=== PATIENT | male | born 1975 | race Caucasian/White ===

== ENCOUNTER 2021-06-09 13:37 | Inpatient (IN) | payer OTHER, SELFPAY ==
[2021-06-09] MEDS ORDERED: Ringers Lactate 1,000 ML IV ONE (14:28)
--- NOTE | 2021-06-09 14:50 | RAD REPORT ---
EXAM DESCRIPTION: CT - Head Brain Wo Cont - 06/09/2021 2:26 pm CLINICAL HISTORY: Mental status change, unknown cause COMPARISON: No comparisons TECHNIQUE: All CT scans are performed using dose optimization technique as appropriate and may inclu de automated exposure control or mA/KV adjustment according to patient size. FINDINGS: No intracranial hemorrhage, hydrocephalus or extra-axial fluid collection.No areas of brai n edema or evidence of midline shift. The paranasal sinuses and mastoids are clear. The calvarium is intact. IMPRESSION: No acute intracranial abnormality.
--- NOTE | 2021-06-09 14:52 | RAD REPORT ---
EXAM DESCRIPTION: RAD - Chest Single View - 06/09/2021 2:42 pm CLINICAL HISTORY: ams COMPARISON: No comparisons FINDINGS: Lines: None. Lungs: Mild opacities medially within the right lung base. Pleural: No significant pleural effusions or pneumothorax. Cardiac: The heart size is within normal limits. Bones: No acute fractures. Other: IMPRESSION: Mild opacities medially within the right lung base may represent atelectasis or pneumoni tis.
[2021-06-09 15:38] LABS: Protime INR 1.73
[2021-06-09] MEDS ORDERED: LORazepam 2 MG/ML VIAL ONE ×3 (15:43→20:06)
[2021-06-09 15:46] LABS: Absolute Lymphocytes (CBC) 1.7 K/uL (0.7-4.9); Hematocrit 36.7 % (39.6-49.0); Lymphocytes % 10.1 % (15.3-44.8); MPV 10.3 fL (7.6-11.3); RBC Red Blood Cell Count 3.75 M/uL (4.33-5.43)
[2021-06-09 16:11] LABS: Albumin 1.7 g/dL (3.4-5.0); Bilirubin Direct 7.9 mg/dL (0-0.2); Protein, Total 7.3 g/dL (6.4-8.2); Troponin High Sensitivity 6.5 pg/mL (<58.9)
[2021-06-09 16:22] LABS: Bilirubin Total 10.3 mg/dL (0.2-1.0); Magnesium 1.2 mg/dL (1.8-2.4); Potassium 2.7 mmol/L (3.5-5.1)
[2021-06-09 16:28] LABS: SARS-COV-2 RT PCR NEGATIVE (NEGATIVE)
[2021-06-09] MEDS ORDERED: KCL 20 MEQ/100 mL IVPB 100 ML IV ONE (17:52)
[2021-06-09] MEDS ORDERED: LACTULOSE 20 GM/30 ML UCUP ONE (17:52)
--- NOTE | 2021-06-09 17:55 | RAD REPORT ---
EXAM DESCRIPTION: CTAbdomen Pelvis W Contrast - 06/09/2021 5:39 pm CLINICAL HISTORY: Nausea/vomiting COMPARISON: No comparisons TECHNIQUE: CT of the abdomen and pelvis was performed. All CT scans are performed using dose optimization technique as appropriate and may include automated exposure control or mA/KV adjustment according to patient size. FINDINGS: Lower chest: Scattered coronary artery calcifications. Thickened distal esophagus. Liver: Hepatomegaly with significant steatosis. Perihepatic fluid. Biliary: No biliary ductal dilatation. Distended gallbladder. Stomach: Question gastric wall thickening versus underdistention. Duodenum: No significant focal abnormality. Pancreas: Poorly evaluated pancreas due to motion. There are some cystic lesions at the pancreatic ne ck and head have not well characterized. There are also some calcifications near the pancreatic head. The largest measures 2.1 cm. Spleen: No significant abnormality. Adrenal: No suspicious lesions. Kidney/ureter: No hydronephrosis. No renal calculi. Retroperitoneum: No retroperitoneal adenopathy. Vascular: No aneurysm. Bowel: Diffuse colonic wall thickening.. No bowel obstruction. No appendicitis . Peritoneum: Small volume of ascites. Bladder: Grossly unremarkable. Reproductive: No adnexal masses. Bones: No acute fracture. Other: n/a IMPRESSION: Hepatomegaly with marked hepatic steatosis. Correlate for steatohepatitis. Diffuse colonic wall thickening is nonspecific and may be related to hepatic decompensation versus a nonspecific colitis. The pancreas is not well assessed. There are 2 cystic lesions, the largest measuring 2.1 cm. Suggest nonemergent pancreatic protocol CT or MRI when the patient's condition permits.
[2021-06-09 18:27] LABS: Blood Morphology Comment NOT SEEN (NOT SEEN); Platelet Estimate ADEQ; Toxic Granulation 3+; White Blood Cell Scan OK (OK)
--- NOTE | 2021-06-09 18:31 | ER ---
Nurse's Notes [facility] Name: Tony Bush Age: 45 yrs Sex: Male : 1975 Arrival Date: 06/09/2021 Time: 13:40 Bed 28 Private MD: Diagnosis: Unspecified cirrhosis of liver;Altered mental status, unspecified;Pneumonia;Hypokalemia;Hypocalcemia;Hepatic Encephalopathy Presentation: 06/09 13:46 Chief complaint: EMS states: SAID HE'S MORE CONFUSED. Coronavirus screen: At this bp time, the client does not indicate any symptoms associated with coronavirus-19. Ebola Screen: No symptoms or risks identified at this time. Initial Sepsis Screen: Does the patient meet any 2 criteria? Altered Mental Status. No. Patient's initial sepsis screen is negative. Does the patient have a suspected source of infection? No. Patient's initial sepsis screen is negative. Risk Assessment: Do you want to hurt yourself or someone else? Patient reports no desire to harm self or others. Onset of symptoms is unknown. Care prior to arrival: IV initiated. 20 GA, in the left antecubital area, Glucose check: 175. 13:46 Method Of Arrival: EMS: [facility] bp 13:46 Acuity: MAYTE 3 bp Triage Assessment: 13:48 General: Appears in no apparent distress. unkempt, Behavior is cooperative, CONFUSED. bp Pain: Denies pain. EENT: Sclera/Cornea JAUNDICED. Neuro: Level of Consciousness is awake, obeys commands, confused, Oriented to person. Cardiovascular: No deficits noted. Respiratory: No deficits noted. GI: No signs and/or symptoms were reported involving the gastrointestinal system. : No signs and/or symptoms were reported regarding the genitourinary system. Derm: Skin is jaundiced. Musculoskeletal: No deficits noted. Historical: - Allergies: 13:48 No Known Allergies; bp - Home Meds: 13:48 Unable to obtain [Active]; bp - PMHx: 13:48 Cirrhosis of liver; Diabetes mellitus; bp - Immunization history:: Adult Immunizations unknown. - Social history:: Smoking status: unknown. Screenin:50 Abuse screen: Denies threats or abuse. Denies injuries from another. Nutritional bp screening: No deficits noted. Tuberculosis screening: No symptoms or risk factors identified. Fall Risk None identified. Assessment: 13:50 General: SEE TRIAGE NOTE. bp 15:30 Reassessment: PT AGITATED, ATTEMPTING TO EXIT BED. PT AOx0, EXHIBITING NO SAFETY bp AWARENESS, REQUIRING PHYSICAL REDIRECTION TO REMAIN IN BED. 16:30 Reassessment: No changes from previously documented assessment. bp 18:00 Reassessment: COMBATIVE WITH CT STAFF. PROVIDER INFORMED. ke1 18:50 Reassessment: U/S AT B/S. ke1 Vital Signs: 13:46 BP 137 / 82; Pulse 82; Resp 16; Temp 98; Pulse Ox 96% ; bp 13:51 BP 101 / 79; Pulse 77; Resp 16; Pulse Ox 95% ; bp 15:33 BP 108 / 73; Pulse 75; Resp 16; Pulse Ox 95% ; bp 16:37 BP 108 / 72; Pulse 80; Resp 16; Pulse Ox 95% ; bp 18:30 BP 90 / 66; Pulse 68; Resp 16; Pulse Ox 97% ; ke1 06/13 03:39 BP 138 / 82; Pulse 49; Resp 13; Pulse Ox 98% on R/A; wm 06:36 BP 134 / 90; Pulse 49; Resp 9; Pulse Ox 100% on R/A; wm ED Course: 06/09 13:40 Patient arrived in ED. em1 13:40 Mickey Rivas PA is PHCP. jmm 13:40 Catracho Chapman MD is Attending Physician. jmm 13:41 Corbin Duran, MARYA is Primary Nurse. bp 13:47 Triage completed. bp 13:50 Arm band placed on. bp 13:50 Patient has correct armband on for positive identification. Bed in low position. Call bp light in reach. Side rails up X2. Adult w/ patient. 13:50 Maintain EMS IV. Dressing intact. Good blood return noted. Site clean \T\ dry. Gauge \T\ bp site: 20 G LEFT AC. 14:28 CT Head Brain wo Cont In Process Unspecified. EDMS 14:44 XRAY Chest (1 view) In Process Unspecified. EDMS 15:18 Inserted saline lock: 22 gauge in right hand, using aseptic technique. Blood collected. mb7 17:41 CT Abd/Pelvis - IV Contrast Only In Process Unspecified. EDMS 18:29 Saleem Ho MD is Hospitalizing Provider. jmm 19:21 Abdomen Limited US In Process Unspecified. EDMS 06/11 13:04 No provider procedures requiring assistance completed. jg9 13:05 Patient admitted, IV remains in place. jg9 18:01 Primary Nurse role handed off by Corbin Duran, MARYA 06/12 07:10 Madeline De La Paz, MARYA is Primary Nurse. [facility] 06/13 16:44 Accessed peripheral vein via ultrasound, utilizing dynamic ultrasound technique using jd3 18G Sureflo IV catheter ,sterile technique, per hospital protocol. Clean \T\ dry. Dressing intact. Good blood return. Flushes easily. Right AC. Administered Medications: 06/09 14:15 Drug: Lactated Ringers Solution 1000 ml Route: IV; Rate: 1000 bolus; Site: left bp antecubital; 15:45 Drug: Ativan (LORazepam) 1 mg Route: IVP; Site: left antecubital; bp 16:37 Follow up: Response: Anxiety decreased bp 18:30 Drug: Potassium Chloride 20 mEq Route: IV; Rate: calculated rate; Site: left hand; bp 18:30 Drug: Lactulose 30 grams Volume: 45 ml; Route: PO; bp 18:30 Drug: Ativan (LORazepam) 1 mg Route: IVP; Site: left antecubital; bp 19:55 Drug: Rocephin (cefTRIAXone) 1 grams Route: IV; Rate: calculated rate; Site: left ke1 antecubital; 21:15 Follow up: IV Status: Completed infusion ke1 21:15 Follow up: Response: No adverse reaction ke1 19:55 CANCELLED (Inappropriate at this time): AZITHromycin 500 mg PO once ke1 20:09 Drug: Ativan (LORazepam) 0.5 mg Route: IVP; Site: left antecubital; ke1 20:09 Drug: AZITHromycin 500 mg Route: IVPB; Infused Over: 1 hrs; Site: left antecubital; ke1 21:15 Follow up: Response: No adverse reaction; IV Status: Completed infusion ke1 21:28 Drug: Magnesium Sulfate 2 grams Route: IVPB; Infused Over: 2 hrs; Site: left ke1 antecubital; Outcome: 18:31 Decision to Hospitalize by Provider. [facility] 06/11 13:04 Condition: stable jg9 13:05 Admitted to ER Hold. Please see [facility] for further documentation. j9 06/13 19:57 Patient left the ED. fu Signatures: Dispatcher [employer] EDMS Alba Topete Joel, PA PA jmm Martinez, Eric em1 Davies, Jonathon, RN RN jd3 Chance Willson, RN RN fu Corbin Duran RN Madeline Jordan, RN RN [facility] Isha Verdin [place] [id number] Lucretia Henao RN RN jg9 Diandra Burleson RN RN ke1
--- NOTE | 2021-06-09 18:32 | EDPHYS ---
Physician Documentation [facility] Name: Tony Bush Age: 45 yrs Sex: Male : 1975 Arrival Date: 06/09/2021 Time: 13:40 Bed 28 Private MD: ED Physician Catracho Chapman HPI: 06/09 13:49 This 45 yrs old Male presents to ER via EMS with complaints of Altered Mental Status. jmm 13:49 The patient presents with confusion, decreased mental status, disorientation, to place, jmm to time. Onset: The symptoms/episode began/occurred gradually, 2 day(s) ago. Possible causes: low blood sugar, the patient uses insulin. Associated signs and symptoms: Pertinent positives: confusion, Pertinent negatives: abdominal pain, chest pain. This is a 45 year old male with a history of liver cirrhosis that presents to the ED with ams according to the . States the patient has had slurred speech and decreased responsiveness. States the patient had a similar episode when he was in DKA. . Historical: - Allergies: 13:48 No Known Allergies; bp - Home Meds: 13:48 Unable to obtain [Active]; bp - PMHx: 13:48 Cirrhosis of liver; Diabetes mellitus; bp - Immunization history:: Adult Immunizations unknown. - Social history:: Smoking status: unknown. ROS: 13:49 Constitutional: Negative for fever, chills, and weight loss, Cardiovascular: Negative jmm for chest pain, palpitations, and edema, Respiratory: Negative for shortness of breath, cough, wheezing, and pleuritic chest pain, Abdomen/GI: Negative for abdominal pain, nausea, vomiting, diarrhea, and constipation. 13:49 Neuro: Positive for altered mental status. 13:49 All other systems are negative. Exam: 13:49 Head/Face: atraumatic. Eyes: EOMI, no conjunctival erythema appreciated ENT: Moist jmm Mucus Membranes Neck: Trachea midline, Supple Chest/axilla: Normal chest wall appearance and motion. Cardiovascular: Regular rate and rhythm. No edema appreciated Respiratory: Normal respirations, no respiratory distress appreciated Abdomen/GI: Non distended, soft Back: Normal ROM Skin: General appearance color normal 13:49 Constitutional: The patient appears alert, awake. 13:49 Musculoskeletal/extremity: ROM: intact in all extremities. 13:49 Skin: Appearance: Color: normal in color. 13:49 Neuro: Motor: is normal. Vital Signs: 13:46 BP 137 / 82; Pulse 82; Resp 16; Temp 98; Pulse Ox 96% ; bp 13:51 BP 101 / 79; Pulse 77; Resp 16; Pulse Ox 95% ; bp 15:33 BP 108 / 73; Pulse 75; Resp 16; Pulse Ox 95% ; bp 16:37 BP 108 / 72; Pulse 80; Resp 16; Pulse Ox 95% ; bp 18:30 BP 90 / 66; Pulse 68; Resp 16; Pulse Ox 97% ; ke1 06/13 03:39 BP 138 / 82; Pulse 49; Resp 13; Pulse Ox 98% on R/A; wm 06:36 BP 134 / 90; Pulse 49; Resp 9; Pulse Ox 100% on R/A; wm MDM: 06/09 13:49 Patient medically screened. [facility] 16:37 Data reviewed: vital signs, nurses notes. Counseling: I had a detailed discussion with [facility] the patient and/or guardian regarding: the historical points, exam findings, and any diagnostic results supporting the discharge/admit diagnosis, lab results, the need for further work-up and treatment in the hospital. 18:28 ED course: I discussed the patient with Dr. Mcintosh and Camilo Akbar. Recommended [facility] consultation with Dr. Rothman. I discussed the patient with Dr. Rothman whom will consult on patient admission. Camilo advised to admit to Dr. Oneill's service. . 06/09 13:51 Order name: Basic Metabolic Panel; Complete Time: 16:30 [facility] 06/09 13:51 Order name: CBC with Diff; Complete Time: 18:31 [facility] 06/09 13:51 Order name: LFT's; Complete Time: 16:30 [facility] 06/09 13:51 Order name: Magnesium; Complete Time: 16:30 [facility] 06/09 13:51 Order name: PT-INR; Complete Time: 15:45 [facility] 06/09 13:51 Order name: Troponin HS; Complete Time: 16:30 [facility] 06/09 13:51 Order name: AMMONIA; Complete Time: 16:13 [facility] 06/09 13:51 Order name: Procalcitonin; Complete Time: 16:30 [facility] 06/09 13:51 Order name: Lactate; Complete Time: 16:14 [facility] 06/09 13:51 Order name: Blood Culture Adult (2) [facility] 06/09 13:56 Order name: COVID-19/FLU A+B (Document "Date of Onset" if Symptomatic); Complete Time: [facility] 16:30 06/09 15:15 Order name: Urine Drug Screen [facility] 06/09 18:15 Order name: Lipase; Complete Time: 18:39 [facility] 06/09 18:25 Order name: ETOH Level; Complete Time: 20:08 la1 06/09 18:28 Order name: CBC Smear Scan; Complete Time: 18:31 EDMS 06/10 04:28 Order name: CBC with Automated Diff; Complete Time: 12:29 EDMS 06/10 04:49 Order name: Comprehensive Metabolic Panel; Complete Time: 12:29 EDMS 06/10 04:49 Order name: Phosphorus; Complete Time: 12:29 EDMS 06/10 04:49 Order name: Lipid Profile; Complete Time: 12:29 EDMS 06/10 04:49 Order name: T4 Free; Complete Time: 12:29 EDMS 06/10 04:49 Order name: Magnesium; Complete Time: 12:29 EDMS 06/10 04:49 Order name: Lipase; Complete Time: 12:29 EDMS 06/10 04:49 Order name: Thyroid Stimulating Hormone; Complete Time: 12:29 EDMS 06/10 04:55 Order name: Manual Differential; Complete Time: 12:29 EDMS 06/10 09:40 Order name: Glucose, Ancillary Testing; Complete Time: 12:29 EDMS 06/10 14:39 Order name: Glucose, Ancillary Testing; Complete Time: 14:54 EDMS 06/10 14:43 Order name: Gram Stain--Aerobic Bottle EDMS 06/10 14:43 Order name: Gram Stain--Anaerobic Bottle EDMS 06/10 14:46 Order name: Gram Stain--Aerobic Bottle EDMS 06/10 14:46 Order name: Gram Stain--Anaerobic Bottle EDMS 06/10 17:14 Order name: Protime (+INR); Complete Time: 17:22 EDMS 06/10 21:22 Order name: Glucose, Ancillary Testing EDMS 06/11 04:22 Order name: CBC with Automated Diff EDMS 06/11 04:38 Order name: Comprehensive Metabolic Panel EDMS 06/11 04:38 Order name: Phosphorus EDMS 06/11 04:38 Order name: Magnesium EDMS 06/11 04:38 Order name: Lipase EDMS 06/11 05:15 Order name: Manual Differential EDMS 06/11 09:08 Order name: Glucose, Ancillary Testing EDMS 06/11 10:19 Order name: Protime (+INR) EDMS 06/11 13:12 Order name: Glucose, Ancillary Testing EDMS 06/11 17:10 Order name: Glucose, Ancillary Testing EDMS 06/12 00:20 Order name: Glucose, Ancillary Testing EDMS 06/12 04:43 Order name: Urine Dipstick-Ancillary EDMS 06/12 05:08 Order name: Urinalysis EDMS 06/12 05:18 Order name: Urine Microscopic Only EDMS 06/12 05:26 Order name: CBC with Automated Diff EDMS 06/12 06:01 Order name: Ammonia EDMS 06/12 06:09 Order name: Comprehensive Metabolic Panel EDMS 06/12 06:09 Order name: Phosphorus EDMS 06/12 06:09 Order name: NT PRO-BNP EDMS 06/12 06:09 Order name: Magnesium EDMS 06/12 06:09 Order name: Lipase EDMS 06/12 06:57 Order name: Procalcitonin EDMS 06/12 08:30 Order name: Glucose, Ancillary Testing EDMS 06/12 10:06 Order name: Protime (+INR) EDMS 06/12 12:13 Order name: Glucose, Ancillary Testing EDMS 06/12 20:43 Order name: Glucose, Ancillary Testing EDMS 06/12 20:48 Order name: Glucose, Ancillary Testing EDMS 06/13 05:55 Order name: CBC with Automated Diff EDMS 06/13 08:14 Order name: Glucose, Ancillary Testing EDMS 06/13 08:16 Order name: Basic Metabolic Panel EDMS 06/09 13:51 Order name: XRAY Chest (1 view); Complete Time: 14:53 jmm 06/09 13:51 Order name: EKG; Complete Time: 13:52 jmm 06/09 13:51 Order name: Cardiac monitoring; Complete Time: 13:52 jmm 06/09 13:51 Order name: IV Saline Lock; Complete Time: 14:09 jmm 06/09 13:51 Order name: O2 Per Protocol; Complete Time: 13:52 jmm 06/09 13:51 Order name: O2 Sat Monitoring; Complete Time: 13:52 [facility] 06/09 13:54 Order name: CT Head Brain wo Cont; Complete Time: 14:53 [facility] 06/09 16:46 Order name: CT Abd/Pelvis - IV Contrast Only; Complete Time: 18:02 [facility] 06/09 18:57 Order name: Abdomen Limited US; Complete Time: 19:36 la1 06/13 08:16 Order name: Liver (Hepatic) Function EDKY 06/13 08:16 Order name: Magnesium EDKY 06/13 11:01 Order name: Potassium EDMS 06/13 11:35 Order name: Glucose, Ancillary Testing EDMS 06/13 18:03 Order name: Glucose, Ancillary Testing EDMS 06/13 19:27 Order name: Hepatitis Panel,Acute EDMS Administered Medications: 14:15 Drug: Lactated Ringers Solution 1000 ml Route: IV; Rate: 1000 bolus; Site: left bp antecubital; 15:45 Drug: Ativan (LORazepam) 1 mg Route: IVP; Site: left antecubital; bp 16:37 Follow up: Response: Anxiety decreased bp 18:30 Drug: Potassium Chloride 20 mEq Route: IV; Rate: calculated rate; Site: left hand; bp 18:30 Drug: Lactulose 30 grams Volume: 45 ml; Route: PO; bp 18:30 Drug: Ativan (LORazepam) 1 mg Route: IVP; Site: left antecubital; bp 19:55 Drug: Rocephin (cefTRIAXone) 1 grams Route: IV; Rate: calculated rate; Site: left ke1 antecubital; 21:15 Follow up: IV Status: Completed infusion ke1 21:15 Follow up: Response: No adverse reaction ke1 19:55 CANCELLED (Inappropriate at this time): AZITHromycin 500 mg PO once ke1 20:09 Drug: Ativan (LORazepam) 0.5 mg Route: IVP; Site: left antecubital; ke1 20:09 Drug: AZITHromycin 500 mg Route: IVPB; Infused Over: 1 hrs; Site: left antecubital; ke1 21:15 Follow up: Response: No adverse reaction; IV Status: Completed infusion ke1 21:28 Drug: Magnesium Sulfate 2 grams Route: IVPB; Infused Over: 2 hrs; Site: left ke1 antecubital; Disposition Summary: 06/09/21 18:31 Hospitalization Ordered Hospitalization Status: Inpatient Admission jmm Provider: Saleem Ho Condition: Stable jmm Problem: new jmm Symptoms: are unchanged jmm Bed/Room Type: Standard jmm Location: Telemetry/MedSurg (Inpatient)(06/13/21 18:07) dw Room Assignment: 213(06/13/21 18:07) dw Diagnosis - Unspecified cirrhosis of liver jmm - Altered mental status, unspecified jmm - Pneumonia jmm - Hypokalemia jmm - Hypocalcemia jmm - Hepatic Encephalopathy jmm Forms: - Medication Reconciliation Form jmm - SBAR form jmm Addendum: 06/15/2021 07:51 Co-signature as Attending Physician, Catracho Chapman MD I agree with the assessment and c [facility] plan of care. Signatures: Dispatcher [employer] EDMS Alba Topete Diana, RN Catracho Allen MD MD cha Mickail, Joel, JOYCE PA jmm Camilo Akbar, CUSTOMER TRAINER-C CUSTOMER TRAINER-Cla1 Zulay Lambert, RN RN cg Adrien Cabrera, RN RN ja1 Corbin Duran, RN RN Diandra Starkey, RN RN ke1 Corrections: (The following items were deleted from the chart) 06/09 17:27 16:46 Abdomen Limited+US.RAD.BRZ ordered. EDKY EDMS 18:51 18:31 Telemetry/MedSurg (Inpatient) jmm la1 18:51 18:31 jmm la1 19:55 18:24 AZITHromycin 500 mg PO once ordered. jmm ke1 20:12 18:51 Intensive Care Unit la1 cg 20:12 18:51 la1 cg 06/11 12:27 06/09 20:12 [facility] ER HOLD cg bd 06/11 12:27 06/09 20:12 ERHOLD- cg bd 06/11 13:40 12:27 Intensive Care Unit bd ja1 13:40 12:27 8- bd ja1 06/13 18:07 06/11 13:40 [facility] ER HOLD ja1 dw 06/13 18:07 06/11 13:40 ERHOLD- ja1 dw
--- NOTE | 2021-06-09 19:33 | RAD REPORT ---
EXAM DESCRIPTION: US - Abdomen Exam Limited - 06/09/2021 7:20 pm CLINICAL HISTORY: Elev. T/Dbilil, distended gallbladder COMPARISON: Chest Pa And Lat (2 Views) dated 09/27/2016; Chest Pa And Lat (2 Views) dated 08/18/2016; C HEST PA AND LAT 2 VIEW dated 10/24/2010; CHEST PA AND LAT 2 VIEW dated 01/14/2008bdomen Pelvis W Co ntrast dated 06/09/2021 FINDINGS: Distended gallbladder with sludge. Gallbladder wall measures 2 millimeters. Mild perichole cystic fluid. The common bile duct was not visualized. Hepatic steatosis. IMPRESSION: Distended gallbladder but no evidence of cholelithiasis or wall thickening. Mild pericho lecystic fluid probably related to presence of ascites and underlying liver disease. Cholecystitis co nsidered unlikely. If there is persistent clinical concern, a HIDA scan could confirm cystic duct pat ency.
[2021-06-09] MEDS ORDERED: NA CHLORIDE 0.9% 50 ML ONE (19:46)
[2021-06-09] MEDS ORDERED: CEFTRIAXONE 1000 MG/VIAL ONE (19:46)
[2021-06-09] MEDS ORDERED: AZITHROMYCIN 500 MG INJ IVPB ONE (20:01)
[2021-06-09] MEDS ORDERED: NA CHLORIDE 0.9% 250 ML ONE (20:01)
--- NOTE | 2021-06-09 20:25 | P.HP ---
Certification for Inpatient Patient admitted to: Inpatient With expected LOS: >2 Midnights Patient will require the following post-hospital care: None Practitioner: I am a practitioner with admitting privileges, knowledge of patient current condition, hospital course, and medical plan of care. Services: Services provided to patient in accordance with Admission requirements found in Title 42 Section 412.3 of the Code of Federal Regulations <Camilo Akbar - Last Filed: 06/09/21 20:16> Patient History Date of Service: 06/09/21 Reason for admission: Acute hepatic failure History of Present Illness: 45-year-old male was brought into the emergency department for altered mental status, his fiance is present at bedside who reports that he has a history of diabetes mellitusinsulin-dependent, chronic pancreatitis as well as questionable liver disease related to chronic alcohol abuse. She reports that he drinks approximately 1 handle of vodka every other day and his last drink was 2 days ago. He has had decreased mentation over the course of the last 24 to 48 hours. He was evaluated in the ER found to be have acute hepatic failure, multiple electrolyte abnormalities, hyperammonemia, leukocytosis. He had CT abdomen pelvis performed which demonstrated hepatomegaly with marked hepatic steatosis correlate for steatohepatitis, diffuse colonic wall thickening, 2 cystic lesions the largest measuring 2.1 cm on the pancreas, abdominal ultrasound demonstrated distended gallbladder but no evidence of cholelithiasis or wall thickening mild pericholecystic fluid probably related the presence of ascites and underlying liver disease, cholecystitis unlikely. Head CT without contrast negative for acute findings chest x-ray demonstrated mild opacities medially within the lung base may represent atelectasis or pneumonitis. Patient was given IV antibiotics, lactulose in the ER emergency department provider discussed case with GI on-call who will consult, will need to admit to the ICU given mental status, risk for severe alcohol withdrawal at this time. - Past Medical/Surgical History -: Diabetes mellitus type 2insulin-dependent -: Alcoholic cirrhosis of liver -: Chronic pancreatitis Past Surgical History: Unable to obtain Psychosocial/ Personal History: Patient lives at home with his fiance - Family History Father History Unknown: Yes - Social History Smoking Status: Current every day smoker Smoking therapy provided: No (Patient altered) Alcohol use: Yes CD- Drugs: No Caffeine use: Yes Place of Residence: Home <Camilo Akbar - Last Filed: 06/09/21 20:16> Date of Service: 06/10/21 <Saleem Ho - Last Filed: 06/10/21 08:33> Review of Systems is unable to be obtained (Altered) <Camilo Akbar - Last Filed: 06/09/21 20:16> Physical Examination - Physical Exam General: Confused, Other (Lethargic) HEENT: Atraumatic, Scleral icterus Neck: Supple Respiratory: Diminished Cardiovascular: No edema, Normal S1 S2 Capillary refill: <2 Seconds Gastrointestinal: Normal bowel sounds, No tenderness Musculoskeletal: No contractures, No erythema, No tenderness Integumentary: No significant lesion, No tenderness/swelling, No erythema Neurological: Other (Very drowsy, confused. Moving all extremities alert to verbal stimulus.) - Studies Laboratory Data (last 24 hrs) 06/09/21 15:00: Lipase 121 06/09/21 15:00: PT 19.2 H, INR 1.73 06/09/21 15:00: WBC 16.8 H, Hgb 12.2 L, Hct 36.7 L, Plt Count 204 06/09/21 15:00: Sodium 134 L, Potassium 2.7 L*, BUN 17, Creatinine 1.25, Glucose 131 H, Magnesium 1.2 L*, Total Bilirubin 10.3 H*, AST 202 H, ALT 37, Alkaline Phosphatase 376 H <Camilo Akbar - Last Filed: 06/09/21 20:16> - Studies Laboratory Data (last 24 hrs) 06/09/21 15:00: Lipase 121 06/09/21 15:00: PT 19.2 H, INR 1.73 06/09/21 15:00: WBC 16.8 H, Hgb 12.2 L, Hct 36.7 L, Plt Count 204 06/09/21 15:00: Sodium 134 L, Potassium 2.7 L*, BUN 17, Creatinine 1.25, Glucose 131 H, Magnesium 1.2 L*, Total Bilirubin 10.3 H*, AST 202 H, ALT 37, Alkaline Phosphatase 376 H <Saleem Ho - Last Filed: 06/10/21 08:33> Assessment and Plan - Plan Assessment: Hepatic encephalopathy secondary to acute hepatic failure/alcoholic cirrhosis of the liver with hyperammonemia Diabetes mellitus type 2insulin-dependent Chronic pancreatitis with incidental CT finding cystic masses on pancreas largest 2.1 cm Suspected right lower lobe pneumonia Hypokalemia, hypomagnesemia, hypocalcemia Plan: Hepatic encephalopathy secondary to acute hepatic failure/alcoholic cirrhosis of the liver with hyperammonemia: Continue with scheduled lactulose, GI has been consulted. Destini reports the patient drinks approximately 1 handle of vodka every other day last drink was reportedly on . We will need to monitor closely for alcohol withdrawals, destini reports that patient has had significant alcohol withdrawals in the past. ED provider discussed case with GI who will see patient in the hospital. CT/ultrasound do not note any significant CBD dilatation, no signs of acute cholecystitis noted. Diabetes mellitus reportedly onus type 2insulin-dependent: Every 6 hours Accu- Chek, mild sliding scale insulin. A1c in the morning. Chronic pancreatitis with incidental CT finding cystic masses on pancreas largest 2.1 cm: Incidental finding on CT, unable to discuss with patient at this time as he is altered we will need to notify patient when he is more arousable. Suspected right lower lobe pneumonia: Continue broad-spectrum antibiotics Rocephin/Zithromax, incentive spirometry. Hypokalemia, hypomagnesemia, hypocalcemia: Protocols in place, corrected calcium 7.9. DVT PPX: Lovenox Code status: Full Discharge Plan: Home Plan to discharge in: Greater than 2 days - Advance Directives Does patient have a Living Will: No Does patient have a Durable POA for Healthcare: No - Code Status/Comfort Care Code Status Assessed: Yes (Full code) Critical Care: No Time Spent Managing Pts Care (In Minutes): 55 <Camilo Akbar - Last Filed: 06/09/21 20:16>
[2021-06-09] MEDS ORDERED: Magnesium Sulfate 2gm IVPB 2 G/50 ML BAG IV ONE (21:21)
[2021-06-10] MEDS: D5 0.45 NS 1,000 ML IV SCH ×3 (01:25→21:25)
[2021-06-10] MEDS: LACTULOSE 20 GM/30 ML UCUP PO SCH ×5 (01:25→21:00)
[2021-06-10] MEDS: LORazepam 2 MG/ML VIAL IV PRN ×7 (01:33→21:00)
[2021-06-10] MEDS ORDERED: LORazepam 2 MG/ML VIAL ONE ×6 (01:34→20:53)
[2021-06-10] MEDS ORDERED: D5 0.45 NS 1,000 ML IV ONE ×3 (02:49→22:17)
[2021-06-10] MEDS ORDERED: LACTULOSE 20 GM/30 ML UCUP ONE ×6 (03:13→20:30)
[2021-06-10 04:27] LABS: Hematocrit 35.5 % (39.6-49.0); RBC Red Blood Cell Count 3.64 M/uL (4.33-5.43)
[2021-06-10 04:42] LABS: Albumin 1.6 g/dL (3.4-5.0); Magnesium 1.8 mg/dL (1.8-2.4); Protein, Total 6.8 g/dL (6.4-8.2); Thyroid Stimulating Hormone 2.64 uIU/mL (0.360-3.740)
[2021-06-10 04:48] LABS: Bilirubin Total 9.5 mg/dL (0.2-1.0); Phosphorus 0.8 mg/dL (2.5-4.9); Potassium 2.8 mmol/L (3.5-5.1)
[2021-06-10 04:55] LABS: Blood Morphology Comment NOTED (NOT SEEN); Platelet Estimate ADEQ; Target Cells 2+
--- NOTE | 2021-06-10 07:54 | P.PN ---
Subjective Date of Service: 06/10/21 Chief Complaint: Acute hepatic failure Subjective: Worsening (has agitation.) Physical Examination - Physical Exam General: Delirious HEENT: Atraumatic, Normocephalic Neck: Supple Respiratory: Normal air movement Gastrointestinal: Soft and benign Neurological: Other (agitated.) - Studies Laboratory Data (last 24 hrs) 06/09/21 15:00: Lipase 121 06/09/21 15:00: PT 19.2 H, INR 1.73 06/09/21 15:00: WBC 16.8 H, Hgb 12.2 L, Hct 36.7 L, Plt Count 204 06/09/21 15:00: Sodium 134 L, Potassium 2.7 L*, BUN 17, Creatinine 1.25, Glucose 131 H, Magnesium 1.2 L*, Total Bilirubin 10.3 H*, AST 202 H, ALT 37, Alkaline Phosphatase 376 H Assessment And Plan - Plan Hepatic encephalopathy secondary to acute hepatic failure/alcoholic cirrhosis of the liver with hyperammonemia: Has significant elevation of liver enzymes. there is concerns for alcoholic hepatitis. we have started solumedrol 40mg PO daily. we will continue lactulose for hepatic encephalopathy management. Gi following. Diabetes mellitus reportedly onus type 2insulin-dependent: Every 6 hours Accu-Chek, mild sliding scale insulin. A1c in the morning. Chronic pancreatitis with incidental CT finding cystic masses on pancreas largest 2.1 cm: Incidental finding on CT. GI following. Suspected right lower lobe pneumonia: Continue broad-spectrum antibiotics Rocephin/Zithromax, incentive spirometry. Hypokalemia, we will replete and follow on daily labs. hypomagnesemia: We will replete and follow. hypocalcemia: we will replete and follow on daily labs. Hypophosphatemia: Low phosphorus at 0.8 noted on labs today. we will replete and follow on daily labs. Alcohol withdrawal: we will start scheduled librium doses. alcohol withdrawal protocol started. DVT PPX: Lovenox Code status: Full
[2021-06-10] MEDS ORDERED: chlordiazePOXIDE HCl 25 MG CAP ONE ×3 (08:45→20:30)
[2021-06-10] MEDS ORDERED: METHYLPREDNISOLONE 40 MG INJ ONE (08:46)
[2021-06-10] MEDS: METHYLPREDNISOLONE 40 MG INJ IV SCH (09:00)
[2021-06-10] MEDS ORDERED: POTASSIUM PHOS 44 MEQ in NA CHLORIDE 0.9% 500 ML IV ONE (09:00)
[2021-06-10] MEDS: chlordiazePOXIDE HCl 25 MG CAP PO SCH ×3 (09:00→21:00)
[2021-06-10] MEDS ORDERED: ENOXAPARIN 40 MG/0.4 ML SQ SCH (09:00)
[2021-06-10] MEDS: INSULIN -REGULAR HUMAN 50 UNIT/0.5 ML ML SQ SCH ×4 (09:28→21:00)
[2021-06-10] MEDS: Rifaximin 550 MG Tab PO SCH ×2 (15:00→21:00)
[2021-06-10 17:13] LABS: Protime INR 1.91
[2021-06-10] MEDS ORDERED: INSULIN -REGULAR HUMAN 50 UNIT/0.5 ML ML ONE (21:45)
[2021-06-10] MEDS ORDERED: KETOROLAC 30 MG/ML INJ ONE (21:52)
[2021-06-11] MEDS ORDERED: LORazepam 2 MG/ML VIAL ONE ×3 (01:07→14:46)
[2021-06-11] MEDS: LORazepam 2 MG/ML VIAL IV PRN ×3 (01:07→17:00)
[2021-06-11] MEDS ORDERED: LORazepam 2 MG/ML VIAL IV ONE (01:54)
[2021-06-11] MEDS: chlordiazePOXIDE HCl 25 MG CAP PO SCH ×3 (03:00→17:00)
[2021-06-11] MEDS ORDERED: chlordiazePOXIDE HCl 25 MG CAP ONE ×3 (03:59→17:08)
[2021-06-11 04:03] LABS: Absolute Lymphocytes (CBC) 3.5 K/uL (0.7-4.9); Lymphocytes % 15.4 % (15.3-44.8); MPV 9.6 fL (7.6-11.3); RBC Red Blood Cell Count 3.43 M/uL (4.33-5.43)
[2021-06-11 04:35] LABS: ALT/SGPT 37 U/L (12-78); AST/SGOT 186 U/L (15-37); Albumin 1.5 g/dL (3.4-5.0); Alkaline Phosphatase 317 U/L (45-117); BUN Blood Urea Nitrogen 6 mg/dL (7-18); Bicarbonate 27 mmol/L (21-32); Glomerular Filtration Rate > 90 mL/min (=/>90); Glucose Level 137 mg/dL (74-106); Lipase 42 U/L (73-393); Magnesium 1.8 mg/dL (1.8-2.4); Protein, Total 6.5 g/dL (6.4-8.2); Sodium Level 142 mmol/L (136-145)
[2021-06-11 04:37] LABS: Bilirubin Total 8.1 mg/dL (0.2-1.0); Phosphorus 0.7 mg/dL (2.5-4.9); Potassium 2.7 mmol/L (3.5-5.1)
[2021-06-11 05:15] LABS: Blood Morphology Comment NOTED (NOT SEEN); Platelet Estimate ADEQ; Target Cells 3+
[2021-06-11] MEDS: D5 0.45 NS 1,000 ML IV SCH ×2 (07:25→17:25)
[2021-06-11] MEDS: INSULIN -REGULAR HUMAN 50 UNIT/0.5 ML ML SQ SCH ×4 (07:30→22:45)
--- NOTE | 2021-06-11 07:49 | CON ---
Date of Consultation: 06/10/2021 Reason For Consultation: Acute alcoholic hepatitis with jaundice and confusion, altered mental status. History Of Present Illness: The patient is a 45-year-old white male with history of end-stage liver disease, cirrhosis, alcohol abuse, diabetes, hypertension, anxiety disorder, depression, prior pancreatitis, and DKA. The patient presented to hospital with acute altered mental status, found to have an AST and ALT of 202/37 and a total bilirubin of 10.3, PT of 19.2 with INR of 1.73, and alkaline phosphatase 376. [facility] Disc[facility] Function was calculated to be 42.5, well above the 32 threshold. The patient's afiae is at bedside, saying that he drinks anywhere from 4 to 6 beers a day. She stated that she quit alcohol a long ago due to her health problems and thinks he can do the same. The patient also smokes about a half a pack of cigarettes a day. Father . Past Medical History: Significant for diabetes, hypertension, alcohol abuse, cirrhosis of the liver, generalized anxiety disorder, depression, pancreatitis and diabetic ketoacidosis, DKA and then the patient's afiae says he had comas with diabetic coma as well. Medications: As per list. Now, the patient . Physical Examination: Vital Signs: The patient is afebrile. Vital signs are stable in the emergency room. General: He is almost confused male, not able to communicate, also obtunded, but is safely moving around the bed, reactive to physical stimuli, not much to verbal stimuli. He cannot answer questions appropriately currently. HEENT: Normocephalic, atraumatic. He has icteric conjunctiva and sclera. Oropharynx, he is not cooperative to open. Neck: Supple. No masses. Respirations: Have good air movement. Cardiac: Regular rate and rhythm. Gastrointestinal: Positive bowel sounds. Soft, nontender, nondistended. No hepatosplenomegaly. so much. Some possible hepatomegaly with ascites. No dullness in the flanks noted. No peritoneal signs. No Rodney signs. Extremities: No clubbing, cyanosis, or edema. 2+ pulses. Neuro: Alert and oriented x0. Cannot really communicate. Some obtunded, moves around in bed, although responsive to questioning. Laboratory Data: The patient has a white count of 19.5, up from 16.8 yesterday; hemoglobin of 11.9, down from 12.2 yesterday; hematocrit 35.5; MCV of 98; platelet count of 209; polys yesterday of 81%; lymphocytes 10%; monocytes 7%; eosinophils 1%. PT of 19.2, INR of 1.73. Sodium 138, potassium 2.8, chloride 100, bicarb 23, BUN 12, creatinine of 0.95, glucose 168, calcium 6.1, phosphorus of 0.8, magnesium 1.8, total bilirubin 9.5 down from 10.3 yesterday. AST of 193, ALT of 34, alkaline phosphatase 150, down from 176 yesterday. Ammonia of 91, total protein 6.8, albumin is 1.6, globulin 5.2, triglycerides of 326. Cholesterol 188, LDL of 114, HDL of 9, lipase of 59, . Procalcitonin elevated at 0.61. TSH 2.64, free T4 of 1.19. Serum alcohol less than 10. Although, tox screen is pending. Serologies; COVID-19 test negative, influenza A and B negative. Hepatitis A, B, and C serologies pending. CT abdomen and pelvis revealed hepatomegaly with marked hepatic steatosis, otherwise negative. No ascites. Pancreas was not well seen. There are 2 cystic lesions with largest 2.1 cm. MRI followup suggested. Impression: 1. Acute alcoholic hepatitis with Maddrey Discriminant Function of 42.5, well above the 32 threshold with an AST of 202, ALT of 37, total bilirubin 10.3, PT of 19.2, INR of 1.73, and alkaline phosphatase 376 on admission. IV steroids have been started. 2. Hepatic encephalopathy, ammonia 91. He is in grade 3 not totally obtunded but with movement. He is responsive to physical stimuli now: he can hear but does not answer verbal questions appropriately. 3. Cirrhosis secondary to alcohol. 4. Hepatomegaly with abnormal CT of the abdomen and pelvis. 5. Pancreatic cysts x2, largest 2.1 cm. 6. History of diabetes, hypertension, alcohol cirrhosis of liver, generalized anxiety disorder, depression, pancreatitis, DKA and diabetic coma. Recommendations: 1. Continue IV Solu-Medrol 40 mg IV daily. Continue lactulose and Xifaxan. 2. Add 1 mg p.o. daily and folate 100 mg p.o. daily. 3. DT precautions. 4. Benzodiazepine such as Librium p.r.n. 5. such as Ativan p.r.n. 6. Alcoholics anonymous or drug rehab on discharge. 7. Check hepatitis panel which has been . 8. Check MRCP in the morning with CA-19-9 as well. MARY/CHRIS Voice ID: [id number] Report ID: [id number] SALINA
[2021-06-11] MEDS: Rifaximin 550 MG Tab PO SCH ×2 (09:00→21:00)
[2021-06-11] MEDS: METHYLPREDNISOLONE 40 MG INJ IV SCH (09:00)
[2021-06-11] MEDS: LACTULOSE 20 GM/30 ML UCUP PO SCH ×3 (09:00→21:00)
[2021-06-11] MEDS ORDERED: METHYLPREDNISOLONE 40 MG INJ ONE (09:12)
[2021-06-11] MEDS ORDERED: ENOXAPARIN 40 MG/0.4 ML SQ ONE (09:12)
[2021-06-11] MEDS ORDERED: ALBUMIN HUMAN 25% 200 ML IV ONE (09:56)
--- NOTE | 2021-06-11 09:58 | P.PN ---
Date of Service: 06/11/21 Subjective Subjective: Patient remains confused. Continue with lactulose and ammonia. We will decrease Librium dosing. Physical Examination - Physical Exam General: Confused HEENT: Within normal limits; sclera icterus/jaundice Respiratory: Clear bilaterally Cardiovascular: Regular rate and rhythm with no murmurs Gastrointestinal: Soft and benign Neurological: WNL Assessment And Plan - Plan Hepatic encephalopathy secondary to acute hepatic failure/alcoholic cirrhosis of the liver with hyperammonemia: Diabetes mellitus reportedly onus type 2insulin-dependent: Chronic pancreatitis with incidental CT finding cystic masses on pancreas large st 2.1 cm: Suspected right lower lobe pneumonia: Hypokalemia, Hypomagnesemia: Hypocalcemia: Hypophosphatemia: Alcohol withdrawal: -Continue lactulose and rifaximin mean -Tapering dose of Librium -Strict blood sugar control -Continue with IV Solu-Medrol -Continue broad-spectrum antibiotics Rocephin/Zithromax
[2021-06-11 10:18] LABS: Protime INR 1.79
[2021-06-11] MEDS ORDERED: LACTULOSE 20 GM/30 ML UCUP ONE ×3 (10:20→22:49)
[2021-06-11] MEDS ORDERED: POTASSIUM PHOS 45 MM in NA CHLORIDE 0.9% 500 ML IV ONE (10:30)
[2021-06-11] MEDS ORDERED: CALCIUM GLUC 10% INJ 9.3 MEQ in NA CHLORIDE 0.9% 100 ML IV ONE (11:00)
[2021-06-11] MEDS ORDERED: D5 0.45 NS 1,000 ML IV ONE (11:03)
[2021-06-11] MEDS: NICOTINE 21 MG/PAT TD SCH (17:51)
[2021-06-11] MEDS ORDERED: INSULIN -REGULAR HUMAN 50 UNIT/0.5 ML ML ONE (22:47)
[2021-06-11] MEDS: HYDROCODONE/APAP 7.5/325 MG TAB PO PRN (22:50)
[2021-06-11] MEDS ORDERED: HYDROCODONE/APAP 7.5/325 MG TAB ONE (22:52)
[2021-06-12] MEDS: chlordiazePOXIDE HCl 25 MG CAP PO SCH ×2 (01:00→09:00)
[2021-06-12] MEDS: D5 0.45 NS 1,000 ML IV SCH ×2 (03:25→13:25)
[2021-06-12 04:29] VITALS: BMI 24.4
[2021-06-12 04:42] LABS: Urine Blood Negative (Negative); Urine Glucose Trace (Negative); Urine Protein Trace (Negative); Urine Specific Gravity 1.025 (1.005-1.030)
[2021-06-12 04:53] LABS: Urine Appearance CLOUDY (Clear); Urine Blood NEGATIVE (Negative); Urine Color ORANGE (Yellow); Urine Glucose 2+ (Negative); Urine Protein NEGATIVE (Negative)
[2021-06-12 05:07] LABS: Urine Bilirubin 3+ (Negative); Urine Microscopic Reflex ORDER UMIC
[2021-06-12 05:12] LABS: Barbiturates NEGATIVE (NEGATIVE); Benzodiazepines POSITIVE (NEGATIVE); Cocaine NEGATIVE (NEGATIVE); METHAMPHETAM NEGATIVE (NEGATIVE); Methadone NEGATIVE (NEGATIVE); Opiates NEGATIVE (NEGATIVE); Phencyclidine NEGATIVE (NEGATIVE); THC Cannibis NEGATIVE (NEGATIVE)
[2021-06-12 05:17] LABS: Urine Bacteria 20-50 /HPF (NONE SEEN); Urine RBC <5 /HPF (NONE SEEN)
[2021-06-12 05:21] LABS: Absolute Lymphocytes (CBC) 2.5 K/uL (0.7-4.9); Hematocrit 33.4 % (39.6-49.0); Lymphocytes % 10.4 % (15.3-44.8); MPV 9.5 fL (7.6-11.3); RBC Red Blood Cell Count 3.45 M/uL (4.33-5.43)
[2021-06-12 06:07] LABS: ALT/SGPT 44 U/L (12-78); Albumin 2.2 g/dL (3.4-5.0); Alkaline Phosphatase 293 U/L (45-117); BUN Blood Urea Nitrogen 3 mg/dL (7-18); Bicarbonate 28 mmol/L (21-32); Glomerular Filtration Rate > 90 mL/min (=/>90); Glucose Level 163 mg/dL (74-106); Lipase 116 U/L (73-393); NT PRO-BNP 2203 pg/mL (<125); Protein, Total 6.9 g/dL (6.4-8.2); Sodium Level 140 mmol/L (136-145)
[2021-06-12 06:08] LABS: AST/SGOT 196 U/L (15-37); Bilirubin Total 8.6 mg/dL (0.2-1.0); Magnesium 1.7 mg/dL (1.8-2.4); Potassium 2.5 mmol/L (3.5-5.1)
[2021-06-12] MEDS: INSULIN -REGULAR HUMAN 50 UNIT/0.5 ML ML SQ SCH ×4 (07:30→21:00)
[2021-06-12] MEDS: LACTULOSE 20 GM/30 ML UCUP PO SCH ×3 (09:00→21:00)
[2021-06-12] MEDS: METHYLPREDNISOLONE 40 MG INJ IV SCH ×2 (09:00→17:00)
[2021-06-12] MEDS: NICOTINE 21 MG/PAT TD SCH (09:00)
[2021-06-12] MEDS: Rifaximin 550 MG Tab PO SCH ×2 (09:00→21:00)
[2021-06-12] MEDS ORDERED: MAGNESIUM SULFATE 1 gm IVPB 1 GM/100 ML BAG IV ONE ×2 (09:17→09:46)
[2021-06-12] MEDS ORDERED: POTASS/SODIUM PHOSPHATE 1 PKT POWD.PACK PO ONE (09:20)
[2021-06-12] MEDS ORDERED: LACTULOSE 20 GM/30 ML UCUP ONE ×3 (09:40→21:07)
[2021-06-12] MEDS ORDERED: POTASS/SODIUM PHOSPHATE 1 PKT POWD.PACK ONE (09:43)
[2021-06-12] MEDS ORDERED: METHYLPREDNISOLONE 40 MG INJ ONE ×2 (09:44→14:21)
[2021-06-12] MEDS ORDERED: NICOTINE 21 MG/PAT TD ONE (09:44)
[2021-06-12] MEDS ORDERED: chlordiazePOXIDE HCl 25 MG CAP ONE (09:44)
[2021-06-12] MEDS ORDERED: KCL 20 MEQ/100 mL IVPB 100 ML IV ONE (09:45)
[2021-06-12] MEDS ORDERED: CEFTRIAXONE 2000 MG/VIAL ONE (09:45)
[2021-06-12] MEDS ORDERED: NA CHLORIDE 0.9% 250 ML ONE (09:45)
[2021-06-12] MEDS ORDERED: D5 0.45 NS 1,000 ML IV ONE (09:46)
[2021-06-12] MEDS ORDERED: chlordiazePOXIDE HCl 5 MG CAP PO PRN (09:51)
[2021-06-12] MEDS: CEFTRIAXONE 2,000 MG in NA CHLORIDE 0.9% 100 ML IV SCH (10:00)
[2021-06-12] MEDS: KCL 20 MEQ/100 mL IVPB 20 MEQ/100 ML BAG IV SCH ×7 (10:00→22:00)
[2021-06-12] MEDS ORDERED: CEFTRIAXONE 2,000 MG in NA CHLORIDE 0.9% 100 ML IV SCH (10:00)
[2021-06-12 10:04] LABS: Protime INR 1.94
--- NOTE | 2021-06-12 10:20 | P.PN ---
Date of Service: 06/12/21 Subjective Subjective: Patient still very lethargic. Replacing electrolytes. We will decrease Librium dosage Physical Examination - Physical Exam General: Confused HEENT: Within normal limits; sclera icterus/jaundice Respiratory: Clear bilaterally Cardiovascular: Regular rate and rhythm with no murmurs Gastrointestinal: Soft and benign Neurological: WNL Assessment And Plan - Plan Hepatic encephalopathy secondary to acute hepatic failure/alcoholic cirrhosis of the liver with hyperammonemia: Diabetes mellitus reportedly onus type 2insulin-dependent: Chronic pancreatitis with incidental CT finding cystic masses on pancreas largest 2.1 cm: Suspected right lower lobe pneumonia: Hypokalemia, Hypomagnesemia: Hypocalcemia: Hypophosphatemia: Alcohol withdrawal: -Continue lactulose and rifaximin mean -Tapering dose of Librium -Strict blood sugar control -Continue with IV Solu-Medrol -Continue broad-spectrum antibiotics Rocephin/Zithromax
[2021-06-12] MEDS: POTASSIUM PHOS 45 MM in NA CHLORIDE 0.9% 500 ML IV ONE ×2 (10:21→11:00)
[2021-06-12] MEDS ORDERED: HYDROCODONE/APAP 7.5/325 MG TAB ONE ×2 (10:22→15:18)
[2021-06-12] MEDS ORDERED: LORazepam 2 MG/ML VIAL ONE ×3 (10:22→17:28)
[2021-06-12] MEDS ORDERED: SPIRONOLACTONE 25 MG TABLET PO ONE (10:22)
[2021-06-12] MEDS: LORazepam 2 MG/ML VIAL IV PRN ×3 (10:27→17:40)
[2021-06-12] MEDS: HYDROCODONE/APAP 7.5/325 MG TAB PO PRN ×2 (10:28→17:44)
[2021-06-12] MEDS ORDERED: chlordiazePOXIDE HCl 5 MG CAP PO ONE ×2 (12:24→21:08)
[2021-06-12] MEDS ORDERED: INSULIN -REGULAR HUMAN 50 UNIT/0.5 ML ML ONE ×3 (12:25→21:05)
[2021-06-12] MEDS: chlordiazePOXIDE HCl 5 MG CAP PO SCH ×2 (14:00→21:00)
[2021-06-12] MEDS ORDERED: SPIRONOLACTONE 25 MG TABLET ONE ×2 (14:22→21:09)
--- NOTE | 2021-06-12 18:21 | P.PN ---
Subjective Date of Service: 06/12/21 Chief Complaint: Acute hepatic failure, alcohol hepatitis, Maddrey Discrim Fn 42.5 Subjective: Improving (Total bilirubin down. AMS improving slowly. INR still elevated. Sitting on bedside toilet.) Review of Systems General: Weakness, Malaise Neurological: Weakness, Incoordination, Change in Speech, Confusion Physical Examination - Vital Signs Temperature: 99.0 F Blood Pressure: 132/89 Pulse: 53 Respirations: 16 Pulse Ox (%): 100 - Physical Exam General: Alert, Disheveled, Confused, Delirious HEENT: Atraumatic, Normocephalic, PERRLA Neck: Supple Respiratory: Normal air movement Cardiovascular: Normal pulses, Regular rate/rhythm - Studies Microbiology Data (last 24 hrs): 06/09/21 15:15 Blood - Blood Blood Culture Gram Stain - Final Assessment And Plan - Current Problems (Diagnosis) (1) Acute hepatic failure Current Visit: Yes Status: Acute (2) Alcoholic hepatitis Current Visit: Yes Status: Acute (3) Hepatic encephalopathy Current Visit: Yes Status: Acute (4) Jaundice Current Visit: Yes Status: Acute (5) Coagulopathy Current Visit: Yes Status: Acute (6) Abnormal CT of the abdomen Current Visit: Yes Status: Acute (7) Ascites Current Visit: Yes Status: Acute - Plan REC: 1) continue IV Solumedrol 2) start IV Mucomyst therapy with loading dose and 17 following doses 3) monitor labs 4) 2 IVs 5) DT precautions 6) Thiamine, Folate 7) BDZ prn 8) AA or drug rehab on discharge
[2021-06-12] MEDS ORDERED: ACETYLCYSTEINE IV SCH ×2 (19:00)
[2021-06-12] MEDS ORDERED: D5 NS IV SCH (19:00)
[2021-06-12] MEDS ORDERED: D5W IV SCH (19:00)
[2021-06-12] MEDS: SPIRONOLACTONE 25 MG TABLET PO SCH (21:00)
[2021-06-12] MEDS ORDERED: KETOROLAC 30 MG/ML INJ IV ONE (21:27)
[2021-06-12] MEDS ORDERED: ONDANSETRON 4 MG/2 ML VIAL ONE (22:39)
[2021-06-12] MEDS ORDERED: KETOROLAC 30 MG/ML INJ ONE (22:39)
[2021-06-12] MEDS: ONDANSETRON 4 MG/2 ML VIAL IV PRN (23:04)
[2021-06-13] MEDS ORDERED: METHYLPREDNISOLONE 40 MG INJ ONE ×3 (00:43→17:51)
[2021-06-13] MEDS: METHYLPREDNISOLONE 40 MG INJ IV SCH ×3 (00:52→17:00)
[2021-06-13] MEDS: D5 0.45 NS 1,000 ML IV SCH ×3 (00:59→20:26)
[2021-06-13] MEDS ORDERED: D5 0.45 NS 0 ML IV ONE (01:02)
[2021-06-13] MEDS: KCL 20 MEQ/100 mL IVPB 20 MEQ/100 ML BAG IV SCH ×6 (02:00→10:00)
[2021-06-13 05:53] LABS: Absolute Lymphocytes (CBC) 1.6 K/uL (0.7-4.9); Hematocrit 36.1 % (39.6-49.0); Lymphocytes % 8.5 % (15.3-44.8); MPV 10.1 fL (7.6-11.3); RBC Red Blood Cell Count 3.74 M/uL (4.33-5.43)
[2021-06-13 08:09] LABS: ALT/SGPT 54 U/L (12-78); AST/SGOT 191 U/L (15-37); Albumin 1.8 g/dL (3.4-5.0); Alkaline Phosphatase 257 U/L (45-117); BUN Blood Urea Nitrogen < 3 mg/dL (7-18); Bicarbonate 29 mmol/L (21-32); Bilirubin Direct 5.9 mg/dL (0-0.2); Glomerular Filtration Rate > 90 mL/min (=/>90); Glucose Level 259 mg/dL (74-106); Protein, Total 6.4 g/dL (6.4-8.2); Sodium Level 140 mmol/L (136-145)
[2021-06-13 08:15] LABS: Magnesium 1.4 mg/dL (1.8-2.4)
[2021-06-13 08:16] LABS: Bilirubin Total 7.6 mg/dL (0.2-1.0); Potassium 2.6 mmol/L (3.5-5.1)
[2021-06-13] MEDS: Rifaximin 550 MG Tab PO SCH ×2 (09:00→20:48)
[2021-06-13] MEDS: CEFTRIAXONE 2,000 MG in NA CHLORIDE 0.9% 100 ML IV SCH ×2 (09:00→17:00)
[2021-06-13] MEDS ORDERED: MAGNESIUM 50% 3 GM in NA CHLORIDE 0.9% 100 ML IV ONE (10:00)
[2021-06-13] MEDS ORDERED: CALCIUM GLUCONATE 1 GM IVPB 2 GM/100 ML BAG IV ONE (10:00)
[2021-06-13] MEDS ORDERED: CALCIUM GLUC 10% INJ 9.3 MEQ in NA CHLORIDE 0.9% 100 ML IV ONE (10:00)
[2021-06-13] MEDS ORDERED: chlordiazePOXIDE HCl 5 MG CAP PO ONE ×2 (10:08→15:46)
[2021-06-13] MEDS ORDERED: NICOTINE 21 MG/PAT TD ONE (10:08)
[2021-06-13] MEDS ORDERED: INSULIN -REGULAR HUMAN 50 UNIT/0.5 ML ML ONE ×3 (10:08→18:05)
[2021-06-13] MEDS ORDERED: CALCIUM GLUCONATE 1 GM IVPB 1 GM/50 ML BAG IV ONE ×2 (10:13→11:59)
[2021-06-13] MEDS: NICOTINE 21 MG/PAT TD SCH (10:14)
[2021-06-13] MEDS: LACTULOSE 20 GM/30 ML UCUP PO SCH ×3 (10:14→20:46)
[2021-06-13] MEDS ORDERED: SPIRONOLACTONE 25 MG TABLET ONE (10:14)
[2021-06-13] MEDS: SPIRONOLACTONE 25 MG TABLET PO SCH ×2 (10:15→20:46)
[2021-06-13] MEDS ORDERED: LACTULOSE 20 GM/30 ML UCUP ONE ×2 (10:15→15:46)
[2021-06-13] MEDS: chlordiazePOXIDE HCl 5 MG CAP PO SCH ×3 (10:15→20:46)
[2021-06-13] MEDS: INSULIN -REGULAR HUMAN 50 UNIT/0.5 ML ML SQ SCH ×4 (10:15→20:54)
[2021-06-13] MEDS ORDERED: D5 0.45 NS 1,000 ML IV ONE (10:15)
[2021-06-13] MEDS ORDERED: POTASSIUM PHOS 45 MM in NA CHLORIDE 0.9% 500 ML IV ONE (12:00)
[2021-06-13] MEDS ORDERED: CEFTRIAXONE 2,000 MG in NA CHLORIDE 0.9% 100 ML IV SCH (16:00)
[2021-06-13] MEDS ORDERED: ACETYLCYSTEINE IV SCH ×3 (19:00)
[2021-06-13] MEDS ORDERED: D5W IV SCH ×3 (19:00)
[2021-06-13] MEDS: LORazepam 2 MG/ML VIAL IV PRN ×2 (19:20→22:56)
[2021-06-13] MEDS ORDERED: LORazepam 2 MG/ML VIAL ONE (19:21)
[2021-06-13 19:26] LABS: HBsAG Nonreactive (Nonreactive)
[2021-06-13] MEDS: ACETYLCYST 6,000 MG/30 ML VIAL PO SCH (20:45)
[2021-06-14] MEDS: ACETYLCYST 6,000 MG/30 ML VIAL PO SCH ×7 (00:41→22:45)
[2021-06-14] MEDS: METHYLPREDNISOLONE 40 MG INJ IV SCH ×3 (01:10→18:13)
[2021-06-14] MEDS: D5 0.45 NS 1,000 ML IV SCH ×2 (05:26→15:25)
[2021-06-14 06:51] LABS: ALT/SGPT 62 U/L (12-78); AST/SGOT 218 U/L (15-37); Albumin 1.9 g/dL (3.4-5.0); Alkaline Phosphatase 278 U/L (45-117); Bicarbonate 28 mmol/L (21-32); Bilirubin Total 8.5 mg/dL (0.2-1.0); Glomerular Filtration Rate > 90 mL/min (=/>90); Glucose Level 238 mg/dL (74-106); Phosphorus 1.9 mg/dL (2.5-4.9); Protein, Total 6.8 g/dL (6.4-8.2); Sodium Level 139 mmol/L (136-145)
[2021-06-14 06:55] LABS: BUN Blood Urea Nitrogen < 3 mg/dL (7-18)
[2021-06-14 06:58] LABS: Potassium 2.9 mmol/L (3.5-5.1)
[2021-06-14] MEDS ORDERED: MAGNESIUM SULFATE 1 gm IVPB 1 GM/100 ML BAG IV ONE (08:00)
[2021-06-14] MEDS ORDERED: CEFTRIAXONE 2000 MG/VIAL ONE (08:26)
[2021-06-14] MEDS: Rifaximin 550 MG Tab PO SCH ×2 (09:00→20:58)
[2021-06-14] MEDS: LACTULOSE 20 GM/30 ML UCUP PO SCH ×3 (09:00→20:57)
[2021-06-14] MEDS: CEFTRIAXONE 2,000 MG in NA CHLORIDE 0.9% 100 ML IV SCH (09:08)
[2021-06-14] MEDS: ONDANSETRON 4 MG/2 ML VIAL IV PRN ×2 (09:09→18:14)
[2021-06-14] MEDS: SPIRONOLACTONE 25 MG TABLET PO SCH ×2 (09:09→20:56)
[2021-06-14] MEDS: chlordiazePOXIDE HCl 5 MG CAP PO SCH ×3 (09:09→20:56)
[2021-06-14] MEDS: KCL 20 MEQ/100 mL IVPB 20 MEQ/100 ML BAG IV SCH ×3 (09:10→13:00)
[2021-06-14] MEDS: INSULIN -REGULAR HUMAN 50 UNIT/0.5 ML ML SQ SCH ×4 (09:11→21:03)
[2021-06-14] MEDS: NICOTINE 21 MG/PAT TD SCH (09:12)
[2021-06-14] MEDS: POTASS/SODIUM PHOSPHATE 1 PKT POWD.PACK PO SCH ×3 (09:12→11:00)
[2021-06-14] MEDS ORDERED: KCL 20 MEQ/100 mL IVPB 20 MEQ/100 ML BAG IV ONE (16:30)
[2021-06-14] MEDS: LORazepam 2 MG/ML VIAL IV PRN ×2 (18:14→22:45)
[2021-06-14] MEDS ORDERED: ZOLPIDEM TARTRATE 10 MG TABLET PO SCH (22:16)
[2021-06-14] MEDS ORDERED: ACETYLCYST 6,000 MG/30 ML VIAL ONE (22:28)
[2021-06-14] MEDS ORDERED: HYDROCODONE/APAP 7.5/325 MG TAB PO PRN (22:39)
[2021-06-14] MEDS ORDERED: ALPRAZOLAM 1 MG TABLET PO SCH (23:00)
[2021-06-14] MEDS ORDERED: HYDROCODONE/APAP 7.5/325 MG TAB PO SCH (23:00)
[2021-06-14] MEDS ORDERED: HYDROCODONE/APAP 7.5/325 MG TAB PO ONE (23:00)
[2021-06-15] MEDS: D5 0.45 NS 1,000 ML IV SCH (00:34)
[2021-06-15] MEDS: METHYLPREDNISOLONE 40 MG INJ IV SCH ×2 (00:35→09:05)
[2021-06-15] MEDS: ACETYLCYST 6,000 MG/30 ML VIAL PO SCH ×3 (03:57→11:00)
[2021-06-15] MEDS: LORazepam 2 MG/ML VIAL IV PRN ×2 (04:32→09:05)
[2021-06-15 05:53] LABS: Absolute Lymphocytes (CBC) 2.1 K/uL (0.7-4.9); Lymphocytes % 11.2 % (15.3-44.8); MPV 10.5 fL (7.6-11.3); RBC Red Blood Cell Count 3.09 M/uL (4.33-5.43)
[2021-06-15 06:21] LABS: ALT/SGPT 54 U/L (12-78); AST/SGOT 156 U/L (15-37); Albumin 1.6 g/dL (3.4-5.0); Alkaline Phosphatase 218 U/L (45-117); BUN Blood Urea Nitrogen 5 mg/dL (7-18); Bicarbonate 28 mmol/L (21-32); Glomerular Filtration Rate > 90 mL/min (=/>90); Glucose Level 290 mg/dL (74-106); Magnesium 1.8 mg/dL (1.8-2.4); Protein, Total 5.7 g/dL (6.4-8.2); Sodium Level 139 mmol/L (136-145)
[2021-06-15 06:23] LABS: Bilirubin Total 7.7 mg/dL (0.2-1.0)
[2021-06-15] MEDS ORDERED: PANTOPRAZOLE 40MG TABLET PO SCH (06:30)
[2021-06-15] MEDS ORDERED: MAGNESIUM SULFATE 1 gm IVPB 1 GM/100 ML BAG IV ONE (07:00)
--- NOTE | 2021-06-15 08:24 | P.PN ---
Date of Service: 06/13/21 Subjective Subjective: Much more awake and alert. Clinical symptoms are improved. Awaiting for MRCP. Possible discharge at home. Physical Examination - Physical Exam General: Confused HEENT: Within normal limits; sclera icterus/jaundice Respiratory: Clear bilaterally Cardiovascular: Regular rate and rhythm with no murmurs Gastrointestinal: Soft and benign Neurological: WNL Assessment And Plan - Plan Hepatic encephalopathy secondary to acute hepatic failure/alcoholic cirrhosis of the liver with hyperammonemia: Diabetes mellitus reportedly onus type 2insulin-dependent: Chronic pancreatitis with incidental CT finding cystic masses on pancreas largest 2.1 cm: Suspected right lower lobe pneumonia: Hypokalemia, Hypomagnesemia: Hypocalcemia: Hypophosphatemia: Alcohol withdrawal: -Continue lactulose and rifaximin mean -Tapering dose of Librium -Strict blood sugar control -Change to oral steroids -MRCP -Continue broad-spectrum antibiotics Rocephin/Zithromax
--- NOTE | 2021-06-15 08:26 | P.PN ---
Date of Service: 06/14/21 Subjective Subjective: Patient to get MRCP today. Labs are improved. Bilirubin decreasing. Possible discharge home per patient's request Physical Examination - Physical Exam General: Confused HEENT: Within normal limits; sclera icterus/jaundice Respiratory: Clear bilaterally Cardiovascular: Regular rate and rhythm with no murmurs Gastrointestinal: Soft and benign Neurological: WNL Assessment And Plan - Plan Hepatic encephalopathy secondary to acute hepatic failure/alcoholic cirrhosis of the liver with hyperammonemia: Diabetes mellitus reportedly onus type 2insulin-dependent: Chronic pancreatitis with incidental CT finding cystic masses on pancreas largest 2.1 cm: Suspected right lower lobe pneumonia: Hypokalemia, Hypomagnesemia: Hypocalcemia: Hypophosphatemia: Alcohol withdrawal: -Continue lactulose and rifaximin mean -Tapering dose of Librium -Strict blood sugar control -Change to oral steroids -MRCP pending -Continue with antibiotic therapy -Correct electrolytes
--- NOTE | 2021-06-15 08:30 | RAD REPORT ---
EXAM DESCRIPTION: MRI - Cholangiogram - 06/15/2021 7:53 am CLINICAL HISTORY: Choledocholithiasis, elevated liver function studies COMPARISON: Limited abdomen ultrasound 06/09/2021, CT abdomen 06/09/2021 TECHNIQUE: Axial and coronal heavily T2 weighted sequences were obtained. Coronal T2 HASTE fat satur ation static and coronal multiplane reconstruction imaging generated and reviewed. Horizontal and maria de jesus tical axis rotational views obtained using maximum intensity projection (MIP) protocol. FINDINGS: Hepatomegaly or possibly a normal variant William's lobe is evident. Fatty infiltration of the liver parenchyma seen with no focal liver lesion. No splenomegaly or focal splenic process. A sma ll amount of ascites is present. Well filled but nondilated gallbladder is seen. No gallstones are identifiable on this examination. N o evidence for pancreatic duct dilatation. No intrahepatic or extrahepatic biliary tree dilatation identifiable. No stricture, mass or duct ston e identifiable. IMPRESSION: No biliary tree abnormality identifiable. Well filled gallbladder shows no identifiable gallstones.
[2021-06-15] MEDS ORDERED: NA CHLORIDE 0.9% 100 ML ONE (08:39)
--- NOTE | 2021-06-15 08:42 | P.PN ---
Date of Service: 06/15/21 Subjective Subjective: Patient mentation improving. Clinical symptoms continue to get better. Physical Examination - Physical Exam General: Confused HEENT: Within normal limits; sclera icterus/jaundice Respiratory: Clear bilaterally Cardiovascular: Regular rate and rhythm with no murmurs Gastrointestinal: Soft and benign Neurological: WNL Assessment And Plan - Plan Hepatic encephalopathy secondary to acute hepatic failure/alcoholic cirrhosis of the liver with hyperammonemia: Diabetes mellitus reportedly onus type 2insulin-dependent: Chronic pancreatitis with incidental CT finding cystic masses on pancreas largest 2.1 cm: Suspected right lower lobe pneumonia: Hypokalemia, Hypomagnesemia: Hypocalcemia: Hypophosphatemia: Alcohol withdrawal: -Continue lactulose and rifaximin mean -Tapering dose of Librium -Strict blood sugar control -Change to oral steroids -MRCP pending -Continue with antibiotic therapy -Correct electrolytes
[2021-06-15] MEDS ORDERED: CEFTRIAXONE 2000 MG/VIAL ONE (08:53)
[2021-06-15] MEDS: chlordiazePOXIDE HCl 5 MG CAP PO SCH ×2 (09:00→09:04)
[2021-06-15] MEDS: Magnesium Sulfate 2gm IVPB 2 G/50 ML BAG IV ONE ×2 (09:00→10:59)
[2021-06-15] MEDS ORDERED: POTASSIUM PHOS 30 MM in NA CHLORIDE 0.9% 500 ML IV ONE (09:00)
[2021-06-15] MEDS: CEFTRIAXONE 2,000 MG in NA CHLORIDE 0.9% 100 ML IV SCH (09:00)
[2021-06-15] MEDS ORDERED: KCL 20 MEQ/100 mL IVPB 20 MEQ/100 ML BAG IV SCH (09:00)
[2021-06-15] MEDS: LACTULOSE 20 GM/30 ML UCUP PO SCH (09:00)
[2021-06-15] MEDS: ALBUMIN HUMAN 25% 100 ML IV ONE ×2 (09:00→11:00)
[2021-06-15] MEDS: INSULIN -REGULAR HUMAN 50 UNIT/0.5 ML ML SQ SCH ×2 (09:00→12:30)
[2021-06-15] MEDS: SPIRONOLACTONE 25 MG TABLET PO SCH (09:01)
[2021-06-15] MEDS: Rifaximin 550 MG Tab PO SCH (09:05)
[2021-06-15] MEDS: POTASS/SODIUM PHOSPHATE 1 PKT POWD.PACK PO SCH ×3 (09:07→11:00)
[2021-06-15] MEDS: NICOTINE 21 MG/PAT TD SCH (09:07)
[2021-06-15 09:26] LABS: Blood Morphology Comment NOT SEEN (NOT SEEN); Platelet Estimate ADEQ
[2021-06-15 13:10] VITALS: O2SAT 97
[2021-06-15 13:12] VITALS: BP 123/64; TEMP 98
[2021-06-15] MEDS ORDERED: ZOLPIDEM TARTRATE 10 MG TABLET PO SCH (21:00)
--- NOTE | 2021-06-15 22:52 | P.DS ---
Discharge Date: 06/15/21 Disposition: ROUTINE DISCHARGE Discharge Condition: GOOD Reason for Admission: Acute hepatic failure, alcohol hepatitis, Nesha Dooley Fn 42.5 Consultations: GI Brief History of Present Illness: 45-year-old male was brought into the emergency department for altered mental status, his fiance is present at bedside who reports that he has a history of diabetes mellitusinsulin-dependent, chronic pancreatitis as well as questionable liver disease related to chronic alcohol abuse. She reports that he drinks approximately 1 handle of vodka every other day and his last drink was 2 days ago. He has had decreased mentation over the course of the last 24 to 48 hours. He was evaluated in the ER found to be have acute hepatic failure, multiple electrolyte abnormalities, hyperammonemia, leukocytosis. He had CT abdomen pelvis performed which demonstrated hepatomegaly with marked hepatic steatosis correlate for steatohepatitis, diffuse colonic wall thickening, 2 cystic lesions the largest measuring 2.1 cm on the pancreas, abdominal ultrasound demonstrated distended gallbladder but no evidence of cholelithiasis or wall thickening mild pericholecystic fluid probably related the presence of ascites and underlying liver disease, cholecystitis unlikely. Head CT without contrast negative for acute findings chest x-ray demonstrated mild opacities medially within the lung base may represent atelectasis or pneumonitis. Patient was given IV antibiotics, lactulose in the ER emergency department provider discussed case with GI on-call who will consult, will need to admit to the ICU given mental status, risk for severe alcohol withdrawal at this time. Hospital Course: Patient had alcoholic liver cirrhosis. Patient's liver enzymes were elevated. Patient's bilirubin was elevated. Patient had positive blood cultures but was on antibiotics. Patient was going to be further worked up. I spoke to patient and . They understand that if fever returns he needs to report back to the emergency room. There is concern for sepsis and vegetation on the valve which was explained on phone call. Patient will go home and return if necessary. Patient is clinically doing well and patient is stable for discharge. Vital Signs/Physical Exam: Temp Pulse Resp BP Pulse Ox 98.0 F 89 18 123/64 97 06/15/21 12:00 06/15/21 12:00 06/15/21 12:00 06/15/21 12:00 06/15/21 12:00 General: Alert, In no apparent distress, Oriented x3 Laboratory Data at Discharge: WBC 18.5 K/uL (4.3-10.9) H 06/15/21 05:29 Hgb 10.4 g/dL (13.6-17.9) L 06/15/21 05:29 Hct 30.0 % (39.6-49.0) L D 06/15/21 05:29 Plt Count 202 K/uL (152-406) 06/15/21 05:29 PT 22.6 SECONDS (9.2-12.8) H 06/12/21 09:21 INR 1.94 06/12/21 09:21 Sodium 139 mmol/L (136-145) 06/15/21 05:29 Potassium 3.0 mmol/L (3.5-5.1) L 06/15/21 05:29 BUN 5 mg/dL (7-18) L 06/15/21 05:29 Creatinine 0.57 mg/dL (0.55-1.3) 06/15/21 05:29 Glucose 290 mg/dL (74-106) H 06/15/21 05:29 Phosphorus Cancelled 06/15/21 Unknown Magnesium 1.8 mg/dL (1.8-2.4) 06/15/21 05:29 Total Bilirubin 7.7 mg/dL (0.2-1.0) H* 06/15/21 05:29 AST 156 U/L (15-37) H 06/15/21 05:29 ALT 54 U/L (12-78) 06/15/21 05:29 Alkaline Phosphatase 218 U/L (45-117) H 06/15/21 05:29 Triglycerides 326 mg/dL (<150) H 06/10/21 03:29 Cholesterol 188 mg/dL (<200) 06/10/21 03:29 HDL Cholesterol 9 mg/dL (40-60) L 06/10/21 03:29 Cholesterol/HDL Ratio 20.89 06/10/21 03:29 Lipase 116 U/L (73-393) 06/12/21 05:06 Home Medications: Alprazolam [Xanax] 1 mg PO PRN 06/14/21 Hydrocodone Bit/Acetaminophen [Busy 7.5-325 Tablet] 1 tab PO PRN 06/14/21 Insulin -Regular Human [Novolin -R*] 3 units SQ BID 06/14/21 Insulin NPH Human [Novolin N (Humulin N)*] 10 units SQ BID 06/14/21 Pantoprazole Sodium [Protonix] 40 mg PO DAILY 06/14/21 Zolpidem Tartrate [Ambien] 10 mg PO BEDTIME 06/14/21 Furosemide [Lasix] 20 mg PO BIDL #60 tab 06/15/21 Lactulose 30 ml PO BID #2000 ml 06/15/21 Rifaximin [Xifaxan] 550 mg PO BID #60 tablet 06/15/21 Spironolactone [Aldactone] 25 mg PO BID #60 tablet 06/15/21 chlordiazePOXIDE HCl [Chlordiazepoxide HCl] 10 mg PO TID #40 capsule 06/15/21 levoFLOXacin [Levaquin] 750 mg PO DAILY #14 tab 06/15/21 predniSONE [Deltasone] 20 mg PO BID #20 tab 06/15/21 New Medications: Spironolactone [Aldactone] 25 mg PO BID #60 tablet chlordiazePOXIDE HCl [Chlordiazepoxide HCl] 10 mg PO TID #40 capsule Lactulose 30 ml PO BID #2000 ml Furosemide [Lasix] 20 mg PO BIDL #60 tab levoFLOXacin [Levaquin] 750 mg PO DAILY #14 tab predniSONE [Deltasone] 20 mg PO BID #20 tab Rifaximin [Xifaxan] 550 mg PO BID #60 tablet Physician Discharge Instructions: -DC IV and DC home -Follow-up with PCP in 1 to 2 weeks -Follow-up with Hepatology in 1 to 2 weeks -Please call Dr. Escobar at [phone] if any questions regarding hospital stay -Please call nursing station at [phone] if any nursing or medication questions -Return to the emergency room if symptoms worsen Diet: AHA Activity: Fall precautions Followup: NONE,NONE [Primary Care Provider] - Time spent managing pt's care (in minutes): 35
== END 2021-06-15 13:00 | disposition home or self-care (01) | DRG 871 ==
LOC: ER 13:37 → ERHOLD 21:27 → 3RD-ICU 06-11 13:11 → ERHOLD 06-11 13:40 → 2ND 06-13 19:30
PROVIDERS: ADMIT Internal Medicine Nephrology; ATTEND Internal Medicine Nephrology
DX: A41.01 Sepsis due to Methicillin susceptible Staphylococcus aureus (principal); J18.9 Pneumonia, unspecified organism; F10.139 Alcohol abuse with withdrawal, unspecified; K86.1 Other chronic pancreatitis; K86.2 Cyst of pancreas; Z16.11 Resistance to penicillins; E11.9 Type 2 diabetes mellitus without complications; E87.6 Hypokalemia; E83.42 Hypomagnesemia; E83.51 Hypocalcemia; E83.39 Other disorders of phosphorus metabolism; K70.40 Alcoholic hepatic failure without coma; K76.0 Fatty (change of) liver, not elsewhere classified; B95.8 Unspecified staphylococcus as the cause of diseases classified elsewhere; K70.31 Alcoholic cirrhosis of liver with ascites; K70.11 Alcoholic hepatitis with ascites; F17.210 Nicotine dependence, cigarettes, uncomplicated; Z20.822 Contact with and (suspected) exposure to COVID-19
CPT/HCPCS: 0240U; 36415; 70450; 71045; 74177; 74181; 76705; 80048; 80053; 80061; 80074; 80076; 80307; 80320; 81003; 81015; 82140; 82947; 83605; 83690; 83735; 83880; 84100; 84132; 84145; 84439; 84443; 84484; 85025; 85610; 86301; 87040; 87077; 87086; 87088; 87186; 87205; 99285; J0132; J0456; J0610; J0696; J1650; J1815; J2405; J2920; J3475; J3480; J7040; J7050; J7060; J7120; J7799; P9047; Q9967

== ENCOUNTER 2021-07-10 20:31 | Inpatient (IN) | payer OTHER ==
--- OUTSIDE RECORDS SUMMARY | 2021-07-10 20:38 | XMS REPORT | Continuity of Care Document ---
:1975 Author Organization [facility] t Address [facility] [place] [address] Care Team Providers Name Role Phone PCP, DOES NOT HAVE A Primary Care Physician Unavailable Doctor Unassigned, Name Attending Clinician Unavailable Carleen MALHOTRA, M Attending Clinician Unavailable David MALHOTRA, E Attending Clinician Pcp, Does Not Have A Attending Clinician Justo MALHOTRA, L Attending Clinician Unavailable Kelsey Quintana Attending Clinician Duane SKELTON Attending Clinician Ralph Tran MD Attending Clinician Rosita Williamson MD Attending Clinician Rosita WILLIAMSON Attending Clinician Unavailable Duane SKELTON Admitting Clinician DUANE Admitting Clinician Unavailable Payers Payer Name Policy Type Policy Number Effective Date Expiration Date S ource Problems Condition Condition Condition Status Onset Resolution Last Treating Co mments Source Name Details Category Date Date Treatment Clinician Date DKA DKA Disease Active Univers (diabetic (diabetic 4-06 ity of keto[place] es[place] 00 Medical Branch E44.0 E44.0 Disease Active Univers Moderate Moderate 4-06 ity of protein protein 00:00: [place] calorie calorie 00 Medical malnutriti malnutriti Br anch on on Pancreatit Pancreatit Disease Active U nivers is is 5-22 ity of 00:00: [place] 00 Medical Branch Laceration Laceration Disease Active 2014-02 U nivers of elbow of elbow 0-08 ity of with with 00:00: [place] complicati complicati 00 Me dical on, right, on, right, Br anch initial initial encounter encounter Laceration Laceration Disease Active 2014-02 U nivers of elbow of elbow 0-08 ity of with with 00:00: [place] complicati complicati 00 Me dical on, right, on, right, Br anch initial initial encounter encounter Allergies, Adverse Reactions, Alerts Allergy Allergy Status Severity Reaction(s) Onset Inactive Treating Comm ents Source Name Type Date Date Clinician NO KNOWN Drug Active Univers ALLERGIE Class ity of [facility] Social History Social Habit Start Date Stop Date Quantity Comments Source Alcohol intake 2019-05-31 2019-05-31 Current drinker Unive rsity of 00:00:00 00:00:00 of alcohol [facility] (finding) [place] Tobacco use and 2019-05-31 2019-05-31 Former user Universi ty of exposure 00:00:00 00:00:00 [facility] Sex [birth year] At [birth year] Universit y of 00:00:00 00:00:00 [facility] Smoking Status Start Date Stop Date Source Current every day smoker 2019-05-31 00:00:00 Uni versity of [facility] Medications Ordered Filled Start Stop Current Ordering Indication Dosage Frequency Signature Comments Components Source Medication Medication Date Date Medication? Clinician (SIG) Name Name foLIC acid Yes [id number] 1mg Take 1 Univers 1 mg tablet 4-12 tablet by ity of 00:00: mouth [place] 00 daily. Medical Branch thiamine Yes [id number] 100mg Take 1 U nivers 100 mg 4-12 tablet by ity of tablet 00:00: mouth [place] 00 daily. Medical Branch foLIC acid Yes [id number] 1mg Take 1 Univers 1 mg tablet 4-12 tablet by ity of 00:00: mouth [place] 00 daily. Medical Branch thiamine 0 Yes [id number] 100mg Take 1 U nivers 100 mg 4-12 tablet by ity of tablet 00:00: mouth [place] 00 daily. Medical Branch foLIC acid Yes [id number] 1mg Take 1 Univers 1 mg tablet 4-12 tablet by ity of 00:00: mouth [place] 00 daily. Medical Branch thiamine Yes [id number] 100mg Take 1 U nivers 100 mg 4-12 tablet by ity of tablet 00:00: mouth [place] 00 daily. Medical Branch foLIC acid 2020-0 Yes [id number] 1mg Take 1 Univers 1 mg tablet 4-12 tablet by ity of 00:00: mouth [place] 00 daily. Medical Branch thiamine 2020-0 Yes [id number] 100mg Take 1 U nivers 100 mg 4-12 tablet by ity of tablet 00:00: mouth [place] 00 daily. Medical Branch foLIC acid 2020-0 Yes [id number] 1mg Take 1 Univers 1 mg tablet 4-12 tablet by ity of 00:00: mouth [place] 00 daily. Medical Branch foLIC acid 2020-0 Yes [id number] 1mg Take 1 Univers 1 mg tablet 4-12 tablet by ity of 00:00: mouth [place] 00 daily. Medical Branch thiamine 2020-0 Yes [id number] 100mg Take 1 U nivers 100 mg 4-12 tablet by ity of tablet 00:00: mouth [place] 00 daily. Medical Branch thiamine 2020-0 Yes [id number] 100mg Take 1 U nivers 100 mg 4-12 tablet by ity of tablet 00:00: mouth [place] 00 daily. [facility] Branch foLIC acid 2020-0 Yes [id number] 1mg Take 1 Univers 1 mg tablet 4-12 tablet by ity of 00:00: mouth [place] 00 daily. Medical Branch thiamine 2020-0 Yes [id number] 100mg Take 1 U nivers 100 mg 4-12 tablet by ity of tablet 00:00: mouth [place] 00 daily. [facility] Branch foLIC acid 2020-0 Yes [id number] 1mg Take 1 Univers 1 mg tablet 4-12 tablet by ity of 00:00: mouth [place] 00 daily. [facility] Branch thiamine 2020-0 Yes [id number] 100mg Take 1 U nivers 100 mg 4-12 tablet by ity of tablet 00:00: mouth [place] 00 daily. [facility] Branch foLIC acid 2020-0 Yes [id number] 1mg Take 1 Univers 1 mg tablet 4-12 tablet by ity of 00:00: mouth [place] 00 daily. [facility] Branch thiamine 2020-0 Yes [id number] 100mg Take 1 U nivers 100 mg 4-12 tablet by ity of tablet 00:00: mouth [place] 00 daily. [facility] foLIC acid 2020-0 2020- No [id number] 1mg Take 1 Univers 1 mg tablet 4-12 04-11 tablet by it y of 00:00: 00:00 mouth [place] 00 :00 daily. Medical Branch thiamine 2020-0 2020- No [id number] 100mg Take 1 Univers 100 mg 06-05 tablet by ity of tablet 00:00: 00:00 mouth [place] 00 :00 daily. Medical Branch foLIC acid 2019-0 2020- No [id number] 1mg Take 1 Univers 1 mg tablet 06-05 tablet by it y of 00:00: 00:00 mouth [place] 00 :00 daily. Medical Branch thiamine 2020-0 2020- No [id number] 100mg Take 1 Univers 100 mg 06-05 tablet by ity of tablet 00:00: 00:00 mouth [place] 00 :00 daily. Medical Branch foLIC acid 2019-0 2020- No [id number] 1mg Take 1 Univers 1 mg tablet 06-05 tablet by it y of 00:00: 00:00 mouth [place] 00 :00 daily. Medical Branch thiamine 2019-0 2020- No [id number] 100mg Take 1 Univers 100 mg 06-05 tablet by ity of tablet 00:00: 00:00 mouth [place] 00 :00 daily. Medical Branch insulin NPH 2019- Yes 10U 10 Units, U nivers (HUMULIN N) 06-04 Subcutaneo it y of injection 22:00: [place], QPM, [place] 10 Units 00 First dose Medic al on Sat Branch 06/05/19 at 1700, Until Discontinu ed, Routine ranitidine 2019-0 2020- No 150mg Take 150 U nivers (ZANTAC) 06-04 mg by ity of 150 mg 17:25: 00:00 mouth 2 [place] capsule 21 :00 (two) Medical times [place] daily. KCL 2019-0 2020- No 20meq 20 mEq, Univers (KLOR-CON 06-04 Oral, ity of M20) tablet 15:09: 16:14 ONCE, 1 [place] 20 mEq 00 :00 dose, [facility] Medical 06/05/19 at Branch 1015, Routine proMETHazin 2019-0 Yes 12.5mg 12.5 mg, Univers e 06-04 IV ity of (PHENERGAN) 15:03: Piggy[place], [place] 12.5 mg in 37 Q4HPRN, Medica l NaCl 0.9% Starting Branch (NS) 50 mL Sat IV 06/05/19 at piggyback 1003, Until Discontinu ed, Routine, Nausea and Vomiting (N/V) insulin NPH 2020-0 Yes 12U 12 Units, U nivers (HUMULIN N) 06-04 Subcutaneo it y of injection 14:00: [place], QAM, [place] 12 Units 00 First dose Medic al on Sat Branch 06/05/19 at 0900, Until Discontinu ed, Routine KCL 2020-0 2020- No 40meq 40 mEq, Univers (KLOR-CON 06-04 Oral, ity of M20) tablet 12:00: 14:13 ONCE, 1 [place] 40 mEq 00 :00 dose, Sat Medical 06/05/19 at Branch 0700, Routine KCL 2020-0 2020- No 40meq 40 mEq, IV Unive rs (POTASSIUM 06-04 Piggyback, it y of CHLORIDE) 12:00: 14:14 ONCE, 1 [place] 40 mEq in 00 :00 dose, Sat Medic al NaCl 0.9% 06/05/19 at [facility] (NS) 0700, 250 piggyback mL HYDROcodone 2020-0 Yes [id number] 1{tbl} Take 1 Univers -acetaminop 4-11 tablet by ity of hen (NORCO) 00:00: mouth [place] 10-325 mg 00 every 6 Medical tablet (six) Branch hours as needed for Pain (scale 7-10). blood sugar 2020-0 Yes [id number] Use as Univers diagnostic 4-11 directed ity o f strip 00:00: [place] Medical Branch insulin 2020-0 Yes [id number] 5U inject 5 U nivers regular 4-11 Units ity of human 100 00:00: under [place] unit/mL 00 skin 2 Medical injection (two) Branch times daily before breakfast and dinner. HYDROcodone 2020-0 Yes [id number] 1{tbl} Take 1 Univers -acetaminop 4-11 tablet by ity of hen (NORCO) 00:00: mouth [place] 10-325 mg 00 every 6 Medical tablet (six) Branch hours as needed for Pain (scale 7-10). blood sugar 2020-0 Yes [id number] Use as Univers diagnostic 4-11 directed ity o f strip 00:00: [place] Medical Branch insulin 2020-0 Yes [id number] 5U inject 5 U nivers regular 4-11 Units ity of human 100 00:00: [place] unit/mL 00 skin 2 Medical injection (two) Branch times daily before breakfast and dinner. insulin 2020-0 Yes [id number] If blood U nivers regular 4-11 sugar ity of human 100 00:00: 160-200 [place] unit/mL 00 give 1 Medical injection unit, if Branch 201-240 give 2 units, if 241-280 give 3 units, if 281-300 give 4 units, if BG > 300 give 5 units & recheck in 6 hrs & cover again w/ sliding scale lancets 33 2019-0 Yes [id number] Use as Univers gauge Misc 4-11 directed ity o f 00:00: [place] Medical Branch pantoprazol 2019-0 Yes [id number] TAKE ONE Univers e 40 mg EC 4-11 TABLET BY ity of tablet 00:00: MOUTH [place] 00 DAILY 30 Medical TO 60 Branch MINUTES BEFORE EATING insulin 2019-0 Yes [id number] If blood U nivers regular 4-11 sugar ity of human 100 00:00: 160-200 [place] unit/mL 00 give 1 Medical injection unit, if Branch 201-240 give 2 units, if 241-280 give 3 units, if 281-300 give 4 units, if BG > 300 give 5 units & recheck in 6 hrs & cover again w/ sliding scale nicotine 21 2020-0 Yes [id number] 1{patch Apply 1 Univers mg/24 hr 4-11 } Patch to ity of patch 00:00: area(s) [place] 00 every 24 Medical (twenty-fo Branch ur) hours. insulin NPH 2019-0 Yes [id number] Inject 12 Univers 100 unit/mL 4-11 units ity of injection 00:00: under [place] 00 skin every Medical morning Branch before breakfast and 10 units every night before dinner HYDROcodone 2020-0 Yes [id number] 1{tbl} Take 1 Univers -acetaminop 4-11 tablet by ity of hen (NORCO) 00:00: mouth [place] 10-325 mg 00 every 6 Medical tablet (six) Branch hours as needed for Pain (scale 7-10). blood sugar 2020-0 Yes [id number] Use as Univers diagnostic 4-11 directed ity o f strip 00:00: [place] 00 Medical Branch lancets 33 2020-0 Yes [id number] Use as Univers gauge Misc 4-11 directed ity o f 00:00: Medical Branch insulin 2020-0 Yes [id number] 5U inject 5 U nivers regular 4-11 Units ity of human 100 00:00: under [place] unit/mL 00 skin 2 Medical injection (two) Branch times daily before breakfast and dinner. insulin 2020-0 Yes [id number] If blood U nivers regular 4-11 sugar ity of human 100 00:00: 160-200 [place] unit/mL 00 give 1 Medical injection unit, if Branch 201-240 give 2 units, if 241-280 give 3 units, if 281-300 give 4 units, if BG > 300 give 5 units & recheck in 6 hrs & cover again w/ sliding scale lancets 33 2019-0 Yes [id number] Use as Univers gauge Misc 4-11 directed ity o f 00:00: Medical Branch pantoprazol 2020-0 Yes [id number] TAKE ONE Univers e 40 mg EC 4-11 TABLET BY ity of tablet 00:00: MOUTH [place] 00 DAILY 30 Medical TO 60 Branch MINUTES BEFORE EATING nicotine 21 2020-0 Yes [id number] 1{patch Apply 1 Univers mg/24 hr 4-11 } Patch to ity of patch 00:00: area(s) [place] 00 every 24 Medical (twenty-fo Branch ur) hours. insulin NPH 2020-0 Yes [id number] Inject 12 Univers 100 unit/mL 4-11 units ity of injection 00:00: under [place] 00 skin every Medical morning Branch before breakfast and 10 units every night before dinner HYDROcodone 2020-0 Yes [id number] 1{tbl} Take 1 Univers -acetaminop 4-11 tablet by ity of hen (NORCO) 00:00: mouth [place] 10-325 mg 00 every 6 Medical tablet (six) Branch hours as needed for Pain (scale 7-10). blood sugar 2020-0 Yes [id number] Use as Univers diagnostic 4-11 directed ity o f strip 00:00: [place] Medical Branch insulin 2020-0 Yes [id number] 5U inject 5 U nivers regular 4-11 Units ity of human 100 00:00: under the [place] unit/mL 00 skin 2 Medical injection (two) Branch times daily before breakfast and dinner. insulin 2020-0 Yes [id number] If blood U nivers regular 4-11 sugar ity of human 100 00:00: 160-200 [place] unit/mL 00 give 1 Medical injection unit, if Branch 201-240 give 2 units, if 241-280 give 3 units, if 281-300 give 4 units, if BG > 300 give 5 units & recheck in 6 hrs & cover again w/ sliding scale lancets 33 2020-0 Yes [id number] Use as Univers gauge Misc 4-11 directed ity o f 00:00: [place] 00 Medical Branch pantoprazol 2020-0 Yes [id number] TAKE ONE Univers e 40 mg EC 4-11 TABLET BY ity of tablet 00:00: MOUTH [place] 00 DAILY 30 Medical TO 60 Branch MINUTES BEFORE EATING nicotine 21 2020-0 Yes [id number] 1{patch Apply 1 Univers mg/24 hr 4-11 } Patch to ity of patch 00:00: area(s) [place] 00 every 24 Medical (twenty-fo Branch ur) hours. insulin NPH 2019-0 Yes [id number] Inject 12 Univers 100 unit/mL 4-11 units ity of injection 00:00: [place] 00 skin every Medical morning Branch before breakfast and 10 units every night before dinner HYDROcodone 2020-0 Yes [id number] 1{tbl} Take 1 Univers -acetaminop 4-11 tablet by ity of hen (NORCO) 00:00: mouth [place] 10-325 mg 00 every 6 Medical tablet (six) Branch hours as needed for Pain (scale 7-10). blood sugar 2020-0 Yes [id number] Use as Univers diagnostic 4-11 directed ity o f strip 00:00: [place] Medical Branch pantoprazol 2020-0 Yes [id number] TAKE ONE Univers e 40 mg EC 4-11 TABLET BY ity of tablet 00:00: MOUTH [place] 00 DAILY 30 Medical TO 60 Branch MINUTES BEFORE EATING insulin 2020-0 Yes [id number] 5U inject 5 U nivers regular 4-11 Units ity of human 100 00:00: under the [place] unit/mL 00 skin 2 Medical injection (two) Branch times daily before breakfast and dinner. insulin 2020-0 Yes [id number] If blood U nivers regular 4-11 sugar ity of human 100 00:00: 160-200 [place] unit/mL 00 give 1 Medical injection unit, if Branch 201-240 give 2 units, if 241-280 give 3 units, if 281-300 give 4 units, if BG > 300 give 5 units & recheck in 6 hrs & cover again w/ sliding scale lancets 33 2019-0 Yes [id number] Use as Univers gauge Misc 4-11 directed ity o f 00:00: [place] Medical Branch pantoprazol 2020-0 Yes [id number] TAKE ONE Univers e 40 mg EC 4-11 TABLET BY ity of tablet 00:00: MOUTH [place] 00 DAILY 30 Medical TO 60 Branch MINUTES BEFORE EATING nicotine 21 2020-0 Yes [id number] 1{patch Apply 1 Univers mg/24 hr 4-11 } Patch to ity of patch 00:00: area(s) [place] 00 every 24 Medical (twenty-fo Branch ur) hours. insulin NPH 2019-0 Yes [id number] Inject 12 Univers 100 unit/mL 4-11 units ity of injection 00:00: [place] 00 skin every Medical morning Branch before breakfast and 10 units every night before dinner HYDROcodone 2019-0 Yes [id number] 1{tbl} Take 1 Univers -acetaminop 4-11 tablet by ity of hen (NORCO) 00:00: mouth [place] 10-325 mg 00 every 6 Medical tablet (six) Branch hours as needed for Pain (scale 7-10). blood sugar 2019-0 Yes [id number] Use as Univers diagnostic 4-11 directed ity o f strip 00:00: [place] Medical Branch insulin 2020-0 Yes [id number] 5U inject 5 U nivers regular 4-11 Units ity of human 100 00:00: under the [place] unit/mL 00 skin 2 Medical injection (two) Branch times daily before breakfast and dinner. insulin 2020-0 Yes [id number] If blood U nivers regular 4-11 sugar ity of human 100 00:00: 160-200 [place] unit/mL 00 give 1 Medical injection unit, if Branch 201-240 give 2 units, if 241-280 give 3 units, if 281-300 give 4 units, if BG > 300 give 5 units & recheck in 6 hrs & cover again w/ sliding scale lancets 33 2019-0 Yes [id number] Use as Univers gauge Misc 4-11 directed ity o f 00:00: [place] Medical Branch pantoprazol 2020-0 Yes [id number] TAKE ONE Univers e 40 mg EC 4-11 TABLET BY ity of tablet 00:00: MOUTH [place] 00 DAILY 30 Medical TO 60 Branch MINUTES BEFORE EATING nicotine 21 2020-0 Yes [id number] 1{patch Apply 1 Univers mg/24 hr 4-11 } Patch to ity of patch 00:00: area(s) [place] 00 every 24 Medical (twenty-fo Branch ur) hours. nicotine 21 2020-0 Yes [id number] 1{patch Apply 1 Univers mg/24 hr 4-11 } Patch to ity of patch 00:00: area(s) [place] 00 every 24 Medical (twenty-fo Branch ur) hours. insulin NPH 2020-0 Yes [id number] Inject 12 Univers 100 unit/mL 4-11 units ity of injection 00:00: under [place] 00 skin every Medical morning Branch before breakfast and 10 units every night before dinner HYDROcodone 2020-0 Yes [id number] 1{tbl} Take 1 Univers -acetaminop 4-11 tablet by ity of hen (NORCO) 00:00: mouth [place] 10-325 mg 00 every 6 Medical tablet (six) Branch hours as needed for Pain (scale 7-10). blood sugar 2020-0 Yes [id number] Use as Univers diagnostic 4-11 directed ity o f strip 00:00: [place] Medical Branch insulin 2020-0 Yes [id number] 5U inject 5 U nivers regular 4-11 Units ity of human 100 00:00: under the [place] unit/mL 00 skin 2 Medical injection (two) Branch times daily before breakfast and dinner. insulin 2020-0 Yes [id number] If blood U nivers regular 4-11 sugar ity of human 100 00:00: 160-200 [place] unit/mL 00 give 1 Medical injection unit, if Branch 201-240 give 2 units, if 241-280 give 3 units, if 281-300 give 4 units, if BG > 300 give 5 units & recheck in 6 hrs & cover again w/ sliding scale lancets 33 2020-0 Yes [id number] Use as Univers gauge Misc 4-11 directed ity o f 00:00: [place] 00 Medical Branch pantoprazol 2020-0 Yes [id number] TAKE ONE Univers e 40 mg EC 4-11 TABLET BY ity of tablet 00:00: MOUTH [place] 00 DAILY 30 Medical TO 60 Branch MINUTES BEFORE EATING nicotine 21 2019-0 Yes [id number] 1{patch Apply 1 Univers mg/24 hr 4-11 } Patch to ity of patch 00:00: area(s) [place] 00 every 24 Medical (twenty-fo Branch ur) hours. insulin NPH 2019-0 Yes [id number] Inject 12 Univers 100 unit/mL 4-11 units ity of injection 00:00: under [place] 00 skin every Medical morning Branch before breakfast and 10 units every night before dinner insulin NPH 2019-0 Yes [id number] Inject 12 [facility] 100 unit/mL 4-11 units ity of injection 00:00: [place] 00 skin every Medical morning Branch before breakfast and 10 units every night before dinner HYDROcodone 2019-0 Yes [id number] 1{tbl} Take 1 Univers -acetaminop 4-11 tablet by ity of hen (NORCO) 00:00: mouth [place] 10-325 mg 00 every 6 Medical tablet (six) Branch hours as needed for Pain (scale 7-10). blood sugar 2019-0 Yes [id number] Use as Univers diagnostic 4-11 directed ity o f strip 00:00: [place] Medical Branch insulin 2020-0 Yes [id number] 5U inject 5 U nivers regular 4-11 Units ity of human 100 00:00: under the [place] unit/mL 00 skin 2 Medical injection (two) Branch times daily before breakfast and dinner. insulin 2020-0 Yes [id number] If blood U nivers regular 4-11 sugar ity of human 100 00:00: 160-200 [place] unit/mL 00 give 1 Medical injection unit, if Branch 201-240 give 2 units, if 241-280 give 3 units, if 281-300 give 4 units, if BG > 300 give 5 units & recheck in 6 hrs & cover again w/ sliding scale lancets 33 2020-0 Yes [id number] Use as Univers gauge Misc 4-11 directed ity o f 00:00: [place] Medical Branch pantoprazol 2019-0 Yes [id number] TAKE ONE Univers e 40 mg EC 4-11 TABLET BY ity of tablet 00:00: MOUTH [place] 00 DAILY 30 Medical TO 60 Branch MINUTES BEFORE EATING nicotine 21 2019-0 Yes [id number] 1{patch Apply 1 Univers mg/24 hr 4-11 } Patch to ity of patch 00:00: area(s) [place] 00 every 24 Medical (twenty-fo Branch ur) hours. insulin NPH 2020-0 Yes [id number] Inject 12 [facility] 100 unit/mL 4-11 units ity of injection 00:00: under the [place] 00 skin every Medical morning Branch before breakfast and 10 units every night before dinner HYDROcodone 2020-0 Yes [id number] 1{tbl} Take 1 Univers -acetaminop 4-11 tablet by ity of hen (NORCO) 00:00: mouth [place] 10-325 mg 00 every 6 Medical tablet (six) Branch hours as needed for Pain (scale 7-10). blood sugar 2020-0 Yes [id number] Use as Univers diagnostic 4-11 directed ity o f strip 00:00: [place] Medical Branch insulin 2020-0 Yes [id number] 5U inject 5 U nivers regular 4-11 Units ity of human 100 00:00: under the [place] unit/mL 00 skin 2 Medical injection (two) Branch times daily before breakfast and dinner. insulin 2020-0 Yes [id number] If blood U nivers regular 4-11 sugar ity of human 100 00:00: 160-200 [place] unit/mL 00 give 1 Medical injection unit, if Branch 201-240 give 2 units, if 241-280 give 3 units, if 281-300 give 4 units, if BG > 300 give 5 units & recheck in 6 hrs & cover again w/ sliding scale lancets 33 2020-0 Yes [id number] Use as Univers gauge Misc 4-11 directed ity o f 00:00: [place] Medical Branch pantoprazol 2020-0 Yes [id number] TAKE ONE Univers e 40 mg EC 4-11 TABLET BY ity of tablet 00:00: MOUTH [place] 00 DAILY 30 Medical TO 60 Branch MINUTES BEFORE EATING nicotine 21 2020-0 Yes [id number] 1{patch Apply 1 [facility] mg/24 hr 4-11 } Patch to ity of patch [facility]: [facility] [place] every 24 Medical (twenty-fo Branch ur) hours. insulin NPH 2020-0 Yes [id number] Inject 12 [facility] 100 unit/mL 4-11 units ity of injection 00:00: [place] the [place] 00 skin every Medical morning Branch before breakfast and 10 units every night before dinner HYDROcodone 2019-0 2020- No [id number] 1{tbl} Take 1 Univers -acetaminop 06-04 tablet by it y of hen 10-325 00:00: 00:00 mouth [place] mg tablet 00 :00 every 6 Medical (six) Branch hours as needed for Pain (scale 7-10). blood sugar 2019- No [id number] Use as Univers diagnostic 06-04 directed ity of strip 00:00: 00:00 [place] 00 :00 Medical Branch HYDROcodone 2019- No [id number] 1{tbl} Take 1 Univers -acetaminop 06-04 tablet by it y of hen 10-325 00:00: 00:00 mouth [place] mg tablet 00 :00 every 6 Medical (six) Branch hours as needed for Pain (scale 7-10). pantoprazol 2019- No [id number] TAKE ONE Univers e 40 mg EC 06-04 TABLET BY ity of tablet 00:00: 00:00 MOUTH [place] 00 :00 DAILY 30 Medical TO 60 Branch MINUTES BEFORE EATING insulin 2019- No [id number] BG 160 to Univers regular 06-04 200, give ity of human 00:00: 00:00 1 unit. BG [place] injection 00 :00 201 to Medical 240, give Branch 2 units. BG 241 to 280, give 3 units. BG 281 to 300, give 4 units. BG > 300, give 5 units and recheck in 6 hours and cover again with sliding scale. insulin NPH 2019- No [id number] 10U inject 10 [facility] 100 unit/mL 06-04 Units ity of injection 00:00: 00:00 under the [place] 00 :00 skin every Medical evening. Branch insulin NPH 2019- No [id number] 12U inject 12 [facility] 100 unit/mL 06-04 Units ity of injection 00:00: 00:00 under the [place] 00 :00 skin every Medical morning. Branch insulin 2019- No [id number] 5U inject 5 Univers regular 06-04 Units ity of human 100 00:00: 00:00 under the [place] unit/mL 00 :00 skin 2 Medical injection (two) Branch times daily before breakfast and dinner. nicotine 21 2019- No [id number] 1{patch Apply 1 Univers mg/24 hr 06-04 } Patch to ity of patch 00:00: 00:00 area(s) [place] 00 :00 every 24 Medical (twenty-fo Branch ur) hours. insulin 2019- 2020- No [id number] BG 160 to Univers regular 06-04- 200, give ity of human 00:00: 00:00 1 unit. BG [place] injection 00 :00 201 to Medical 240, give Branch 2 units. BG 241 to 280, give 3 units. BG 281 to 300, give 4 units. BG > 300, give 5 units and recheck in 6 hours and cover again with sliding scale. insulin 2019- 2020- No [id number] 5U inject 5 Univers regular 06-04-11 Units ity of human 100 00:00: 00:00 under the [place] unit/mL 00 :00 skin 2 Medical injection (two) Branch times daily before breakfast and dinner. blood sugar 2019-2019- No [id number] Use as Univers diagnostic 06-04 directed ity of strip 00:00: 00:00 [place] 00 :00 Medical Branch insulin NPH 2019-2019- No [id number] 10U inject 10 Univers 100 unit/mL 06-04-11 Units ity of injection 00:00: 00:00 under the [place] 00 :00 skin every Medical evening. Branch insulin NPH 2019-2019- No [id number] 12U inject 12 [facility] 100 unit/mL 06-04-11 Units ity of injection 00:00: 00:00 under the [place] 00 :00 skin every Medical morning. Branch HYDROcodone 2019-2019- No [id number] 1{tbl} Take 1 Univers -acetaminop 4- 04-11 tablet by it y of hen 10-325 00:00: 00:00 mouth [place] mg tablet 00 :00 every 6 Medical (six) Branch hours as needed for Pain (scale 7-10). HYDROcodone 2019-2019- No [id number] 1{tbl} Take 1 Univers -acetaminop 4-11 04-11 tablet by it y of hen (NORCO) 00:00: 00:00 mouth [place] 10-325 mg 00 :00 every 6 Medical tablet (six) Branch hours as needed for Pain (scale 7-10). lancets 28 2019- No [id number] Use as Univers gauge Misc 06-04 directed ity of 00:00: 00:00 [place] 00 :00 Medical Branch lancets 33 2020- No [id number] Use as Univers gauge Misc 06-04 directed ity of 00:00: 00:00 [place] 00 :00 Medical Branch insulin NPH 2019- 2020- No [id number] 10U inject 10 Univers 100 unit/mL 06-04-11 Units ity of injection 00:00: 00:00 under the [place] 00 :00 skin every Medical evening. Branch insulin NPH 2020- No [id number] 12U inject 12 Univers 100 unit/mL 06-04-11 Units ity of injection 00:00: 00:00 under the [place] 00 :00 skin every Medical morning. Branch insulin Yes 5U 5 Units, Univer s aspart 4-10 Subcutaneo ity of RAPID 22:00: us, TID Jony (NOVOLOG) 00 MEALS, Medical injection 5 First dose Br anch Units on Fri06/04/19 at 1700, Until Discontinu ed, Routine insulin NPH 2020- No 12U 12 Units, Univers (HUMULIN N) 06-0311 Subcutaneo i ty of injection 22:00: 05:37 us, QPM, [place] 12 Units 00 :51 First dose Medic al on Fri [place] 06/04/19 at 1700, Until Discontinu ed, Routine oxazepam Yes 15mg 15 mg, Univers (SERAX) 4-10 Oral, ity of capsule 15 21:30: Q8HPRN, [place] mg 00 Starting Medical [facility] 06/04/19 at 1630, Until Discontinu ed, Routine, Anxiety, Only while awake for DBP equal to or greater than 100, HR equal to or greater than 100. HYDROcodone 2019- Yes 1{tbl} 1 tablet, Univers -acetaminop 4-10 Oral, ity of hen (NORCO) 15:15: Q6HPRN, [place] 10-325 mg 00 Starting Medica l tablet 1 Fri [place] tablet 06/04/19 at 1015, Until Discontinu ed, Routine, Pain (scale 7-10) insulin NPH 2020- No 16U 16 Units, Univers (HUMULIN N) 06-03 Subcutaneo i ty of injection 14:00: 19:22 us, QAM, [place] 16 Units 00 :35 First dose Medic al on Fri Branch 06/04/19 at 0900, Until Discontinu ed, Routine NaCl 0.9% 2019-0 2020- No IV Univers (NS) IV 06-02 Infusion, ity of infusion 23:45: 15:58 at 150 [place] 00 :35 mL/hr, Medical CONTINUOUS Branch , Starting Fri06/03/19 at 1845, Until Fri06/04/19 at 1058, Routine insulin NPH 2019-0 2020- No 12U 12 Units, Univers (HUMULIN N) 06-02 Subcutaneo i ty of injection 22:00: 12:19 us, QPM, [place] 12 Units 00 :18 First dose Medic al on [place] Branch 06/03/19 at 1700, Until Discontinu ed, Routine NaCl 0.9% 2019- No 500mL at 999 Univ ers (NS) bolus 06-02 mL/hr, 500 it y of infusion 16:42: 16:43 mL, IV [place] 500 mL 00 :00 Piggyback, Medical ONCE, 1 Branch dose, [facility] 06/03/19 at 1145, Routine ketorolac 2019- No 15mg 15 mg, Unive rs (TORADOL) 06-02 Slow IV ity of injection 15:30: 14:46 Push, ONCE [place] 15 mg 00 :00 NOW, 1 Medical dose, [facility] Branch 06/03/19 at 1030, Routine
membership administrator approving Restricted medication : MORRIS WILLIAMSON thiamine 2020-0 Yes 100mg 100 mg, Unive rs (VITAMIN 06-02 Oral, ity of B1) tablet 14:00: DAILY, [place] 100 mg 00 First dose Medical on [facility] Branch 06/03/19 at 0900, Until Discontinu ed, Routine foLIC acid 2019-0 Yes 1mg 1 mg, Univer s (FOLATE) 06-02 Oral, ity of tablet 1 mg 14:00: DAILY, [place] 00 First dose Medical on [facility] Branch 06/03/19 at 0900, Until Discontinu ed, Routine HYDROcodone 2020-0 2020- No 1{tbl} 1 tablet, Univers -acetaminop 06-02 Oral, ity of hen (NORCO) 14:00: 15:00 [id number], [place] 10-325 mg 00 :38 Starting Medica l tablet 1 Fri06/03/19 Branc h tablet at 0900, Until Fri06/04/19 at 1000, Routine, Pain (scale 7-10) insulin NPH 2019- No 14U 14 Units, Univers (HUMULIN N) 06-02 Subcutaneo i ty of injection 14:00: 12:19 us, QAM, [place] 14 Units 00 :18 First dose Medic al on [facility] 06/03/19 at 0900, Until Discontinu ed, Routine lidocaine 2019- No 1{patch 1 Patch, Univers (LIDODERM) 06-02 } Topical, ity of 5 % (700 12:59: 01:22 Administer [place] mg/patch) 00 :00 over 12 Medical patch 1 Hours, [place] Patch ONCE, 1 dose, [facility] 06/03/19 at 0800, Routine insulin 2019- No .25U/kg 6 Units Uni vers aspart 06-02 /d (rounded ity of RAPID 12:30: 19:22 from [place] (NOVOLOG) 00 :35 6.3333 Medical injection 6 Units = Branc h Units 0.25 Units/kg/d ay ?76 kg), Subcutaneo us, TIDAC, First dose on [facility] 06/03/19 at 0730, Until Discontinu ed, Routine KCL 2019- No 40meq 40 mEq, Univers (KLOR-CON 06-02 Oral, ity of M20) tablet 11:30: 11:10 ONCE, 1 [place] 40 mEq 00 :00 dose, [place] [facility] 06/03/19 at [place] 0630, Routine magnesium 2019- No 4g 4 g, IV Univ ers sulfate in 06-02 Piggyback, it y of water 4 11:30: 11:10 ONCE, 1 [place] gram/50 mL 00 :00 dose, [place] Medi susu (8 %) IV 06/03/19 at [place] Piggyback 4 0630, g Routine NaCl 0.9% 2019- No 500mL at [address] [place] [address] ers (NS) bolus 06-02 mL/hr, 500 it y of infusion 11:30: 10:37 mL, IV [place] 500 mL 00 :00 Piggyback, Medical ONCE, 1 Branch dose, Fri06/03/19 at 0630, STAT Sliding 2019-0 Yes Subcutaneo [facility] ers Scale 4-09 us, Q4H, ity of Insulin - 05:00: First dose [place] Aspart 00 on Fri Medical (NOVOLOG) + 06/03/19 at [facility] Fsbg 0000, Testing Until Discontinu ed, Routine KCL 2019- No 40meq 40 mEq, Univers (KLOR-CON 06-02 Oral, ity of M20) tablet 04:15: 03:31 ONCE, 1 [place] 40 mEq 00 :00 dose, Fri Medical 06/02/19 at [place] 2315, Routine HYDROcodone 2019- No 1{tbl} 1 tablet, Univers -acetaminop 06-02 Oral, ity of hen (NORCO) 02:51: 12:47 [id number], [place] 10-325 mg 47 :27 Starting Medica l tablet 1 Fri06/02/19 Bran h tablet at 2151, Until Fri06/03/19 at 0747, Routine, Pain (scale 7-10) oxazepam 2019- No 15mg 15 mg, Univer s (SERAX) 06-02 Oral, ity of capsule 15 02:43: 21:27 Q4HPRN, [place] mg 05 :39 Starting Medical Fri06/02/19 [place] at 2143, Until Fri06/04/19 at 1627, Routine, Anxiety, Only while awake for DBP equal to or greater than 100, HR equal to or greater than 100. Sliding 2019- 2020- No Subcutaneo Uni vers Scale 06-02- us, Q4H, ity of Insulin - 02:00: 02:45 First dose [place] Aspart 00 :00 on Fri Medical (NOVOLOG) + 06/02/19 at [facility] Fsbg 2100, Testing Until Discontinu ed, Routine Sliding 2020- No Subcutaneo Uni vers Scale 406-02 us, AC+HS, ity of Insulin - 18:00: 01:48 First dose [place] Aspart 00 :21 on Fri Medical (NOVOLOG) + 06/02/19 at [facility] Fsbg 1300, Testing Until Discontinu ed, Routine HYDROcodone 2019- No 1{tbl} 1 tablet, Univers -acetaminop 06-01 Oral, ity of hen (NORCO 15:15: 02:44 Q6HPRN, [place] 5) 5-325 mg 00 :59 Starting Medi susu tablet 1 Fri06/02/19 Branc h tablet at 1015, Until Fri06/02/19 at 2144, Routine, Pain (scale 4-6) Sliding 2019- No Subcutaneo Uni vers Scale 06-01 , Q4H, ity of Insulin - 13:00: 17:57 First dose [place] Aspart 00 :45 on Fri Medical (NOVOLOG) + 06/02/19 at [facility] Fsbg 0800, Testing Until Discontinu ed, Routine lactated 2019- No 1000mL at 100 Univ ers ringers IV 06-01 mL/hr, ity of infusion 11:15: 17:20 1,000 mL, [place] 1,000 mL 00 :36 IV Medical Infusion, [place] CONTINUOUS , Starting Fri06/02/19 at 0615, Until Fri06/02/19 at 1220, Routine KCL 2019- No 80meq 80 mEq, Univers (KLOR-CON 06-01 Oral, ONCE ity of M20) tablet 10:00: 09:16 NOW, 1 [place] 80 mEq 00 :00 dose, [facility] Medical 06/02/19 at [place] 0500, ANA potassium 2019- No 44meq 44 mEq, IV Univers phosphate 06-01 Piggyback, ity of 44 mEq in 08:32: 10:51 ONCE, 1 [place] NaCl 0.9% 00 :00 dose, [facility] Medic al (NS) 250 mL 06/02/19 at [facility] piggyback 0345, 250 mL potassium, 2019- 2020- No 1{packe 1 Packet, Univers sodium 06-01-10 t} Oral, Q6H ity of phosphates 08:30: 21:29 ABX, First [place] (PHOS-NAK) 00 :02 dose on Medica l [phone] [facility] 06/02/19 Br anch mg packet 1 at 0345, Packet Until Discontinu ed, Routine KCL 2020-0 2020- No 40meq 40 mEq, Univers (KLOR-CON 06-01 Oral, ONCE ity of M20) tablet 05:45: 04:46 NOW, 1 [place] 40 mEq 00 :00 dose, [facility] 06/02/19 at Branch 0045, ANA KCL 2020-0 2020- No 40meq 40 mEq, IV Unive rs (POTASSIUM 06-01 Piggyback, it y of CHLORIDE) 04:17: 08:33 Q4H ABX, 2 [place] 40 mEq in 00 :11 doses, Medical NaCl 0.9% First dose Bran ch (NS) on Fri piggyback 06/01/19 at 2330, Last dose on Fri06/02/19 at 0330, 250 mL KCL 20 2020-0 2020- No 40meq 40 mEq, Univer s mEq/15 mL 06-01 Oral, ity of solution 40 00:38: 01:31 ONCE, 1 [place] mEq 00 :00 dose, [facility] 06/01/19 at Branch 1945, Routine KCL 20 2020-0 2020- No 40meq 40 mEq, Univer s mEq/15 mL 05-31 Oral, ity of solution 40 20:30: 21:06 ONCE, 1 [place] mEq 00 :00 dose, [facility] 06/01/19 at Branch 1530, Routine D10W 10 % 2020-0 2020- No at 100 Unive rs IV infusion 05-31-08 mL/hr, IV it y of 20:00: 17:20 Infusion, [place] 00 :36 CONTINUOUS Medical , Starting Branch [facility] 06/01/19 at 1500, Until Fri06/02/19 at 1220, Routine KCL 20 2020-0 2020- No 40meq 40 mEq, Univer s mEq/15 mL 05-31 Oral, ity of solution 40 19:19: 21:05 ONCE, 1 [place] mEq 00 :00 dose, [facility] 06/01/19 at Branch 1430, Routine KCL 2020-0 2020- No 40meq 40 mEq, IV Unive rs (POTASSIUM - 04-07 Piggyback, it y of CHLORIDE) 18:45: 17:50 ONCE, 1 [place] 40 mEq in 00 :00 dose, Tue Medic al NaCl 0.9% 06/01/19 at [facility] h (NS) 1345, 250 piggyback mL potassium, 2020-0 2020- No 1{packe 1 Packet, Univers sodium - 04-07 t} Oral, Q6H ity of phosphates 08:30: 19:20 ABX, First [place] (PHOS-NAK) 00 :06 dose on Medica l [phone] [facility] 06/01/19 Br anch mg packet 1 at 0330, Packet Until Discontinu ed, Routine potassium 2020-0 2020- No 44meq 44 mEq, IV Univers phosphate - 04-07 Piggyback, ity of 44 mEq in 07:22: 09:44 ONCE, 1 [place] NaCl 0.9% 00 :00 dose, [facility] Medic al (NS) 250 mL 06/01/19 at [facility] piggyback 0230, 250 mL ramelteon 2020-0 Yes 8mg 8 mg, Univers (ROZEREM) 4-07 Oral, QHS, ity of tablet 8 mg 03:45: First dose [place] 00 on [facility] 05/31/19 at Branch 2245, Until Discontinu ed, Routine nicotine 2020-0 Yes 1{patch 1 Patch, [place] (NICODERM) 4-07 } Topical, ity o f 21 mg/24 hr 03:45: Administer [place] patch 1 00 over 24 Medical Patch Hours, [place] Q24H, First dose on Fri05/31/19 at 2245, Until Discontinu ed, Routine D10W 10 % 2020-0 2020- No at 25 Univer s IV infusion 05-31 04-07 mL/hr, IV it y of 03:00: 19:55 Infusion, [place] 00 :37 CONTINUOUS Medical , Starting Branch [facility] 05/31/19 at 2200, Until Fri06/01/19 at 1455, Routine KCL 2020-0 2020- No 40meq 40 mEq, IV Unive rs (POTASSIUM 4- 04-07 Piggyback, it y of CHLORIDE) 03:00: 08:29 Q4H ABX, 2 [place] 40 mEq in 00 :59 doses, Medical NaCl 0.9% First dose Bran ch (NS) on Fri piggyback 05/31/19 at 2215, Last dose on Fri06/01/19 at 0215, 250 mL oxazepam 2019- No 15mg 15 mg, Univer s (SERAX) 05-31 04-09 Oral, ity of capsule 15 02:39: 02:45 Q4HPRN, [place] mg 08 :00 Starting Medical [facility] 05/31/19 Branch at 2139, Until Fri06/02/19 at 2145, Routine, Only while awake for DBP equal to or greater than 100, HR equal to or greater than 100. D10W 10 % 2020- No at 100 [facility] rs IV infusion 05-30- mL/hr, IV it y of 23:30: 01:31 Infusion, [place] 00 :47 CONTINUOUS Medical , Starting Branch Fri05/31/19 at 1830, Until Fri05/31/19 at 203, Routine NaCl 0.9% 2019- No 15mL/kg at 1,020 Univers (NS) bolus 05-30-06 /h mL/hr, 15 ity of infusion 22:30: 23:01 mL/kg/hr [place] 00 :00 ?68 kg [facility] (1,020 Branch mL/hr), IV Infusion, ONCE, 1 dose, [facility] 05/31/19 at 1730, STAT insulin 2020- No .1U/kg/ 0.1 [facility] s regular 05-30-09 h Units/kg/h ity o f human 22:24: 02:44 r ?68 kg [place] (HUMULIN R) 40 :59 (6.8 Medical 100 Units mL/hr), IV Bran ch in NaCl Infusion, 0.9% (NS) TITRATE, 100 mL Starting infusion Fri05/31/19 at 1724, Until Fri06/02/19 at 2144 thiamine 2019- 2020- No 100mg IV Univers (VITAMIN 05-30- Piggyback, ity of B1) 100 mg 19:15: 02:51 DAILY, [place] in NaCl 00 :26 First dose Medica l 0.9% (NS) on Fri Branch piggyback 05/31/19 at 1415, Until Discontinu ed, 50 mL foLIC acid 2019- No 1mg IV Univer s (FOLATE) 1 05-30 Piggyback, it y of mg in NaCl 19:15: 02:51 DAILY, [place] 0.9% (NS) 00 :26 First dose Medi susu piggyback on Mon Branch 05/31/19 at 1415, Until Discontinu ed, 50 mL pantoprazol Yes 40mg 40 mg, Univ ers e 05-30 Oral, ity of (PROTONIX) 14:00: DAILY, [place] EC tablet 00 First dose Medi susu 40 mg on Fri Branch 05/31/19 at 0900, Until Discontinu ed, Routine meropenem 2019- No 500mg 500 mg, IV Univers (MERREM) 05-30 Piggyback, ity of 500 mg in 13:15: 14:04 Administer [place] NaCl 0.9% 00 :41 over 60 Medical (NS) 100 mL Minutes, Bran ch MINI-BAG Q6H ABX, First dose on Fri05/31/19 at 0815, Until Discontinu ed, ANA
Re stricted use approved by: [facility] 8TH FLOOR
R umesh for Anti-Infec tive: Empiric Therapy for Suspected Infection< br>Empiric Therapy Site: Respirator y
Durat ion of therapy: 7 days vancomycin 2019- No 15mg/kg 1,000 mg Univers 1 g in NS 05-30 (rounded ity o f 200 mL RTU 13:15: 00:12 from 997.5 [place] IV 00 :28 mg = 15 Medical Piggyback mg/kg Branch 1,000 mg ?66.5 kg), IV Piggyback, Q12H ABX, First dose on Fri05/31/19 at 0815, Until Discontinu ed
Reas on for Anti-Infec tive: Empiric Therapy for Suspected Infection< br>Empiric Therapy Site: Respirator y
Durat ion of therapy: 7 days heparin Yes 5000U 5,000 Univers (porcine) 05-30 Units, ity of injection 13:00: Subcutaneo [place] 5,000 Units 00 us, Q12H, Med ical First dose Branch on Fri05/31/19 at 0800, Until Discontinu ed, Routine dexMEDEtomi 2019-2019- No .2ug/kg 0.2-1.5 Univers dine 400 05-30 04-08 /h mcg/kg/hr ity o f mcg in 0.9 11:17: 14:03 ?66.5 kg [place] % NaCl 100 19 :26 (3.325-24. Med ical mL 9375 Branch (PRECEDEX) mL/hr, RTU IV rounded to infusion 3.33-24.94 mL/hr), IV Infusion, TITRATE, Sedation-R ASS score (0 to -1), Starting Fri05/31/19 at 0617
In itiate infusion at 0.2 mcg/kg/hr and titrate by 0.1 mcg/kg/hr every 30 minutes to goal sedation score. Maximum dose = 1.5 mcg/kg/hr. If goal not maintained at maximum allowed dose, contact prescriber .
KCL 2019- No 40meq 40 mEq, IV Unive rs (POTASSIUM 05-30 Piggyback, it y of CHLORIDE) 11:05: 13:58 ONCE, 1 [place] 40 mEq in 00 :00 dose, Mon Medic al NaCl 0.9% 05/31/19 at Branc h (NS) 250 mL 0615, 250 piggyback mL LORazepam 2019- No 2mg 2 mg, Slow U nivers (ATIVAN) 05-30-06 IV Push, ity of injection 2 10:18: 13:40 ONCE, 1 [place] mg 00 :00 dose, Mon Medical 05/31/19 at Branch 0530, Routine haloperidol 2019- No 2mg 2 mg, Slow Univers lactate 05-30-06 IV Push, ity of (HALDOL) 10:01: 10:00 ONCE NOW, [place] injection 2 00 :00 1 dose, Medic al mg [facility] 05/31/19 Branch at 0515, Routine lactated 2019-0 2020- No 1000mL at 250 Univ ers ringers IV 05-30-08 mL/hr, ity of infusion 09:15: 11:11 1,000 mL, [place] 1,000 mL 00 :36 IV Medical Infusion, Branch CONTINUOUS , Starting Fri05/31/19 at 0415, Until Fri06/02/19 at 0611, Routine LORazepam 2019- No 1mg 1 mg, Slow U nivers (ATIVAN) 05-30 IV Push, ity of injection 1 08:41: 08:40 Q2HPRN , [place] mg 49 :49 Starting Medical 05/31/19 Branch at 0341, Until Fri06/02/19 at 0340, Routine, Anxiety HYDROcodone 2020- No 1{tbl} 1 tablet, Univers -acetaminop 05-30 Oral, ity of hen (NORCO 08:40: 14:36 Q6HPRN, [place] 5) 5-325 mg 39 :43 Starting Medi susu tablet 1 Fri05/31/19 Branc h tablet at 0340, Until Fri06/02/19 at 0936, Routine, Pain (scale 4-6), Pain (scale 7-10) dextrose 2019-0 Yes 250mL 250 mL, IV [place] 10% (D10W) 05-30 Infusion, ity of bolus 07:45: PRN - SEE [place] infusion 27 INSTRUCTIO Medic al 250 mL NS, BS<70, Branch Starting Fri05/31/19 at 0245
De xtrose 10% 250 mL bag contains:& nbsp;10 gm = 100 mL 20 gm = 200 mL 25 gm = 250 mL (whole bag) The maximum rate at which dextrose can be infused without producing glycosuria is 0.5 g/kg/hour. &nbs p;BUD: If wrapper is open bag is good for 30 days at room temperatur e. <b r> glucagon Yes 1mg 1 mg, Univers (GLUCAGEN 05-30 Intramuscu ity of DIAGNOSTIC 07:45: lar, PRN, [place] KIT) 23 Starting Medical injection 1 Fri05/31/19 Br anch mg at 0245, Until Discontinu ed, ANA, Blood Glucose < or = 70 mg/dL and patient is unable to swallow or has mental changes. ketamine 2019- No 100mg 100 mg, Univ ers (KETALAR) 05-30 Slow IV ity of injection 06:15: 05:30 Push, [place] 100 mg 00 :00 ONCE, 1 Medical dose, Mon Branch 05/31/19 at 0115, Routine iohexol 2019- No 120mL 120 mL, Unive rs (OMNIPAQUE 05-30 Intravenou it y of 350 05:45: 05:28 s, ONCE, 1 [place] BULK-100 00 :00 dose, Mon Medica l mL) 05/31/19 at Branch injection 0045, 120 mL Routine ondansetron 2019- No 4mg 4 mg, Slow Univers (ZOFRAN 05-30 IV Push, ity of (PF)) 04:45: 03:47 ONCE, 1 [place] injection 4 00 :00 dose, Sun Med ical mg 05/30/19 at Branch 2345, ANA NaCl 0.9% 2019- No 30mL/kg at 999 [place] (NS) bolus 4 04-06 mL/hr, ity of infusion 04:30: 04:58 2,040 mL [place] 2,040 mL 00 :00 (30 mL/kg Medica l ?68 kg), Branch IV Infusion, ONCE, 1 dose, 05/30/19 at 2330, STAT NaCl 0.9% 2019- No 1000mL at 250 Uni vers (NS) IV 05-30 04-06 mL/hr, ity of infusion 04:15: 08:01 1,000 mL, [place] 1,000 mL 00 :05 IV Medical Infusion, Branch CONTINUOUS , Starting 05/30/19 at 2315, Until 05/31/19 at 0301, ANA ibuprofen Yes 600mg Take 1 Unive rs (MOTRIN) 5-24 tablet by ity of 600 mg 00:00: mouth [place] tablet 00 every 6 Medical (six) Branch hours as needed for Pain (scale 4-6) or Pain unrelieved by Tylenol. docusate Yes 100mg Take 1 Univer s (COLACE) 5-24 capsule by ity o f 100 mg 00:00: mouth [place] capsule 00 daily. Medical Branch acetaminoph Yes 650mg Take 2 Uni vers en 5-24 tablets by ity of (TYLENOL) 00:00: mouth [place] 325 mg 00 every 6 Medical tablet (six) Branch hours as needed for Pain (scale 4-6) (not to be taken with or alternatin g with [place]). ibuprofen 0 Yes 600mg Take 1 Unive rs (MOTRIN) 5-24 tablet by ity of 600 mg 00:00: mouth [place] tablet 00 every 6 Medical (six) Branch hours as needed for Pain (scale 4-6) or Pain unrelieved by Tylenol. docusate Yes 100mg Take 1 Univer s (COLACE) 5-24 capsule by ity o f 100 mg 00:00: mouth [place] capsule 00 daily. Medical Branch acetaminoph Yes 650mg Take 2 Uni vers en 5-24 tablets by ity of (TYLENOL) 00:00: mouth [place] 325 mg 00 every 6 Medical tablet (six) Branch hours as needed for Pain (scale 4-6) (not to be taken with or alternatin g with [place]). ibuprofen Yes 600mg Take 1 Unive rs (MOTRIN) 5-24 tablet by ity of 600 mg 00:00: mouth [place] tablet 00 every 6 Medical (six) Branch hours as needed for Pain (scale 4-6) or Pain unrelieved by Tylenol. docusate Yes 100mg Take 1 Univer s (COLACE) 5-24 capsule by ity o f 100 mg 00:00: mouth [place] capsule 00 daily. Medical Branch acetaminoph Yes 650mg Take 2 Uni vers en 5-24 tablets by ity of (TYLENOL) 00:00: mouth [place] 325 mg 00 every 6 Medical tablet (six) Branch hours as needed for Pain (scale 4-6) (not to be taken with or alternatin g with [place]). ibuprofen 0 Yes 600mg Take 1 Unive rs (MOTRIN) 5-24 tablet by ity of 600 mg 00:00: mouth [place] tablet 00 every 6 Medical (six) Branch hours as needed for Pain (scale 4-6) or Pain unrelieved by Tylenol. docusate 0 Yes 100mg Take 1 Univer s (COLACE) 5-24 capsule by ity o f 100 mg 00:00: mouth [place] capsule 00 daily. Medical Branch acetaminoph Yes 650mg Take 2 Uni vers en 5-24 tablets by ity of (TYLENOL) 00:00: mouth [place] 325 mg 00 every 6 Medical tablet (six) Branch hours as needed for Pain (scale 4-6) (not to be taken with or alternatin g with [place]). ibuprofen 0 Yes 600mg Take 1 Unive rs (MOTRIN) 5-24 tablet by ity of 600 mg 00:00: mouth [place] tablet 00 every 6 Medical (six) Branch hours as needed for Pain (scale 4-6) or Pain unrelieved by Tylenol. docusate Yes 100mg Take 1 Univer s (COLACE) 5-24 capsule by ity o f 100 mg 00:00: mouth [place] capsule 00 daily. Medical Branch acetaminoph Yes 650mg Take 2 Uni vers en 5-24 tablets by ity of (TYLENOL) 00:00: mouth [place] 325 mg 00 every 6 Medical tablet (six) Branch hours as needed for Pain (scale 4-6) (not to be taken with or alternatin g with [place]). ibuprofen Yes 600mg Take 1 Unive rs (MOTRIN) 5-24 tablet by ity of 600 mg 00:00: mouth [place] tablet 00 every 6 Medical (six) Branch hours as needed for Pain (scale 4-6) or Pain unrelieved by Tylenol. docusate Yes 100mg Take 1 Univer s (COLACE) 5-24 capsule by ity o f 100 mg 00:00: mouth [place] capsule 00 daily. Medical Branch acetaminoph Yes 650mg Take 2 Uni vers en 5-24 tablets by ity of (TYLENOL) 00:00: mouth [place] 325 mg 00 every 6 Medical tablet (six) Branch hours as needed for Pain (scale 4-6) (not to be taken with or alternatin g with [place]). ibuprofen 0 Yes 600mg Take 1 Unive rs (MOTRIN) 5-24 tablet by ity of 600 mg 00:00: mouth [place] tablet 00 every 6 Medical (six) Branch hours as needed for Pain (scale 4-6) or Pain unrelieved by Tylenol. docusate 0 Yes 100mg Take 1 Univer s (COLACE) 5-24 capsule by ity o f 100 mg 00:00: mouth [place] capsule 00 daily. Medical Branch acetaminoph Yes 650mg Take 2 Uni vers en 5-24 tablets by ity of (TYLENOL) 00:00: mouth [place] 325 mg 00 every 6 Medical tablet (six) Branch hours as needed for Pain (scale 4-6) (not to be taken with or alternatin g with [place]). ibuprofen Yes 600mg Take 1 Unive rs (MOTRIN) 5-24 tablet by ity of 600 mg 00:00: mouth [place] tablet 00 every 6 Medical (six) Branch hours as needed for Pain (scale 4-6) or Pain unrelieved by Tylenol. docusate Yes 100mg Take 1 Univer s (COLACE) 5-24 capsule by ity o f 100 mg 00:00: mouth [place] capsule 00 daily. Medical Branch acetaminoph Yes 650mg Take 2 Uni vers en 5-24 tablets by ity of (TYLENOL) 00:00: mouth [place] 325 mg 00 every 6 Medical tablet (six) Branch hours as needed for Pain (scale 4-6) (not to be taken with or alternatin g with [place]). ibuprofen Yes 600mg Take 1 Unive rs (MOTRIN) 5-24 tablet by ity of 600 mg 00:00: mouth [place] tablet 00 every 6 Medical (six) Branch hours as needed for Pain (scale 4-6) or Pain unrelieved by Tylenol. docusate Yes 100mg Take 1 Univer s (COLACE) 5-24 capsule by ity o f 100 mg 00:00: mouth [place] capsule 00 daily. Medical Branch acetaminoph Yes 650mg Take 2 Uni vers en 5-24 tablets by ity of (TYLENOL) 00:00: mouth [place] 325 mg 00 every 6 Medical tablet (six) Branch hours as needed for Pain (scale 4-6) (not to be taken with or alternatin g with [place]). HYDROcodone 2019- No 1{tbl} Take 1 U nivers -acetaminop 5-24 04-11 tablet by it y of hen (NORCO) 00:00: 00:00 mouth [place] 10-325 mg 00 :00 every 6 Medical tablet (six) Branch hours as needed for Pain (scale 7-10) or Pain unrelieved by non-narcot ic analgesics . pantoprazol 2019- No TAKE ONE U nivers e 2-15 04-11 TABLET BY ity of (PROTONIX) 00:00: 00:00 MOUTH [place] 40 mg EC 00 :00 DAILY 30 Medical tablet TO 60 Branch MINUTES BEFORE EATING acetaminoph 2014-02 2020- No 1{tbl} Take 1-2 Univers en-codeine 0-20 06-04 Tabs by ity o f (TYLENOL 00:00: 00:00 mouth [place] #3) 300-30 00 :00 every 4 Medica l mg tablet (four) Branch hours as needed for Pain (scale 4-6). Vital Signs Vital Name Observation Time Observation Value Comments Source Systolic blood 2019-06-05 16:17:00 100 mm[Hg] [facility] Diastolic blood 2019-06-05 16:17:00 62 mm[Hg] [facility] rate 2019-06-05 16:17:00 91 /min [facility] Body temperature 2019-06-05 16:17:00 36.56 Jamila [facility] Respiratory rate 2019-06-05 16:17:00 18 /min [facility] Oxygen saturation in 2019-06-05 16:17:00 99 /min [facility] Arterial blood by [place] [facility] Pulse oximetry Branch Body weight 2019-06-02 13:00:00 76 kg [facility] BMI 2019-06-02 13:00:00 22.72 kg/m2 [facility] Body height 2019-05-31 07:37:00 182.9 cm [facility] Procedures Procedure Date / Time Performing Clinician Source Performed REFERRAL- 2020-05-17 05:01:00 Doctor Unassigned, No [facility] REQUEST/RESPONSE Name [facility] AUTHORIZATION FOR RELEASE 2019-07-03 05:01:00 Doctor Unassigned, No [facility] Name [facility] POCT GLUCOSE (AUTOMATED) 2019-06-05 23:25:00 Morris Williamson [facility] POCT GLUCOSE (AUTOMATED) 2019-06-05 19:27:00 Morris Williamson [facility] POCT GLUCOSE (AUTOMATED) 2019-06-05 16:28:00 Morris Williamson [facility] POCT GLUCOSE (AUTOMATED) 2019-06-05 13:40:00 Morris Williamson [facility] PHOSPHORUS 2019-06-05 08:47:00 Sary Puckett [facility] MAGNESIUM 2019-06-05 08:47:00 Celio [facility] BASIC METABOLIC PANEL 2019-06-05 08:47:00 Sunni Pickens [facility] (NA, K, CL, CO2, GLUCOSE, Giovanna Medica [facility] BUN, CREATININE, CA) CBC WITH DIFFERENTIAL 2019-06-05 08:47:00 Dante Maharaj [facility] POCT GLUCOSE (AUTOMATED) 2019-06-05 08:27:00 Morris Williamson [facility] POCT GLUCOSE (AUTOMATED) 2019-06-05 04:40:00 Morris Williamson [facility] POCT GLUCOSE (AUTOMATED) 2019-06-05 00:15:00 Morris Williamson [facility] POCT GLUCOSE (AUTOMATED) 2019-06-04 22:24:00 Morris Williamson [facility] POCT GLUCOSE (AUTOMATED) 2019-06-04 21:07:00 Morris Williamson [facility] POCT GLUCOSE (AUTOMATED) 2019-06-04 19:27:00 Morris Williamson [facility] POCT GLUCOSE (AUTOMATED) 2019-06-04 19:11:00 Morris Williamson [facility] POCT GLUCOSE (AUTOMATED) 2019-06-04 17:28:00 Morris Williamson [facility] POCT GLUCOSE (AUTOMATED) 2019-06-04 12:47:00 Morris Williamson [facility] PHOSPHORUS 2019-06-04 09:39:00 Celio Sunni [facility] MAGNESIUM 2019-06-04 09:39:00 [facility] BASIC METABOLIC PANEL 2019-06-04 09:39:00 Sunni Pickens [facility] (NA, K, CL, CO2, GLUCOSE, Gi[facility] BUN, CREATININE, CA) CBC WITH DIFFERENTIAL 2019-06-04 09:39:00 Dnate Maharaj [facility] POCT GLUCOSE (AUTOMATED) 2019-06-04 09:08:00 Morris Williamson [facility] POCT GLUCOSE (AUTOMATED) 2019-06-04 04:52:00 Morris Williamson [facility] POCT GLUCOSE (AUTOMATED) 2019-06-04 01:32:00 Morris Williamson [facility] POCT GLUCOSE (AUTOMATED) 2019-06-03 23:06:00 Morris Williamson [facility] POCT GLUCOSE (AUTOMATED) 2019-06-03 17:39:00 Morris Williamson [facility] POCT GLUCOSE (AUTOMATED) 2019-06-03 13:07:00 Morris Williamson [facility] PHOSPHORUS 2019-06-03 08:55:00 [facility] MAGNESIUM 2019-06-03 08:55:00 [facility] BASIC METABOLIC PANEL 2019-06-03 08:55:00 Sunni Pickens [facility] (NA, K, CL, CO2, GLUCOSE, [facility] BUN, CREATININE, CA) POCT GLUCOSE (AUTOMATED) 2019-06-03 08:55:00 Morris Williamson [facility] POCT GLUCOSE (AUTOMATED) 2019-06-03 04:53:00 Morris Williamson [facility] BASIC METABOLIC PANEL 2019-06-03 02:15:00 [facility] (NA, K, CL, CO2, GLUCOSE, Medica l Branch BUN, CREATININE, CA) POCT GLUCOSE (AUTOMATED) 2019-06-03 02:04:00 Morris Williamson [facility] BASIC METABOLIC PANEL 2019-06-02 23:42:00 Linnette [facility] (NA, K, CL, CO2, GLUCOSE, Medica l Branch BUN, CREATININE, CA) POCT GLUCOSE (AUTOMATED) 2019-06-02 21:20:00 Nilton Romero [facility] BASIC METABOLIC PANEL 2019-06-02 19:51:00 [facility] (NA, K, CL, CO2, GLUCOSE, Medica l Branch BUN, CREATININE, CA) POCT GLUCOSE (AUTOMATED) 2019-06-02 16:44:00 Nilton Romero [facility] BASIC METABOLIC PANEL 2019-06-02 15:48:00 [facility] (NA, K, CL, CO2, GLUCOSE, Medica l Branch BUN, CREATININE, CA) POCT GLUCOSE (AUTOMATED) 2019-06-02 15:43:00 Nilton Romero [facility] POCT GLUCOSE (AUTOMATED) 2019-06-02 14:42:00 Nilton Romero [facility] POCT GLUCOSE (AUTOMATED) 2019-06-02 13:25:00 Nilton Romero [facility] POCT GLUCOSE (AUTOMATED) 2019-06-02 12:38:00 Nilton Romero [facility] BASIC METABOLIC PANEL 2019-06-02 11:44:00 [facility] (NA, K, CL, CO2, GLUCOSE, Medica l Branch BUN, CREATININE, CA) CBC WITH DIFFERENTIAL 2019-06-02 11:43:00 EscLuis Miguel fajardo Uni vers[facility] POCT GLUCOSE (AUTOMATED) 2019-06-02 11:33:00 Nilton Romero [facility] POCT GLUCOSE (AUTOMATED) 2019-06-02 10:47:00 Nilton Romero [facility] POCT GLUCOSE (AUTOMATED) 2019-06-02 09:36:00 Nilton Romero [facility] POCT GLUCOSE (AUTOMATED) 2019-06-02 08:50:00 Nilton Romero [facility] BASIC METABOLIC PANEL 2019-06-02 07:54:00 EscLuis Miguel fajardo Uni [facility] (NA, K, CL, CO2, GLUCOSE, Javi Medica l Branch BUN, CREATININE, CA) POCT GLUCOSE (AUTOMATED) 2019-06-02 07:37:00 [facility] (AUTOMATED) 2019-06-02 06:37:00 Nilton Romero versity [facility] POCT GLUCOSE (AUTOMATED) 2019-06-02 05:30:00 [facility] LACTIC ACID WHOLE BLOOD 2019-06-02 04:56:00 Kobi Anglin [facility] POCT GLUCOSE (AUTOMATED) 2019-06-02 04:35:00 Nilton Romero [facility] POCT GLUCOSE (AUTOMATED) 2019-06-02 03:40:00 [facility] PHOSPHORUS 2019-06-02 03:39:00 Garfield [facility] MAGNESIUM 2019-06-02 03:39:00 Garfield [facility] BASIC METABOLIC PANEL 2019-06-02 03:39:00 EscLuis Miguel fajardo Uni versity [facility] (NA, K, CL, CO2, GLUCOSE, Javi [facility] BUN, CREATININE, CA) POCT GLUCOSE (AUTOMATED) 2019-06-02 02:37:00 [facility] POCT GLUCOSE (AUTOMATED) 2019-06-02 01:40:00 Nilton Romero [facility] POCT GLUCOSE (AUTOMATED) 2019-06-02 00:28:00 [facility] PO[facility]UCOSE (AUTOMATED) 2019-06-01 23:13:00 Nilton Romero [facility] BASIC METABOLIC PANEL 2019-06-01 23:10:00 EsclovonLuis Miguel [facility] versity [facility] (NA, K, CL, CO2, GLUCOSE, Javi [facility] BUN, CREATININE, CA) POCT GLUCOSE (AUTOMATED) 2019-06-01 22:28:00 Nilton Romero versity [facility] POCT GLUCOSE (AUTOMATED) 2019-06-01 21:35:00 Nilton Romero Uni versity [facility] POCT GLUCOSE (AUTOMATED) 2019-06-01 20:54:00 Nilton Romero versity [facility] POCT GLUCOSE (AUTOMATED) 2019-06-01 19:34:00 Nilton Romero [facility] BASIC METABOLIC PANEL 2019-06-01 18:39:00 Fabian Mcmillan [facility] versity [facility] (NA, K, CL, CO2, GLUCOSE, Medica l Branch BUN, CREATININE, CA) POCT GLUCOSE (AUTOMATED) 2019-06-01 18:33:00 Nilton Romero [facility] POCT GLUCOSE (AUTOMATED) 2019-06-01 17:31:00 Nilton Romero [facility] BASIC METABOLIC PANEL 2019-06-01 16:43:00 Luis Miguel Mary [facility] (NA, K, CL, CO2, GLUCOSE, Javi [facility] BUN, CREATININE, CA) POCT GLUCOSE (AUTOMATED) 2019-06-01 16:31:00 Nilton Romero Uni versity [facility] POCT GLUCOSE (AUTOMATED) 2019-06-01 15:49:00 Nilton Romero Uni versity [facility] BASIC METABOLIC PANEL 2019-06-01 14:50:00 Luis Miguel Mary [facility] (NA, K, CL, CO2, GLUCOSE, Javi [facility] BUN, CREATININE, CA) POCT GLUCOSE (AUTOMATED) 2019-06-01 14:50:00 Nilton Romero [facility] POCT GLUCOSE (AUTOMATED) 2019-06-01 13:30:00 Nilton Romero Uni versity [facility] CREATINE KINASE 2019-06-01 12:45:00 Luis Miguel [facility] BASIC METABOLIC PANEL 2019-06-01 12:45:00 Shari Grey iversity [facility] (NA, K, CL, CO2, GLUCOSE, Medica l Branch BUN, CREATININE, CA) POCT GLUCOSE (AUTOMATED) 2019-06-01 12:44:00 Nilton Romero [facility] POCT GLUCOSE (AUTOMATED) 2019-06-01 11:37:00 Nilton Romero [facility] POCT GLUCOSE (AUTOMATED) 2019-06-01 10:37:00 [facility] BASIC METABOLIC PANEL 2019-06-01 10:35:00 Shari Grey [facility] [place] (NA, K, CL, CO2, GLUCOSE, Medica l Branch BUN, CREATININE, CA) POCT GLUCOSE (AUTOMATED) 2019-06-01 09:36:00 Nilton Romero Uni [facility] POCT GLUCOSE (AUTOMATED) 2019-06-01 08:36:00 [facility] BASIC METABOLIC PANEL 2019-06-01 07:41:00 Shari Grey [facility] [place] (NA, K, CL, CO2, GLUCOSE, Medica l Branch BUN, CREATININE, CA) POCT GLUCOSE (AUTOMATED) 2019-06-01 07:40:00 Nilton Romero [facility] POCT GLUCOSE (AUTOMATED) 2019-06-01 06:33:00 Nilton Romero Uni [facility] PHOSPHORUS 2019-06-01 05:41:00 Kathya Merrill [facility] BASIC METABOLIC PANEL 2019-06-01 05:41:00 Shari Greyl [facility] [place] (NA, K, CL, CO2, GLUCOSE, Medica l Branch BUN, CREATININE, CA) POCT GLUCOSE (AUTOMATED) 2019-06-01 05:34:00 Nilton Romero [facility] POCT GLUCOSE (AUTOMATED) 2019-06-01 04:36:00 Nilton Romero [facility] BASIC METABOLIC PANEL 2019-06-01 03:44:00 Shari Grey [facility] [place] (NA, K, CL, CO2, GLUCOSE, Medica l Branch BUN, CREATININE, CA) POCT GLUCOSE (AUTOMATED) 2019-06-01 03:41:00 [facility] PO[facility]UCOSE (AUTOMATED) 2019-06-01 03:40:00 [facility] PO[facility]UCOSE (AUTOMATED) 2019-06-01 02:33:00 [facility] MAGNESIUM 2019-06-01 01:46:00 Kathya Merrill [facility] BASIC METABOLIC PANEL 2019-06-01 01:46:00 Shari Grey [facility] [place] (NA, K, CL, CO2, GLUCOSE, Medica l Branch BUN, CREATININE, CA) POCT GLUCOSE (AUTOMATED) 2019-06-01 01:37:00 [facility] PO[facility]UCOSE (AUTOMATED) 2019-06-01 00:34:00 [facility]ilton [facility] BASIC METABOLIC PANEL 2019-05-31 23:34:00 Shari Grey [facility] [place] (NA, K, CL, CO2, GLUCOSE, Medica l Branch BUN, CREATININE, CA) POCT GLUCOSE (AUTOMATED) 2019-05-31 23:13:00 Nilton Romero [facility] POCT GLUCOSE (AUTOMATED) 2019-05-31 21:04:00 Nilton Romero Uni [facility] POCT GLUCOSE (AUTOMATED) 2019-05-31 20:56:00 Nilton Romero Uni [facility] BASIC METABOLIC PANEL 2019-05-31 20:54:00 Shari Grey [facility] [place] (NA, K, CL, CO2, GLUCOSE, Medica l Branch BUN, CREATININE, CA) POCT GLUCOSE (AUTOMATED) 2019-05-31 20:16:00 Nilton Romero Uni [facility] PNEUMOCOCCAL ANTIGEN 2019-05-31 19:25:00 Fabian Castro [facility] LEGIONELLA URINARY 2019-05-31 19:24:00 Fabian Castro [facility] ANTIGEN [facility] URINE CULTURE 2019-05-31 19:24:00 [facility]OL[facility] 2019-05-31 19:12:00 Shari Grey [facility] [place] (NA, K, CL, CO2, GLUCOSE, Medica l Branch BUN, CREATININE, CA) POCT GLUCOSE (AUTOMATED) 2019-05-31 19:11:00 Nilton Romero [facility] POCT GLUCOSE (AUTOMATED) 2019-05-31 18:02:00 Nilton Romero [facility] POCT GLUCOSE (AUTOMATED) 2019-05-31 16:55:00 Nilton Romero [facility] FERRITIN SERUM 2019-05-31 16:46:00 Fabian Castro [facility] VITAMIN B12, LEVEL 2019-05-31 16:46:00 [facility] FOL[facility] 2019-05-31 16:46:00 Shaikh [facility] BASIC METABOLIC PANEL 2019-05-31 16:46:00 [facility] ([facility], K, CL, CO2, GLUCOSE, Medica l Branch BUN, CREATININE, CA) LIPID PANEL ([id number])(TOTAL 2019-05-31 16:46:00 Shari Grey [facility] CHOLESTEROL, [facility] TRIGLYCERIDES, HDL) POCT GLUCOSE (AUTOMATED) 2019-05-31 14:58:00 Nilton Romero [facility] POCT GLUCOSE (AUTOMATED) 2019-05-31 14:02:00 Nilton Romero [facility] BASIC METABOLIC PANEL 2019-05-31 13:59:00 Shari Grey [facility] (NA, K, CL, CO2, GLUCOSE, Medica l Branch BUN, CREATININE, CA) GALV/CLC ONLY - URINE 2019-05-31 13:59:00 [facility] DRUG (IMMUNOASSAY) - Medical [facility] COMPREHENSIVE DRUG SCREEN LACTIC ACID WHOLE BLOOD 2019-05-31 13:59:00 Shari Grey [facility] URINE DRUG (LCMSMS) - 2019-05-31 13:59:00 [facility] BARBITURATES PANEL Medical Bran h EKG-12 LEAD 2019-05-31 13:20:07 Nilton Romero [facility] POCT GLUCOSE (AUTOMATED) 2019-05-31 12:53:00 Nilton Romero [facility] XR CHEST 1 VW 2019-05-31 12:34:00 Fabian Castro [facility] POCT GLUCOSE (AUTOMATED) 2019-05-31 12:13:00 Nilton Romero [facility] BASIC METABOLIC PANEL 2019-05-31 11:33:00 Shari Grey [facility] [place] (NA, K, CL, CO2, GLUCOSE, Medica l Branch BUN, CREATININE, CA) ETHANOL 2019-05-31 11:33:[address] [facility] PROT[facility]BIN [facility] / INR 2019-05-31 11:33:00 [facility] VENOUS COOX 2019-05-31 10:42:00 Shari Grey [facility] LACTIC ACID WHOLE BLOOD 2019-05-31 10:42:00 Shari Grey [facility] POCT GLUCOSE (AUTOMATED) 2019-05-31 10:41:00 Nilton Romero [facility] POCT GLUCOSE (AUTOMATED) 2019-05-31 10:09:00 Nilton Romero [facility] ISLET CELL AB, IGG 2019-05-31 09:53:00 Shari Grey [facility] BLOOD CULTURE SCREEN 2019-05-31 09:53:00 Fabian Castro [facility] LACTATE DEHYDROGENASE 2019-05-31 09:53:00 Fab[facility] C-REACTIVE PROTEIN 2019-05-31 09:53:00 [facility] BASIC METABOLIC PANEL 2019-05-31 09:53:00 Shari Grey [facility] [place] (NA, K, CL, CO2, GLUCOSE, Medica l Branch BUN, CREATININE, CA) PROTHROMBIN TIME / INR 2019-05-31 09:53:00 Terri Knapp [facility] D-DIMER 2019-05-31 09:53:00 Fabian Castro [facility] GLUTAMIC ACID 2019-05-31 09:53:00 Shari Grey [facility] DECARBOXYLASE AB [facility] PROCALCITONIN 2019-05-31 09:53:00 Fabian Castro [facility] BLOOD CULTURE SCREEN 2019-05-31 09:52:00 Fabian Castro [facility] MRSA / MSSA SCREEN BY 2019-05-31 09:52:00 Shari Grey [facility] PCR, [facility] GALV ONLY - INFLUENZA A B 2019-05-31 08:55:00 Rene Castro [facility] RSV [facility] CORONAVIRUS COVID-19 2019-05-31 08:55:00 Shari Grey [facility] TESTING [facility] POCT GLUCOSE (AUTOMATED) 2019-05-31 08:31:00 Nilton Romero [facility] POCT GLUCOSE (AUTOMATED) 2019-05-31 07:37:00 Nilton Romero [facility] POCT GLUCOSE (AUTOMATED) 2019-05-31 05:37:00 David Roberson [facility] CT ABDOMEN PELVIS W 2019-05-31 05:35:36 David Roberson [facility] CONTRAST [facility] HB CREATININE BLOOD 2019-05-31 05:03:00 David Roberson [facility] PHOSPHORUS 2019-05-31 04:10:00 David Roberson [facility] GLYCOSYLATED HEMOGLOBIN 2019-05-31 04:10:00 David Roberson [facility] (A1C) [facility] OSMOLALITY SERUM 2019-05-31 04:06:00 David Roberson [facility] BETA HYDROXY-BUTYRATE 2019-05-31 04:06:00 David Roberson [facility] 2019-05-31 03:55:00 David Roberson [facility] ABG+NA+K+GLU+CA2+ 2019-05-31 03:39:00 David Roberson [facility] EKG-12 LEAD 2019-05-31 03:31:32 [facility] POCT GLUCOSE(AGE >30DAYS) 2019-05-31 03:29:00 [facility] CREATINE KINASE 2019-05-31 03:28:00 Fabian Castro [facility] LIPASE 2019-05-31 03:28:00 David Roberson [facility] MAGNESIUM 2019-05-31 03:28:00 David Roberson [facility] TROPONIN I 2019-05-31 03:28:00 Que [facility] THYROID STIMULATING 2019-05-31 03:28:00 Que [facility] HORMONE [facility] COMP. METABOLIC PANEL 2019-05-31 03:28:00 David Roberson [facility] ([id number]) [facility] CBC WITH DIFFERENTIAL 2019-05-31 03:28:00 David Roberson [facility] EKG-12 LEAD 2019-05-31 03:26:59 David Roberson [facility] POCT GLUCOSE (AUTOMATED) 2019-05-31 03:23:00 [facility] 2019-05-30 05:01:00 Doctor Unassigned, No [facility] DOCUM[facility] Name [facility] EMERGENCY SERVICES 2019-05-30 05:01:00 Doctor Unassigned, No Uni [facility] AGREEMENTS AND Name [facility] AUTHORIZATIONS Encounters Start End Encounter Admission Attending Care Care Encounter Source Date/Time Date/Time Type Type Clinicians Facility Department ID 2020-05-17 2020-05-17 Orders Doctor BERG [id number] Univers 00:00:00 00:00:00 Only Unassigned, CHERELLE [id number] [place] [facility] 4.2.7.2.686 [place] [phone] [place] [address] Branch 2019-07-03 2019-07-03 Orders Doctor OTIS [id number] Univers 00:00:00 00:00:00 Only Unassigned, CHERELLE [id number] [place] [facility] 4.2.7.2.686 [place] as [id number] [facility] [address] 2019-06-17 2019-06-17 Nurse OTIS Durant [id number] Univers 00:00:00 00:00:00 Triage Judy JAMESY [id number] ity of HOSPITAL 4.2.7.2.686 [place] [id number] [facility] [address] 2019-06-17 2019-06-17 Patient Sandy Hernandez [id number] Univers 00:00:00 00:00:00 Outreach E Cortes [id number] i ty [place] [id number] [facility] [address] 2019-06-14 2019-06-14 Patient Sandy Hernandez [id number] Univers 00:00:00 00:00:00 Outreach E [place] [id number] i [id number] [address] 2019-06-11 2019-06-11 Patient Sandy Hernandez [id number] Univers 00:00:00 00:00:00 Outreach E [place] [id number] i ty [place] [id number] [address] 2019-06-06 2019-06-06 OTIS Bernal [id number] Univers 00:00:00 00:00:00 Triage Patient CHERELLE [id number] it y of [place] Not HOSP[place] [id number] [address] 2019-06-06 2019-06-06 Transition Michelle Kemp [id number] Univers 00:00:00 00:00:00 of Care Yessy L Cortes [id number] i ty of [place] 4.2.7.2.686 Prashant haque [id number] [address] 2019-05-30 2019-06-05 Hospital David Roberson [id number] Univers 22:21:20 20:05:00 Encounter Nilton Romero [id number] ity [facility] 4.2.7.2. 686 Morris Terry [phone] [address] 2019-05-30 2019-06-05 Inpatient X CLAY [facility] [id number] Univers 22:21:20 20:05:00 MORRIS ity [facility] Results Test Description Test Time Test Comments Results Result Comments Source POCT GLUCOSE (AUTOMATED) 2019-06-05 23:26:00 Test Item Value Reference Range Interpretation Comme nts POCT GLU (test code = 3858391111) 250 mg/dL 70-110 H Lab Interpretation (test code = 96619-2) Abnormal [facility] GLUCOSE (AUTOMATED)2019-06-05 19:48:00 Test Item Value Reference Range Interpretation Comments POCT GLU (test code = 5024882830) 104 mg/dL 70-110 Lab Interpretation (test code = Normal 75425-2) [facility] GLUCOSE (AUTOMATED)2019-06-05 16:44:00 Test Item Value Reference Range Interpretation Comments POCT GLU (test code = 1386911328) 195 mg/dL 70-110 H Lab Interpretation (test code = Abnormal 10680-2) [facility] [id number] 14:01:00 Test Item Value Reference Range Interpretation Comments Blood Culture-Aerobic No organisms No growth Previo us (test code = 78117-9) isolated prelim inary verified result was Culture In Progress on 05/31/2019 at 120 1 CDTPrevious preliminary verified result was No growth a t 24 hours on 06/01/2019 at 090 1 CDTPrevious preliminary verified result was No growth a t 48 hours on 06/02/2019 at 090 1 CDTPrevious preliminary verified result was No growth a t 72 hours on 06/03/2019 at 090 1 CDT Blood No organisms No growth Previous Culture-Anaerobic isolated preliminar y (test code = 31052-4) verifi ed result was Culture In Progress on 05/31/2019 at 120 1 CDTPrevious preliminary verified result was No growth a t 24 hours on 06/01/2019 at 090 1 CDTPrevious preliminary verified result was No growth a t 48 hours on 06/02/2019 at 090 1 CDTPrevious preliminary verified result was No growth a t 72 hours on 06/03/2019 at 090 1 CDT Lab Interpretation Normal (test code = 22229-7) [facility] [id number] 14:01:00 Test Item Value Reference Range Interpretation Comments Blood Culture-Aerobic No organisms No growth Previo us (test code = 43704-7) isolated prelim inary verified result was Culture In Progress on 05/31/2019 at 120 1 CDTPrevious preliminary verified result was No growth a t 24 hours on 06/01/2019 at 090 1 CDTPrevious preliminary verified result was No growth a t 48 hours on 06/02/2019 at 090 1 CDTPrevious preliminary verified result was No growth a t 72 hours on 06/03/2019 at 090 1 CDT Blood No organisms No growth Previous Culture-Anaerobic isolated preliminar y (test code = 78865-3) verifi ed result was Culture In Progress on 05/31/2019 at 120 1 CDTPrevious preliminary verified result was No growth a t 24 hours on 06/01/2019 at 090 1 CDTPrevious preliminary verified result was No growth a t 48 hours on 06/02/2019 at 090 1 CDTPrevious preliminary verified result was No growth a t 72 hours on 06/03/2019 at 090 1 CDT Lab Interpretation Normal (test code = 07812-3) [facility]2019-06-05 13:41:00 Test Item Value Reference Range Interpretation Comments POCT GLU (test code = 2076851744) 280 mg/dL 70-110 H Lab Interpretation (test code = Abnormal 19051-2) [facility]2020-04-11 10:23:00 Test Item Value Reference Range Interpretation Comments MAGNESIUM (test code = 4586826346) 1.6 mg/dL 1.7-2.4 L Lab Interpretation (test code = Abnormal 70858-4) [facility] METABOLIC PANEL (NA, K, CL, CO2, GLUCOSE, BUN, CREATININE, CA)2019-06-05 10:23:00 Test Item Value Reference Range Interpretation Comments NA (test code = 135 mmol/L 135-145 0629075336) K (test code = 3.2 mmol/L 3.5-5 L 6494721350) CL (test code = 99 mmol/L 98-108 2002234208) CO2 TOTAL (test code = 27 mmol/L 23-31 5606290266) AGAP (test code = 2-16 4954329544) BUN (test code = 4 mg/dL 7-23 L 1619158545) GLUCOSE (test code = 211 mg/dL 70-110 H 7308660672) CREATININE (test code = 0.54 mg/dL 0.6-1.25 L 2892991683) CALCIUM (test code = 8.8 mg/dL 8.6-10.6 6500560539) eGFR Calculation mL/min/1.73m2 (Non-) (test code = 5404781802) eGFR Calculation mL/min/1.73m2 () (test code = 3392363315) RUSTY (test code = RUSTY) Association of Glomerular Filtration Rate (GFR) and Staging of Kidney Disease* + --+ --+ ------+| GFR (mL/min/1.73 m2) ?| With Kidney Damage ?| ?Without Kidney Damage+ --------+ --------+ +| ?>90 ?| ?Stage one ?| ? Normal ?+ ---+ ---+ -------+| ?60-89 ?| ?Stage two ?| ? Decreased GFR ? + --+ --+ ------+| ?30-59 ?| ?Stage three ?| ? Stage three ? + --+ --+ ------+| ?15-29 ?| ?Stage four ? | ? Stage four ?+ ---+ ---+ -------+| ?<15 (or dialysis) ? ?| ?Stage five ? | ? Stage five ?+ ---+ ---+ -------+ *Each stage assumes the associated GFR level has been in effect for at least three months. ?Stages 1 to 5, with or without kidney disease, indicate chronic kidney disease. Notes: Determination of stages one and two (with eGFR >59mL/min/1.73 m2) requires estimation of kidney damage for at least three months as defined by structural or functional abnormalities of the kidney, manifested by either:Pathological abnormalities or Markers of kidney damage (including abnormalities in the composition of the blood or urine or abnormalities in imaging tests). Lab Interpretation Abnormal (test code = 10179-6) [facility] Test Item Value Reference Range Interpretation Comments PHOSPHORUS (test code = 9462460097) 4.8 mg/dL 2.5-5 Lab Interpretation (test code = Normal 07854-3) [facility] [id number] 09:40:00 Test Item Value Reference Range Interpretation Comments WBC (test code = See_Comment [Automated 5990-2) message] The sy stem which generated this result transmitted reference range : 4.20 - 10.70 10*3/?L. The reference range was not used to interpret this result as normal/abnormal . RBC (test code = See_Comment L [Automated 859-8) message] The sy stem which generated this result transmitted reference range : 4.26 - 5.52 10*6/?L. The reference range was not used to interpret this result as normal/abnormal . HGB (test code = 9.9 g/dL 12.2-16.4 L 718-7) HCT (test code = 29.4 % 38.4-49.3 L 4544-3) MCV (test code = 90.5 fL 81.7-95.6 787-2) MCH (test code = 30.5 pg 26.1-32.7 785-6) MCHC (test code = 33.7 g/dL 31.2-35 786-4) RDW-SD (test code = 40.3 fL 38.5-51.6 69477-9) RDW-CV (test code = 12.2 % 12.1-15.4 788-0) PLT (test code = See_Comment [Automated 777-3) message] The sy stem which generated this result transmitted reference range : 150 - 328 10*3/ ?L. The reference r everardo was not used to interpret this result as normal/abnormal . MPV (test code = 10.9 fL 9.8-13 48159-9) NRBC/100 WBC (test See_Comment [Automat ed code = 0883410228) message] The system which generated this result transmitted reference range : 0.0 - 10.0 /100 WBCs. The refer ence range was not u sed to interpret th is result as normal/abnormal . NRBC x10^3 (test code <0.01 See_Comment [Auto mated = 6863461022) message] The s ystem which generated this result transmitted reference range : 10*3/?L. The reference range was not used to interpret this result as normal/abnormal . GRAN MAT (NEUT) % 55.4 % (test code = 770-8) IMM GRAN % (test code 0.90 % = 1814899328) LYMPH % (test code = 25.0 % 736-9) MONO % (test code = 14.7 % 5905-5) EOS % (test code = 3.4 % 713-8) BASO % (test code = 0.6 % 706-2) GRAN MAT x10^3(ANC) 2.98 10*3/uL 1.99-6.95 (test code = 2756750029) IMM GRAN x10^3 (test 0.05 10*3/uL 0-0.06 code = 1986122974) LYMPH x10^3 (test code 1.34 10*3/uL 1.09-3.23 = 731-0) MONO x10^3 (test code 0.79 10*3/uL 0.36-1.02 = 742-7) EOS x10^3 (test code = 0.18 10*3/uL 0.06-0.53 711-2) BASO x10^3 (test code 0.03 10*3/uL 0.01-0.09 = 704-7) Lab Interpretation Abnormal (test code = 62409-3) [facility] GLUCOSE (AUTOMATED)2019-06-05 08:28:00 Test Item Value Reference Range Interpretation Comments POCT GLU (test code = 1540749042) 207 mg/dL 70-110 H Lab Interpretation (test code = Abnormal 66527-4) [facility] GLUCOSE (AUTOMATED)2019-06-05 05:04:00 Test Item Value Reference Range Interpretation Comments POCT GLU (test code = 5606023939) 70 mg/dL 70-110 Lab Interpretation (test code = Normal 42648-6) [facility] GLUCOSE (AUTOMATED)2019-06-05 00:16:00 Test Item Value Reference Range Interpretation Comments POCT GLU (test code = 2043375758) 144 mg/dL 70-110 H Lab Interpretation (test code = Abnormal 27776-6) [facility] GLUCOSE (AUTOMATED)2019-06-04 22:25:00 Test Item Value Reference Range Interpretation Comments POCT GLU (test code = 7884663964) 281 mg/dL 70-110 H Lab Interpretation (test code = Abnormal 18505-4) [facility] GLUCOSE (AUTOMATED)2019-06-04 21:08:00 Test Item Value Reference Range Interpretation Comments POCT GLU (test code = 5336689978) 215 mg/dL 70-110 H Lab Interpretation (test code = Abnormal 38304-2) [facility] GLUCOSE (AUTOMATED)2019-06-04 19:29:00 Test Item Value Reference Range Interpretation Comments POCT GLU (test code = 0943903544) 89 mg/dL 70-110 Lab Interpretation (test code = Normal 66955-0) [facility] GLUCOSE (AUTOMATED)2019-06-04 19:12:00 Test Item Value Reference Range Interpretation Comments POCT GLU (test code = 1770381336) 64 mg/dL 70-110 L Lab Interpretation (test code = Abnormal 08028-5) [facility] GLUCOSE (AUTOMATED)2019-06-04 17:38:00 Test Item Value Reference Range Interpretation Comments POCT GLU (test code = 6781595850) 113 mg/dL 70-110 H Lab Interpretation (test code = Abnormal 58631-2) [facility] GLUCOSE (AUTOMATED)2019-06-04 12:48:00 Test Item Value Reference Range Interpretation Comments POCT GLU (test code = 4453675108) 228 mg/dL 70-110 H Lab Interpretation (test code = Abnormal 49264-7) [facility] 10:22:00 Test Item Value Reference Range Interpretation Comments MAGNESIUM (test code = 0109997720) 2.0 mg/dL 1.7-2.4 Lab Interpretation (test code = Normal 01746-8) [facility] (NA, K, CL, CO2, GLUCOSE, BUN, CREATININE, CA)2019-06-04 10:22:00 Test Item Value Reference Range Interpretation Comments NA (test code = 135 mmol/L 135-145 9870867025) K (test code = 3.5 mmol/L 3.5-5 1083756354) CL (test code = 104 mmol/L 98-108 7633187750) CO2 TOTAL (test code = 26 mmol/L 23-31 0672185944) AGAP (test code = 2-16 9587500329) BUN (test code = 9 mg/dL 7-23 4054134823) GLUCOSE (test code = 134 mg/dL 70-110 H 1584363563) CREATININE (test code = 0.47 mg/dL 0.6-1.25 L 2689753036) CALCIUM (test code = 8.4 mg/dL 8.6-10.6 L 7306495439) eGFR Calculation mL/min/1.73m2 (Non-) (test code = 9552342256) eGFR Calculation mL/min/1.73m2 () (test code = 0302884081) RUSTY (test code = RUSTY) Association of Glomerular Filtration Rate (GFR) and Staging of Kidney Disease* + --+ --+ ------+| GFR (mL/min/1.73 m2) ?| With Kidney Damage ?| ?Without Kidney Damage+ --------+ --------+ +| ?>90 ?| ?Stage one ?| ? Normal ?+ ---+ ---+ -------+| ?60-89 ?| ?Stage two ?| ? Decreased GFR ? + --+ --+ ------+| ?30-59 ?| ?Stage three ?| ? Stage three ? + --+ --+ ------+| ?15-29 ?| ?Stage four ? | ? Stage four ?+ ---+ ---+ -------+| ?<15 (or dialysis) ? ?| ?Stage five ? | ? Stage five ?+ ---+ ---+ -------+ *Each stage assumes the associated GFR level has been in effect for at least three months. ?Stages 1 to 5, with or without kidney disease, indicate chronic kidney disease. Notes: Determination of stages one and two (with eGFR >59mL/min/1.73 m2) requires estimation of kidney damage for at least three months as defined by structural or functional abnormalities of the kidney, manifested by either:Pathological abnormalities or Markers of kidney damage (including abnormalities in the composition of the blood or urine or abnormalities in imaging tests). Lab Interpretation Abnormal (test code = 39348-2) [facility] 10:22:00 Test Item Value Reference Range Interpretation Comments PHOSPHORUS (test code = 5286605476) 4.2 mg/dL 2.5-5 Lab Interpretation (test code = Normal 43066-8) [facility] [id number] 09:58:00 Test Item Value Reference Range Interpretation Comments WBC (test code = See_Comment [Automated 6690-2) message] The sy stem which generated this result transmitted reference range : 4.20 - 10.70 10*3/?L. The reference range was not used to interpret this result as normal/abnormal . RBC (test code = See_Comment L [Automated 789-8) message] The sy stem which generated this result transmitted reference range : 4.26 - 5.52 10*6/?L. The reference range was not used to interpret this result as normal/abnormal . HGB (test code = 9.4 g/dL 12.2-16.4 L 718-7) HCT (test code = 27.2 % 38.4-49.3 L 4544-3) MCV (test code = 88.0 fL 81.7-95.6 787-2) MCH (test code = 30.4 pg 26.1-32.7 785-6) MCHC (test code = 34.6 g/dL 31.2-35 786-4) RDW-SD (test code = 39.7 fL 38.5-51.6 58251-2) RDW-CV (test code = 12.4 % 12.1-15.4 788-0) PLT (test code = See_Comment [Automated 777-3) message] The sy stem which generated this result transmitted reference range : 150 - 328 10*3/ ?L. The reference r everardo was not used to interpret this result as normal/abnormal . MPV (test code = 10.8 fL 9.8-13 76324-4) NRBC/100 WBC (test See_Comment [Automat ed code = 3585570891) message] The system which generated this result transmitted reference range : 0.0 - 10.0 /100 WBCs. The refer ence range was not u sed to interpret th is result as normal/abnormal . NRBC x10^3 (test code <0.01 See_Comment [Auto mated = 1681417607) message] The s ystem which generated this result transmitted reference range : 10*3/?L. The reference range was not used to interpret this result as normal/abnormal . GRAN MAT (NEUT) % 61.8 % (test code = 770-8) IMM GRAN % (test code 0.80 % = 5872420549) LYMPH % (test code = 24.3 % 736-9) MONO % (test code = 8.7 % 5905-5) EOS % (test code = 4.1 % 713-8) BASO % (test code = 0.3 % 706-2) GRAN MAT x10^3(ANC) 3.92 10*3/uL 1.99-6.95 (test code = 0699697702) IMM GRAN x10^3 (test 0.05 10*3/uL 0-0.06 code = 3114471951) LYMPH x10^3 (test code 1.54 10*3/uL 1.09-3.23 = 731-0) MONO x10^3 (test code 0.55 10*3/uL 0.36-1.02 = 742-7) EOS x10^3 (test code = 0.26 10*3/uL 0.06-0.53 711-2) BASO x10^3 (test code <0.03 0.01-0.09 = 704-7) Lab Interpretation Abnormal (test code = 98152-5) [facility] GLUCOSE (AUTOMATED)2019-06-04 09:09:00 Test Item Value Reference Range Interpretation Comments POCT GLU (test code = 1617701501) 154 mg/dL 70-110 H Lab Interpretation (test code = Abnormal 03384-2) [facility] GLUCOSE (AUTOMATED)2019-06-04 05:00:00 Test Item Value Reference Range Interpretation Comments POCT GLU (test code = 9248003643) 240 mg/dL 70-110 H Lab Interpretation (test code = Abnormal 17410-5) [facility] GLUCOSE (AUTOMATED)2019-06-04 01:35:00 Test Item Value Reference Range Interpretation Comments POCT GLU (test code = 9654263485) 240 mg/dL 70-110 H Lab Interpretation (test code = Abnormal 23115-5) [facility] GLUCOSE (AUTOMATED)2019-06-03 23:08:00 Test Item Value Reference Range Interpretation Comments POCT GLU (test code = 8014971076) 134 mg/dL 70-110 H Lab Interpretation (test code = Abnormal 08105-3) [facility] BARBITURATES PANEL 2019-06-03 17:54:00 Test Item Value Reference Range Interpretation Comments Butalbital-Interpr Negative Negative etation (test code = 5254423499) SECOBARB-INTERPRET Negative Negative ATION (test code = 4177814098) PHENOBARB-INTERPRE Negative Negative TATION (test code = 6530254918) CREAT U (test code 14.1 mg/dL = 3552237865) RUSTY (test code = Test developed and RUSTY) characteristics determined by [facility]. [facility] GLUCOSE (AUTOMATED)2019-06-03 17:50:00 Test Item Value Reference Range Interpretation Comments POCT GLU (test code = 1293238851) 125 mg/dL 70-110 H Lab Interpretation (test code = Abnormal 59229-9) [facility] GLUCOSE (AUTOMATED)2019-06-03 13:10:00 Test Item Value Reference Range Interpretation Comments POCT GLU (test code = 8267858112) 234 mg/dL 70-110 H Lab Interpretation (test code = Abnormal 59018-1) [facility] 09:30:00 Test Item Value Reference Range Interpretation Comments MAGNESIUM (test code = 6129125091) 1.3 mg/dL 1.7-2.4 L Lab Interpretation (test code = Abnormal 01290-3) [facility] (NA, K, CL, CO2, GLUCOSE, BUN, CREATININE, CA)2019-06-03 09:30:00 Test Item Value Reference Range Interpretation Comments NA (test code = 134 mmol/L 135-145 L 5220296439) K (test code = 3.6 mmol/L 3.5-5 Slight 9373643061) hemolysis CL (test code = 105 mmol/L 98-108 7845720840) CO2 TOTAL (test code 25 mmol/L 23-31 = 2997772100) AGAP (test code = 2-16 9957639106) BUN (test code = 11 mg/dL 7-23 Slight 8246665170) hemolysis GLUCOSE (test code = 243 mg/dL 70-110 H 3884641716) CREATININE (test code 0.46 mg/dL 0.6-1.25 L = 7825890913) CALCIUM (test code = 8.1 mg/dL 8.6-10.6 L 3406242151) eGFR Calculation mL/min/1.73m2 (Non-) (test code = 6839729888) eGFR Calculation mL/min/1.73m2 () (test code = 6220160665) RUSTY (test code = RUSTY) Association of Glomerular Filtration Rate (GFR) and Staging of Kidney Disease* + -----+ --------+ +| GFR (mL/min/1.73 m2) ?| With Kidney Damage ?| ?Without Kidney Damage+ +------- +---- --+| ?>90 ?| ?Stage one ?| ? Normal ?+ ------+ ---------+--------- +| ?60-89 ?| ?Stage two ?| ? Decreased GFR ? + -----+ --------+ +| ?30-59 ?| ?Stage three ?| ? Stage three ? + -----+ --------+ +| ?15-29 ?| ?Stage four ? | ? Stage four ?+ ------+ ---------+--------- +| ?<15 (or dialysis) ? ?| ?Stage five ? | ? Stage five ?+ ------+ ---------+--------- + *Each stage assumes the associated GFR level has been in effect for at least three months. ?Stages 1 to 5, with or without kidney disease, indicate chronic kidney disease. Notes: Determination of stages one and two (with eGFR >59mL/min/1.73 m2) requires estimation of kidney damage for at least three months as defined by structural or functional abnormalities of the kidney, manifested by either:Pathological abnormalities or Markers of kidney damage (including abnormalities in the composition of the blood or urine or abnormalities in imaging tests). Lab Interpretation Abnormal (test code = 06512-0) [facility] 09:30:00 Test Item Value Reference Range Interpretation Comments PHOSPHORUS (test code = 9566083640) 3.2 mg/dL 2.5-5 Lab Interpretation (test code = Normal 72385-4) [facility] GLUCOSE (AUTOMATED)2019-06-03 08:56:00 Test Item Value Reference Range Interpretation Comments POCT GLU (test code = 0540568904) 253 mg/dL 70-110 H Lab Interpretation (test code = Abnormal 47982-0) [facility] GLUCOSE (AUTOMATED)2019-06-03 04:54:00 Test Item Value Reference Range Interpretation Comments POCT GLU (test code = 7749673471) 235 mg/dL 70-110 H Lab Interpretation (test code = Abnormal 43057-3) [facility] (NA, K, CL, CO2, GLUCOSE, BUN, CREATININE, CA)2019-06-03 02:35:00 Test Item Value Reference Range Interpretation Comments NA (test code = 133 mmol/L 135-145 L 8326514485) K (test code = 3.6 mmol/L 3.5-5 6392574030) CL (test code = 103 mmol/L 98-108 4100102025) CO2 TOTAL (test code = 24 mmol/L 23-31 7391664962) AGAP (test code = 2-16 9280113981) BUN (test code = 10 mg/dL 7-23 9367933183) GLUCOSE (test code = 283 mg/dL 70-110 H 6975883642) CREATININE (test code = 0.48 mg/dL 0.6-1.25 L 4931920726) CALCIUM (test code = 8.6 mg/dL 8.6-10.6 6926347453) eGFR Calculation mL/min/1.73m2 (Non-) (test code = 8935849360) eGFR Calculation mL/min/1.73m2 () (test code = 0729494329) RUSTY (test code = RUSTY) Association of Glomerular Filtration Rate (GFR) and Staging of Kidney Disease* + --+ --+ ------+| GFR (mL/min/1.73 m2) ?| With Kidney Damage ?| ?Without Kidney Damage+ --------+ --------+ +| ?>90 ?| ?Stage one ?| ? Normal ?+ ---+ ---+ -------+| ?60-89 ?| ?Stage two ?| ? Decreased GFR ? + --+ --+ ------+| ?30-59 ?| ?Stage three ?| ? Stage three ? + --+ --+ ------+| ?15-29 ?| ?Stage four ? | ? Stage four ?+ ---+ ---+ -------+| ?<15 (or dialysis) ? ?| ?Stage five ? | ? Stage five ?+ ---+ ---+ -------+ *Each stage assumes the associated GFR level has been in effect for at least three months. ?Stages 1 to 5, with or without kidney disease, indicate chronic kidney disease. Notes: Determination of stages one and two (with eGFR >59mL/min/1.73 m2) requires estimation of kidney damage for at least three months as defined by structural or functional abnormalities of the kidney, manifested by either:Pathological abnormalities or Markers of kidney damage (including abnormalities in the composition of the blood or urine or abnormalities in imaging tests). Lab Interpretation Abnormal (test code = 44547-9) [facility] 02:06:00 Test Item Value Reference Range Interpretation Comments POCT GLU (test code = 4988188365) 274 mg/dL 70-110 H Lab Interpretation (test code = Abnormal 16913-2) [facility]LL AB, [id number] 01:14:00 Test Item Value Reference Range Interpretation Comments ANTI-ISLET (test <1:4 See_Comment INTERPRETIV E INFORMATION: code = 92113-7) Islet Cell A b, IgG Islet cell antibodies (ICA s) are associated with type 1 diabetes (TID), an autoimmune endocrine disor gracia. ICAs may be present year s before the onset of clinic al symptoms. To calculate Ju venile Diabetes Founda tion (JDF) units: multiply the titer x 5 (1:8 ?8 x 5 = 4 0 JDF Units). Test developed and characteristics determined by [facility]. See Compliance Stat ement A: [employer] erformed by [employer] sal[employer],[address] [facility] [place] [address] iyz .[employer], Jorge Luis Guerrero MD, Lab. Director [Autom ated message] The system [employer] generated this result tra nsmitted reference range : <1:4. The reference range was not used to interpret th is result as normal/abnormal . [facility] METABOLIC PANEL (NA, K, CL, CO2, GLUCOSE, BUN, CREATININE, CA)2019-06-03 00:03:00 Test Item Value Reference Range Interpretation Comments NA (test code = 133 mmol/L 135-145 L 2240323581) K (test code = 3.8 mmol/L 3.5-5 9186769711) CL (test code = 104 mmol/L 98-108 4114794117) CO2 TOTAL (test code = 21 mmol/L 23-31 L 3675171411) AGAP (test code = 2-16 6285753535) BUN (test code = 10 mg/dL 7-23 9839378298) GLUCOSE (test code = 295 mg/dL 70-110 H 3951933312) CREATININE (test code = 0.44 mg/dL 0.6-1.25 L 1478337759) CALCIUM (test code = 8.6 mg/dL 8.6-10.6 5466499527) eGFR Calculation mL/min/1.73m2 (Non-) (test code = 4668074957) eGFR Calculation mL/min/1.73m2 () (test code = 3587421499) RUSTY (test code = RUSTY) Association of Glomerular Filtration Rate (GFR) and Staging of Kidney Disease* + --+ --+ ------+| GFR (mL/min/1.73 m2) ?| With Kidney Damage ?| ?Without Kidney Damage+ --------+ --------+ +| ?>90 ?| ?Stage one ?| ? Normal ?+ ---+ ---+ -------+| ?60-89 ?| ?Stage two ?| ? Decreased GFR ? + --+ --+ ------+| ?30-59 ?| ?Stage three ?| ? Stage three ? + --+ --+ ------+| ?15-29 ?| ?Stage four ? | ? Stage four ?+ ---+ ---+ -------+| ?<15 (or dialysis) ? ?| ?Stage five ? | ? Stage five ?+ ---+ ---+ -------+ *Each stage assumes the associated GFR level has been in effect for at least three months. ?Stages 1 to 5, with or without kidney disease, indicate chronic kidney disease. Notes: Determination of stages one and two (with eGFR >59mL/min/1.73 m2) requires estimation of kidney damage for at least three months as defined by structural or functional abnormalities of the kidney, manifested by either:Pathological abnormalities or Markers of kidney damage (including abnormalities in the composition of the blood or urine or abnormalities in imaging tests). Lab Interpretation Abnormal (test code = 87737-1) [facility]2019-[facility]-02 21:26:00 Test Item Value Reference Range Interpretation Comments POCT GLU (test code = 1895907355) 266 mg/dL 70-110 H Lab Interpretation (test code = Abnormal 82533-5) [facility] (NA, K, CL, CO2, GLUCOSE, BUN, CREATININE, CA)2019-06-02 20:12:00 Test Item Value Reference Range Interpretation Comments NA (test code = 137 mmol/L 135-145 9881080407) K (test code = 3.5 mmol/L 3.5-5 4375123846) CL (test code = 105 mmol/L 98-108 5897061049) CO2 TOTAL (test code = 22 mmol/L 23-31 L 9723181774) AGAP (test code = 2-16 5696332899) BUN (test code = 10 mg/dL 7-23 5063042895) GLUCOSE (test code = 193 mg/dL 70-110 H 6408939531) CREATININE (test code = 0.43 mg/dL 0.6-1.25 L 6716795665) CALCIUM (test code = 8.6 mg/dL 8.6-10.6 2475652198) eGFR Calculation mL/min/1.73m2 (Non-) (test code = 4425277529) eGFR Calculation mL/min/1.73m2 () (test code = 5796312337) RUSTY (test code = RUSTY) Association of Glomerular Filtration Rate (GFR) and Staging of Kidney Disease* + --+ --+ ------+| GFR (mL/min/1.73 m2) ?| With Kidney Damage ?| ?Without Kidney Damage+ --------+ --------+ +| ?>90 ?| ?Stage one ?| ? Normal ?+ ---+ ---+ -------+| ?60-89 ?| ?Stage two ?| ? Decreased GFR ? + --+ --+ ------+| ?30-59 ?| ?Stage three ?| ? Stage three ? + --+ --+ ------+| ?15-29 ?| ?Stage four ? | ? Stage four ?+ ---+ ---+ -------+| ?<15 (or dialysis) ? ?| ?Stage five ? | ? Stage five ?+ ---+ ---+ -------+ *Each stage assumes the associated GFR level has been in effect for at least three months. ?Stages 1 to 5, with or without kidney disease, indicate chronic kidney disease. Notes: Determination of stages one and two (with eGFR >59mL/min/1.73 m2) requires estimation of kidney damage for at least three months as defined by structural or functional abnormalities of the kidney, manifested by either:Pathological abnormalities or Markers of kidney damage (including abnormalities in the composition of the blood or urine or abnormalities in imaging tests). Lab Interpretation Abnormal (test code = 80289-9) [facility]wood[facility]UTAMIC ACID DECARBOXYLASE [id number] 19:56:00 Test Item Value Reference Range Interpretation Comments GLAD AB (test code = <5.0 See_Comment INTERPR ETIVE INFORMATION: 40491-5) ?Glutamic Acid Decarboxylase Antibody A valu e greater than 5.0 IU/mL is considered positive for Gl utamic Acid Decarboxylase A ntibody (CRESENCIO Ab). This assay is intended for the semi-qu antitative determination o f the CRESENCIO Ab in human serum. Results should be inter preted within the context of clinical symptoms.Perfor med by [employer] [facility] [place] [address] zxr .[employer], Jorge Luis Guerrero MD, Lab. Director [Autom ated message] The system [employer] generated this result tra nsmitted reference range : 0.0 - 5.0 IU/mL. The refe rence range was not used to interpret this result as normal/abnormal . [facility] METABOLIC PANEL (NA, K, CL, CO2, GLUCOSE, BUN, CREATININE, CA)2019-06-02 17:21:00 Test Item Value Reference Range Interpretation Comments NA (test code = 137 mmol/L 135-145 1382717082) K (test code = 4.3 mmol/L 3.5-5 1426482225) CL (test code = 107 mmol/L 98-108 1827301938) CO2 TOTAL (test code = 21 mmol/L 23-31 L 6428766018) AGAP (test code = 2-16 8381064220) BUN (test code = 10 mg/dL 7-23 1457982685) GLUCOSE (test code = 172 mg/dL 70-110 H 5698742635) CREATININE (test code = 0.40 mg/dL 0.6-1.25 L 2620224098) CALCIUM (test code = 8.8 mg/dL 8.6-10.6 7864299417) eGFR Calculation mL/min/1.73m2 (Non-) (test code = 4192236901) eGFR Calculation mL/min/1.73m2 () (test code = 4858272095) RUSTY (test code = RUSTY) Association of Glomerular Filtration Rate (GFR) and Staging of Kidney Disease* + --+ --+ ------+| GFR (mL/min/1.73 m2) ?| With Kidney Damage ?| ?Without Kidney Damage+ --------+ --------+ +| ?>90 ?| ?Stage one ?| ? Normal ?+ ---+ ---+ -------+| ?60-89 ?| ?Stage two ?| ? Decreased GFR ? + --+ --+ ------+| ?30-59 ?| ?Stage three ?| ? Stage three ? + --+ --+ ------+| ?15-29 ?| ?Stage four ? | ? Stage four ?+ ---+ ---+ -------+| ?<15 (or dialysis) ? ?| ?Stage five ? | ? Stage five ?+ ---+ ---+ -------+ *Each stage assumes the associated GFR level has been in effect for at least three months. ?Stages 1 to 5, with or without kidney disease, indicate chronic kidney disease. Notes: Determination of stages one and two (with eGFR >59mL/min/1.73 m2) requires estimation of kidney damage for at least three months as defined by structural or functional abnormalities of the kidney, manifested by either:Pathological abnormalities or Markers of kidney damage (including abnormalities in the composition of the blood or urine or abnormalities in imaging tests). Lab Interpretation Abnormal (test code = 64807-8) [facility] GLUCOSE (AUTOMATED)2019-06-02 16:49:00 Test Item Value Reference Range Interpretation Comments POCT GLU (test code = 9872171382) 172 mg/dL 70-110 H Lab Interpretation (test code = Abnormal 21103-9) [facility] GLUCOSE (AUTOMATED)2019-06-02 15:46:00 Test Item Value Reference Range Interpretation Comments POCT GLU (test code = 3793741450) 186 mg/dL 70-110 H Lab Interpretation (test code = Abnormal 30373-3) [facility] GLUCOSE (AUTOMATED)2019-06-02 14:44:00 Test Item Value Reference Range Interpretation Comments POCT GLU (test code = 6265739577) 195 mg/dL 70-110 H Lab Interpretation (test code = Abnormal 25142-6) [facility] GLUCOSE (AUTOMATED)2019-06-02 13:26:00 Test Item Value Reference Range Interpretation Comments POCT GLU (test code = 0869825042) 185 mg/dL 70-110 H Lab Interpretation (test code = Abnormal 21589-0) [facility] (NA, K, CL, CO2, GLUCOSE, BUN, CREATININE, CA)2019-06-02 12:40:00 Test Item Value Reference Range Interpretation Comments NA (test code = 137 mmol/L 135-145 0987863863) K (test code = 3.9 mmol/L 3.5-5 Slight 3335991984) hemolysis CL (test code = 107 mmol/L 98-108 7174037103) CO2 TOTAL (test code 23 mmol/L 23-31 = 9985862288) AGAP (test code = 2-16 3742211800) BUN (test code = 13 mg/dL 7-23 Slight 3798670012) hemolysis GLUCOSE (test code = 136 mg/dL 70-110 H 2194671230) CREATININE (test code 0.40 mg/dL 0.6-1.25 L = 6160713361) CALCIUM (test code = 8.8 mg/dL 8.6-10.6 0130314445) eGFR Calculation mL/min/1.73m2 (Non-) (test code = 9455245133) eGFR Calculation mL/min/1.73m2 () (test code = 6118693333) RUSTY (test code = RUSTY) Association of Glomerular Filtration Rate (GFR) and Staging of Kidney Disease* + -----+ --------+ +| GFR (mL/min/1.73 m2) ?| With Kidney Damage ?| ?Without Kidney Damage+ +------- +---- --+| ?>90 ?| ?Stage one ?| ? Normal ?+ ------+ ---------+--------- +| ?60-89 ?| ?Stage two ?| ? Decreased GFR ? + -----+ --------+ +| ?30-59 ?| ?Stage three ?| ? Stage three ? + -----+ --------+ +| ?15-29 ?| ?Stage four ? | ? Stage four ?+ ------+ ---------+--------- +| ?<15 (or dialysis) ? ?| ?Stage five ? | ? Stage five ?+ ------+ ---------+--------- + *Each stage assumes the associated GFR level has been in effect for at least three months. ?Stages 1 to 5, with or without kidney disease, indicate chronic kidney disease. Notes: Determination of stages one and two (with eGFR >59mL/min/1.73 m2) requires estimation of kidney damage for at least three months as defined by structural or functional abnormalities of the kidney, manifested by either:Pathological abnormalities or Markers of kidney damage (including abnormalities in the composition of the blood or urine or abnormalities in imaging tests). Lab Interpretation Abnormal (test code = 76497-6) [facility] 12:39:00 Test Item Value Reference Range Interpretation Comments POCT GLU (test code = 1125327400) 166 mg/dL 70-110 H Lab Interpretation (test code = Abnormal 16741-1) [facility] WITH [id number] 12:05:00 Test Item Value Reference Range Interpretation Comments WBC (test code = See_Comment [Automated 6690-2) message] The sy stem which generated this result transmitted reference range : 4.20 - 10.70 10*3/?L. The reference range was not used to interpret this result as normal/abnormal . RBC (test code = See_Comment L [Automated 789-8) message] The sy stem which generated this result transmitted reference range : 4.26 - 5.52 10*6/?L. The reference range was not used to interpret this result as normal/abnormal . HGB (test code = 10.8 g/dL 12.2-16.4 L 718-7) HCT (test code = 29.6 % 38.4-49.3 L 4544-3) MCV (test code = 84.1 fL 81.7-95.6 787-2) MCH (test code = 30.7 pg 26.1-32.7 785-6) MCHC (test code = 36.5 g/dL 31.2-35 H 786-4) RDW-SD (test code = 36.5 fL 38.5-51.6 L 59619-2) RDW-CV (test code = 12.0 % 12.1-15.4 L 788-0) PLT (test code = See_Comment L [Automated 777-3) message] The sy stem which generated this result transmitted reference range : 150 - 328 10*3/ ?L. The reference r everardo was not used to interpret this result as normal/abnormal . MPV (test code = 11.7 fL 9.8-13 15079-1) NRBC/100 WBC (test See_Comment [Automat ed code = 8991262859) message] The system which generated this result transmitted reference range : 0.0 - 10.0 /100 WBCs. The refer ence range was not u sed to interpret th is result as normal/abnormal . NRBC x10^3 (test code <0.01 See_Comment [Auto mated = 0070635251) message] The s ystem which generated this result transmitted reference range : 10*3/?L. The reference range was not used to interpret this result as normal/abnormal . GRAN MAT (NEUT) % 75.0 % (test code = 770-8) IMM GRAN % (test code 0.60 % = 7027681821) LYMPH % (test code = 12.2 % 736-9) MONO % (test code = 9.5 % 5905-5) EOS % (test code = 2.5 % 713-8) BASO % (test code = 0.2 % 706-2) GRAN MAT x10^3(ANC) 6.18 10*3/uL 1.99-6.95 (test code = 2536324494) IMM GRAN x10^3 (test 0.05 10*3/uL 0-0.06 code = 5434056459) LYMPH x10^3 (test code 1.01 10*3/uL 1.09-3.23 L = 731-0) MONO x10^3 (test code 0.78 10*3/uL 0.36-1.02 = 742-7) EOS x10^3 (test code = 0.21 10*3/uL 0.06-0.53 711-2) BASO x10^3 (test code <0.03 0.01-0.09 = 704-7) Lab Interpretation Abnormal (test code = 99981-1) [facility] GLUCOSE (AUTOMATED)2019-06-02 11:43:00 Test Item Value Reference Range Interpretation Comments POCT GLU (test code = 2675649600) 153 mg/dL 70-110 H Lab Interpretation (test code = Abnormal 00233-5) [facility] GLUCOSE (AUTOMATED)2019-06-02 10:58:00 Test Item Value Reference Range Interpretation Comments POCT GLU (test code = 1335589334) 123 mg/dL 70-110 H Lab Interpretation (test code = Abnormal 28604-6) [facility] GLUCOSE (AUTOMATED)2019-06-02 09:47:00 Test Item Value Reference Range Interpretation Comments POCT GLU (test code = 8175906358) 109 mg/dL 70-110 Lab Interpretation (test code = Normal 64840-2) [facility] 08:53:00 Test Item Value Reference Range Interpretation Comments POCT GLU (test code = 2673445884) 144 mg/dL 70-110 H Lab Interpretation (test code = Abnormal 32016-4) [facility] METABOLIC PANEL (NA, K, CL, CO2, GLUCOSE, BUN, CREATININE, CA)2019-06-02 08:28:00 Test Item Value Reference Range Interpretation Comments NA (test code = 138 mmol/L 135-145 0287500487) K (test code = 3.0 mmol/L 3.5-5 L 1629848002) CL (test code = 108 mmol/L 98-108 4935889688) CO2 TOTAL (test code = 22 mmol/L 23-31 L 2222850247) AGAP (test code = 2-16 3536489567) BUN (test code = 15 mg/dL 7-23 4593548716) GLUCOSE (test code = 124 mg/dL 70-110 H 9985976809) CREATININE (test code = 0.45 mg/dL 0.6-1.25 L 0274275630) CALCIUM (test code = 8.9 mg/dL 8.6-10.6 4071666851) eGFR Calculation mL/min/1.73m2 (Non-) (test code = 6377429717) eGFR Calculation mL/min/1.73m2 () (test code = 1601077276) RUSTY (test code = RUSTY) Association of Glomerular Filtration Rate (GFR) and Staging of Kidney Disease* + --+ --+ ------+| GFR (mL/min/1.73 m2) ?| With Kidney Damage ?| ?Without Kidney Damage+ --------+ --------+ +| ?>90 ?| ?Stage one ?| ? Normal ?+ ---+ ---+ -------+| ?60-89 ?| ?Stage two ?| ? Decreased GFR ? + --+ --+ ------+| ?30-59 ?| ?Stage three ?| ? Stage three ? + --+ --+ ------+| ?15-29 ?| ?Stage four ? | ? Stage four ?+ ---+ ---+ -------+| ?<15 (or dialysis) ? ?| ?Stage five ? | ? Stage five ?+ ---+ ---+ -------+ *Each stage assumes the associated GFR level has been in effect for at least three months. ?Stages 1 to 5, with or without kidney disease, indicate chronic kidney disease. Notes: Determination of stages one and two (with eGFR >59mL/min/1.73 m2) requires estimation of kidney damage for at least three months as defined by structural or functional abnormalities of the kidney, manifested by either:Pathological abnormalities or Markers of kidney damage (including abnormalities in the composition of the blood or urine or abnormalities in imaging tests). Lab Interpretation Abnormal (test code = 35718-0) [facility] GLUCOSE (AUTOMATED)2019-06-02 07:48:00 Test Item Value Reference Range Interpretation Comments POCT GLU (test code = 0765558335) 130 mg/dL 70-110 H Lab Interpretation (test code = Abnormal 23618-7) [facility] GLUCOSE (AUTOMATED)2019-06-02 06:53:00 Test Item Value Reference Range Interpretation Comments POCT GLU (test code = 3115504976) 142 mg/dL 70-110 H Lab Interpretation (test code = Abnormal 37360-8) [facility] GLUCOSE (AUTOMATED)2019-06-02 05:49:00 Test Item Value Reference Range Interpretation Comments POCT GLU (test code = 9347641235) 134 mg/dL 70-110 H Lab Interpretation (test code = Abnormal 19601-1) [facility] 05:22:00 Test Item Value Reference Range Interpretation Comments PHOSPHORUS (test code = 6664587230) 1.6 mg/dL 2.5-5 L Lab Interpretation (test code = Abnormal 39879-4) [facility] 05:21:00 Test Item Value Reference Range Interpretation Comments MAGNESIUM (test code = 4287196561) 1.8 mg/dL 1.7-2.4 Lab Interpretation (test code = Normal 91861-4) [facility]woodLaw[facility] Acid Whole [id number] 05:01:00 Test Item Value Reference Range Interpretation Comments LACTIC ACID (test code = 1.52 mmol/L 0.5-2.2 0995755220) Lab Interpretation (test code = Normal 54072-7) [facility]2019-[facility]-02 04:37:00 Test Item Value Reference Range Interpretation Comments POCT GLU (test code = 9329194048) 135 mg/dL 70-110 H Lab Interpretation (test code = Abnormal 78890-3) [facility] METABOLIC PANEL (NA, K, CL, CO2, GLUCOSE, BUN, CREATININE, CA)2019-06-02 04:16:00 Test Item Value Reference Range Interpretation Comments NA (test code = 138 mmol/L 135-145 7313463125) K (test code = 2.9 mmol/L 3.5-5 LL 7156217335) CL (test code = 109 mmol/L 98-108 H 0766166478) CO2 TOTAL (test code = 21 mmol/L 23-31 L 4764246129) AGAP (test code = 2-16 6727265498) BUN (test code = 19 mg/dL 7-23 9450253695) GLUCOSE (test code = 127 mg/dL 70-110 H 3654094013) CREATININE (test code = 0.46 mg/dL 0.6-1.25 L 7004601151) CALCIUM (test code = 9.1 mg/dL 8.6-10.6 9641837654) eGFR Calculation mL/min/1.73m2 (Non-) (test code = 1933437893) eGFR Calculation mL/min/1.73m2 () (test code = 9324016064) RUSTY (test code = RUSTY) Association of Glomerular Filtration Rate (GFR) and Staging of Kidney Disease* + --+ --+ ------+| GFR (mL/min/1.73 m2) ?| With Kidney Damage ?| ?Without Kidney Damage+ --------+ --------+ +| ?>90 ?| ?Stage one ?| ? Normal ?+ ---+ ---+ -------+| ?60-89 ?| ?Stage two ?| ? Decreased GFR ? + --+ --+ ------+| ?30-59 ?| ?Stage three ?| ? Stage three ? + --+ --+ ------+| ?15-29 ?| ?Stage four ? | ? Stage four ?+ ---+ ---+ -------+| ?<15 (or dialysis) ? ?| ?Stage five ? | ? Stage five ?+ ---+ ---+ -------+ *Each stage assumes the associated GFR level has been in effect for at least three months. ?Stages 1 to 5, with or without kidney disease, indicate chronic kidney disease. Notes: Determination of stages one and two (with eGFR >59mL/min/1.73 m2) requires estimation of kidney damage for at least three months as defined by structural or functional abnormalities of the kidney, manifested by either:Pathological abnormalities or Markers of kidney damage (including abnormalities in the composition of the blood or urine or abnormalities in imaging tests). Lab Interpretation Abnormal (test code = 22189-4) [facility] GLUCOSE (AUTOMATED)2019-06-02 03:41:00 Test Item Value Reference Range Interpretation Comments POCT GLU (test code = 1770504223) 140 mg/dL 70-110 H Lab Interpretation (test code = Abnormal 82572-9) [facility] GLUCOSE (AUTOMATED)2019-06-02 02:47:00 Test Item Value Reference Range Interpretation Comments POCT GLU (test code = 9732668948) 132 mg/dL 70-110 H Lab Interpretation (test code = Abnormal 99514-7) [facility] GLUCOSE (AUTOMATED)2019-06-02 01:51:00 Test Item Value Reference Range Interpretation Comments POCT GLU (test code = 2364013030) 170 mg/dL 70-110 H Lab Interpretation (test code = Abnormal 43008-7) [facility] GLUCOSE (AUTOMATED)2019-06-02 00:35:00 Test Item Value Reference Range Interpretation Comments POCT GLU (test code = 0358530851) 194 mg/dL 70-110 H Lab Interpretation (test code = Abnormal 10062-0) [facility] (NA, K, CL, CO2, GLUCOSE, BUN, CREATININE, CA)2019-06-01 23:45:00 Test Item Value Reference Range Interpretation Comments NA (test code = 140 mmol/L 135-145 5875724266) K (test code = 3.4 mmol/L 3.5-5 L Slight 0621583458) hemolysis CL (test code = 111 mmol/L 98-108 H 0752867885) CO2 TOTAL (test code 17 mmol/L 23-31 L = 2669345990) AGAP (test code = 2-16 2372754062) BUN (test code = 24 mg/dL 7-23 H Slight 9656553623) hemolysis GLUCOSE (test code = 164 mg/dL 70-110 H 4901712627) CREATININE (test code 0.54 mg/dL 0.6-1.25 L = 7945645273) CALCIUM (test code = 9.0 mg/dL 8.6-10.6 2910905260) eGFR Calculation mL/min/1.73m2 (Non-) (test code = 5628942137) eGFR Calculation mL/min/1.73m2 () (test code = 4522183920) RUSTY (test code = RUSTY) Association of Glomerular Filtration Rate (GFR) and Staging of Kidney Disease* + -----+ --------+ +| GFR (mL/min/1.73 m2) ?| With Kidney Damage ?| ?Without Kidney Damage+ +------- +---- --+| ?>90 ?| ?Stage one ?| ? Normal ?+ ------+ ---------+--------- +| ?60-89 ?| ?Stage two ?| ? Decreased GFR ? + -----+ --------+ +| ?30-59 ?| ?Stage three ?| ? Stage three ? + -----+ --------+ +| ?15-29 ?| ?Stage four ? | ? Stage four ?+ ------+ ---------+--------- +| ?<15 (or dialysis) ? ?| ?Stage five ? | ? Stage five ?+ ------+ ---------+--------- + *Each stage assumes the associated GFR level has been in effect for at least three months. ?Stages 1 to 5, with or without kidney disease, indicate chronic kidney disease. Notes: Determination of stages one and two (with eGFR >59mL/min/1.73 m2) requires estimation of kidney damage for at least three months as defined by structural or functional abnormalities of the kidney, manifested by either:Pathological abnormalities or Markers of kidney damage (including abnormalities in the composition of the blood or urine or abnormalities in imaging tests). Lab Interpretation Abnormal (test code = 32825-4) [facility] GLUCOSE (AUTOMATED)2019-06-01 23:15:00 Test Item Value Reference Range Interpretation Comments POCT GLU (test code = 4818733617) 176 mg/dL 70-110 H Lab Interpretation (test code = Abnormal 53520-2) [facility] GLUCOSE (AUTOMATED)2019-06-01 22:31:00 Test Item Value Reference Range Interpretation Comments POCT GLU (test code = 4252598769) 201 mg/dL 70-110 H Lab Interpretation (test code = Abnormal 33795-8) [facility] GLUCOSE (AUTOMATED)2019-06-01 21:36:00 Test Item Value Reference Range Interpretation Comments POCT GLU (test code = 5771098979) 167 mg/dL 70-110 H Lab Interpretation (test code = Abnormal 02095-4) [facility] GLUCOSE (AUTOMATED)2019-06-01 20:55:00 Test Item Value Reference Range Interpretation Comments POCT GLU (test code = 6217210458) 139 mg/dL 70-110 H Lab Interpretation (test code = Abnormal 57372-2) [facility] GLUCOSE (AUTOMATED)2019-06-01 19:35:00 Test Item Value Reference Range Interpretation Comments POCT GLU (test code = 8347322767) 139 mg/dL 70-110 H Lab Interpretation (test code = Abnormal 85873-6) [facility] METABOLIC PANEL (NA, K, CL, CO2, GLUCOSE, BUN, CREATININE, CA)2019-06-01 19:19:00 Test Item Value Reference Range Interpretation Comments NA (test code = 139 mmol/L 135-145 4157992668) K (test code = 2.8 mmol/L 3.5-5 LL 0642349686) CL (test code = 112 mmol/L 98-108 H 6206103240) CO2 TOTAL (test code = 16 mmol/L 23-31 L 1757257997) AGAP (test code = 2-16 0137083533) BUN (test code = 31 mg/dL 7-23 H 2768070708) GLUCOSE (test code = 118 mg/dL 70-110 H 7644839408) CREATININE (test code = 0.67 mg/dL 0.6-1.25 4642838613) CALCIUM (test code = 9.2 mg/dL 8.6-10.6 7097306206) eGFR Calculation mL/min/1.73m2 (Non-) (test code = 1237184074) eGFR Calculation mL/min/1.73m2 () (test code = 5089776890) RUSTY (test code = RUSTY) Association of Glomerular Filtration Rate (GFR) and Staging of Kidney Disease* + --+ --+ ------+| GFR (mL/min/1.73 m2) ?| With Kidney Damage ?| ?Without Kidney Damage+ --------+ --------+ +| ?>90 ?| ?Stage one ?| ? Normal ?+ ---+ ---+ -------+| ?60-89 ?| ?Stage two ?| ? Decreased GFR ? + --+ --+ ------+| ?30-59 ?| ?Stage three ?| ? Stage three ? + --+ --+ ------+| ?15-29 ?| ?Stage four ? | ? Stage four ?+ ---+ ---+ -------+| ?<15 (or dialysis) ? ?| ?Stage five ? | ? Stage five ?+ ---+ ---+ -------+ *Each stage assumes the associated GFR level has been in effect for at least three months. ?Stages 1 to 5, with or without kidney disease, indicate chronic kidney disease. Notes: Determination of stages one and two (with eGFR >59mL/min/1.73 m2) requires estimation of kidney damage for at least three months as defined by structural or functional abnormalities of the kidney, manifested by either:Pathological abnormalities or Markers of kidney damage (including abnormalities in the composition of the blood or urine or abnormalities in imaging tests). Lab Interpretation Abnormal (test code = 07210-5) [facility] GLUCOSE (AUTOMATED)2019-06-01 18:38:00 Test Item Value Reference Range Interpretation Comments POCT GLU (test code = 8385913023) 123 mg/dL 70-110 H Lab Interpretation (test code = Abnormal 59796-1) [facility] GLUCOSE (AUTOMATED)2019-06-01 17:32:00 Test Item Value Reference Range Interpretation Comments POCT GLU (test code = 9182662213) 122 mg/dL 70-110 H Lab Interpretation (test code = Abnormal 00213-5) [facility] (NA, K, CL, CO2, GLUCOSE, BUN, CREATININE, CA)2019-06-01 17:13:00 Test Item Value Reference Range Interpretation Comments NA (test code = 139 mmol/L 135-145 4392151138) K (test code = 3.0 mmol/L 3.5-5 L 1622413083) CL (test code = 112 mmol/L 98-108 H 8257733256) CO2 TOTAL (test code = 16 mmol/L 23-31 L 4966066893) AGAP (test code = 2-16 6610654671) BUN (test code = 35 mg/dL 7-23 H 1885901628) GLUCOSE (test code = 152 mg/dL 70-110 H 6098539468) CREATININE (test code = 0.73 mg/dL 0.6-1.25 5924731260) CALCIUM (test code = 9.2 mg/dL 8.6-10.6 4232395237) eGFR Calculation mL/min/1.73m2 (Non-) (test code = 1905325372) eGFR Calculation mL/min/1.73m2 () (test code = 7545159883) RUSTY (test code = RUSTY) Association of Glomerular Filtration Rate (GFR) and Staging of Kidney Disease* + --+ --+ ------+| GFR (mL/min/1.73 m2) ?| With Kidney Damage ?| ?Without Kidney Damage+ --------+ --------+ +| ?>90 ?| ?Stage one ?| ? Normal ?+ ---+ ---+ -------+| ?60-89 ?| ?Stage two ?| ? Decreased GFR ? + --+ --+ ------+| ?30-59 ?| ?Stage three ?| ? Stage three ? + --+ --+ ------+| ?15-29 ?| ?Stage four ? | ? Stage four ?+ ---+ ---+ -------+| ?<15 (or dialysis) ? ?| ?Stage five ? | ? Stage five ?+ ---+ ---+ -------+ *Each stage assumes the associated GFR level has been in effect for at least three months. ?Stages 1 to 5, with or without kidney disease, indicate chronic kidney disease. Notes: Determination of stages one and two (with eGFR >59mL/min/1.73 m2) requires estimation of kidney damage for at least three months as defined by structural or functional abnormalities of the kidney, manifested by either:Pathological abnormalities or Markers of kidney damage (including abnormalities in the composition of the blood or urine or abnormalities in imaging tests). Lab Interpretation Abnormal (test code = 40325-5) [facility] GLUCOSE (AUTOMATED)2019-06-01 16:34:00 Test Item Value Reference Range Interpretation Comments POCT GLU (test code = 9583104462) 167 mg/dL 70-110 H Lab Interpretation (test code = Abnormal 30612-1) [facility] GLUCOSE (AUTOMATED)2019-06-01 15:50:00 Test Item Value Reference Range Interpretation Comments POCT GLU (test code = 2844608713) 191 mg/dL 70-110 H Lab Interpretation (test code = Abnormal 27791-6) [facility] (NA, K, CL, CO2, GLUCOSE, BUN, CREATININE, CA)2019-06-01 15:26:00 Test Item Value Reference Range Interpretation Comments NA (test code = 141 mmol/L 135-145 3893771036) K (test code = 3.4 mmol/L 3.5-5 L 6881274392) CL (test code = 112 mmol/L 98-108 H 1509334200) CO2 TOTAL (test code = 16 mmol/L 23-31 L 9748400649) AGAP (test code = 2-16 4546879041) BUN (test code = 38 mg/dL 7-23 H 6568389447) GLUCOSE (test code = 168 mg/dL 70-110 H 0343745414) CREATININE (test code = 0.80 mg/dL 0.6-1.25 8339526746) CALCIUM (test code = 9.4 mg/dL 8.6-10.6 4961478988) eGFR Calculation mL/min/1.73m2 (Non-) (test code = 6409681431) eGFR Calculation mL/min/1.73m2 () (test code = 2526093516) RUSTY (test code = RUSTY) Association of Glomerular Filtration Rate (GFR) and Staging of Kidney Disease* + --+ --+ ------+| GFR (mL/min/1.73 m2) ?| With Kidney Damage ?| ?Without Kidney Damage+ --------+ --------+ +| ?>90 ?| ?Stage one ?| ? Normal ?+ ---+ ---+ -------+| ?60-89 ?| ?Stage two ?| ? Decreased GFR ? + --+ --+ ------+| ?30-59 ?| ?Stage three ?| ? Stage three ? + --+ --+ ------+| ?15-29 ?| ?Stage four ? | ? Stage four ?+ ---+ ---+ -------+| ?<15 (or dialysis) ? ?| ?Stage five ? | ? Stage five ?+ ---+ ---+ -------+ *Each stage assumes the associated GFR level has been in effect for at least three months. ?Stages 1 to 5, with or without kidney disease, indicate chronic kidney disease. Notes: Determination of stages one and two (with eGFR >59mL/min/1.73 m2) requires estimation of kidney damage for at least three months as defined by structural or functional abnormalities of the kidney, manifested by either:Pathological abnormalities or Markers of kidney damage (including abnormalities in the composition of the blood or urine or abnormalities in imaging tests). Lab Interpretation Abnormal (test code = 80044-7) [facility] GLUCOSE (AUTOMATED)2019-06-01 14:52:00 Test Item Value Reference Range Interpretation Comments POCT GLU (test code = 6560048928) 211 mg/dL 70-110 H Lab Interpretation (test code = Abnormal 51266-0) [facility] [id number] 14:27:00 Test Item Value Reference Range Interpretation Comments Legionella Urinary Negative Negative Antigen (test code = 0770709665) RUSTY (test code = RUSTY) Negative for L. pneumophilia serogroup I antigen in urine suggesting no recent or current infection. Infection due to Legionella cannot be ruled out since other serogroups and species may cause disease. Furthermore, antigens may not be present in urine during early stage of infection, or the level of antigen present in urine may be below the detection limit of the test. Lab Interpretation (test Normal code = 76912-3) [facility] [id number] 13:44:00 Test Item Value Reference Range Interpretation Comments CK (test code = 4826052930) 2557 U/L 33-194 H Lab Interpretation (test code = Abnormal 87767-9) [facility]2019-[facility]-01 13:31:00 Test Item Value Reference Range Interpretation Comments POCT GLU (test code = 3174571437) 197 mg/dL 70-110 H Lab Interpretation (test code = Abnormal 58682-2) [facility] (NA, K, CL, CO2, GLUCOSE, BUN, CREATININE, [place])2019-06-01 13:04:00 Test Item Value Reference Range Interpretation Comments NA (test code = 139 mmol/L 135-145 7573439042) K (test code = 3.9 mmol/L 3.5-5 8022728628) CL (test code = 112 mmol/L 98-108 H 8656288620) CO2 TOTAL (test code = 12 mmol/L 23-31 L 6762775202) AGAP (test code = 2-16 6969014002) BUN (test code = 38 mg/dL 7-23 H 4001009901) GLUCOSE (test code = 185 mg/dL 70-110 H 3860612357) CREATININE (test code = 0.80 mg/dL 0.6-1.25 6194030975) CALCIUM (test code = 9.3 mg/dL 8.6-10.6 1834936342) eGFR Calculation mL/min/1.73m2 (Non-) (test code = 6278240259) eGFR Calculation mL/min/1.73m2 () (test code = 6343777969) RUSTY (test code = RUSTY) Association of Glomerular Filtration Rate (GFR) and Staging of Kidney Disease* + --+ --+ ------+| GFR (mL/min/1.73 m2) ?| With Kidney Damage ?| ?Without Kidney Damage+ --------+ --------+ +| ?>90 ?| ?Stage one ?| ? Normal ?+ ---+ ---+ -------+| ?60-89 ?| ?Stage two ?| ? Decreased GFR ? + --+ --+ ------+| ?30-59 ?| ?Stage three ?| ? Stage three ? + --+ --+ ------+| ?15-29 ?| ?Stage four ? | ? Stage four ?+ ---+ ---+ -------+| ?<15 (or dialysis) ? ?| ?Stage five ? | ? Stage five ?+ ---+ ---+ -------+ *Each stage assumes the associated GFR level has been in effect for at least three months. ?Stages 1 to 5, with or without kidney disease, indicate chronic kidney disease. Notes: Determination of stages one and two (with eGFR >59mL/min/1.73 m2) requires estimation of kidney damage for at least three months as defined by structural or functional abnormalities of the kidney, manifested by either:Pathological abnormalities or Markers of kidney damage (including abnormalities in the composition of the blood or urine or abnormalities in imaging tests). Lab Interpretation Abnormal (test code = 28543-5) [facility] GLUCOSE (AUTOMATED)2019-06-01 12:45:00 Test Item Value Reference Range Interpretation Comments POCT GLU (test code = 4779748412) 190 mg/dL 70-110 H Lab Interpretation (test code = Abnormal 67832-0) [facility] GLUCOSE (AUTOMATED)2019-06-01 11:38:00 Test Item Value Reference Range Interpretation Comments POCT GLU (test code = 8581158072) 179 mg/dL 70-110 H Lab Interpretation (test code = Abnormal 07175-6) [facility] GLUCOSE (AUTOMATED)2019-06-01 11:33:00 Test Item Value Reference Range Interpretation Comments POCT GLU (test code = 7298981011) 93 mg/dL 70-110 Lab Interpretation (test code = Normal 37671-0) [facility] GLUCOSE (AUTOMATED)2019-06-01 11:33:00 Test Item Value Reference Range Interpretation Comments POCT GLU (test code = 2633648170) 132 mg/dL 70-110 H Lab Interpretation (test code = Abnormal 44276-0) [facility] (NA, K, CL, CO2, GLUCOSE, BUN, CREATININE, [place])2019-06-01 11:29:00 Test Item Value Reference Range Interpretation Comments NA (test code = 139 mmol/L 135-145 2620700976) K (test code = 3.5 mmol/L 3.5-5 2689835516) CL (test code = 113 mmol/L 98-108 H 2623221613) CO2 TOTAL (test code = 12 mmol/L 23-31 L 0700587028) AGAP (test code = 2-16 1303219991) BUN (test code = 44 mg/dL 7-23 H 2460250792) GLUCOSE (test code = 128 mg/dL 70-110 H 9995406680) CREATININE (test code = 0.86 mg/dL 0.6-1.25 8378392662) CALCIUM (test code = 9.5 mg/dL 8.6-10.6 4203803663) eGFR Calculation mL/min/1.73m2 (Non-) (test code = 1404688707) eGFR Calculation mL/min/1.73m2 () (test code = 0849597448) RUSTY (test code = RUSTY) Association of Glomerular Filtration Rate (GFR) and Staging of Kidney Disease* + --+ --+ ------+| GFR (mL/min/1.73 m2) ?| With Kidney Damage ?| ?Without Kidney Damage+ --------+ --------+ +| ?>90 ?| ?Stage one ?| ? Normal ?+ ---+ ---+ -------+| ?60-89 ?| ?Stage two ?| ? Decreased GFR ? + --+ --+ ------+| ?30-59 ?| ?Stage three ?| ? Stage three ? + --+ --+ ------+| ?15-29 ?| ?Stage four ? | ? Stage four ?+ ---+ ---+ -------+| ?<15 (or dialysis) ? ?| ?Stage five ? | ? Stage five ?+ ---+ ---+ -------+ *Each stage assumes the associated GFR level has been in effect for at least three months. ?Stages 1 to 5, with or without kidney disease, indicate chronic kidney disease. Notes: Determination of stages one and two (with eGFR >59mL/min/1.73 m2) requires estimation of kidney damage for at least three months as defined by structural or functional abnormalities of the kidney, manifested by either:Pathological abnormalities or Markers of kidney damage (including abnormalities in the composition of the blood or urine or abnormalities in imaging tests). Lab Interpretation Abnormal (test code = 21900-9) [facility]2019-06-01 08:46:00 Test Item Value Reference Range Interpretation Comments POCT GLU (test code = 6865827499) 97 mg/dL 70-110 Lab Interpretation (test code = Normal 81582-5) [facility] (NA, K, CL, CO2, GLUCOSE, BUN, CREATININE, [place])2019-06-01 08:36:00 Test Item Value Reference Range Interpretation Comments NA (test code = 138 mmol/L 135-145 3448702726) K (test code = 3.7 mmol/L 3.5-5 Slight 8927725631) hemolysis CL (test code = 112 mmol/L 98-108 H 4037283977) CO2 TOTAL (test code 11 mmol/L 23-31 L = 3478255927) AGAP (test code = 2-16 2156285100) BUN (test code = 49 mg/dL 7-23 H Slight 5201398167) hemolysis GLUCOSE (test code = 121 mg/dL 70-110 H 4192603984) CREATININE (test code 0.98 mg/dL 0.6-1.25 = 8602335922) CALCIUM (test code = 9.8 mg/dL 8.6-10.6 6978177857) eGFR Calculation mL/min/1.73m2 (Non-) (test code = 9296663639) eGFR Calculation mL/min/1.73m2 () (test code = 1321598228) RUSTY (test code = RUSTY) Association of Glomerular Filtration Rate (GFR) and Staging of Kidney Disease* + -----+ --------+ +| GFR (mL/min/1.73 m2) ?| With Kidney Damage ?| ?Without Kidney Damage+ +------- +---- --+| ?>90 ?| ?Stage one ?| ? Normal ?+ ------+ ---------+--------- +| ?60-89 ?| ?Stage two ?| ? Decreased GFR ? + -----+ --------+ +| ?30-59 ?| ?Stage three ?| ? Stage three ? + -----+ --------+ +| ?15-29 ?| ?Stage four ? | ? Stage four ?+ ------+ ---------+--------- +| ?<15 (or dialysis) ? ?| ?Stage five ? | ? Stage five ?+ ------+ ---------+--------- + *Each stage assumes the associated GFR level has been in effect for at least three months. ?Stages 1 to 5, with or without kidney disease, indicate chronic kidney disease. Notes: Determination of stages one and two (with eGFR >59mL/min/1.73 m2) requires estimation of kidney damage for at least three months as defined by structural or functional abnormalities of the kidney, manifested by either:Pathological abnormalities or Markers of kidney damage (including abnormalities in the composition of the blood or urine or abnormalities in imaging tests). Lab Interpretation Abnormal (test code = 35850-6) [facility] GLUCOSE (AUTOMATED)2019-06-01 07:41:00 Test Item Value Reference Range Interpretation Comments POCT GLU (test code = 0811111648) 125 mg/dL 70-110 H Lab Interpretation (test code = Abnormal 95133-7) [facility] 07:11:00 Test Item Value Reference Range Interpretation Comments PHOSPHORUS (test code = 1902220972) 1.2 mg/dL 2.5-5 L Lab Interpretation (test code = Abnormal 03123-4) [facility] GLUCOSE (AUTOMATED)2019-06-01 06:44:00 Test Item Value Reference Range Interpretation Comments POCT GLU (test code = 6130732771) 187 mg/dL 70-110 H Lab Interpretation (test code = Abnormal 70719-7) [facility] (NA, K, CL, CO2, GLUCOSE, BUN, CREATININE, [place])2019-06-01 06:28:00 Test Item Value Reference Range Interpretation Comments NA (test code = 138 mmol/L 135-145 5579586336) K (test code = 3.5 mmol/L 3.5-5 3944432055) CL (test code = 112 mmol/L 98-108 H 4792122606) CO2 TOTAL (test code = 8 mmol/L 23-31 L 2195502712) AGAP (test code = 2-16 H 5126312589) BUN (test code = 50 mg/dL 7-23 H 4752770160) GLUCOSE (test code = 150 mg/dL 70-110 H 5427151192) CREATININE (test code = 1.06 mg/dL 0.6-1.25 8441075538) CALCIUM (test code = 9.4 mg/dL 8.6-10.6 2613434569) eGFR Calculation mL/min/1.73m2 (Non-) (test code = 1199331320) eGFR Calculation mL/min/1.73m2 () (test code = 8274675568) RUSTY (test code = RUSTY) Association of Glomerular Filtration Rate (GFR) and Staging of Kidney Disease* + --+ --+ ------+| GFR (mL/min/1.73 m2) ?| With Kidney Damage ?| ?Without Kidney Damage+ --------+ --------+ +| ?>90 ?| ?Stage one ?| ? Normal ?+ ---+ ---+ -------+| ?60-89 ?| ?Stage two ?| ? Decreased GFR ? + --+ --+ ------+| ?30-59 ?| ?Stage three ?| ? Stage three ? + --+ --+ ------+| ?15-29 ?| ?Stage four ? | ? Stage four ?+ ---+ ---+ -------+| ?<15 (or dialysis) ? ?| ?Stage five ? | ? Stage five ?+ ---+ ---+ -------+ *Each stage assumes the associated GFR level has been in effect for at least three months. ?Stages 1 to 5, with or without kidney disease, indicate chronic kidney disease. Notes: Determination of stages one and two (with eGFR >59mL/min/1.73 m2) requires estimation of kidney damage for at least three months as defined by structural or functional abnormalities of the kidney, manifested by either:Pathological abnormalities or Markers of kidney damage (including abnormalities in the composition of the blood or urine or abnormalities in imaging tests). Lab Interpretation Abnormal (test code = 22246-7) [facility] GLUCOSE (AUTOMATED)2019-06-01 05:36:00 Test Item Value Reference Range Interpretation Comments POCT GLU (test code = 2404183552) 163 mg/dL 70-110 H Lab Interpretation (test code = Abnormal 70840-7) [facility] GLUCOSE (AUTOMATED)2019-06-01 04:46:00 Test Item Value Reference Range Interpretation Comments POCT GLU (test code = 6182411275) 150 mg/dL 70-110 H Lab Interpretation (test code = Abnormal 88802-2) [facility] METABOLIC PANEL (NA, K, CL, CO2, GLUCOSE, BUN, CREATININE, [place])2019-06-01 04:27:00 Test Item Value Reference Range Interpretation Comments NA (test code = 139 mmol/L 135-145 5891842580) K (test code = 3.4 mmol/L 3.5-5 L Slight 6869862032) hemolysis CL (test code = 112 mmol/L 98-108 H 8768490773) CO2 TOTAL (test code 12 mmol/L 23-31 L = 5194721781) AGAP (test code = 2-16 2345004363) BUN (test code = 51 mg/dL 7-23 H Slight 3752086682) hemolysis GLUCOSE (test code = 87 mg/dL 70-110 5101076216) CREATININE (test code 0.99 mg/dL 0.6-1.25 = 3271620124) CALCIUM (test code = 9.6 mg/dL 8.6-10.6 5900173948) eGFR Calculation mL/min/1.73m2 (Non-) (test code = 6910069496) eGFR Calculation mL/min/1.73m2 () (test code = 7917975726) RUSTY (test code = RUSTY) Association of Glomerular Filtration Rate (GFR) and Staging of Kidney Disease* + -----+ --------+ +| GFR (mL/min/1.73 m2) ?| With Kidney Damage ?| ?Without Kidney Damage+ +------- +---- --+| ?>90 ?| ?Stage one ?| ? Normal ?+ ------+ ---------+--------- +| ?60-89 ?| ?Stage two ?| ? Decreased GFR ? + -----+ --------+ +| ?30-59 ?| ?Stage three ?| ? Stage three ? + -----+ --------+ +| ?15-29 ?| ?Stage four ? | ? Stage four ?+ ------+ ---------+--------- +| ?<15 (or dialysis) ? ?| ?Stage five ? | ? Stage five ?+ ------+ ---------+--------- + *Each stage assumes the associated GFR level has been in effect for at least three months. ?Stages 1 to 5, with or without kidney disease, indicate chronic kidney disease. Notes: Determination of stages one and two (with eGFR >59mL/min/1.73 m2) requires estimation of kidney damage for at least three months as defined by structural or functional abnormalities of the kidney, manifested by either:Pathological abnormalities or Markers of kidney damage (including abnormalities in the composition of the blood or urine or abnormalities in imaging tests). Lab Interpretation Abnormal (test code = 31739-6) [facility] GLUCOSE (AUTOMATED)2019-06-01 03:51:00 Test Item Value Reference Range Interpretation Comments POCT GLU (test code = 9162572340) 89 mg/dL 70-110 Lab Interpretation (test code = Normal 94825-2) [facility] GLUCOSE (AUTOMATED)2019-06-01 03:51:00 Test Item Value Reference Range Interpretation Comments POCT GLU (test code = 1614642756) 98 mg/dL 70-110 Lab Interpretation (test code = Normal 49155-5) [facility] 03:01:00 Test Item Value Reference Range Interpretation Comments MAGNESIUM (test code = 9773181773) 2.6 mg/dL 1.7-2.4 H Lab Interpretation (test code = Abnormal 62903-4) [facility] (NA, K, CL, CO2, GLUCOSE, BUN, CREATININE, [place])2019-06-01 02:45:00 Test Item Value Reference Range Interpretation Comments NA (test code = 138 mmol/L 135-145 5553567429) K (test code = 3.1 mmol/L 3.5-5 L 9503893092) CL (test code = 109 mmol/L 98-108 H 7758472252) CO2 TOTAL (test code = 10 mmol/L 23-31 L 6647581467) AGAP (test code = 2-16 H 3383683503) BUN (test code = 53 mg/dL 7-23 H 5645984312) GLUCOSE (test code = 260 mg/dL 70-110 H 6776982992) CREATININE (test code = 1.21 mg/dL 0.6-1.25 3689111701) CALCIUM (test code = 9.6 mg/dL 8.6-10.6 2514442707) eGFR Calculation mL/min/1.73m2 (Non-) (test code = 1058890580) eGFR Calculation mL/min/1.73m2 () (test code = 3889236395) RUSTY (test code = RUSTY) Association of Glomerular Filtration Rate (GFR) and Staging of Kidney Disease* + --+ --+ ------+| GFR (mL/min/1.73 m2) ?| With Kidney Damage ?| ?Without Kidney Damage+ --------+ --------+ +| ?>90 ?| ?Stage one ?| ? Normal ?+ ---+ ---+ -------+| ?60-89 ?| ?Stage two ?| ? Decreased GFR ? + --+ --+ ------+| ?30-59 ?| ?Stage three ?| ? Stage three ? + --+ --+ ------+| ?15-29 ?| ?Stage four ? | ? Stage four ?+ ---+ ---+ -------+| ?<15 (or dialysis) ? ?| ?Stage five ? | ? Stage five ?+ ---+ ---+ -------+ *Each stage assumes the associated GFR level has been in effect for at least three months. ?Stages 1 to 5, with or without kidney disease, indicate chronic kidney disease. Notes: Determination of stages one and two (with eGFR >59mL/min/1.73 m2) requires estimation of kidney damage for at least three months as defined by structural or functional abnormalities of the kidney, manifested by either:Pathological abnormalities or Markers of kidney damage (including abnormalities in the composition of the blood or urine or abnormalities in imaging tests). Lab Interpretation Abnormal (test code = 94721-7) [facility] GLUCOSE (AUTOMATED)2019-06-01 02:44:00 Test Item Value Reference Range Interpretation Comments POCT GLU (test code = 3000379484) 207 mg/dL 70-110 H Lab Interpretation (test code = Abnormal 44634-1) [facility] GLUCOSE (AUTOMATED)2019-06-01 01:45:00 Test Item Value Reference Range Interpretation Comments POCT GLU (test code = 2744992637) 304 mg/dL 70-110 H Lab Interpretation (test code = Abnormal 71190-1) [facility]2019-06-01 00:35:00 Test Item Value Reference Range Interpretation Comments POCT GLU (test code = 1996822558) 437 mg/dL 70-110 H Lab Interpretation (test code = Abnormal 08895-2) [facility] (NA, K, CL, CO2, GLUCOSE, BUN, CREATININE, [place])2019-06-01 00:04:00 Test Item Value Reference Range Interpretation Comments NA (test code = 133 mmol/L 135-145 L 0847169913) K (test code = 4.4 mmol/L 3.5-5 Slight 9606741574) hemolysis CL (test code = 106 mmol/L 98-108 0849942804) CO2 TOTAL (test code 7 mmol/L 23-31 L = 8981300234) AGAP (test code = 2-16 H 9534115114) BUN (test code = 57 mg/dL 7-23 H Slight 0505144026) hemolysis GLUCOSE (test code = 408 mg/dL 70-110 H 9836043796) CREATININE (test code 1.24 mg/dL 0.6-1.25 = 7868768560) CALCIUM (test code = 9.5 mg/dL 8.6-10.6 4234753008) eGFR Calculation mL/min/1.73m2 (Non-) (test code = 3118973599) eGFR Calculation mL/min/1.73m2 () (test code = 4161817927) RUSTY (test code = RUSTY) Association of Glomerular Filtration Rate (GFR) and Staging of Kidney Disease* + -----+ --------+ +| GFR (mL/min/1.73 m2) ?| With Kidney Damage ?| ?Without Kidney Damage+ +------- +---- --+| ?>90 ?| ?Stage one ?| ? Normal ?+ ------+ ---------+--------- +| ?60-89 ?| ?Stage two ?| ? Decreased GFR ? + -----+ --------+ +| ?30-59 ?| ?Stage three ?| ? Stage three ? + -----+ --------+ +| ?15-29 ?| ?Stage four ? | ? Stage four ?+ ------+ ---------+--------- +| ?<15 (or dialysis) ? ?| ?Stage five ? | ? Stage five ?+ ------+ ---------+--------- + *Each stage assumes the associated GFR level has been in effect for at least three months. ?Stages 1 to 5, with or without kidney disease, indicate chronic kidney disease. Notes: Determination of stages one and two (with eGFR >59mL/min/1.73 m2) requires estimation of kidney damage for at least three months as defined by structural or functional abnormalities of the kidney, manifested by either:Pathological abnormalities or Markers of kidney damage (including abnormalities in the composition of the blood or urine or abnormalities in imaging tests). Lab Interpretation Abnormal (test code = 73706-5) [facility]2019-05-31 23:52:00 Test Item Value Reference Range Interpretation Comments POCT GLU (test code = 5259260693) 408 mg/dL 70-110 H Lab Interpretation (test code = Abnormal 92996-4) [facility]OL[facility] (NA, K, CL, CO2, GLUCOSE, BUN, CREATININE, [place])2019-05-31 21:24:00 Test Item Value Reference Range Interpretation Comments NA (test code = 137 mmol/L 135-145 8290138884) K (test code = 3.7 mmol/L 3.5-5 9266868473) CL (test code = 109 mmol/L 98-108 H 2776415129) CO2 TOTAL (test code = 13 mmol/L 23-31 L 1188276964) AGAP (test code = 2-16 3094667339) BUN (test code = 57 mg/dL 7-23 H 7616797149) GLUCOSE (test code = 76 mg/dL 70-110 6609368580) CREATININE (test code = 1.23 mg/dL 0.6-1.25 5854722386) CALCIUM (test code = 10.2 mg/dL 8.6-10.6 9326330506) eGFR Calculation mL/min/1.73m2 (Non-) (test code = 5421139585) eGFR Calculation mL/min/1.73m2 () (test code = 5414115763) RUSTY (test code = RUSTY) Association of Glomerular Filtration Rate (GFR) and Staging of Kidney Disease* + --+ --+ ------+| GFR (mL/min/1.73 m2) ?| With Kidney Damage ?| ?Without Kidney Damage+ --------+ --------+ +| ?>90 ?| ?Stage one ?| ? Normal ?+ ---+ ---+ -------+| ?60-89 ?| ?Stage two ?| ? Decreased GFR ? + --+ --+ ------+| ?30-59 ?| ?Stage three ?| ? Stage three ? + --+ --+ ------+| ?15-29 ?| ?Stage four ? | ? Stage four ?+ ---+ ---+ -------+| ?<15 (or dialysis) ? ?| ?Stage five ? | ? Stage five ?+ ---+ ---+ -------+ *Each stage assumes the associated GFR level has been in effect for at least three months. ?Stages 1 to 5, with or without kidney disease, indicate chronic kidney disease. Notes: Determination of stages one and two (with eGFR >59mL/min/1.73 m2) requires estimation of kidney damage for at least three months as defined by structural or functional abnormalities of the kidney, manifested by either:Pathological abnormalities or Markers of kidney damage (including abnormalities in the composition of the blood or urine or abnormalities in imaging tests). Lab Interpretation Abnormal (test code = 18798-8) [facility] 21:21:00 Test Item Value Reference Range Interpretation Comments FOLATE SER (test code = 0297671055) 9.7 ng/mL 3-20 Lab Interpretation (test code = Normal 00970-8) [facility]wood[facility]IT[facility] B12, [id number] 21:21:00 Test Item Value Reference Range Interpretation Comments VIT B12 (test code = 903 pg/mL 240-930 3222552158) RUSTY (test code = RUSTY) Biotin has been reported to cause a positive bias, interpret results relative to patient's use of biotin. Lab Interpretation (test Normal code = 94063-8) [facility]2019-05-31 21:15:00 Test Item Value Reference Range Interpretation Comments POCT GLU (test code = 6984610390) 111 mg/dL 70-110 H Lab Interpretation (test code = Abnormal 59367-5) [facility] GLUCOSE (AUTOMATED)2019-05-31 20:56:00 Test Item Value Reference Range Interpretation Comments POCT GLU (test code = 0128756636) 75 mg/dL 70-110 Lab Interpretation (test code = Normal 64366-6) [facility]wood[facility]NEUMOCOCCAL [id number] 20:19:00 Test Item Value Reference Range Interpretation Comments S. pneumoniae antigen (test code = Negative Negative 3284904630) Lab Interpretation (test code = Normal 79295-2) [facility] GLUCOSE (AUTOMATED)2019-05-31 20:17:00 Test Item Value Reference Range Interpretation Comments POCT GLU (test code = 2926091139) 72 mg/dL 70-110 Lab Interpretation (test code = Normal 62214-7) [facility] (NA, K, CL, CO2, GLUCOSE, BUN, CREATININE, [place])2019-05-31 19:50:00 Test Item Value Reference Range Interpretation Comments NA (test code = 138 mmol/L 135-145 7109424963) K (test code = 4.2 mmol/L 3.5-5 2554615138) CL (test code = 108 mmol/L 98-108 2919809816) CO2 TOTAL (test code = 13 mmol/L 23-31 L 5020521570) AGAP (test code = 2-16 H 8129096720) BUN (test code = 56 mg/dL 7-23 H 5154803669) GLUCOSE (test code = 94 mg/dL 70-110 6677762203) CREATININE (test code = 1.34 mg/dL 0.6-1.25 H 2998354116) CALCIUM (test code = 10.1 mg/dL 8.6-10.6 8162034495) eGFR Calculation mL/min/1.73m2 (Non-) (test code = 4453882518) eGFR Calculation mL/min/1.73m2 () (test code = 6833647377) RUSTY (test code = RUSTY) Association of Glomerular Filtration Rate (GFR) and Staging of Kidney Disease* + --+ --+ ------+| GFR (mL/min/1.73 m2) ?| With Kidney Damage ?| ?Without Kidney Damage+ --------+ --------+ +| ?>90 ?| ?Stage one ?| ? Normal ?+ ---+ ---+ -------+| ?60-89 ?| ?Stage two ?| ? Decreased GFR ? + --+ --+ ------+| ?30-59 ?| ?Stage three ?| ? Stage three ? + --+ --+ ------+| ?15-29 ?| ?Stage four ? | ? Stage four ?+ ---+ ---+ -------+| ?<15 (or dialysis) ? ?| ?Stage five ? | ? Stage five ?+ ---+ ---+ -------+ *Each stage assumes the associated GFR level has been in effect for at least three months. ?Stages 1 to 5, with or without kidney disease, indicate chronic kidney disease. Notes: Determination of stages one and two (with eGFR >59mL/min/1.73 m2) requires estimation of kidney damage for at least three months as defined by structural or functional abnormalities of the kidney, manifested by either:Pathological abnormalities or Markers of kidney damage (including abnormalities in the composition of the blood or urine or abnormalities in imaging tests). Lab Interpretation Abnormal (test code = 08550-9) [facility] [id number] 19:17:00 Test Item Value Reference Range Interpretation Comments POCT Creatinine (test code = 1.3 mg/dL 0.6-1.3 2149447672) Lab Interpretation (test code = Normal 54910-5) [facility] GLUCOSE (AUTOMATED)2019-05-31 19:12:00 Test Item Value Reference Range Interpretation Comments POCT GLU (test code = 4636991668) 97 mg/dL 70-110 Lab Interpretation (test code = Normal 20199-7) [facility] GLUCOSE (AUTOMATED)2019-05-31 18:31:00 Test Item Value Reference Range Interpretation Comments POCT GLU (test code = 0006098234) >600 70-110 HH Lab Interpretation (test code = Abnormal 67187-6) [facility] GLUCOSE (AUTOMATED)2019-05-31 18:31:00 Test Item Value Reference Range Interpretation Comments POCT GLU (test code = 5135328308) >600 70-110 HH Lab Interpretation (test code = Abnormal 19397-0) [facility] GLUCOSE (AUTOMATED)2019-05-31 18:31:00 Test Item Value Reference Range Interpretation Comments POCT GLU (test code = 2196440186) >600 70-110 HH Lab Interpretation (test code = Abnormal 68526-6) [facility] GLUCOSE (AUTOMATED)2019-05-31 18:31:00 Test Item Value Reference Range Interpretation Comments POCT GLU (test code = 4931335010) >600 70-110 HH Lab Interpretation (test code = Abnormal 58970-1) [facility] GLUCOSE (AUTOMATED)2019-05-31 18:31:00 Test Item Value Reference Range Interpretation Comments POCT GLU (test code = 4517494559) >600 70-110 HH Lab Interpretation (test code = Abnormal 42717-8) [facility] GLUCOSE (AUTOMATED)2019-05-31 18:31:00 Test Item Value Reference Range Interpretation Comments POCT GLU (test code = 5964603651) >600 70-110 HH Lab Interpretation (test code = Abnormal 52255-8) [facility] GLUCOSE (AUTOMATED)2019-05-31 18:13:00 Test Item Value Reference Range Interpretation Comments POCT GLU (test code = 6097285560) 124 mg/dL 70-110 H Lab Interpretation (test code = Abnormal 33306-4) [facility]woodFERRITIN [id number] 17:59:00 Test Item Value Reference Range Interpretation Comments FERRITIN (test code = 975.0 ng/mL 18-464 H 5317516959) RUSTY (test code = RUSTY) Biotin has been reported to cause a negative bias, interpret results relative to patient's use of biotin. Lab Interpretation (test Abnormal code = 97657-8) [facility]woodLIPID PANEL (60445)(TOTAL CHOLESTEROL, TRIGLYCERIDES, HDL)2019-05-31 17:43:00 Test Item Value Reference Range Interpretation Comments CHOL (test code = 374 mg/dL 120-200 H 5497626808) HDL (test code = 35 mg/dL >40 L 3643535163) HDLC RATIO (test code = See_Comment H [Au tomated message] 5978279816) The system [employer] generated this result transmit adis reference range : <=5.0. The refe rence range was not u sed to interpret th is result as normal/abnormal . TRIG (test code = 392 mg/dL 30-170 H 8841763253) LDL CHOL (test code = 261 mg/dL See_Comment H [Auto mated message] 82487-3) The system [employer] generated this result transmit adis reference range : <=160. The refe rence range was not u sed to interpret th is result as normal/abnormal . VLDL (test code = 78 mg/dL 5-60 H 0156505514) Lab Interpretation (test Abnormal code = 11941-0) [facility] METABOLIC PANEL (NA, K, CL, CO2, GLUCOSE, BUN, CREATININE, CA)2019-05-31 17:27:00 Test Item Value Reference Range Interpretation Comments NA (test code = 139 mmol/L 135-145 1174016596) K (test code = 3.4 mmol/L 3.5-5 L 8359208362) CL (test code = 107 mmol/L 98-108 2107378442) CO2 TOTAL (test code = 15 mmol/L 23-31 L 6222426310) AGAP (test code = 2-16 H 4189284753) BUN (test code = 57 mg/dL 7-23 H 5915333943) GLUCOSE (test code = 48 mg/dL 70-110 LL 1969081150) CREATININE (test code = 1.34 mg/dL 0.6-1.25 H 7985785028) CALCIUM (test code = 10.6 mg/dL 8.6-10.6 0623992964) eGFR Calculation mL/min/1.73m2 (Non-) (test code = 4391353803) eGFR Calculation mL/min/1.73m2 () (test code = 7672562236) RUSTY (test code = RUSTY) Association of Glomerular Filtration Rate (GFR) and Staging of Kidney Disease* + --+ --+ ------+| GFR (mL/min/1.73 m2) ?| With Kidney Damage ?| ?Without Kidney Damage+ --------+ --------+ +| ?>90 ?| ?Stage one ?| ? Normal ?+ ---+ ---+ -------+| ?60-89 ?| ?Stage two ?| ? Decreased GFR ? + --+ --+ ------+| ?30-59 ?| ?Stage three ?| ? Stage three ? + --+ --+ ------+| ?15-29 ?| ?Stage four ? | ? Stage four ?+ ---+ ---+ -------+| ?<15 (or dialysis) ? ?| ?Stage five ? | ? Stage five ?+ ---+ ---+ -------+ *Each stage assumes the associated GFR level has been in effect for at least three months. ?Stages 1 to 5, with or without kidney disease, indicate chronic kidney disease. Notes: Determination of stages one and two (with eGFR >59mL/min/1.73 m2) requires estimation of kidney damage for at least three months as defined by structural or functional abnormalities of the kidney, manifested by either:Pathological abnormalities or Markers of kidney damage (including abnormalities in the composition of the blood or urine or abnormalities in imaging tests). Lab Interpretation Abnormal (test code = 20669-0) [facility]PO[facility] (AUTOMATED)2019-05-31 16:57:00 Test Item Value Reference Range Interpretation Comments POCT GLU (test code = 7743537957) 68 mg/dL 70-110 L Lab Interpretation (test code = Abnormal 87538-4) [facility] KingwoodBetahydroxy-[id number] 16:17:00 Test Item Value Reference Range Interpretation Comments BOH (test code = 7.0 mmol/L 2794460654) RUSTY (test code = Normal Ranges: ? ? RUSTY) Nonfasting ? Less than 0.1 mmol/L ? ? Overnight Fast ? ? ? Less than 0.4 mmol/L ? ? Fasting (1-2 weeks) ?6-8 mmol/L Test developed and characteristics determined by [facility]. [facility] KingwoodGALV/CLC ONLY - URINE DRUG (IMMUNOASSAY) - COMPREHENSIVE DRUG [id number] 16:15:00 Test Item Value Reference Range Interpretation Comments AMPHET (test code = Negative Negative 5832769513) EVELINA U (test code = Presumptive Positive Negative A 2963165207) BENZO U (test code = Negative Negative 7971208541) Cocaine Metabolite (test Negative Negative code = 0675236913) METHADONE (test code = Negative Negative 2638131384) OPIATES (test code = Negative Negative 3472104394) PCP (test code = Negative Negative 3128103305) THC (test code = Negative Negative 9015091546) RUSTY (test code = RUSTY) Urine Drug Cutoff Ranges Cocaine: ? 150 ng/mLBenzodiazepines: ? ? 200 ng/mLMethadone: ? 300 ng/mLAmphetamine: ? 1,000 ng/mLOpiates: ? 300 ng/mLCannabinoids: ?50 ng/mLPhencyclidine: ? ? ? 25 ng/mLBarbiturates: ?200 ng/mL The results are to be used only for medical (i.e., treatment) purposes. Unconfirmed screening results must not be used for non-medical purposes (e.g., employment testing, legal testing). Lab Interpretation (test Abnormal code = 06677-6) [facility] KingwoodOsmolality [id number] 16:14:00 Test Item Value Reference Range Interpretation Comments OSMOLALITY (test code = See_Comment HH [Au tomated message] 9163773572) The system [employer] generated this result transmitted ref erence range: 278 - 30 5 mOsm/kg. The reference range was not used to int erpret this result as normal/abnormal . Lab Interpretation (test Abnormal code = 52338-0) [facility]woodMRSA / MSSA Screen by PCR, [id number] 15:44:00 Test Item Value Reference Range Interpretation Comments MSSA Screen by PCR, Positive Negative A Nares (test code = 71422-2) MRSA/MSSA Positive? Yes No A (test code = 8277793301) RUSTY (test code = RUSTY) A positive test result does not necessarily indicate the presence of viable organism. Lab Interpretation (test Abnormal code = 40032-3) [facility] KingwoodXR CHEST 1 [id number] 15:28:13Addendum by Fabiola Bond MD on 05/31/2019 10:33 AM* * * * * * * * ADDENDUM: * * * * * * * *Findingssuspicious for infection including Covid 19 pneumonia werecommunicated to on 05/31/2019 at 10:32 AM. Preliminary Report Dictated by Resident: Fabiola Guerra MD., have reviewed this study and agree with the abovereport. Bilateral lower lung zone airspace opacities peripherally located on theleft side suspicious for infection, including COVID-19 pneumonia. Disclaimer: Generally, the findings on chest imaging in COVID-19 are notspecific, and overlap with other infections,including influenza, H1N1,SARS and MERS.According to the Centers for Disease Control (CDC) and recent statement ofthe [employer], viral testing remains the only specificmethod of diagnosis. Confirmation with the viral test is required, even ifradiologic findings are suggestive of COVID-[address] Preliminary Report Dictated by Resident: Fabiola Guerra MD., have reviewed this study and agree with the abovereport.EXAM: XR CHEST 1 VW HISTORY: SOb COMPARISON: None Technique: ?AP view radiograph of the chest FINDINGS: The lungs are underinflated with pulmonary vascular crowding. Bilaterallower lung zone airspace opacities are seen peripherally locatedon theleft side. No pleural effusion or pneumothorax is seen. The cardiac silhouette is normal in size. No acute bony abnormality. [facility], Radiant Results Inft User - 05/31/2019 10:29 AM CDTEXAM: XR CHEST 1 VWHISTORY: SOb COMPARISON: NoneTechnique: AP view radiograph of the chestFINDINGS:The lungs areunderinflated with pulmonary vascular crowding. Bilaterallower lung zone airspace opacities are seen peripherally located on theleft side. No pleural effusion or pneumothorax is seen. The cardiac silhouette is normal in size.No acute bony abnormality.IMPRESSIONBilateral lower lung zone airspace opacities peripherally located on theleft side suspicious for infection, including COVID-19 pneumonia.Disclaimer: Generally, the findings on chest imaging in COVID-19 are notspecific, and overlap with other infections, including influenza, H1N1,SARS and MERS.According to the Centers for Disease Control (CDC)and recent statement ofthe [employer], viral testing remains the only specificmeth od of diagnosis. Confirmation with the viral test is required, even ifradiologic findings are suggestive of COVID-[address]Preliminary Report Dictated by Resident: Fabiola Velazco, MD., have reviewed this study and agree with the abovereport.[facility]woodPOCT GLUCOSE (AUTOMATED)2019-05-31 14:59:00 Test Item Value Reference Range Interpretation Comments POCT GLU (test code = 5952488669) 216 mg/dL 70-110 H Lab Interpretation (test code = Abnormal 71053-4) [facility] KingwoodETHANOL2020-04-06 14:43:00 Test Item Value Reference Range Interpretation Comments ALCOHOL (test code = <10 mg/dL 3172065028) RUSTY (test code = Toxic Greater than or RUSTY) equal to 80 mg/dL. NOTE: Whole blood values are approximately 10% to 15% lower than serum and plasma. [facility] KingwoodBAPSYCHIATRIC METABOLIC PANEL (NA, K, CL, CO2, GLUCOSE, BUN, CREATININE, CA)2019-05-31 14:35:00 Test Item Value Reference Range Interpretation Comments NA (test code = 137 mmol/L 135-145 6988194071) K (test code = 3.1 mmol/L 3.5-5 L 1518273497) CL (test code = 105 mmol/L 98-108 7388485429) CO2 TOTAL (test code = 11 mmol/L 23-31 L 9600701282) AGAP (test code = 2-16 H 5347477512) BUN (test code = 51 mg/dL 7-23 H 5950751364) GLUCOSE (test code = 148 mg/dL 70-110 H 6529405490) CREATININE (test code = 1.43 mg/dL 0.6-1.25 H 1576401490) CALCIUM (test code = 10.2 mg/dL 8.6-10.6 0097483418) eGFR Calculation mL/min/1.73m2 (Non-) (test code = 2189324172) eGFR Calculation mL/min/1.73m2 () (test code = 3839754062) RUSTY (test code = RUSTY) Association of Glomerular Filtration Rate (GFR) and Staging of Kidney Disease* + --+ --+ ------+| GFR (mL/min/1.73 m2) ?| With Kidney Damage ?| ?Without Kidney Damage+ --------+ --------+ +| ?>90 ?| ?Stage one ?| ? Normal ?+ ---+ ---+ -------+| ?60-89 ?| ?Stage two ?| ? Decreased GFR ? + --+ --+ ------+| ?30-59 ?| ?Stage three ?| ? Stage three ? + --+ --+ ------+| ?15-29 ?| ?Stage four ? | ? Stage four ?+ ---+ ---+ -------+| ?<15 (or dialysis) ? ?| ?Stage five ? | ? Stage five ?+ ---+ ---+ -------+ *Each stage assumes the associated GFR level has been in effect for at least three months. ?Stages 1 to 5, with or without kidney disease, indicate chronic kidney disease. Notes: Determination of stages one and two (with eGFR >59mL/min/1.73 m2) requires estimation of kidney damage for at least three months as defined by structural or functional abnormalities of the kidney, manifested by either:Pathological abnormalities or Markers of kidney damage (including abnormalities in the composition of the blood or urine or abnormalities in imaging tests). Lab Interpretation Abnormal (test code = 36589-4) [facility]woodPOFL GLUCOSE (AUTOMATED)2019-05-31 14:12:00 Test Item Value Reference Range Interpretation Comments POCT GLU (test code = 2722867148) 184 mg/dL 70-110 H Lab Interpretation (test code = Abnormal 95092-3) [facility] KingwoodC-REACTIVE [id number] 14:10:00 Test Item Value Reference Range Interpretation Comments CRP (test code = 5441250815) 16.4 mg/dL <0.8 H Lab Interpretation (test code = Abnormal 22574-3) [facility] KingwoodLactic Acid Whole [id number] 14:09:00 Test Item Value Reference Range Interpretation Comments LACTIC ACID (test code = 4.03 mmol/L 0.5-2.2 H 4324267580) Lab Interpretation (test code = Abnormal 06576-1) [facility] ABDOMEN PELVIS W [id number] 13:54:32 1. ?Bilateral, peripheral groundglass and consolidative opacities presentat imaged portions of lungbases. Radiographic findings suspicious forinfection, including COVID-19 pneumonia. . 2. ?Alternating segments of distention/mild dilatation and nondistention ofthe pancreatic duct. Nonspecific and maybe secondary to chronicpancreatitis. 3. ?2 indeterminate hypoattenuating structures are seen in the distributionof the pancreatic (1.2 cm and 1.4 cm). Both measure greater in density thansimple fluid. Findings may be further evaluated with MRI when clinicallyappropriate. Considerations ?particularly for the more just superior, morecircumscribed lesion include cysts or collections (such as pseudocystsfromprior episode of pancreatitis or IPMN). For the less circumscribed lesion,cyst or collection is also a consideration as well as a solid lesion orarea of focal pancreatitis; necrosis is considered unlikely given relativeabsence of inflammatory findings elsewhere. 4. ?Fluid distended stomach with fluid extending into the distendedvisualized portion of the esophagus. Findings were discussed with Dr. Carbone at 1:20 AM on 05/31/2019 Preliminary Report Dictated by Resident: Anette Avelar I, Kavitha Dalal MD., have reviewed this study and agree with the abovereport.EXAM: CT ABDOMEN PELVIS W CONTRAST HISTORY: Abd pain, acute, generalized . Per chart review, patient is beingevaluated for DKA secondary to pancreatitis. COMPARISON: MRI abdomen 07/17/2015, CT abdomen and pelvis 2015. DOSE: 516 mGycm TECHNIQUE AND FINDINGS: Contiguous axial imaging from the level of the lungbases through the pubic symphysis was performed after the uncomplicatedadministration of 120 cc of intravenous Omnipaque contrast and oralOmnipaque contrast. Coronal and sagittal reconstructions were obtained. Auto mA and/oriterative reconstruction were used to reduce radiation dose. FINDINGS:STATEMENTS: Image quality degraded by streak artifacts from patient's armspositioned at sides and due to motion. LOWER THORAX: Bilateral, peripheral groundglass opacities are present, leftgreater than right there is mild septal thickening. The esophagus is dilated and patulous with ingested contents. LIVER: No focal hepatic lesions. ?Normal contour. GALLBLADDER AND BILIARY TREE: No biliary ductal dilation. ?No gallbladderwall thickening. SPLEEN: No splenomegaly. PANCREAS: Mild volume loss throughout the pancreas with more atrophicchanges at the pancreatic tail. The main pancreatic duct demonstratessegments of alternating distention and mild dilatation with segments ofnondistention/nonvisualized duct/. For example the duct measures up to 3 mmin the body of the pancreas (2:56) and is mildly dilated at the distal tailof the pancreas. 2 indeterminate hypoattenuating structures are seen at the pancreatic head.More inferiorly a less well-defined structure measures 1.2 cm (4:46) withattenuation higher than expected for simple fluid. This is in closeproximity to the expected course of the pancreatic duct. An additional 1.4cm more circumscribed, more rounded hypoattenuating structure is presentmore superiorly at the anterior marginof the head of the pancreas (4:82).It is not along the course of the main pancreatic duct. This lesion alsohas attenuation higher than expected for simple fluid. Minimal nonspecific peripancreatic fat stranding is present adjacent to thehead of the pancreas (2:52) ADRENAL GLANDS: No adrenal nodules. KIDNEYS: No hydronephrosis, stones, or masses. The ureters are unremarkable. PERITONEUM AND RETROPERITONEUM: No free air or fluid. LYMPH NODES: Prominent para-aortic lymph nodes are present. However, noneare enlarged by CT criteria. GI TRACT: The stomach is distended with ingested material which extendssuperiorly into the visualized segment of the esophagus. The small bowel islargely collapsed. There is gaseous distention of the large bowel without dilation. A moderateamount of stool is noted within the ascending colon. The appendix is normal. PELVIS/BLADDER: The urinary bladder is normally distended. The prostate is within normal limits. VESSELS: Unremarkable. BONES AND SOFT TISSUES: No suspicious lytic or sclerotic bony lesions. Small, bilateral, fat-filled inguinal hernias. [facility], Radiant Results Inft User - 05/31/2019 8:55 AM CDTEXAM: CT ABDOMEN PELVIS W CONTRAST HISTORY: Abd pain, acute, generalized . Per chart review, patient is beingevaluated for DKA secondary to pancreatitis.COMPARISON: MRI abdomen 07/17/2015, CT abdomen and pelvis 2015.DOSE: 516 mGycmTECHNIQUE AND FINDINGS: Contiguous axial imaging from the level of the lungbases through the pubic symphysis was performed after the uncomplicatedadministration of 120 cc of intravenous Omnipaque contrast and oralOmnipaque contrast. Coronal and sagittal reconstructions were obtained. Auto mA and/or iterative reconstruction were used to reduce radiation dose.FINDINGS:STATEMENTS: Image quality degraded by streak artifacts from patient's armspositioned at sides and due to motion.LOWER THORAX: Bilateral, peripheral groundglass opacities are present, leftgreater than right there is mild septal thickening.The esophagus is dilated and patulous with ingested contents.LIVER: No focal hepatic lesions. Normal contour.GALLBLADDER AND BILIARY TREE: No biliary ductal dilation. No gallbladderwall thickening.SPLEEN: No splenomegaly.PANCREAS: Mild volume loss throughout the pancreas with more atrophicchanges at the pancreatic tail. The main pancreatic duct demonstratessegments of alternating distention and mild dilatation with segments ofnondistention/nonvisualized duct/. For example the duct measures up to 3 mmin the body of the pancreas (2:56) and is mildly dilated at the distal tailof the pancreas.2 indeterminate hypoattenuating structures are seen at the pancreatic head.More inferiorly a less well-defined structure measures 1.2 cm (4:46) withattenuation higher than expected for simple fluid. This is in closeproximity to the expected course of the pancreatic duct. An additional 1.4cm more circumscribed, more rounded hypoattenuating structure is presentmore superiorly at the anterior margin of the head of the pancreas (4:82).It is not along the course of the main pancreatic duct. This lesion alsohas attenuation higher than expected for simple fluid.Minimal nonspecific peripancreatic fat stranding is present adjacent to thehead of the pancreas (2:52)ADRENAL GLANDS: No adrenal nodules.KIDNEYS: No hydronephrosis, stones, or masses.The ureters are unremarkable.PERITONEUM AND RETROPERITONEUM: No free air or fluid.LYMPH NODES: Prominent para-aortic lymph nodes are present. However, noneare enlarged by CT criteria.GI TRACT: The stomachis distended with ingested material which extendssuperiorly into the visualized segment of the esophagus. The small bowel islargely collapsed.There is gaseous distention of the large bowel without dilat ion. A moderateamount of stool is noted within the ascending colon.The appendix is normal.PELVIS/BLADDER: The urinary bladder is normally distended.The prostate is within normal limits.VESSELS: Unremarkable.BONES AND SOFT TISSUES: No suspicious lytic or sclerotic bony lesions.Small, bilateral, fat-filled inguinal hernias.IMPRESSION1. Bilateral, peripheral groundglass and consolidative opacities presentat imaged portions of lung bases. Radiographic findings suspicious forinfection, including COVID-19 pneumonia. .2. Alternating segments of distention/mild dilatation and nondistention ofthe pancreatic duct. Nonspecific and may be secondary to chronicpancreatitis.3. 2 indeterminate hypoattenuating structures are seen in the distributionof the pancreatic (1.2 cm and 1.4 cm). Both measure greater indensity thansimple fluid. Findings may be further evaluated with MRI when clinicallyappropriate. Considerations particularly for the more just superior, morecircumscribed lesion include cysts or collections (such as pseudocysts fromprior episode of pancreatitis or IPMN). For the less circumscribed lesion,cyst or collection is also a consideration as well as a solid lesion orarea of focal pancreatitis; necrosis is considered unlikely given relativeabsence of inflammatory findings elsewhere.4. Fluid distended stomach with fluid extending into the distendedvisualized portion of the esophagus. Findings were discussed with Dr. Carbone at 1:20 AM on 05/31/2019Preliminary Report Dictated by Resident: Kavitha Foley MD., have reviewed this study and agree with the abovereport.[facility]woodPOFL GLUCOSE (AUTOMATED)2019-05-31 12:55:00 Test Item Value Reference Range Interpretation Comments POCT GLU (test code = 0780932842) 425 mg/dL 70-110 H Lab Interpretation (test code = Abnormal 10981-5) [facility] KingwoodPROTHROMBIN TIME / [id number] 12:21:00 Test Item Value Reference Range Interpretation Comments PROTIME PATIENT (test See_Comment L [Auto mated message] code = 5964-2) The system [employer] generated this result transmitted ref erence range: 10.1 - 1 2.6 Seconds. The reference range was not used to int erpret this result as normal/abnormal . INR (test code = 6301-6) Nor mal INR <1.1; Warfarin Therap eutic range 2.0 to 3. 0 or 2.5 to 3.5, dep ending upon the indica tions. Lab Interpretation (test Abnormal code = 19501-8) [facility] KingwoodBAPSYCHIATRIC METABOLIC PANEL (NA, K, CL, CO2, GLUCOSE, BUN, CREATININE, CA)2019-05-31 12:17:00 Test Item Value Reference Range Interpretation Comments NA (test code = 133 mmol/L 135-145 L 8201386074) K (test code = 4.2 mmol/L 3.5-5 9712637745) CL (test code = 101 mmol/L 98-108 2680301374) CO2 TOTAL (test code = 11 mmol/L 23-31 L 8703549795) AGAP (test code = 2-16 H 5020779653) BUN (test code = 50 mg/dL 7-23 H 0853605956) GLUCOSE (test code = 506 mg/dL 70-110 HH 6489754280) CREATININE (test code = 1.27 mg/dL 0.6-1.25 H 1359083186) CALCIUM (test code = 9.9 mg/dL 8.6-10.6 9020564318) eGFR Calculation mL/min/1.73m2 (Non-) (test code = 0290353683) eGFR Calculation mL/min/1.73m2 () (test code = 2090459216) RUSTY (test code = RUSTY) Association of Glomerular Filtration Rate (GFR) and Staging of Kidney Disease* + --+ --+ ------+| GFR (mL/min/1.73 m2) ?| With Kidney Damage ?| ?Without Kidney Damage+ --------+ --------+ +| ?>90 ?| ?Stage one ?| ? Normal ?+ ---+ ---+ -------+| ?60-89 ?| ?Stage two ?| ? Decreased GFR ? + --+ --+ ------+| ?30-59 ?| ?Stage three ?| ? Stage three ? + --+ --+ ------+| ?15-29 ?| ?Stage four ? | ? Stage four ?+ ---+ ---+ -------+| ?<15 (or dialysis) ? ?| ?Stage five ? | ? Stage five ?+ ---+ ---+ -------+ *Each stage assumes the associated GFR level has been in effect for at least three months. ?Stages 1 to 5, with or without kidney disease, indicate chronic kidney disease. Notes: Determination of stages one and two (with eGFR >59mL/min/1.73 m2) requires estimation of kidney damage for at least three months as defined by structural or functional abnormalities of the kidney, manifested by either:Pathological abnormalities or Markers of kidney damage (including abnormalities in the composition of the blood or urine or abnormalities in imaging tests). Lab Interpretation Abnormal (test code = 81222-7) [facility]woodPOCT GLUCOSE (AUTOMATED)2019-05-31 12:14:00 Test Item Value Reference Range Interpretation Comments POCT GLU (test code = 1416873151) 434 mg/dL 70-110 H Lab Interpretation (test code = Abnormal 79195-1) [facility] KingwoodPROTHROMBIN TIME / [id number] 11:56:00 Test Item Value Reference Range Interpretation Comments PROTIME PATIENT (test See_Comment L [Auto mated message] code = 5964-2) The system [employer] [facility] generated this result transmitted ref erence range: 10.1 - 1 2.6 Seconds. The reference range was not used to int erpret this result as normal/abnormal . INR (test code = 6301-6) Nor mal INR <1.1; Warfarin Therap eutic range 2.0 to 3. 0 or 2.5 to 3.5, dep ending upon the indica tions. Lab Interpretation (test Abnormal code = 71699-4) [facility] KingwoodPROCALCITONIN2020-04-06 11:33:00 Test Item Value Reference Range Interpretation Comments Procalcitonin (test 23.93 ng/mL <0.07 H code = 1477537068) RUSTY (test code = RUSTY) INTERPRETATION OF PROCALCITONIN RESULTS IN ADULTS >= 18 YEARS OF AGE Initiation and discontinuation of antibiotics on patients with suspected or confirmed Lower Respiratory Tract Infection in Adults >= 18 years of age. + +-------- --------+ + -----+|Procalcitonin |Interpretation ?|Antibiotic ? ? |Considerations ? |ng/mL ? | ?|recommendation | ? + +-------- --------+ + -----+| <0.1 ? | Bacterial ? ? ?| Strongly ? ? ?| ? | ?| infection very | discouraged ? | Overruling: ? | ?| unlikely ? ? ? | ? | ? Clinically unstable ? ? ? + +-------- --------+ + ? High risk for adverse ? ? | <0.25 ?| Bacterial ? ? ?| Discouraged ? | ? outcome ? | ?| infection ? ? ?| ? | ? SEE IMPORTANT NOTE ?| ?| unlikely ? ? ? | ? | ? + +-------- --------+ + -----+| >=0.25 ? ? ? | Bacterial ? ? ?| Encouraged ? ?| ? | ?| infection ? ? ?| ? | ? | ?| likely ? | ? | Consider treatment failure ?+ +------- ---------+ -+ if levels does not decrease | >0.5 ? | Bacterial ? ? ?| Strongly ? ? ?| appropriately ? | ?| infection very | encouraged ? ?| ? | ?| likely ? | ? | ? + +-------- --------+ + -----+ Discontinuation of antibiotics in high-acuity patients with suspected or confirmed sepsis in Adults >= 18 years of age. + +-------- --------+ + -----+|Procalcitonin |Interpretation ?|Antibiotic ? ? |Considerations ? |ng/mL ? | ?|recommendation | ? + +-------- --------+ + -----+| <0.25 ?| Bacterial ? ? ?| Strongly ? ? ?| ? | ?| infection very | discouraged ? | Overruling: ? | ?| unlikely ? ? ? | ? | ? Clinically unstable ? ? ? + +-------- --------+ + ? High risk for adverse ? ? | <0.5 or drop | Bacterial ? ? ?| Discouraged ? | ? outcome ? | >80% from ? ?| infection ? ? ?| ? | ? SEE IMPORTANT NOTE ?| highest PCT ?| unlikely ? ? ? | ? | ? | level ?| ?| ? | ? + +-------- --------+ + -----+| >=0.5 ?| Bacterial ? ? ?| Encouraged ? ?| ? | ?| infection ? ? ?| ? | ? | ?| likely ? | ? | Consider treatment failure ?+ +------- ---------+ -+ if levels does not decrease | >1.0 ? | Bacterial ? ? ?| Strongly ? ? ?| appropriately ? | ?| infection very | encouraged ? ?| ? | ?| likely ? | ? | ? + +-------- --------+ + -----+ Percentage of drop of Procalcitonin calculation for Discontinuation of antibiotics in high-acuity patients with suspected or confirmed sepsis in Adults >= 18 years of age. ? Procalcitonin highest{}-Procalcitonin current{}Delta Procalcitonin = x100% ? Procalcitonin current {} IMPORTANT NOTE: Procalcitonin may be elevated without bacterial infection by physiologic stress related to trauma, nicole, chronic dialysis, metastatic cancer, surgery in the past seven days, malaria, some fungal infections, and some forms of vasculitis. The interpretation algorithm may not apply to patients with immunosuppression (equivalent of >10 mg of prednisone daily), HIV with CD4 cell count < 350 cells/mm3, active malignancy on systemic chemotherapy, solid organ transplant or hematopoietic stem cell transplantation, or hospital acquired pneumonia. Additionally, some clinical trials of procalcitonin have excluded patients with shock requiring vasopressor use, acute respiratory failure requiring mechanical ventilation, or those with known lung abscess/empyema. For further information please refer to:[email or web address] Lab Interpretation Abnormal (test code = 55489-6) [facility] [id number] 11:21:00 Test Item Value Reference Range Interpretation Comments CK (test code = 2012707195) 315 U/L 33-194 H Lab Interpretation (test code = Abnormal 17123-2) [facility] METABOLIC PANEL (NA, K, CL, CO2, GLUCOSE, BUN, CREATININE, CA)2019-05-31 10:54:00 Test Item Value Reference Range Interpretation Comments NA (test code = 131 mmol/L 135-145 L 1696047510) K (test code = 3.7 mmol/L 3.5-5 5778025661) CL (test code = 96 mmol/L 98-108 L 2385951129) CO2 TOTAL (test code = 8 mmol/L 23-31 L 3182022036) AGAP (test code = 2-16 H 6200859899) BUN (test code = 46 mg/dL 7-23 H 5549476435) GLUCOSE (test code = 625 mg/dL 70-110 HH 0129021337) CREATININE (test code = 1.34 mg/dL 0.6-1.25 H 7648702804) CALCIUM (test code = 10.2 mg/dL 8.6-10.6 4900193412) eGFR Calculation mL/min/1.73m2 (Non-) (test code = 8458605102) eGFR Calculation mL/min/1.73m2 () (test code = 7168130499) RUSTY (test code = RUSTY) Association of Glomerular Filtration Rate (GFR) and Staging of Kidney Disease* + --+ --+ ------+| GFR (mL/min/1.73 m2) ?| With Kidney Damage ?| ?Without Kidney Damage+ --------+ --------+ +| ?>90 ?| ?Stage one ?| ? Normal ?+ ---+ ---+ -------+| ?60-89 ?| ?Stage two ?| ? Decreased GFR ? + --+ --+ ------+| ?30-59 ?| ?Stage three ?| ? Stage three ? + --+ --+ ------+| ?15-29 ?| ?Stage four ? | ? Stage four ?+ ---+ ---+ -------+| ?<15 (or dialysis) ? ?| ?Stage five ? | ? Stage five ?+ ---+ ---+ -------+ *Each stage assumes the associated GFR level has been in effect for at least three months. ?Stages 1 to 5, with or without kidney disease, indicate chronic kidney disease. Notes: Determination of stages one and two (with eGFR >59mL/min/1.73 m2) requires estimation of kidney damage for at least three months as defined by structural or functional abnormalities of the kidney, manifested by either:Pathological abnormalities or Markers of kidney damage (including abnormalities in the composition of the blood or urine or abnormalities in imaging tests). Lab Interpretation Abnormal (test code = 23524-1) [facility] COOX [id number] 10:49:00 Test Item Value Reference Range Interpretation Comments THB DARCI (test code = 3004895644) 14.6 g/dL 13.5-18 %O2HB DARCI (test code = 0238684803) 26.2 % 52-63 L %COHB DARCI (test code = 2868993722) 0.3 % 0-1.5 %METHB DARCI (test code = 0760529527) 1.6 % 0.4-1.5 H VOL%O2 DARCI (test code = 3691008423) 5.4 % 6-12 L Lab Interpretation (test code = Abnormal 78206-6) [facility]woodLactic Acid Whole [id number] 10:49:00 Test Item Value Reference Range Interpretation Comments LACTIC ACID (test code = 3.34 mmol/L 0.5-2.2 H 6116006601) Lab Interpretation (test code = Abnormal 62074-0) [facility]LACT[facility] [id number] 10:44:00 Test Item Value Reference Range Interpretation Comments LDH (test code = 2596063699) 738 U/L 300-600 H Lab Interpretation (test code = Abnormal 97287-0) [facility]woodD-[id number] 10:21:00 Test Item Value Reference Interpretation Comments Range D-DIMER (test code = See_Comment H [Autom ated 9235473268) message] The system which generated this result transmitted reference range : <0.50 ?g/mL (FEU). The reference range was not used to interpret this result as normal/abnormal . RUSTY (test code = This test may be RUSTY) used in conjunction with a clinical pretest probability (PTP) assessment model to exclude venous thromboembolism (VTE) in patients suspected of deep venous thrombosis (DVT) and pulmonary embolism (PE) A D-Dimer value less than 0.50 ?g/ml (FEU) has a negative predicative value of 96 to 100% (95% CI)and 97 to 100% (95% CI) as an aid in the diagnosis of deep vein thrombosis (DVT) and pulmonary embolism when there is low or moderate pretest probability of PE or DVT. D-Dimer values are expressed in initial fibrinogen equivalent units (FEU)" The assay results should be used with other information, including the clinical context, in forming a diagnosis. Lab Interpretation Abnormal (test code = 41664-3) [facility]woodGALV ONLY - INFLUENZA A B RSV [id number] 09:56:00 Test Item Value Reference Range Interpretation Comments Influenza A virus by PCR (test code Negative Negative = 36216-4) Influenza B virus by PCR (test code Negative Negative = 15749-9) RSV by PCR (test code = 24516-7) Negative Negative Lab Interpretation (test code = Normal 39614-5) [facility]woodCORON[facility]IRUS COVID-19 [id number] 09:47:00 Test Item Value Reference Range Interpretation Comments SARS-CoV-2 (test code = Not Detected Not Detected 35072-5) RUSTY (test code = RUSTY) ID NOW COVID-19 Assay is an isothermal nucleic acid amplification test intended for the qualitative detection of nucleic acid from SARS-CoV-2 viral RNA in nasopharyngeal (BEE RAISER) specimens. It is used under Emergency Use Authorization (EUA) by FDA. The limit of detection (LOD) of the assay is 125 Genome Equivalents/mL. A positive result is indicative of the presence of SARS-CoV-2 RNA. ?Clinical correlation with patient history and other diagnostic information is necessary to determine patient infection status. A negative (Not Detected) result does not preclude SARS-CoV-2 infection and should not be used as the sole basis for patient management decisions. ? Invalid: Please collect a new specimen for repeat patient testing if clinically indicated. Lab Interpretation Normal (test code = 89289-6) [facility]woodTHYROID STIMULATING [id number] 09:07:00 Test Item Value Reference Range Interpretation Comments TSH (test code = See_Comment [Automated message] 9136340620) The system [employer] generated this result transmitted ref erence range: 0.45 - 4 .70 mIU/L. The refe rence range was not u sed to interpret this result as normal/abnor mal. Lab Interpretation (test Normal code = 92268-4) [facility]woodTROPONIN [id number] 08:48:00 Test Item Value Reference Range Interpretation Comments TROPONIN I (test 0.005 ng/mL See_Comment [Automated code = 8780641732) message] The system which generated this result transmitted reference range : <=0.034. The reference range was not used to interpret this result as normal/abnormal . RUSTY (test code = Equal or Less than RUSTY) 0.034 ng/ml---Normal ?Note: Cardiac troponin begins to rise 3-4 hours after the onset of ischemia. Repeat in 4-6 hours if the sample was drawn within 3-4 hours of the onset of the symptom and found normal. Between 0.035 and 0.120 ng/mL--- Borderline. Questionable myocardial injury or necrosis ? ?Note: Serial measurement may be necessary to confirm or exclude the diagnosis of myocardial injury or necrosis; Clinical correlation (symptoms, EKGs, imaging studies, and others) required; Repeat in 4-6 hours if clinically indicated. ? Equal or Higher than 0.121 ng/mL---Abnormal. Myocardial Injury or Necrosis Likely ? Biotin has been reported to cause a negative bias, interpret results relative to patient's use of biotin. ? Lab Interpretation Normal (test code = 35667-5) [facility]woodGlycosylated Hemoglobin (A1C)2019-05-31 04:30:00 Test Item Value Reference Interpretation Comments Range HGB A1C (test code = >14.0 See_Comment H [Autom ated 4548-4) message] The system which generated this result transmitted reference range : 4.0 - 6.0 % NGSP. The reference range was not used to interpret this result as normal/abnormal . RUSTY (test code = %A1C (NGSP) RUSTY) Interpretation (ADA)4.8-5.6 ? ? Normal or (Non-Diabetic Range)5.7-6.4 ? ? Increased Risk (Pre-Diabetic)>6.5 ?Diabetes Indicated Lab Interpretation Abnormal (test code = 42589-4) [facility]woodCOM. METABOLIC PANEL (54870)2019-05-31 04:29:00 Test Item Value Reference Range Interpretation Comments NA (test code = 113 mmol/L 135-145 LL 3626476902) K (test code = 5.9 mmol/L 3.5-5 H 7312641229) CL (test code = 74 mmol/L 98-108 L 3475397446) CO2 TOTAL (test code <5 23-31 L = 4581614766) AGAP (test code = Unable to 8120770324) calculate because, either,SODIUM SERUM, CHLORIDE SERUM, CO2 TOTA L or all are less than the sensitivity of the analyzer. BUN (test code = 49 mg/dL 7-23 H 2323549361) GLUCOSE (test code = >1250 70-110 HH 3899650732) CREATININE (test 2.23 mg/dL 0.6-1.25 H code = 3516178146) TOTAL BILI (test 0.4 mg/dL 0.1-1.1 code = 5247549550) CALCIUM (test code = 8.5 mg/dL 8.6-10.6 L 1184323654) T PROTEIN (test code 7.7 g/dL 6.3-8.2 = 3740319187) ALBUMIN (test code = 4.7 g/dL 3.5-5 7702155789) ALK PHOS (test code 91 U/L 34-122 = 7787403364) ALTv (test code = 28 U/L 5-50 1742-6) AST(SGOT) (test code 38 U/L 13-40 = 4580624219) eGFR Calculation mL/min/1.73m2 (Non-) (test code = 8637099909) eGFR Calculation mL/min/1.73m2 () (test code = 9016874351) RUSTY (test code = Association of RUSTY) Glomerular Filtration Rate (GFR) and Staging of Kidney Disease* + -----+ --------+ +| GFR (mL/min/1.73 m2) ?| With Kidney Damage ?| ?Without Kidney Damage+ +------- +---- --+| ?>90 ?| ?Stage one ?| ? Normal ?+ ------+ ---------+--------- +| ?60-89 ?| ?Stage two ?| ? Decreased GFR ? + -----+ --------+ +| ?30-59 ?| ?Stage three ?| ? Stage three ? + -----+ --------+ +| ?15-29 ?| ?Stage four ? | ? Stage four ?+ ------+ ---------+--------- +| ?<15 (or dialysis) ? ?| ?Stage five ? | ? Stage five ?+ ------+ ---------+--------- + *Each stage assumes the associated GFR level has been in effect for at least three months. ?Stages 1 to 5, with or without kidney disease, indicate chronic kidney disease. Notes: Determination of stages one and two (with eGFR >59mL/min/1.73 m2) requires estimation of kidney damage for at least three months as defined by structural or functional abnormalities of the kidney, manifested by either:Pathological abnormalities or Markers of kidney damage (including abnormalities in the composition of the blood or urine or abnormalities in imaging tests). Lab Interpretation Abnormal (test code = 80600-9) [facility]woodPhosphorus [id number] 04:28:00 Test Item Value Reference Range Interpretation Comments PHOSPHORUS (test code = 3357879681) 5.1 mg/dL 2.5-5 H Lab Interpretation (test code = Abnormal 80322-7) [facility]woodURINALYSIS2020-04-06 04:26:00 Test Item Value Reference Range Interpretation Comments APPEARANCE (test code = Clear Clear 9305361740) COLOR (test code = Straw Yellow A 9054190536) PH (test code = 4.8-8.0 2576177656) SP GRAVITY (test code = 1.003-1.030 7633099969) GLU U QUAL (test code = 500 mg/dL Normal A 6128924869) BLOOD (test code = 2+ Negative A 1696635430) KETONES (test code = 20 mg/dL Negative A 7378882271) PROTEIN (test code = 30 mg/dL Negative A 2887-8) UROBILIN (test code = Normal Normal 3356395487) BILIRUBIN (test code = Negative Negative 8361357964) NITRITE (test code = Negative Negative 2684043475) LEUK ALLI (test code = Negative Negative 9417677200) RBC/HPF (test code = See_Comment [Autom ated message] 7918818395) The system [employer] generated this result transmit adis reference range : 0 - 3 HPF. The refe rence range was not u sed to interpret th is result as normal/abnormal . WBC/HPF (test code = See_Comment [Autom ated message] 1346189730) The system [employer] generated this result transmit adis reference range : 0 - 5 HPF. The refe rence range was not u sed to interpret th is result as normal/abnormal . BACTERIA (test code = Negative Negative 9700078600) MUCOUS (test code = Slight Negative LPF A 3577341743) SQ EPITH (test code = <1 HPF 9194281087) Lab Interpretation (test Abnormal code = 19393-1) [facility]woodMAGNESIUM2020-04-06 04:12:00 Test Item Value Reference Range Interpretation Comments MAGNESIUM (test code = 6391228286) 2.6 mg/dL 1.7-2.4 H Lab Interpretation (test code = Abnormal 46239-7) [facility]woodLIPASE2020-04-06 04:11:00 Test Item Value Reference Range Interpretation Comments LIPASE (test code = 1589250488) 1000 U/L 0-220 H Lab Interpretation (test code = Abnormal 17842-9) [facility]woodABG+NA+K+GLU+CA2+2019-05-31 03:56:00 Test Item Value Reference Range Interpretation Comments PH (test code = 2) 7.35-7.45 LL PCO2 (test code = <14 See_Comment L [Automat ed 1588688016) message] The sy stem which generated this result transmitted reference range : 35 - 45 mmHg. The reference range was not used to interpret this result as normal/abnormal . PO2 (test code = See_Comment H [Automated 6877272416) message] The sy stem which generated this result transmitted reference range : 80 - 100 mmHg. The reference range was not used to interpret this result as normal/abnormal . HCO3 (test code = See_Comment L [Automate d 3312059184) message] The sy stem which generated this result transmitted reference range : 22 - 26 mEq/L. The reference range was not used to interpret this result as normal/abnormal . BE (test code = See_Comment L [Automated 6632756615) message] The sy stem which generated this result transmitted reference range : -3.0 - 3.0 mEq/ L. The reference r everardo was not used to interpret this result as normal/abnormal . NA (test code = 110 mmol/L 135-145 LL 9258950827) K+ (test code = 5.7 mmol/L 3.5-5 H 9512329989) AC CA IONZ (test code 5.10 mg/dL 4.5-5.3 = 2013578105) GLUCOSE (test code = <20 70-110 LL 7204539399) RUSTY (test code = RUSTY) NOT READABLE Lab Interpretation Abnormal (test code = 98191-5) [facility] WITH [id number] 03:51:00 Test Item Value Reference Range Interpretation Comments WBC (test code = See_Comment H [Automated 6690-2) message] The system which generated this result transmit adis reference range : 4.20 - 10.70 10*3/?L. The reference range was not used to interpret this result as normal/abnormal . RBC (test code = See_Comment [Automated 789-8) message] The system which generated this result transmit adis reference range : 4.26 - 5.52 10*6/?L. The reference range was not used to interpret this result as normal/abnormal . HGB (test code = 13.6 g/dL 12.2-16.4 718-7) HCT (test code = 43.9 % 38.4-49.3 4544-3) MCV (test code = 100.9 fL 81.7-95.6 H 787-2) MCH (test code = 31.3 pg 26.1-32.7 785-6) MCHC (test code = 31.0 g/dL 31.2-35 L 786-4) RDW-SD (test code = 47.3 fL 38.5-51.6 74973-5) RDW-CV (test code = 12.6 % 12.1-15.4 788-0) PLT (test code = See_Comment [Automated 777-3) message] The system which generated this result transmit adis reference range : 150 - 328 10*3/ ?L. The reference range was not u sed to interpret th is result as normal/abnormal . MPV (test code = 12.0 fL 9.8-13 23410-5) NRBC/100 WBC (test See_Comment [Automat ed code = 4644670394) message] The system which generated this result transmit adis reference range : 0.0 - 10.0 /100 WBCs. The reference range was not used to interpret this result as normal/abnormal . NRBC x10^3 (test code <0.01 See_Comment [Auto mated = 0624003115) message] The system which generated this result transmit adis reference range : 10*3/?L. The reference range was not used to interpret this result as normal/abnormal . GRAN MAT (NEUT) % 87.9 % (test code = 770-8) IMM GRAN % (test code 1.10 % = 1506788995) LYMPH % (test code = 1.9 % 736-9) MONO % (test code = 8.7 % 5905-5) EOS % (test code = 0.1 % 713-8) BASO % (test code = 0.3 % 706-2) GRAN MAT x10^3(ANC) 13.23 10*3/uL 1.99-6.95 H (test code = 6848083703) IMM GRAN x10^3 (test 0.17 10*3/uL 0-0.06 H code = 4670457086) LYMPH x10^3 (test code 0.28 10*3/uL 1.09-3.23 L = 731-0) MONO x10^3 (test code 1.31 10*3/uL 0.36-1.02 H = 742-7) EOS x10^3 (test code = <0.03 0.06-0.53 L 711-2) BASO x10^3 (test code 0.05 10*3/uL 0.01-0.09 = 704-7) Lab Interpretation Abnormal (test code = 95788-0) [facility] GLUCOSE(AGE >30DAYS)2019-05-31 03:29:00 Test Item Value Reference Range Interpretation Comments POCT Glu (age>30days) (test code = Hi 70-110 3342) Lab Interpretation (test code = Normal 00813-9) [facility]
[2021-07-10 23:03] LABS: Absolute Lymphocytes (CBC) 2.2 K/uL (0.7-4.9); Hematocrit 36.7 % (39.6-49.0); Lymphocytes % 14.1 % (15.3-44.8); MPV 8.9 fL (7.6-11.3); RBC Red Blood Cell Count 3.76 M/uL (4.33-5.43)
[2021-07-10 23:23] LABS: Urine Blood Negative (Negative); Urine Glucose Negative (Negative); Urine Protein 1+ (Negative); Urine Specific Gravity 1.025 (1.005-1.030); Urine pH 5.5 (5.0-7.0)
[2021-07-10 23:24] LABS: Protime INR 1.85
[2021-07-10 23:38] LABS: ALT/SGPT 53 U/L (12-78); Alkaline Phosphatase 369 U/L (45-117); BUN Blood Urea Nitrogen 29 mg/dL (7-18); Bicarbonate 24 mmol/L (21-32); Bilirubin Direct 5.3 mg/dL (0-0.2); Glomerular Filtration Rate 27 ml/min (=/>90); Glucose Level 198 mg/dL (74-106); Magnesium 1.3 mg/dL (1.8-2.4); NT PRO-BNP 560 pg/mL (<125); Protein, Total 8.1 g/dL (6.4-8.2); Sodium Level 131 mmol/L (136-145); Troponin High Sensitivity 23.4 pg/mL (<58.9)
[2021-07-10 23:39] LABS: Potassium 2.9 mmol/L (3.5-5.1)
[2021-07-10 23:40] LABS: AST/SGOT 327 U/L (15-37); Bilirubin Total 6.6 mg/dL (0.2-1.0)
[2021-07-10] MEDS ORDERED: ONDANSETRON 4 MG/2 ML VIAL ONE (23:44)
[2021-07-10] MEDS ORDERED: MORPHINE 2 MG/ML SYR ONE (23:44)
[2021-07-10 23:50] LABS: Barbiturates NEGATIVE (NEGATIVE); Benzodiazepines POSITIVE (NEGATIVE); Cocaine NEGATIVE (NEGATIVE); METHAMPHETAM NEGATIVE (NEGATIVE); Methadone NEGATIVE (NEGATIVE); Opiates POSITIVE (NEGATIVE); Phencyclidine NEGATIVE (NEGATIVE); THC Cannibis NEGATIVE (NEGATIVE)
--- NOTE | 2021-07-11 03:01 | ER ---
Nurse's Notes [facility] Name: Tony Bush Age: 45 yrs Sex: Male : 1975 Arrival Date: 07/10/2021 Time: 20:35 Bed 17 Private MD: Diagnosis: Chest pain, unspecified;Acute kidney failure, unspecified;Alcoholic cirrhosis of liver with ascites;Hypokalemia Presentation: 07/10 20:47 Chief complaint: Parent and/or Guardian states: Abdominal swelling, jaundice, chest ld1 pain and coughing. "Extremely drowsy", Lack of coordination. Family reports pt was here 2 weeks ago - doctor said to bring him back if he gets worse. Family said "his words are slurring.". Coronavirus screen: At this time, the client does not indicate any symptoms associated with coronavirus-19. Ebola Screen: No symptoms or risks identified at this time. Initial Sepsis Screen: Does the patient meet any 2 criteria? No. Patient's initial sepsis screen is negative. Does the patient have a suspected source of infection? No. Patient's initial sepsis screen is negative. Risk Assessment: Do you want to hurt yourself or someone else? Patient reports no desire to harm self or others. Onset of symptoms was July 10, 2021. 20:47 Method Of Arrival: Wheelchair ld1 20:47 Acuity: MAYTE 2 ld1 Triage Assessment: 20:50 General: Appears in no apparent distress. uncomfortable, Behavior is calm, cooperative, ld1 appropriate for age. Pain: Complains of pain in chest and abdomen Pain does not radiate. Pain currently is 10 out of 10 on a pain scale. Quality of pain is described as throbbing. EENT: No signs and/or symptoms were reported regarding the EENT system. Neuro: Level of Consciousness is awake, alert, obeys commands, Oriented to person, place, time, situation. Cardiovascular: Capillary refill < 3 seconds Patient's skin is warm and dry. Respiratory: Airway is patent Respiratory effort is even, unlabored. GI: Abdomen is round distended, Reports lower abdominal pain, upper abdominal pain, nausea, vomiting. : No signs and/or symptoms were reported regarding the genitourinary system. Derm: No signs and/or symptoms reported regarding the dermatologic system. Musculoskeletal: No signs and/or symptoms reported regarding the musculoskeletal system. Historical: - Allergies: 20:50 No Known Allergies; ld1 - Home Meds: 20:50 alprazolam 0.25 mg Oral tab 1 tab 3 times per day [Active]; [place] 10-325 mg Oral tab 1 ld1 tab every 4 hours [Active]; Insulin: Novolin R Sub-Q [Active]; - PMHx: 20:50 cirrhosis of liver; diabetes mellitus; ld1 - PSHx: 20:50 None; ld1 - Immunization history:: Adult Immunizations up to date, Client reports having NOT received the Covid vaccine. - Social history:: Smoking status: Patient reports the use of cigarette tobacco products, smokes one-half pack cigarettes per day, Patient/guardian denies using alcohol. Screenin:21 Abuse screen: Denies threats or abuse. Denies injuries from another. Nutritional kd3 screening: No deficits noted. Tuberculosis screening: No symptoms or risk factors identified. Fall Risk None identified. Assessment: 21:30 Pain: Pain began. kd3 07/11 00:53 Pain: Complains of pain in chest and abdomen. kd3 00:53 General: Appears uncomfortable, ill, Behavior is calm, cooperative, appropriate for kd3 age. Pain: Complains of pain in chest and abdomen. Neuro: Level of Consciousness is awake, lethargic. Cardiovascular: Patient's skin is warm and dry. Rhythm is regular. Respiratory: Airway is patent Trachea midline Respiratory effort is even, unlabored, Respiratory pattern is regular. Vital Signs: 07/10 20:47 BP 111 / 85; Pulse 117; Resp 20; Temp 98.4(TE); Pulse Ox 99% on R/A; Weight 83.91 kg; ld1 Height 6 ft. 0 in. (182.88 cm); Pain 10/10; 21:30 BP 116 / 84; Pulse 110; Resp 19; Pulse Ox 97% on R/A; kd3 07/11 00:52 BP 115 / 76; Pulse 95; Resp 17; Pulse Ox 99% on R/A; kd3 02:49 Pulse 93; Resp 17; Pulse Ox 99% on R/A; kd3 03:59 BP 106 / 72; Pulse 96; Resp 17; Pulse Ox 99% on R/A; kd3 07/10 20:47 Body Mass Index 25.09 (83.91 kg, 182.88 cm) ld1 ED Course: 07/10 20:35 Patient arrived in ED. kz 20:49 Triage completed. ld1 20:50 Arm band placed on right wrist. ld1 21:21 Mayuri Abdullahi, RN is Primary Nurse. kd3 21:30 Client placed on continuous cardiac and pulse oximetry monitoring. NIBP monitoring kd3 applied. quality assurance monitor chassis on. Pulse ox on. NIBP on. 21:31 Patient has correct armband on for positive identification. kd3 21:31 Patient maintains SpO2 saturation greater than 95% on room air. kd3 21:35 Jeff Chan MD is Attending Physician. mh7 22:30 XRAY Chest (1 view) In Process Unspecified. EDMS 22:45 Initial lab(s) drawn, by me, sent to lab. Inserted saline lock: 20 gauge in right bb antecubital area, using aseptic technique. Blood collected. 23:50 Notified ED physician of a critical lab result(s). Potassium of 2.9, AST 327, total bb bilirubin 6.6 Dr Chan notified. 0518 00:42 CT Head Brain wo Cont In Process Unspecified. EDMS 00:42 CT Abd/Pelvis - Without Contrast In Process Unspecified. EDMS 02:49 No provider procedures requiring assistance completed. kd3 02:59 Morenita Escobar MD is Hospitalizing Provider. 7 07:09 Primary Nurse role handed off by Mayuri Abdullahi RN bp 07:09 Corbin Duran, RN is Primary Nurse. bp Administered Medications: 07/10 23:46 Drug: morphine 2 mg Route: IVP; Site: right antecubital; kd3 07/11 03:58 Follow up: Response: No adverse reaction; Pain is decreased kd3 07/10 23:46 Drug: Zofran (Ondansetron) 4 mg Route: IVP; Site: right antecubital; kd3 07/11 03:58 Follow up: Response: No adverse reaction kd3 Medication: 07/10 21:21 VIS not applicable for this client. kd3 Outcome: 07/11 03:01 Decision to Hospitalize by Provider. mh7 14:59 Patient left the ED. bp Signatures: Dispatcher [employer] EDMS Diane Sharma RN RN bb Corbin Duran, RN RN bp Jeff Chan MD MD mh7 Ana Adhikari, RN RN ld1 Mayuri Abdullahi, RN RN kd3 Laurel Aguero
--- NOTE | 2021-07-11 03:01 | EDPHYS ---
Physician Documentation [facility] Name: Tony Bush Age: 45 yrs Sex: Male : 1975 Arrival Date: 07/10/2021 Time: 20:35 Bed 17 Private MD: ED Physician Jeff Chan HPI: 07/10 22:10 This 45 yrs old Male presents to ER via Wheelchair with complaints of Chest Pain, Cough.mh7 22:10 The patient or guardian reports chest pain that is located primarily in the substernal mh7 area. Onset: 4 day(s) ago. The pain does not radiate. 22:10 Associated signs and symptoms: Pertinent positives: cough, lower extremity swelling, mh7 drowsy, intermittent confusion, abdominal swelling, Pertinent negatives: abdominal pain, diaphoresis, dizziness, headache, lower extremity pain, lightheadedness, nausea, near syncope, palpitations, recent travel, shortness of breath, syncope, vomiting. 22:10 The chest pain is described as a pressure. Duration: The patient or guardian reports mh7 multiple episodes, that are intermittent, that wax and wane, with no pattern. Modifying factors: The symptoms are alleviated by nothing. the symptoms are aggravated by nothing. Severity of pain: At its worst the pain was moderate 3 day(s) ago, in the emergency department the pain has improved moderately. Historical: - Allergies: 20:50 No Known Allergies; ld1 - Home Meds: 20:50 alprazolam 0.25 mg Oral tab 1 tab 3 times per day [Active]; [place] 10-325 mg Oral tab 1 ld1 tab every 4 hours [Active]; Insulin: Novolin R Sub-Q [Active]; - PMHx: 20:50 cirrhosis of liver; diabetes mellitus; ld1 - PSHx: 20:50 None; ld1 - Immunization history:: Adult Immunizations up to date, Client reports having NOT received the Covid vaccine. - Social history:: Smoking status: Patient reports the use of cigarette tobacco products, smokes one-half pack cigarettes per day, Patient/guardian denies using alcohol. ROS: 22:10 Constitutional: Negative for fever, chills, and weight loss, Eyes: Negative for injury, mh7 pain, redness, and discharge, ENT: Negative for injury, pain, and discharge, Neck: Negative for injury, pain, and swelling, Back: Negative for injury and pain, : Negative for injury, bleeding, discharge, and swelling, Neuro: Negative for headache, weakness, numbness, tingling, and seizure, Psych: Negative for depression, anxiety, suicide ideation, homicidal ideation, and hallucinations, Allergy/Immunology: Negative for hives, rash, and allergies, Endocrine: Negative for neck swelling, polydipsia, polyuria, polyphagia, and marked weight changes, Hematologic/Lymphatic: Negative for swollen nodes, abnormal bleeding, and unusual bruising. Exam: 22:10 Constitutional: The patient appears in no acute distress, alert, awake, obviously ill. mh7 22:10 Head/Face: Normocephalic, atraumatic. mh7 22:10 Neck: Trachea midline, no thyromegaly or masses palpated, and no cervical lymphadenopathy. Supple, full range of motion without nuchal rigidity, or vertebral point tenderness. No Meningismus. Chest/axilla: Normal chest wall appearance and motion. Nontender with no deformity. No lesions are appreciated. Cardiovascular: Regular rate and rhythm with a normal S1 and S2. No gallops, murmurs, or rubs. Normal PMI, no JVD. No pulse deficits. Respiratory: Lungs have equal breath sounds bilaterally, clear to auscultation and percussion. No rales, rhonchi or wheezes noted. No increased work of breathing, no retractions or nasal flaring. 22:10 Eyes: Sclera: icterus, is present. 22:10 Abdomen/GI: Inspection: distension, that is moderate, in the abdomen diffusely, Bowel sounds: normal, in all quadrants, Palpation: nontender, in all quadrants, Indicators: McBurney's point is not tender, Rodney's sign is negative, Rovsing's sign is negative, Obturator sign is negative, Psoas sign is negative, Liver: is enlarged, Hernia: not appreciated. 22:10 Skin: jaundice. 22:10 Neuro: Orientation: is normal, Mentation: is normal, Memory: is normal, Cranial nerves: grossly normal, Cerebellar function: is grossly normal, Motor: is normal, Sensation: no obvious gross deficits, Gait: not tested. seizure activity, is not displayed by the patient, Abnormal movements: there are no abnormal movements. Vital Signs: 20:47 BP 111 / 85; Pulse 117; Resp 20; Temp 98.4(TE); Pulse Ox 99% on R/A; Weight 83.91 kg; ld1 Height 6 ft. 0 in. (182.88 cm); Pain 10/10; 21:30 BP 116 / 84; Pulse 110; Resp 19; Pulse Ox 97% on R/A; kd3 05 00:52 BP 115 / 76; Pulse 95; Resp 17; Pulse Ox 99% on R/A; kd3 02:49 Pulse 93; Resp 17; Pulse Ox 99% on R/A; kd3 03:59 BP 106 / 72; Pulse 96; Resp 17; Pulse Ox 99% on R/A; kd3 07/10 20:47 Body Mass Index 25.09 (83.91 kg, 182.88 cm) ld1 MDM: 02:57 Differential diagnosis: acute myocardial infarction, acute pericarditis, anxiety, 7 coronary artery disease chest wall pain, congestive heart failure cholecystitis, Cholelithiasis costochondritis, esophagitis, gastritis, gastroesophageal reflux disease (GERD), pericarditis, pneumonia, pneumothorax. HEART Score: History: Slightly Suspicious (0), ECG: Non specific repolarization disturbance / LBTB / PM (1), Age: > 45 and < 65 years (1), Risk Factors: 1 or 2 risk factors (1), [DM] Troponin: < or = 1 x Normal Limit (0), Total Score = 3. Data reviewed: vital signs, nurses notes, lab test result(s), cardiac enzymes, CBC, electrolytes, hepatic panel, EKG, radiologic studies, CT scan, plain films. Data interpreted: Pulse oximetry: on room air is 99 %. Interpretation: normal. Counseling: I had a detailed discussion with the patient and/or guardian regarding: the historical points, exam findings, and any diagnostic results supporting the discharge/admit diagnosis, lab results, radiology results, the need for further work-up and treatment in the hospital. Response to treatment: the patient's symptoms have mildly improved after treatment. 03:01 Patient medically screened. [facility] 07/10 22:03 Order name: Basic Metabolic Panel; Complete Time: 23:58 [facility] 07/10 22:03 Order name: CBC with Diff; Complete Time: 23:58 [facility] 07/10 22:03 Order name: LFT's; Complete Time: 23:58 [facility] 07/10 22:03 Order name: Magnesium; Complete Time: 23:58 [facility] 07/10 22:03 Order name: NT PRO-BNP; Complete Time: 23:58 [facility] 07/10 22:03 Order name: PT-INR; Complete Time: 23:58 [facility] 07/10 22:03 Order name: Troponin HS; Complete Time: 23:58 [facility] 07/10 22:04 Order name: UDS; Complete Time: 23:58 [facility] 07/10 22:04 Order name: ETOH Level; Complete Time: 23:58 [facility] 07/10 22:04 Order name: AMMONIA; Complete Time: 23:58 [facility] 07/10 22:04 Order name: Acetaminophen; Complete Time: 23:58 [facility] 07/10 22:04 Order name: Salicylate; Complete Time: 23:58 [facility] 07/10 22:05 Order name: COVID-19 SARS RT PCR (Document "Date of Onset" if Symptomatic); Complete [facility] Time: 02:29 07/10 23:23 Order name: Urine Dipstick-Ancillary; Complete Time: 23:58 [facility] 07/10 22:03 Order name: XRAY Chest (1 view) [facility] 07/11 00:07 Order name: Influenza Screen (a \\T\\ B); Complete Time: 02:29 [facility] 07/11 00:07 Order name: Lactate; Complete Time: 05:25 [facility] 07/11 00:07 Order name: Procalcitonin; Complete Time: 02:29 [facility] 07/11 00:08 Order name: Blood Culture Adult (2) [facility] 07/11 00:08 Order name: CT Head Brain wo Cont [facility] 07/11 08:33 Order name: Glucose, Ancillary Testing [facility] 07/11 13:28 Order name: CBC with Automated Diff [facility] 07/11 13:28 Order name: Lactate [facility] 07/11 13:31 Order name: Ammonia ED[facility] 07/11 13:40 Order name: Procalcitonin [facility] 07/11 13:56 Order name: Comprehensive Metabolic Panel [facility] 07/11 13:56 Order name: NT PRO-BNP [facility] 07/11 13:56 Order name: Magnesium [facility] 07/11 13:56 Order name: Folic Acid, (Folate) EDMS 07/11 13:56 Order name: Vitamin B12 Level [facility] 07/10 22:03 Order name: EKG; Complete Time: 22:08 [facility] 07/10 22:03 Order name: Cardiac monitoring; Complete Time: 22:51 [facility] 07/10 22:03 Order name: EKG - Nurse/Tech; Complete Time: 22:43 [facility] 07/10 22:03 Order name: IV Saline Lock; Complete Time: 22:43 [facility] 07/10 22:03 Order name: Labs collected and sent; Complete Time: 22:51 [facility] 07/10 22:03 Order name: O2 Per Protocol; Complete Time: 22:52 [facility] 07/10 22:03 Order name: O2 Sat Monitoring; Complete Time: 22:52 [facility] 07/10 22:03 Order name: Urine Dipstick-Ancillary (obtain specimen); Complete Time: 23:23 [facility] 07/11 00:09 Order name: CT Abd/Pelvis - Without Contrast [facility] 07/11 11:38 Order name: [facility] 07/11 12:03 Order name: [facility] Administered Medications: 07/10 23:46 Drug: morphine 2 mg Route: IVP; Site: right antecubital; 3 07/11 03:58 Follow up: Response: No adverse reaction; Pain is decreased [facility] 07/10 23:46 Drug: Zofran (Ondansetron) 4 mg Route: IVP; Site: right antecubital; kd3 07/11 03:58 Follow up: Response: No adverse reaction kd3 Disposition Summary: 07/11/21 03:01 Hospitalization Ordered Hospitalization Status: Inpatient Admission [facility] Provider: Morenita Escobar Condition: Stable [facility] Problem: new 7 Symptoms: have improved 7 Bed/Room Type: Standard [facility] Location: Telemetry/MedSurg (Inpatient)(07/11/21 14:02) bd Room Assignment: 220(07/11/21 14:02) bd Diagnosis - Chest pain, unspecified mh7 - Acute kidney failure, unspecified mh7 - Alcoholic cirrhosis of liver with ascites mh7 - Hypokalemia [facility] Forms: - Medication Reconciliation Form mh7 - SBAR form 7 Signatures: Dispatcher [employer] EDAlba Villegas Cindy, RN RN cg Jeff Chan MD MD 7 Ana Adhikari RN RN ld1 Mayuri Abdullahi RN RN kd3 Lucero Jimenez PA PA sb3 Corrections: (The following items were deleted from the chart) 03:32 03:01 Telemetry/MedSurg (Inpatient) 7 cg 03:32 03:01 7 cg 14:02 03:32 [facility] ER HOLD cg bd 14:02 03:32 ERHOLD- cg bd
--- NOTE | 2021-07-11 04:37 | P.HP ---
Certification for Inpatient Patient admitted to: Inpatient With expected LOS: >2 Midnights Patient will require the following post-hospital care: None Practitioner: I am a practitioner with admitting privileges, knowledge of patient current condition, hospital course, and medical plan of care. Services: Services provided to patient in accordance with Admission requirements found in Title 42 Section 412.3 of the Code of Federal Regulations Patient History Date of Service: 07/11/21 Reason for admission: KEVIN, Hepatic Failure History of Present Illness: Patient is a 45-year-old male with past medical history of type 2 diabetes insulin dependent and cirrhosis, recently admitted for hepatic encephalopathy, who presented to the ED with complaints of abdominal swelling, jaundice, chest pain, and cough. Patient's fianc states that he has been very drowsy and has had a lack of coordination. Labs in the ED significant for sodium 131, potassium 2.9, glucose 198, BUN 29, creatinine 2.85, GFR 27, calcium 7.9 (corrected 9.5), WBC 15.5, elevated liver enzymes, BNP 560, Pro-Amrit 0.72, magnesium 1.3, ammonia 47. CT showed moderate abdominal pelvic ascites, hepatomegaly, and nonspecific distended configuration of gallbladder. He was given morphine and Zofran in the ED with minimal improvement in symptoms. ED provider wishes to admit patient for further evaluation and treatment. Allergies No Known Allergies Allergy (Verified 06/11/21 11:18) Home medications list reviewed: Yes Home Medications: Alprazolam [Xanax] 1 mg PO PRN 06/14/21 Hydrocodone Bit/Acetaminophen [[place] 7.5-325 Tablet] 1 tab PO PRN 06/14/21 Insulin -Regular Human [Novolin -R*] 3 units SQ BID 06/14/21 Insulin NPH Human [Novolin N (Humulin N)*] 10 units SQ BID 06/14/21 Pantoprazole Sodium [Protonix] 40 mg PO DAILY 06/14/21 Zolpidem Tartrate [Ambien] 10 mg PO BEDTIME 06/14/21 Furosemide [Lasix] 20 mg PO BIDL #60 tab 06/15/21 Lactulose 30 ml PO BID #2000 ml 06/15/21 Rifaximin [Xifaxan] 550 mg PO BID #60 tablet 06/15/21 Spironolactone [Aldactone] 25 mg PO BID #60 tablet 06/15/21 chlordiazePOXIDE HCl [Chlordiazepoxide HCl] 10 mg PO TID #40 capsule 06/15/21 levoFLOXacin [Levaquin] 750 mg PO DAILY #14 tab 06/15/21 predniSONE [Deltasone] 20 mg PO BID #20 tab 06/15/21 - Past Medical/Surgical History Diabetic: Yes -: Diabetes mellitus type 2insulin-dependent -: Alcoholic cirrhosis of liver -: Chronic pancreatitis Past Surgical History: Patient denies surgical history Psychosocial/ Personal History: Patient lives at home with his fiance - Family History Family History: Reviewed- Non-Contributory - Social History Smoking Status: Never smoker Alcohol use: Yes CD- Drugs: No Caffeine use: Yes Place of Residence: Home Review of Systems General: Weakness Respiratory: Cough Cardiovascular: Chest Pain Neurological: Confusion Physical Examination - Physical Exam General: Alert, In no apparent distress HEENT: Atraumatic, PERRLA, EOMI, Scleral icterus Neck: Supple, 2+ carotid pulse no bruit, No LAD, Without JVD or thyroid abnormality Respiratory: Clear to auscultation bilaterally, Normal air movement Cardiovascular: Regular rate/rhythm, Normal S1 S2 Gastrointestinal: Normal bowel sounds, No tenderness Musculoskeletal: No tenderness Integumentary: No rashes Neurological: Normal strength at 5/5 x4 extr, Normal tone, Normal affect - Studies Laboratory Data (last 24 hrs) 07/10/21 22:45: PT 20.6 H, INR 1.85 07/10/21 22:45: WBC 15.5 H, Hgb 12.6 L, Hct 36.7 L, Plt Count 222 07/10/21 22:45: Sodium 131 L, Potassium 2.9 L*, BUN 29 H, Creatinine 2.85 H, Glucose 198 H, Magnesium 1.3 L* D, Total Bilirubin 6.6 H*, AST 327 H*, ALT 53, Alkaline Phosphatase 369 H Microbiology Data (last 24 hrs): 07/11/21 00:44 Nasopharnyx Influenza Type A Antigen Screen - Final 07/11/21 00:44 Nasopharnyx Influenza Type B Antigen Screen - Final Assessment and Plan - Problems (Diagnosis) (1) KEVIN (acute kidney injury) Current Visit: Yes Status: Acute (2) Hypokalemia Current Visit: Yes Status: Acute (3) Acute hepatic failure Current Visit: Yes Status: Acute Qualifiers: Hepatic coma status: without hepatic coma Qualified Code(s): K72.00 - Acute and subacute hepatic failure without coma (4) Alcoholic hepatitis Current Visit: Yes Status: Chronic Qualifiers: Ascites presence: with ascites Qualified Code(s): K70.11 - Alcoholic hepatitis with ascites (5) Jaundice Current Visit: Yes Status: Acute (6) Type 2 diabetes mellitus Current Visit: Yes Status: Acute Qualifiers: Diabetes mellitus long term care phlebotomist insulin use: with fdc use Diabetes mellitus complication status: with kidney complications Diabetes mellitus complication detail: with chronic kidney disease Chronic kidney disease stage: stage 4 (severe) Qualified Code(s): E11.22 - Type 2 diabetes mellitus with diabetic chronic kidney disease; N18.4 - Chronic kidney disease, stage 4 (severe); 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 hold nephrotoxic drugs. cont IVF. monitor renal function Hepatic failure: ammonia WNL (monitor). patient does not appear encephalopathic at this time. monitor liver enzymes. GI consulted. Cont solumedrol, thiamine, and folic acid given history of alcohol abuse Type 2 Diabetes: ACHS accu checks with mild sliding scale insulin and diabetic diet Hypokalemia: monitor and replete as per protocol Leukocytosis: elevated at 15 with procal of 0.72. lactic WNL. WBC was elevated at 17 upon last admission. blood cultures drawn. cont solumedrol. trend CBC reconcile and cont home medications as appropriate SCDs for DVT PPx Discharge Plan: Home Plan to discharge in: Greater than 2 days - Advance Directives Does patient have a Living Will: No Does patient have a Durable POA for Healthcare: No - Code Status/Comfort Care Code Status Assessed: Yes (Full) Critical Care: No Time Spent Managing Pts Care (In Minutes): 70
[2021-07-11 06:11] VITALS: BMI 3612.4
[2021-07-11] MEDS ORDERED: KCL 20 MEQ/100 mL IVPB 20 MEQ/100 ML BAG IV SCH (06:22)
[2021-07-11] MEDS ORDERED: ONDANSETRON 4 MG/2 ML VIAL IV PRN (06:22)
[2021-07-11] MEDS: METHYLPREDNISOLONE 125 MG INJ IV SCH ×3 (06:22→17:13)
[2021-07-11] MEDS ORDERED: LACTULOSE 20 GM/30 ML UCUP PO PRN (06:22)
[2021-07-11] MEDS: NA CHLORIDE 0.9% 1,000 ML IV SCH ×2 (06:22→15:40)
[2021-07-11] MEDS ORDERED: NA CHLORIDE 0.9% 500 ML ONE ×2 (06:37→06:58)
[2021-07-11] MEDS ORDERED: KCL 20 MEQ/100 mL IVPB 100 ML IV ONE (06:38)
[2021-07-11] MEDS: MORPHINE 2 MG/ML SYR IV PRN ×3 (07:30→16:01)
[2021-07-11] MEDS: INSULIN -REGULAR HUMAN 50 UNIT/0.5 ML ML SQ SCH ×4 (07:30→22:28)
[2021-07-11] MEDS ORDERED: METHYLPREDNISOLONE 125 MG INJ ONE ×2 (08:36→12:16)
[2021-07-11] MEDS ORDERED: MORPHINE 2 MG/ML SYR ONE ×2 (08:36→12:17)
[2021-07-11] MEDS ORDERED: DIAZEPAM 10 MG/2 ML INJ SYRINGE IV ONE (08:54)
[2021-07-11] MEDS: chlordiazePOXIDE HCl 5 MG CAP PO SCH ×3 (09:00→17:14)
[2021-07-11] MEDS ORDERED: THIAMINE 200 MG/2 ML INJ IVP SCH (09:00)
[2021-07-11] MEDS ORDERED: FOLIC ACID 5 MG/ML VIAL IVP SCH ×2 (09:00)
[2021-07-11] MEDS ORDERED: DIAZEPAM 10 MG/2 ML INJ SYRINGE ONE ×2 (09:33→12:17)
[2021-07-11] MEDS ORDERED: chlordiazePOXIDE HCl 5 MG CAP PO ONE ×2 (09:34→12:16)
[2021-07-11] MEDS ORDERED: THIAMINE 200 MG/2 ML INJ ONE (09:34)
[2021-07-11] MEDS ORDERED: FOLIC ACID 5 MG/ML VIAL ONE (09:35)
[2021-07-11] MEDS ORDERED: Magnesium Sulfate 2gm IVPB 2 G/50 ML BAG IV ONE ×2 (11:04→12:17)
[2021-07-11] MEDS: DIAZEPAM 10 MG/2 ML INJ SYRINGE IV PRN ×2 (11:30→19:37)
--- NOTE | 2021-07-11 11:36 | RAD REPORT ---
EXAM DESCRIPTION: CT - Head Brain Wo Cont - 07/11/2021 6:21 am CLINICAL HISTORY: Mental status change, unknown cause. TECHNIQUE: Noncontrast CT through the head was performed. Axial, coronal, and sagittal reconstructio ns were created and sent to PACS. This exam was performed according to our departmental dose-optimiza tion program which includes use of Automated Exposure Control, adjustment of the mA and/or kV accordi ng to patient size and/or use of iterative reconstruction technique. COMPARISON: CT head from June 09, 2021. FINDINGS: The brain parenchyma appears unremarkable. There is no intra-axial or extra-axial bleed se en. There is no mass or mass effect. The ventricles are unremarkable. The orbital contents appear unr emarkable. The visualized paranasal sinuses and mastoid air cells are patent. No acute fracture is identified. S mall chronic medial orbital blowout fracture on the right. IMPRESSION: No acute intracranial abnormality identified. Electronically signed by: Peggy Sullivan MD 07/11/2021 12:54 AM CDT Due to temporary technical issues with the PACS/Fluency reporting system, reports are being signed by the in house radiologist without review as a courtesy to ensure prompt reporting. The interpreting r adiologist is fully responsible for the content of the report.
--- NOTE | 2021-07-11 11:38 | RAD REPORT ---
EXAM DESCRIPTION: US - Renal Ultrasound-Complete - 07/11/2021 11:10 am CLINICAL HISTORY: Acute renal failure COMPARISON: None. FINDINGS: The right kidney measures 11 cm with an increased echotexture. The left kidney measures 10 cm with an increased echotexture. Hydronephrosis is not seen. No gross abnormality of bladder is seen IMPRESSION: Mildly increased renal echotexture consistent with parenchymal disease
--- NOTE | 2021-07-11 11:48 | RAD REPORT ---
EXAM DESCRIPTION: CT - Abdomen Pelvis Wo Contrast - 07/11/2021 6:21 am CLINICAL HISTORY: Abdominal distention. COMPARISON: CT of the abdomen and pelvis with contrast from June 09, 2021. TECHNIQUE: Serial axial CT images were obtained from above the diaphragm through the pubic symphysis without administration of intravenous or oral contrast. All CT scans are performed using dose optimization techniques as appropriate, including automated exp osure control and/or standardized protocols, where dose is adjusted for indication for exam and body habitus. FINDINGS: Thoracic: No significant abnormality. Hepatobiliary: Hepatomegaly, measuring 22 cm in length. No obvious concerning hepatic lesion identifi ed in the absence of intravenous contrast. Distended configuration of the gallbladder, nonspecific. N o biliary ductal dilatation. Pancreas: Unremarkable. Spleen: Unremarkable. Gastrointestinal: No evidence of bowel obstruction or perienteric inflammation. The appendix is nonvi sualized. Adrenals: No abnormality identified in either adrenal gland. Renal: No obvious parenchymal abnormality in either kidney in the absence of intravenous contrast. No hydronephrosis or urolithiasis. Bladder/Reproductive: Unremarkable appearance of the urinary bladder by CT technique. Vascular/Lymphatics: No lymphadenopathy identified by CT size criteria. Trace calcific atherosclerosi s. Abdominal aorta is normal in caliber. Musculoskeletal: No concerning osseous lesion identified. Fluid / peritoneum: Moderate abdominopelvic ascites. No free intraperitoneal air identified. IMPRESSION: 1. Moderate abdominopelvic ascites. 2. Hepatomegaly. 3. Nonspecific distended configuration of the gallbladder. Electronically signed by: Peggy Sullivan MD 07/11/2021 12:58 AM CDT Due to temporary technical issues with the PACS/Fluency reporting system, reports are being signed by the in house radiologist without review as a courtesy to ensure prompt reporting. The interpreting r adiologist is fully responsible for the content of the report.
[2021-07-11] MEDS: ALBUMIN HUMAN 25% 100 ML IV SCH ×2 (12:00→21:25)
--- NOTE | 2021-07-11 12:02 | RAD REPORT ---
EXAM DESCRIPTION: US - Paracentesis Proc Guidance - 07/11/2021 11:52 am CLINICAL HISTORY: Liver disease with ascites FINDINGS: The risks, benefits and alternatives to the procedure were explained to the patient and in formed consent obtained. The skin and subcutaneous tissues were anesthetized with Lidocaine. Under sonographic guidance an 8 F rench catheter was placed into the right lower quadrant. 5.5 liters of yellow fluid was removed and s ent to the lab. The patient experienced no immediate complication. IMPRESSION: Paracentesis
--- NOTE | 2021-07-11 13:02 | RAD REPORT ---
EXAM DESCRIPTION: RAD - Chest Single View - 07/10/2021 10:29 pm CLINICAL HISTORY: 45-year-old male with chest pain. TECHNIQUE: Single view, AP portable chest was obtained. COMPARISON: None. FINDINGS: Unremarkable cardiac and mediastinal silhouette. Heart size is normal. Low lung volumes grossly clear without focal opacity, pneumothorax or pleural effusions. The visual ized bones are within normal limits. IMPRESSION: No acute cardiopulmonary abnormalities. Electronically signed by: Elizabeth López MD 07/10/2021 10:57 PM CDT Due to temporary technical issues with the PACS/Fluency reporting system, reports are being signed by the in house radiologist without review as a courtesy to ensure prompt reporting. The interpreting r adiologist is fully responsible for the content of the report.
[2021-07-11 13:26] LABS: Absolute Lymphocytes (CBC) 1.1 K/uL (0.7-4.9); Hematocrit 34.4 % (39.6-49.0); MPV 9.1 fL (7.6-11.3); RBC Red Blood Cell Count 3.44 M/uL (4.33-5.43)
[2021-07-11 13:54] LABS: ALT/SGPT 44 U/L (12-78); AST/SGOT 284 U/L (15-37); Albumin 1.7 g/dL (3.4-5.0); Alkaline Phosphatase 314 U/L (45-117); BUN Blood Urea Nitrogen 25 mg/dL (7-18); Bicarbonate 24 mmol/L (21-32); Folic Acid, (Folate) > 20.0 ng/mL (3.1-17.5); Glomerular Filtration Rate 43 ml/min (=/>90); Glucose Level 202 mg/dL (74-106); NT PRO-BNP 373 pg/mL (<125); Potassium 3.3 mmol/L (3.5-5.1); Protein, Total 6.9 g/dL (6.4-8.2); Sodium Level 133 mmol/L (136-145)
[2021-07-11 13:55] LABS: Bilirubin Total 5.7 mg/dL (0.2-1.0); Magnesium 1.4 mg/dL (1.8-2.4)
--- NOTE | 2021-07-11 14:24 | CON ---
Date of Consultation: 07/11/2021 Reason For Consultation: Elevated BUN and creatinine, fluid management. History Of Present Illness: This is a 45-year-old gentleman with significant past medical history of diabetes complicated with neuropathy, no retinopathy, hypertension, hyperlipidemia, cirrhosis accord ing to him secondary to alcohol use, the patient came to the hospital complaining from increased leg swelling with jaundice. The patient denied taking any nonsteroidal. The patient using for his pain medication is Aurora and Xanax according to him. Upon arrival to the hospital, the patient found to b e jaundiced with ascites and found to have elevation in creatinine 2.8 with GFR of 27. For that reas on, we have been consulted. The patient denied taking any nonsteroidal. No other insulting medicati ons. No recent hospitalization. No contrast exposure. Reviewing the record for the patient, creati nine back in May 0.5, currently 2.8. At that time, his hemoglobin 10.4, currently 12.6. Past Medical History: Includes; 1.Diabetes complicated with neuropathy, no retinopathy. 2.Alcoholic liver cirrhosis. 3.Chronic pancreatitis. Home Medications: Include Xanax, Narco, insulin, pantoprazole, Ambien, Lasix 20 b.i.d., lactulose, _ , spironolactone, chlordiazepoxide, Levaquin, and prednisone. Family History: Positive for hypertension. Social History: Active alcohol. Denied smoking. Denied drug abuse. Review of Systems: Head and Neck: Has jaundice. GI: Has increased abdominal girth. : No polyuria. No dysuria. No hematuria. Manager Behavior: Not applicable. Respiratory: No shortness of breath. Cardiovascular: Has leg swelling. Endocrine: No polydipsia. Skin: No rash. Neuro: Has neuropathy. Has fatigue and sleepiness. Musculoskeletal: Low back pain. Physical Examination: Vital Signs: When I saw the patient; blood pressure 118/89, pulse of 110, afebrile. Chest: Clear to auscultation. Heart: S1, S2. Regular. Abdomen: Ascites. Extremity: Plus edema. Neuro: Alert, sleepy. No focality. Laboratory Data: Back in May; creatinine 0.5, GFR above 90 with potassium of 3, hemoglobin is 10.4 . Today admission; sodium 131, potassium 2.9, bicarb 24, BUN 29, creatinine 2.8, GFR of 27, calcium 7.9, magnesium 1.3. Albumin 2, corrected calcium is 9.5. TSH back in May is 2.6. Urinalysis; +1 protein. WBC 15.5, H and H 12.6/36.7, platelets 222. Current Medications: The patient on in the hospital include chlordiazepoxide, diazepam, lactulose, i nsulin, Solu-Medrol, normal saline, thiamin. Assessment And Plan: 1.Acute kidney injury, mostly secondary to hepatorenal/prerenal secondary to over diuresis. I agree with current IV fluid. We will start fluid expansion and I am going to go ahead and send for urine electrolyte given the history of cirrhosis to rule out any hepatorenal autoimmune disease. We will s end for serology and we will follow up the patient. 2.Dehydration supported with acute kidney injury, elevation in hemoglobin compared to the previous. We will start on hydration and we will follow up. 3.Altered mental status secondary to encephalopathy. We will follow up with primary. 4.Hyponatremia secondary to cirrhosis/depletional. The patient will start on IV hydration and we wi ll follow up. We will send for TSH and cortisol. We will hold on the cortisol lab as the patient al ready on Solu-Medrol. 5.Hypomagnesemia. We will supplement. 6.Hypocalcemia, corrected calcium within normal limit. 7.Cirrhosis with encephalopathy as by primary. 8.Leg swelling, mostly secondary to cirrhosis. We will send for protein creatinine and TSH, and we will follow up. We will accept current leg swelling in favor of fluid expansion for the time being a s no respiratory symptoms. Thank you, Ryan Carrie for allowing us to participate in the care of your patient. RAHUL/CHRIS Voice ID: [id number] Report ID: [id number]
[2021-07-11] MEDS: MIDODRINE HCL 5 MG TABLET PO SCH (21:23)
[2021-07-12] MEDS: chlordiazePOXIDE HCl 5 MG CAP PO SCH ×5 (00:13→23:46)
[2021-07-12] MEDS: METHYLPREDNISOLONE 125 MG INJ IV SCH ×4 (00:15→18:40)
[2021-07-12] MEDS: NA CHLORIDE 0.9% 1,000 ML IV SCH ×2 (03:04→12:22)
[2021-07-12] MEDS ORDERED: DIAZEPAM 5 MG TABLET PO PRN (05:23)
[2021-07-12] MEDS ORDERED: ONDANSETRON 4 MG (ODT) TAB PO PRN (05:23)
[2021-07-12] MEDS ORDERED: MIDODRINE HCL 5 MG TABLET PO ONE ×2 (06:12→07:35)
[2021-07-12] MEDS ORDERED: predniSONE 20 MG TAB PO ONE (07:36)
--- NOTE | 2021-07-12 07:43 | EKG ---
Test Date: 2021-07-10 Test Time: 21:03:51 Hose Finisher: ALDO MEASUREMENT RESULTS: Intervals: Rate: 109 UT: 144 QRSD: 82 QT: 380 QTc: 511 Grover: P: 56 UT: 144 QRS: 95 T: 31 INTERPRETIVE STATEMENTS: Sinus tachycardia Rightward axis Septal infarct, age undetermined Abnormal ECG No previous ECG available for comparison Electronically Signed On 07-12-21 07:37:37 CDT by Jaleel Melendez
[2021-07-12] MEDS: MIDODRINE HCL 5 MG TABLET PO SCH ×3 (08:09→22:30)
[2021-07-12 08:29] LABS: Hematocrit 31.2 % (39.6-49.0); Lymphocytes % 10.9 % (15.3-44.8); MPV 9.3 fL (7.6-11.3); RBC Red Blood Cell Count 3.09 M/uL (4.33-5.43)
[2021-07-12 08:58] LABS: Albumin 2.2 g/dL (3.4-5.0); Magnesium 1.5 mg/dL (1.8-2.4); Phosphorus 2.6 mg/dL (2.5-4.9); Potassium 3.6 mmol/L (3.5-5.1); Protein, Total 6.8 g/dL (6.4-8.2); Thyroid Stimulating Hormone 0.48 uIU/mL (0.360-3.740); Uric Acid 8.2 mg/dL (3.5-7.2)
[2021-07-12 09:00] LABS: Bilirubin Total 5.1 mg/dL (0.2-1.0)
[2021-07-12] MEDS: INSULIN -REGULAR HUMAN 50 UNIT/0.5 ML ML SQ SCH ×4 (09:16→21:00)
[2021-07-12] MEDS: FOLIC ACID 1 MG TABLET PO SCH (09:17)
[2021-07-12] MEDS: THIAMINE HCL 100 MG TABLET PO SCH (09:17)
[2021-07-12 09:21] LABS: Blood Morphology Comment NOT SEEN (NOT SEEN); Platelet Estimate ADEQ; White Blood Cell Scan OK (OK)
--- NOTE | 2021-07-12 09:31 | RAD REPORT ---
EXAM DESCRIPTION: RAD - Chest Single View - 07/12/2021 9:23 am CLINICAL HISTORY: PICC line placement (right side) COMPARISON: Portable July 10 TECHNIQUE: AP portable chest image was obtained 07/12/2021 9:23 am . FINDINGS: Right upper extremity PICC line has been placed. PICC line extends superiorly in the right jugular vein. The tip is off the field of view. Lung volumes are low. No new or progressive cardio pulmonary finding seen. IMPRESSION: Right upper extremity PICC line extends superiorly into the right jugular vein.
--- NOTE | 2021-07-12 10:55 | RAD REPORT ---
EXAM DESCRIPTION: RAD - Chest Single View - 07/12/2021 10:44 am CLINICAL HISTORY: PICC line placement COMPARISON: Portable 07/12/2021 FINDINGS: Portable chest was obtained following placement of a left upper extremity PICC line. The c atheter tip is in the mid SVC. Previously placed right-side PICC line has been removed.
[2021-07-12] MEDS ORDERED: KCL 20 MEQ/100 mL IVPB 20 MEQ/100 ML BAG IV ONE (11:00)
[2021-07-12] MEDS: Magnesium Sulfate 2gm IVPB 2 G/50 ML BAG IV ONE ×2 (11:37→12:28)
[2021-07-12] MEDS: ALBUMIN HUMAN 25% 100 ML IV SCH ×2 (11:37→22:31)
[2021-07-12] MEDS: DIAZEPAM 10 MG/2 ML INJ SYRINGE IV PRN (12:03)
[2021-07-12] MEDS ORDERED: HYDROCORTISONE SUC 100 MG INJ IV ONE (12:34)
[2021-07-12] MEDS ORDERED: ALBUMIN HUMAN 25% 100 ML IV ONE (12:34)
[2021-07-12] MEDS ORDERED: GLUCAGON 1 MG/VIAL IM PRN (12:35)
[2021-07-12] MEDS ORDERED: D50W 25 GM/50 ML SYRINGE IV PRN (12:35)
[2021-07-12] MEDS ORDERED: D10W 125 ML IV PRN (12:39)
[2021-07-12] MEDS ORDERED: INSULIN 70/30 100 UNITS/ML SQ ONE (13:00)
--- NOTE | 2021-07-12 14:54 | PN ---
Date of Progress Note: 07/12/2021 Subjective: The patient was admitted with acute kidney injury secondary to hepatorenal. The patient had encephalopathy. The patient is still sleepy. Physical Examination: Vital Signs: Blood pressure 82/52, pulse of 88, afebrile. The patient had urine output of 300, posi tive balance of 1400. Chest: Clear to auscultation. Heart: S1, S2. Systolic murmur. Abdomen: Ascites. Extremity: The patient had 2+ edema. Neuro: Alert. No focality. Confused pleasantly. Laboratory Data: WBC 18.6, H and H 10.3/31.2, platelet 180. Sodium 133, potassium 3.6, bicarb 23, B UN 24, creatinine 1.4 trending down, calcium 7.8, uric acid 8.2, magnesium 1.5, albumin 2.2, correcte d calcium is 9.4. Serum protein electrophoresis is still pending. TSH 0.4. PTH 56. Urinalysis, PC ratio and urine electrolyte still pending. Current Medications: The patient on include; 1.Midodrine 5 mg b.i.d. 2.Diazepam. 3.Lactulose. 4.Folic acid. 5.Zofran. 6.Prednisone 40. 7.Normal saline at 100 per hour. 8.Magnesium sulfate. 9.Morphine. 10.Thiamin. Assessment And Plan: 1.Acute kidney injury secondary to hepatorenal syndrome, prerenal/over diuresis. Kidney function co ntinued to improve. I am going to continue fluid expansion with IV fluid, midodrine, and albumin. 2.Hypertension, currently hypotension. I am going to go ahead and increase midodrine to 10 mg t.i.d . 3.Altered mental status; encephalopathy, hepatic. We will follow up with the primary. 4.Hypokalemia. We will continue supplement. 5.Hypomagnesemia. We will repeat the supplement. 6.Encephalopathy secondary to hepatic encephalopathy. We will follow up with primary. RAHUL/CHRIS Voice ID: [id number] Report ID: [id number]
[2021-07-12] MEDS ORDERED: WATER FOR INJ,STERILE 10 ML IM PRN (15:00)
[2021-07-12] MEDS ORDERED: DIAZEPAM 10 MG/2 ML INJ SYRINGE IV ONE (15:00)
[2021-07-12] MEDS ORDERED: WATER FOR INJ,STERILE 10 ML ONE (15:17)
[2021-07-12] MEDS ORDERED: ZIPRASIDONE MESYLA 20 MG/VIAL IM ONE (16:00)
[2021-07-12] MEDS: CEFTRIAXONE 1,000 MG in NA CHLORIDE 0.9% 50 ML IVPB SCH (21:03)
[2021-07-12] MEDS: PENTOXIFYLLINE ER 400 MG TAB PO SCH (22:32)
[2021-07-13] MEDS: NA CHLORIDE 0.9% 1,000 ML IV SCH ×2 (00:19→08:22)
[2021-07-13] MEDS: METHYLPREDNISOLONE 125 MG INJ IV SCH ×4 (00:19→17:34)
[2021-07-13 00:24] LABS: Urine Appearance Clear (Clear); Urine Blood Trace-intact (Negative); Urine Color Yellow (Yellow); Urine Glucose Negative (Negative); Urine Protein Negative (Negative)
[2021-07-13 00:27] LABS: Urine Bilirubin NEGATIVE (Negative); Urine Microscopic Reflex ORDER UMIC
[2021-07-13 00:39] LABS: UR PROTEIN 29.2 mg/dL (<11.9); Urine Protein/Creatinine Ratio 0.29 ratio (<0.15)
[2021-07-13 00:55] LABS: Urine Bacteria 20-50 /HPF (NONE SEEN); Urine Mucus 1+ /HPF (NONE SEEN)
[2021-07-13] MEDS: chlordiazePOXIDE HCl 5 MG CAP PO SCH ×3 (06:36→17:34)
[2021-07-13 06:49] LABS: Absolute Lymphocytes (CBC) 0.6 K/uL (0.7-4.9); Hematocrit 26.6 % (39.6-49.0); Lymphocytes % 3.2 % (15.3-44.8); MPV 9.1 fL (7.6-11.3); RBC Red Blood Cell Count 2.62 M/uL (4.33-5.43)
[2021-07-13 06:59] LABS: Rheumatoid Factor POS (NEG)
[2021-07-13 07:01] LABS: Albumin 2.4 g/dL (3.4-5.0); Magnesium 1.8 mg/dL (1.8-2.4); Phosphorus 1.9 mg/dL (2.5-4.9); Potassium 3.6 mmol/L (3.5-5.1); Protein, Total 5.9 g/dL (6.4-8.2)
[2021-07-13] MEDS: INSULIN -REGULAR HUMAN 50 UNIT/0.5 ML ML SQ SCH ×4 (07:30→20:17)
[2021-07-13 07:38] LABS: White Blood Cell Scan OK (OK)
[2021-07-13 07:39] LABS: Anisocytosis SLIGHT; Blood Morphology Comment NOTED (NOT SEEN); Macrocytosis SLIGHT; Platelet Estimate DECR
[2021-07-13] MEDS: CEFTRIAXONE 1,000 MG in NA CHLORIDE 0.9% 50 ML IVPB SCH ×2 (08:24→20:16)
[2021-07-13] MEDS: FOLIC ACID 1 MG TABLET PO SCH (08:29)
[2021-07-13] MEDS: THIAMINE HCL 100 MG TABLET PO SCH (08:29)
[2021-07-13] MEDS: MIDODRINE HCL 5 MG TABLET PO SCH ×3 (08:29→20:17)
[2021-07-13] MEDS: PENTOXIFYLLINE ER 400 MG TAB PO SCH ×3 (08:29→20:17)
[2021-07-13] MEDS ORDERED: MAGNESIUM SULFATE 1 gm IVPB 1 GM/100 ML BAG IV ONE (10:36)
[2021-07-13] MEDS ORDERED: POTASSIUM PHOS 40 MEQ in NA CHLORIDE 0.9% 500 ML IV ONE (10:53)
--- NOTE | 2021-07-13 10:59 | P.PN ---
Date of Service: 07/12/21 Subjective Still confused. Physical Examination - Vitals reviewed - Physical Exam General: Confused but not responding appropriately. Respiratory: Clear to auscultation bilaterally, Normal air movement Cardiovascular: Regular rate/rhythm, Normal S1 S2 Gastrointestinal: Normal bowel sounds, No tenderness Musculoskeletal: No tenderness Neurological: no focal deficits Assessment and Plan - Problems (Diagnosis) (1) AMS Current Visit: Yes Status: Acute (2) Hypokalemia Current Visit: Yes Status: Acute (3) Acute renal failure Current Visit: Yes Status: Acute Hepatic coma status: without hepatic coma Qualified Code(s): K72.00 - Acute and subacute hepatic failure without coma (4) History of alcohol use Current Visit: Yes Status: Chronic Ascites presence: with ascites Qualified Code(s): K70.11 - Alcoholic hepatitis with ascites (5) Jaundice Current Visit: Yes Status: Acute (6) Type 2 diabetes mellitus Current Visit: Yes Status: Acute 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 Appreciate nephrology consultation. Renal function has improved. Continue with monitoring BUN and creatinine. 2. Patient is slightly confused. Not really responding as well. Patient denies any alcohol use. The states he has not had anything to drink since his last discharge. Could be related to hepatic encephalopathy versus related to medication. Continue monitoring his mentation. Patient needs to follow-up with liver center. May arrange for transfer at this time 3. [facility] accu checks with mild sliding scale insulin and diabetic diet 4. Continue monitoring potassium level 5. Continue monitoring white count 6. Renal function has improved 7. GI DVT prophylaxis Discharge Plan: Home Plan to discharge in: Greater than 2 days - Advance Directives Does patient have a Living Will: No Does patient have a Durable POA for Healthcare: No - Code Status/Comfort Care Code Status Assessed: Yes (Full) Critical Care: No Time Spent Managing Pts Care (In Minutes): 70
[2021-07-13] MEDS ORDERED: POTASS/SODIUM PHOSPHATE 1 PKT POWD.PACK PO SCH (11:00)
[2021-07-13] MEDS ORDERED: POTASSIUM PHOS IN 0.9 % NACL 15 MMOL/250 ML BAG IV ONE (11:00)
--- NOTE | 2021-07-13 11:58 | P.PN ---
Subjective Date of Service: 07/13/21 Chief Complaint: KEVIN, Hepatic Failure Subjective: No new changes, Other (Remains bedridden.) Physical Examination - Vital Signs Temperature: 97.8 F Blood Pressure: 132/72 Pulse: 108 Respirations: 20 Pulse Ox (%): 98 - Physical Exam General: Other (appears chronically ill) HEENT: Atraumatic, Normocephalic Neck: Supple, JVD not distended Respiratory: Other (symmetric chest expansion) Cardiovascular: No rubs, No murmurs Gastrointestinal: No guarding Musculoskeletal: No clubbing Integumentary: No warmth Neurological: Other (AMS) Urinary: Other (no bladder distention) External genitalia: Deferred Rectal: Deferred Assessment And Plan - Plan 1. Acute kidney injury secondary to hepatorenal syndrome, prerenal/over d iuresis. Kidney function continued to improve. Encourage po fluid intake. Keep MAP > 70. Monitor renal panel. 2. Hypertension, currently hypotension. Cont midodrine to 10 mg t.i.d. 3. Altered mental status; encephalopathy, hepatic. Alcoholic hepatitis. Per primary team. 4. HypoK. KPhos IV today. 5. HypoPO4. KPhos IV today. 6. HypoMg. Improved. Monitor/replete prn. 7. Anemia. Monitor H/H. 8. DM2. Mngt per primary team.
[2021-07-13] MEDS ORDERED: ONDANSETRON 4 MG/2 ML VIAL ONE (13:36)
[2021-07-13] MEDS ORDERED: PANTOPRAZOLE 40 MG INJ ONE (13:37)
[2021-07-13] MEDS ORDERED: LACTULOSE 20 GM/30 ML UCUP ONE (13:50)
[2021-07-13] MEDS ORDERED: LACTULOSE 20 GM/30 ML UCUP PR ONE (14:00)
--- NOTE | 2021-07-13 14:20 | RAD REPORT ---
EXAM DESCRIPTION: CT - Head Brain Wo Cont - 07/13/2021 2:08 pm CLINICAL HISTORY: change in condition COMPARISON: Head Brain Wo Cont dated 07/11/2021; Chest Single View dated 07/12/2021 TECHNIQUE: Axial 5 mm thick images of the head were obtained without IV contrast. All CT scans are performed using dose optimization technique as appropriate and may include automated exposure control or mA/KV adjustment according to patient size. FINDINGS: No intracranial hemorrhage, mass, edema or shift of mid-line structures. No acute cortical based infarction identified. Patient does appear to have some volume loss present given age. This is not significantly different from the July 11 study. Ventricles are in proportion to any volume loss. No abnormal extra-axial fluid collections. No gross cerebellum abnormality. Brainstem and posterior f aime assessment is not appear more limited on CT imaging. Faint decreased attenuation is seen in the deep periventricular white matter left frontal lobe. This is a subtle finding but not grossly differe nt from comparison. Mastoid air cells and visualized portions of the paranasal sinuses are clear. No acute bony findings. IMPRESSION: No hemorrhage, mass or acute intracranial finding identified. No significant changes seen from the July 11 study. If and when tolerable by the patient, MR imaging could be performed for more subtle brain parenchymal assessment.
--- NOTE | 2021-07-13 14:29 | RAD REPORT ---
EXAM DESCRIPTION: RAD - Chest Single View - 07/13/2021 2:17 pm CLINICAL HISTORY: change in condition, altered mental status COMPARISON: Portable 07/12/2021 TECHNIQUE: AP portable chest image was obtained 07/13/2021 2:17 pm in supine position. FINDINGS: Lung volumes are low. Lung base atelectasis changes are present. Aspiration or infectious pneumonia not suspected. No failure or volume overload identifiable. Left-sided PICC line is unchanged, remaining in good position mid SVC. Heart and vasculature are norm al. No measurable pleural effusion and no pneumothorax. No acute bony abnormality seen. No acute aort ic findings suspected. IMPRESSION: Shallow inspiration exam with bibasilar atelectasis. No acute cardiopulmonary finding suspected.
[2021-07-13] MEDS: PANTOPRAZOLE INJ 80 MG in NA CHLORIDE 0.9% 250 ML IV SCH (17:36)
[2021-07-13] MEDS: OCTREOTIDE 500 MCG in NA CHLORIDE 0.9% 500 ML IV SCH (17:36)
[2021-07-13] MEDS ORDERED: LIDOCAINE 1% MPF 5 ML VIAL ONE (17:45)
[2021-07-13] MEDS ORDERED: propofoL 200 MG/20 ML VIAL IV ONE (17:45)
[2021-07-13] MEDS ORDERED: Phenylephrine HCl 10 MG/ML 1 ML VIAL ONE (17:46)
[2021-07-13 22:16] LABS: Albumin 2.5 g/dL (3.4-5.0); Bilirubin Total 4.6 mg/dL (0.2-1.0); Potassium 3.8 mmol/L (3.5-5.1); Protein, Total 6.4 g/dL (6.4-8.2)
[2021-07-13 23:40] LABS: Absolute Lymphocytes (CBC) 0.6 K/uL (0.7-4.9); Hematocrit 27.8 % (39.6-49.0); Lymphocytes % 2.5 % (15.3-44.8); MPV 8.8 fL (7.6-11.3); RBC Red Blood Cell Count 2.81 M/uL (4.33-5.43)
[2021-07-14 00:33] LABS: Anisocytosis 1+; Blood Morphology Comment NOTED (NOT SEEN); Platelet Estimate ADEQ
[2021-07-14 00:34] LABS: ACANTHOCYTE 1+; Hypochromasia 1+; Target Cells 1+
[2021-07-14] MEDS: METHYLPREDNISOLONE 125 MG INJ IV SCH ×3 (00:54→12:56)
[2021-07-14] MEDS: OCTREOTIDE 500 MCG in NA CHLORIDE 0.9% 500 ML IV SCH ×2 (03:20→15:21)
[2021-07-14] MEDS: PANTOPRAZOLE INJ 80 MG in NA CHLORIDE 0.9% 250 ML IV SCH ×2 (03:20→15:20)
[2021-07-14] MEDS: chlordiazePOXIDE HCl 5 MG CAP PO SCH ×4 (05:41→19:40)
[2021-07-14 06:08] LABS: Absolute Lymphocytes (CBC) 0.5 K/uL (0.7-4.9); Hematocrit 26.5 % (39.6-49.0); Lymphocytes % 2.1 % (15.3-44.8); MPV 9.4 fL (7.6-11.3); RBC Red Blood Cell Count 2.68 M/uL (4.33-5.43)
[2021-07-14 06:33] LABS: Albumin 2.4 g/dL (3.4-5.0); Bilirubin Total 4.6 mg/dL (0.2-1.0); Magnesium 1.9 mg/dL (1.8-2.4); Phosphorus 2.3 mg/dL (2.5-4.9); Potassium 3.9 mmol/L (3.5-5.1); Protein, Total 6.1 g/dL (6.4-8.2)
[2021-07-14] MEDS: FOLIC ACID 1 MG TABLET PO SCH (08:31)
[2021-07-14] MEDS: MIDODRINE HCL 5 MG TABLET PO SCH ×3 (08:32→19:41)
[2021-07-14] MEDS: THIAMINE HCL 100 MG TABLET PO SCH (08:32)
[2021-07-14] MEDS: PENTOXIFYLLINE ER 400 MG TAB PO SCH ×3 (08:32→19:41)
[2021-07-14] MEDS: DIAZEPAM 10 MG/2 ML INJ SYRINGE IV PRN (08:50)
[2021-07-14] MEDS: CEFTRIAXONE 1,000 MG in NA CHLORIDE 0.9% 50 ML IVPB SCH ×2 (08:50→19:41)
[2021-07-14] MEDS ORDERED: POTASSIUM PHOS IN 0.9 % NACL 15 MMOL/250 ML BAG IV ONE (09:00)
[2021-07-14] MEDS: INSULIN -REGULAR HUMAN 50 UNIT/0.5 ML ML SQ SCH ×4 (09:06→23:56)
--- NOTE | 2021-07-14 09:39 | OP ---
Surgeon: Ernetso Sinha MD Procedure To Be Performed: Esophagogastroduodenoscopy. Indication: Suspected upper gastrointestinal bleed in a patient with worsening encephalopathy and de compensated cirrhosis, rule out variceal bleed with plan for anesthesia after anesthesia care. Complexity: High due to patient's significant encephalopathy comorbidities and suspected pathology. Technique: After obtaining informed consent from the patient's spouse and explaining risks and compl ications which include, but are not limited to bleeding, infection, perforation, and anesthesia compl ication, patient was placed in the left lateral position and sedation was given. Scope was advanced into the mouth and carefully guided up to the second portion of the duodenum. After the completion o f examination, scope and equipment were withdrawn and procedure terminated in a safe manner. Findings: In the entire examined GI tract, there was evidence of coffee-ground like material which w as able to be bleeding. Esophagus: No gross lesion seen in the upper esophagus, however, in the middle and distal esophagus, grade 3 varices were visualized, one at the very distal portion appeared to have a platelet plug whic h just by touching of the scope started to bleed. A small hiatal hernia was also visualized. Stomach: Mild patchy erythema seen in the entire stomach and retroflexion revealed large gastric vari x and the fundic lesion, GOV type 1 varix. These varices were communicating with the esophageal vari rosaura. Duodenum: The bulb and second portion appeared normal. After the detailed examination and repeated w ashing and suctioning, most likely the source of the bleeding was deemed to be distal esophageal vari x that was communicating with the gastric one. Decision was taken to do esophageal variceal banding. Initially, I placed 1 band but did not achieve good suctioning of the mucosa, so placed a second one right behind it and was able to capture beside the likely source of bleeding. Three more bands were placed on other varices. This was quite complicated, as the mucosa appeared to be very fragile with small lacerations appearing on the site due to the tension when the bands were placed. After which, I did remove the banding cap to re-examine the esophagus and suction the blood oozing from the mucos al lacerations and then showed that there was no further active bleeding. I spent additional 5 minut es to make sure there was no bleeding in that region. Subsequently, the scope was withdrawn and the procedure was terminated. Findings, large gastric varices and medium size esophageal varices, likely source of bleeding, status post banding, portal hypertensive gastropathy, hiatal hernia. Plan: Continue current management, octreotide, and PPI drip. Continue broad-spectrum antibiotics. Given the patient's age, lack of significant comorbidities, recent diagnosis of cirrhosis at least to the patient's knowledge and findings on endoscopy, I did contact the [facility] at [facility] because I b elieve he would benefit from further evaluation. Specifically, I think TIPS would be a good treatmen t for him. We do have that capability here and the patient at least again here, we do no t have ability to stop that. Given the difficulty of the first proceed, liver center has accepted the patient and we will initiate transfer as per official channel. This was communicated to the patient with the patient's primary team and the patient's spouse as well. US/NADINEL Voice ID: [id number] Report ID: [id number]
[2021-07-14] MEDS ORDERED: HALOPERIDOL LACT 5 MG/ML INJ IV ONE ×2 (11:04→20:13)
[2021-07-14] MEDS ORDERED: HALOPERIDOL LACT 5 MG/ML INJ ONE (11:13)
--- NOTE | 2021-07-14 13:44 | P.PN ---
Subjective Date of Service: 07/14/21 Chief Complaint: KEVIN, Hepatic Failure today No overnight events H/H stable cr wnl phosphorus replaced General: NAD, thin HEENT: Atraumatic, Normocephalic Neck: Supple, no elevated JVD Respiratory: Other CTAB. No rales or wheezes Cardiovascular: No rubs, No murmurs Gastrointestinal: distended, soft, NT Musculoskeletal: No clubbing Integumentary: No warmth Neurological: Normal tone, Sensation intact Lymphatics: No axilla or inguinal lymphadenopathy Urinary: Other (no bladder distention) A/P #Acute kidney injury resolved due to prerenal. Encourage po fluid intake. Keep MAP > 70. Monitor renal panel. #hypotension due to cirrhosis Cont midodrine to 10 mg t.i.d #Altered mental status due to encephalopathy, #Alcoholic hepatitis Per primary team. #Hypokalemia, and Hypophophatemia replace as needed encourage food intake #GI bleeding H/h stable on PPI and Octerotide #DM2. Mngt per primary team. Physical Examination - Vital Signs Temperature: 97.6 F Blood Pressure: 106/70 Pulse: 99 Respirations: 15 Pulse Ox (%): 100
[2021-07-14] MEDS: LACTULOSE 20 GM/30 ML UCUP PO SCH ×2 (17:35→23:30)
[2021-07-14] MEDS: MORPHINE 2 MG/ML SYR IV PRN (19:25)
[2021-07-14] MEDS: Rifaximin 550 MG Tab PO SCH (19:41)
[2021-07-15] MEDS: LORazepam 2 MG/ML VIAL IV PRN ×2 (00:02→10:00)
[2021-07-15] MEDS: PANTOPRAZOLE INJ 80 MG in NA CHLORIDE 0.9% 250 ML IV SCH ×3 (00:48→21:59)
[2021-07-15] MEDS: OCTREOTIDE 500 MCG in NA CHLORIDE 0.9% 500 ML IV SCH ×3 (00:54→22:52)
[2021-07-15] MEDS: MORPHINE 2 MG/ML SYR IV PRN ×4 (03:45→23:52)
[2021-07-15 06:40] LABS: Absolute Lymphocytes (CBC) 1.1 K/uL (0.7-4.9); Hematocrit 25.1 % (39.6-49.0); Lymphocytes % 4.8 % (15.3-44.8); MPV 9.7 fL (7.6-11.3); RBC Red Blood Cell Count 2.48 M/uL (4.33-5.43)
[2021-07-15 07:09] LABS: Albumin 2.4 g/dL (3.4-5.0); Magnesium 1.6 mg/dL (1.8-2.4); Phosphorus 2.6 mg/dL (2.5-4.9); Potassium 3.2 mmol/L (3.5-5.1); Protein, Total 6.1 g/dL (6.4-8.2); Protime INR 2.73
[2021-07-15] MEDS: INSULIN -REGULAR HUMAN 50 UNIT/0.5 ML ML SQ SCH ×3 (07:09→17:21)
[2021-07-15 07:11] LABS: Bilirubin Total 5.1 mg/dL (0.2-1.0)
[2021-07-15] MEDS: LACTULOSE 20 GM/30 ML UCUP PO SCH ×2 (08:35→16:51)
[2021-07-15] MEDS: chlordiazePOXIDE HCl 5 MG CAP PO SCH ×2 (08:35→19:39)
[2021-07-15] MEDS: THIAMINE HCL 100 MG TABLET PO SCH (08:35)
[2021-07-15] MEDS: Rifaximin 550 MG Tab PO SCH ×2 (08:35→19:40)
[2021-07-15] MEDS: FOLIC ACID 1 MG TABLET PO SCH (08:35)
[2021-07-15] MEDS: MIDODRINE HCL 5 MG TABLET PO SCH ×3 (08:35→21:00)
[2021-07-15] MEDS: PENTOXIFYLLINE ER 400 MG TAB PO SCH ×4 (08:35→20:49)
[2021-07-15] MEDS: CEFTRIAXONE 1,000 MG in NA CHLORIDE 0.9% 50 ML IVPB SCH ×2 (08:37→19:40)
[2021-07-15] MEDS: D5W 1,000 ML IV SCH (08:39)
[2021-07-15] MEDS ORDERED: METHYLPREDNISOLONE 40 MG INJ IV SCH (09:00)
[2021-07-15 09:15] LABS: Blood Morphology Comment NOT SEEN (NOT SEEN); Platelet Estimate ADEQ
[2021-07-15] MEDS: KCL 20 MEQ/100 mL IVPB 20 MEQ/100 ML BAG IV SCH ×2 (11:38→12:39)
--- NOTE | 2021-07-15 13:11 | P.PN ---
Subjective Date of Service: 07/15/21 Chief Complaint: KEVIN, Hepatic Failure today No overnight events Cont to be lethargic potassium replaced na 149, will start on D5W if pt cont with poor roal intake then will consider TPN General: lethargic , thin HEENT: Atraumatic, Normocephalic Neck: Supple, no elevated JVD Respiratory: Other CTAB. No rales or wheezes Cardiovascular: No rubs, No murmurs Gastrointestinal: distended, soft, NT Musculoskeletal: No clubbing Integumentary: No warmth Neurological: Normal tone, Sensation intact Lymphatics: No axilla or inguinal lymphadenopathy Urinary: Other (no bladder distention) A/P #Acute kidney injury resolved due to prerenal. Encourage po fluid intake. Keep MAP > 70. Monitor renal panel. #hypotension due to cirrhosis Cont midodrine to 10 mg t.i.d #hypernatremia due to poor roal intake will start on D5W #Altered mental status due to encephalopathy, if pt cont with poor roal intake then will consider TPN #Alcoholic hepatitis Per primary team. cont folate and thiamine #Hypokalemia, and Hypophophatemia replace as needed encourage food intake #GI bleeding S/p EGD and Banding H/h stable on PPI and Octerotide #DM2. Mngt per primary team. Physical Examination - Vital Signs Temperature: 98.0 F Blood Pressure: 139/94 Pulse: 95 Respirations: 17 Pulse Ox (%): 96
[2021-07-15] MEDS: HALOPERIDOL LACT 5 MG/ML INJ IV PRN ×2 (13:12→17:48)
[2021-07-15] MEDS ORDERED: Magnesium Sulfate 2gm IVPB 2 G/50 ML BAG IV ONE (14:26)
[2021-07-15] MEDS: DIAZEPAM 10 MG/2 ML INJ SYRINGE IV PRN ×2 (14:47→20:45)
--- NOTE | 2021-07-15 21:22 | P.PN ---
Date of Service: 07/13/21 Subjective Still confused. Patient with coffee-ground emesis. Taken for EGD. Patient had esophageal varices that were banded by gastroenterology. Minimal bleeding noted. Continue monitoring H&H. We will transfuse as needed. Patient confused most likely the GI bleeding. Also on steroids for acute liver injury and will stop this. Renal function has improved. Continue with PPI and octreotide. Physical Examination - Vitals reviewed - Physical Exam General: Confused but not responding appropriately. Respiratory: Clear to auscultation bilaterally, Normal air movement Cardiovascular: Regular rate/rhythm, Normal S1 S2 Gastrointestinal: Normal bowel sounds, No tenderness Musculoskeletal: No tenderness Neurological: no focal deficits Assessment and Plan - Problems (Diagnosis) (1) AMS Current Visit: Yes Status: Acute (2) GI bleeding secondary to esophageal varices status post banding Current Visit: Yes Status: Acute (3) Acute renal failure Current Visit: Yes Status: Acute Hepatic coma status: without hepatic coma Qualified Code(s): K72.00 - Acute and subacute hepatic failure without coma (4) History of alcohol use Current Visit: Yes Status: Chronic Ascites presence: with ascites Qualified Code(s): K70.11 - Alcoholic hepatitis with ascites (5) Jaundice Current Visit: Yes Status: Acute (6) Type 2 diabetes mellitus Current Visit: Yes Status: Acute 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 Continue PPI and octreotide drip. Appreciate GI consultation. Patient status post EGD with esophageal varices status post banding 1. Appreciate nephrology consultation. Renal function has improved. Continue with monitoring BUN and creatinine. 2. Patient is slightly confused. Not really responding as well. Patient denies any alcohol use. The states he has not had anything to drink since his last discharge. Could be related to hepatic encephalopathy versus related to medication. Continue monitoring his mentation. Patient needs to follow-up with liver center. May arrange for transfer at this time 3. ACHS accu checks with mild sliding scale insulin and diabetic diet 4. Continue monitoring potassium level 5. Continue monitoring white count 6. Renal function has improved 7. GI DVT prophylaxis Discharge Plan: Home Plan to discharge in: Greater than 2 days - Advance Directives Does patient have a Living Will: No Does patient have a Durable POA for Healthcare: No - Code Status/Comfort Care Code Status Assessed: Yes (Full) Critical Care: No Time Spent Managing Pts Care (In Minutes): 70
--- NOTE | 2021-07-15 21:24 | P.PN ---
Date of Service: 07/14/21 Subjective Patient more responsive today. He is asking for ice cream. However, he is currently n.p.o. and will keep on ice chips and popsicle. Continue with Haldol as needed. Physical Examination - Vitals reviewed - Physical Exam General: Confused but not responding appropriately. Respiratory: Clear to auscultation bilaterally, Normal air movement Cardiovascular: Regular rate/rhythm, Normal S1 S2 Gastrointestinal: Normal bowel sounds, No tenderness Musculoskeletal: No tenderness Neurological: no focal deficits Assessment and Plan - Problems (Diagnosis) (1) AMS Current Visit: Yes Status: Acute (2) GI bleeding secondary to esophageal varices status post banding Current Visit: Yes Status: Acute (3) Acute renal failure Current Visit: Yes Status: Acute Hepatic coma status: without hepatic coma Qualified Code(s): K72.00 - Acute and subacute hepatic failure without coma (4) History of alcohol use Current Visit: Yes Status: Chronic Ascites presence: with ascites Qualified Code(s): K70.11 - Alcoholic hepatitis with ascites (5) Jaundice Current Visit: Yes Status: Acute (6) Type 2 diabetes mellitus Current Visit: Yes Status: Acute Qualifiers: Diabetes mellitus senior care insulin use: with long term care social worker use Diabetes mellitus complication status: with kidney complications Diabetes mellitus complication detail: with chronic kidney disease Chronic kidney disease stage: stage 4 (severe) Qualified Code(s): E11.22 - Type 2 diabetes mellitus with diabetic chronic kidney disease; N18.4 - Chronic kidney disease, stage 4 (severe); Z79.4 - long term care social worker (current) use of insulin - Plan 0. Continue PPI and octreotide drip. Appreciate GI consultation. Patient status post EGD with esophageal varices status post banding 1. Appreciate nephrology consultation. Renal function has improved. Continue with monitoring BUN and creatinine. 2. Patient still confused. May benefit from Precedex drip if confusion remains. Mentation may be all secondary to medications or related to hepatic encephalopathy or GI bleeding. Weaning off of the steroids. 3. ACHS accu checks with mild sliding scale insulin and diabetic diet 4. Continue monitoring potassium level 5. Continue monitoring white count 6. Renal function has improved 7. GI DVT prophylaxis Discharge Plan: Home Plan to discharge in: Greater than 2 days - Advance Directives Does patient have a Living Will: No Does patient have a Durable POA for Healthcare: No - Code Status/Comfort Care Code Status Assessed: Yes (Full) Critical Care: No Time Spent Managing Pts Care (In Minutes): 70
--- NOTE | 2021-07-15 21:28 | P.PN ---
Date of Service: 07/15/21 Subjective Patient still confused. Status post Ativan and Haldol. We will hold off on the Ativan. Patient no history of alcohol use over the last few weeks. Continue Haldol for encephalopathy. We will need to consider Precedex drip. May need to consult pulmonary to get Precedex drip started. Hemoglobin is stable and continue monitoring H&H. Continue with PPI and octreotide. Can probably start weaning down the octreotide if hemoglobin remained stable. Renal function has improved. Liver numbers are stabilizing. Blood sugars are also stable. We did initiate transfer. Waiting for [facility] to get a bed available. Physical Examination - Vitals reviewed - Physical Exam General: Confused but not responding appropriately. Respiratory: Clear to auscultation bilaterally, Normal air movement Cardiovascular: Regular rate/rhythm, Normal S1 S2 Gastrointestinal: Normal bowel sounds, No tenderness Musculoskeletal: No tenderness Neurological: no focal deficits Assessment and Plan - Problems (Diagnosis) (1) AMS Current Visit: Yes Status: Acute (2) GI bleeding secondary to esophageal varices status post banding Current Visit: Yes Status: Acute (3) Acute renal failure Current Visit: Yes Status: Acute Hepatic coma status: without hepatic coma Qualified Code(s): K72.00 - Acute and subacute hepatic failure without coma (4) History of alcohol use Current Visit: Yes Status: Chronic Ascites presence: with ascites Qualified Code(s): K70.11 - Alcoholic hepatitis with ascites (5) Jaundice Current Visit: Yes Status: Acute (6) Type 2 diabetes mellitus Current Visit: Yes Status: Acute Qualifiers: Diabetes mellitus senior living insulin use: with senior living use Diabetes taylor litus complication status: with kidney complications Diabetes mellitus complication detail: with chronic kidney disease Chronic kidney disease stage: stage 4 (severe) Qualified Code(s): E11.22 - Type 2 diabetes mellitus with diabetic chronic kidney disease; N18.4 - Chronic kidney disease, stage 4 (severe); Z79.4 - watermaster (current) use of insulin - Plan 0. Continue PPI and octreotide drip. Appreciate GI consultation. Patient status post EGD with esophageal varices status post banding (07/13) 1. Appreciate nephrology consultation. Renal function has improved. Continue with monitoring BUN and creatinine. 2. Patient still confused. May benefit from Precedex drip if confusion remains. Mentation may be all secondary to medications or related to hepatic encephalopathy or GI bleeding. Weaning off of the steroids. 3. ACHS accu checks with mild sliding scale insulin and diabetic diet 4. Continue monitoring potassium level 5. Continue monitoring white count 6. Renal function has improved 7. GI DVT prophylaxis Discharge Plan: Home Plan to discharge in: Greater than 2 days - Advance Directives Does patient have a Living Will: No Does patient have a Durable POA for Healthcare: No - Code Status/Comfort Care Code Status Assessed: Yes (Full) Critical Care: No Time Spent Managing Pts Care (In Minutes): 70
[2021-07-16] MEDS: LACTULOSE 20 GM/30 ML UCUP PO SCH ×3 (01:00→16:28)
[2021-07-16] MEDS: DIAZEPAM 10 MG/2 ML INJ SYRINGE IV PRN ×3 (02:33→21:30)
[2021-07-16] MEDS: INSULIN -REGULAR HUMAN 50 UNIT/0.5 ML ML SQ SCH ×5 (02:41→23:16)
[2021-07-16] MEDS ORDERED: POTASSIUM 25 MEQ EFFERV TAB PO ONE (02:44)
[2021-07-16] MEDS: D5W 1,000 ML IV SCH ×2 (02:53→14:45)
[2021-07-16 05:25] LABS: Albumin 2.3 g/dL (3.4-5.0); Phosphorus 2.1 mg/dL (2.5-4.9); Potassium 3.3 mmol/L (3.5-5.1)
[2021-07-16] MEDS: MORPHINE 2 MG/ML SYR IV PRN ×2 (05:30→20:30)
[2021-07-16] MEDS ORDERED: D50W 25 GM/50 ML SYRINGE IV PRN (07:59)
[2021-07-16] MEDS ORDERED: GLUCAGON 1 MG/VIAL IM PRN (07:59)
--- NOTE | 2021-07-16 07:59 | P.PN ---
Subjective Date of Service: 07/17/21 Chief Complaint: KEVIN, Hepatic Failure Subjective: No new changes (still obtunded) Physical Examination - Vital Signs Temperature: 98 F Blood Pressure: 133/87 Pulse: 98 Respirations: 14 Pulse Ox (%): 97 - Studies Microbiology Data (last 24 hrs): 07/11/21 03:11 Blood - Blood Aerobic Blood Culture - Final No growth in 5 days. 07/11/21 03:11 Blood - Blood Anaerobic Blood Culture - Final 07/11/21 00:58 Blood - Blood Aerobic Blood Culture - Final No growth in 5 days. 07/11/21 00:58 Blood - Blood Anaerobic Blood Culture - Final Assessment And Plan Physician Review: Patient Assessed, Agree with Above Assessment and Plan Physician Review Additional Text: - Physical Exam General: Confused , not responding appropriately. Respiratory: Clear to auscultation bilaterally, Normal air movement Cardiovascular: Regular rate/rhythm, Normal S1 S2 Gastrointestinal: Normal bowel sounds, No tenderness Musculoskeletal: No tenderness Neurological: no focal deficits, agitated Assessment and Plan - Problems (Diagnosis) (1) AMS Current Visit: Yes Status: Acute (2) GI bleeding secondary to esophageal varices status post banding Current Visit: Yes Status: Acute (3) Acute renal failure Current Visit: Yes Status: Acute Hepatic coma status: without hepatic coma Qualified Code(s): K72.00 - Acute and subacute hepatic failure without coma (4) History of alcohol use Current Visit: Yes Status: Chronic Ascites presence: with ascites Qualified Code(s): K70.11 - Alcoholic hepatitis with ascites (5) Jaundice Current Visit: Yes Status: Acute (6) Type 2 diabetes mellitus Current Visit: Yes Status: Acute Qualifiers: Diabetes mellitus intermediate insulin use: with terminal makeup operator use Diabetes mellitus complication status: with kidney complications Diabetes mellitus complication detail: with chronic kidney disease Chronic kidney disease stage: stage 4 (severe) Qualified Code(s): E11.22 - Type 2 diabetes mellitus with diabetic chronic kidney disease; N18.4 - Chronic kidney disease, stage 4 (severe); Z79.4 - technician terminal and repeater (current) use of insulin - Plan -Continue PPI and octreotide drip. s/p EGD with esophageal varices status post banding (07/13), c/w ice chip[s when more awake -H/h stable at 8.2 -c/w to monitor -still high serum soidum , c/w D5W, will dose DDAVOP today -strict glycemic control -Appreciate nephrology consultation. Renal function has improved. Continue with monitoring BUN and creatinine. -still altered mental status , may be due to alcohol withdrawal , serum ammonia controlled now , May benefit from Precedex drip , c/w prn geodon now Mentation may be all secondary to medications or related to hepatic encephalopathy or GI bleeding. Weaning off of the steroids. -follow k and mg control -GI DVT prophylaxis Discharge Plan: Home Plan to discharge in: Greater than 2 days - Advance Directives Does patient have a Living Will: No Does patient have a Durable POA for Healthcare: No
[2021-07-16] MEDS ORDERED: KCL 20 MEQ/100 mL IVPB 20 MEQ/100 ML BAG IV SCH (08:00)
[2021-07-16] MEDS: PENTOXIFYLLINE ER 400 MG TAB PO SCH ×3 (09:00→21:00)
[2021-07-16] MEDS: chlordiazePOXIDE HCl 5 MG CAP PO SCH ×2 (09:05→21:26)
[2021-07-16] MEDS: METHYLPREDNISOLONE 40 MG INJ IV SCH (09:05)
[2021-07-16] MEDS: CEFTRIAXONE 1,000 MG in NA CHLORIDE 0.9% 50 ML IVPB SCH ×2 (09:06→21:28)
[2021-07-16] MEDS: PANTOPRAZOLE INJ 80 MG in NA CHLORIDE 0.9% 250 ML IV SCH ×2 (09:08→18:45)
[2021-07-16] MEDS: OCTREOTIDE 500 MCG in NA CHLORIDE 0.9% 500 ML IV SCH ×2 (09:08→18:44)
[2021-07-16] MEDS: MIDODRINE HCL 5 MG TABLET PO SCH ×3 (09:09→21:27)
[2021-07-16] MEDS: THIAMINE HCL 100 MG TABLET PO SCH (09:18)
[2021-07-16] MEDS: FOLIC ACID 1 MG TABLET PO SCH (09:18)
[2021-07-16] MEDS ORDERED: POTASSIUM PHOS IN 0.9 % NACL 15 MMOL/250 ML BAG IV ONE ×2 (10:00→11:00)
[2021-07-16 10:18] LABS: HIV AG/AB 4TH GEN Non-reactive (Non-reactive)
[2021-07-16] MEDS: Rifaximin 550 MG Tab PO SCH ×2 (11:08→21:28)
[2021-07-16] MEDS: HALOPERIDOL LACT 5 MG/ML INJ IV PRN (13:23)
[2021-07-16 13:49] LABS: Vitamin D 1,25-Dihydroxy Total 13 pg/mL (18-72); Vitamin D,1,25-OH2, D2 <8 pg/mL
[2021-07-16] MEDS: D5 0.9 NS 1,000 ML IV SCH (17:47)
[2021-07-16] MEDS ORDERED: CEFTRIAXONE 1000 MG/VIAL ONE (21:27)
[2021-07-16] MEDS ORDERED: NA CHLORIDE 0.9% 50 ML IV ONE (21:44)
[2021-07-17] MEDS: MORPHINE 2 MG/ML SYR IV PRN (00:20)
[2021-07-17] MEDS: LACTULOSE 20 GM/30 ML UCUP PO SCH ×3 (00:26→16:00)
[2021-07-17] MEDS: DIAZEPAM 10 MG/2 ML INJ SYRINGE IV PRN (02:22)
--- NOTE | 2021-07-17 02:40 | PN ---
Date of Progress Note: 07/16/2021 Chief Complaint: Acute kidney injury, hepatic failure. Subjective: The patient is lethargic, cannot provide review of systems. The patient was found to have hypernatremia and was started on D5W. Potassium was replaced. The patient is to start TPN. Objective: Lungs: Clear to auscultation bilaterally. Heart: S1 and S2. Abdomen: Soft, benign. Extremities: No edema. Impression And Plan: 1. Acute kidney injury, resolved. The patient has prerenal azotemia. Monitor blood pressure. Encourage p.o. intake. The patient may need speech therapy evaluation. The patient may be a candidate for TPN. 2. Hypernatremia. Continue D5W. 3. Hypotension due to liver cirrhosis. Continue midodrine 10 mg 3 times per day. 4. Altered mental status due to hepatic encephalopathy per primary team. EMILIE/CHRIS Voice ID: [id number] Report ID: [id number] [facility] HEALTH CENTERDianelys
[2021-07-17] MEDS: D5 0.9 NS 1,000 ML IV SCH (05:14)
[2021-07-17] MEDS: PANTOPRAZOLE INJ 80 MG in NA CHLORIDE 0.9% 250 ML IV SCH ×2 (05:15→15:26)
[2021-07-17] MEDS: OCTREOTIDE 500 MCG in NA CHLORIDE 0.9% 500 ML IV SCH ×2 (05:15→15:26)
[2021-07-17] MEDS ORDERED: D50W 25 GM/50 ML SYRINGE IV PRN ×2 (08:12→11:24)
[2021-07-17] MEDS ORDERED: GLUCAGON 1 MG/VIAL IM PRN ×2 (08:12→11:24)
[2021-07-17] MEDS: PENTOXIFYLLINE ER 400 MG TAB PO SCH ×3 (09:00→21:37)
[2021-07-17] MEDS: chlordiazePOXIDE HCl 5 MG CAP PO SCH ×2 (09:02→21:37)
[2021-07-17] MEDS: MIDODRINE HCL 5 MG TABLET PO SCH ×3 (09:03→21:37)
[2021-07-17] MEDS: METHYLPREDNISOLONE 40 MG INJ IV SCH (09:03)
[2021-07-17] MEDS: FOLIC ACID 1 MG TABLET PO SCH (09:04)
[2021-07-17] MEDS: CEFTRIAXONE 1,000 MG in NA CHLORIDE 0.9% 50 ML IVPB SCH ×2 (09:04→20:00)
[2021-07-17] MEDS: THIAMINE HCL 100 MG TABLET PO SCH (09:05)
[2021-07-17] MEDS: Rifaximin 550 MG Tab PO SCH ×2 (09:08→21:37)
[2021-07-17 10:06] LABS: Protime INR 2.64
[2021-07-17 10:32] LABS: Albumin 2.3 g/dL (3.4-5.0); Bilirubin Direct 4.3 mg/dL (0-0.2)
[2021-07-17 10:34] LABS: Bilirubin Total 6.1 mg/dL (0.2-1.0)
[2021-07-17] MEDS: INSULIN -REGULAR HUMAN 50 UNIT/0.5 ML ML SQ SCH ×3 (11:26→20:01)
[2021-07-17] MEDS ORDERED: INSULIN -REGULAR HUMAN 50 UNIT/0.5 ML ML SQ SCH (12:00)
--- NOTE | 2021-07-17 12:55 | P.PN ---
Subjective Date of Service: 07/17/21 Chief Complaint: KEVIN, Hepatic Failure Subjective: No new changes (See persistent confusion Tolerating small volume full liquid diet well) Physical Examination - Vital Signs Temperature: 97.3 F Blood Pressure: 108/86 Pulse: 113 Respirations: 16 Pulse Ox (%): 94 Assessment And Plan Physician Review: Patient Assessed, Agree with Above Assessment and Plan Physician Review Additional Text: Physical Exam General: Confused , not responding appropriately. Respiratory: Clear to auscultation bilaterally, Normal air movement Cardiovascular: Regular rate/rhythm, Normal S1 S2 Gastrointestinal: Normal bowel sounds, No tenderness Musculoskeletal: No tenderness, no edema Neurological: no focal deficits, agitated Assessment and Plan - Problems (Diagnosis) (1) AMS Current Visit: Yes Status: Acute (2) GI bleeding secondary to esophageal varices status post banding Current Visit: Yes Status: Acute (3) Acute renal failure Current Visit: Yes Status: Acute Hepatic coma status: without hepatic coma Qualified Code(s): K72.00 - Acute and subacute hepatic failure without coma (4) History of alcohol use Current Visit: Yes Status: Chronic Ascites presence: with ascites Qualified Code(s): K70.11 - Alcoholic hepatitis with ascites (5) Jaundice Current Visit: Yes Status: Acute (6) Type 2 diabetes mellitus Current Visit: Yes Status: Acute Qualifiers: Diabetes mellitus rat exterminator insulin use: with detention use Diabetes mellitus complication status: with kidney complications Diabetes mellitus complication detail: with chronic kidney disease Chronic kidney disease stage: stage 4 (severe) Qualified Code(s): E11.22 - Type 2 diabetes mellitus with diabetic chronic kidney disease; N18.4 - Chronic kidney disease, stage 4 (severe); Z79.4 - long term (current) use of insulin Plan -Continue PPI and octreotide drip. s/p EGD with esophageal varices status post banding (07/13), c/w ice chip[s when more awake -Still elevated total bili/direct Ammonia level within normal range since admission, unclear reasoning for persistent encephalopathy Will obtain MRI brain to rule out acute CVA Continue as needed Geodon H/h stable at 8.2 ,c/w to monitor -Improving serum sodium level, switch to D5 NS since borderline low blood pressure and clinically volume depleted -strict glycemic control -Appreciate nephrology consultation. Renal function has improved. Continue with monitoring BUN and creatinine. -Continue to weaning off of the steroids. -follow k and mg control -GI DVT prophylaxis Discharge Plan: Home Plan to discharge in: Greater than 2 days - Advance Directives Does patient have a Living Will: No Does patient have a Durable POA for Healthcare: No Time Spent Managing PTS Care (In Minutes): 35
[2021-07-17] MEDS ORDERED: LORazepam 2 MG/ML VIAL IV ONE (13:07)
[2021-07-17] MEDS ORDERED: ZIPRASIDONE MESYLA 20 MG/VIAL IM ONE (13:08)
[2021-07-17] MEDS ORDERED: WATER FOR INJ,STERILE 10 ML IM PRN (13:08)
[2021-07-17 13:48] LABS: Albumin 2.1 g/dL (3.4-5.0); Potassium 3.3 mmol/L (3.5-5.1); Protein, Total 5.4 g/dL (6.4-8.2)
[2021-07-17 13:50] LABS: Bilirubin Total 5.5 mg/dL (0.2-1.0)
[2021-07-17 14:16] LABS: Absolute Lymphocytes (CBC) 0.4 K/uL (0.7-4.9); Hematocrit 25.1 % (39.6-49.0); Lymphocytes % 2.1 % (15.3-44.8); MPV 9.6 fL (7.6-11.3); RBC Red Blood Cell Count 2.49 M/uL (4.33-5.43)
[2021-07-17] MEDS ORDERED: D5.45NS W/KCL 20MEQ 20 MEQ/1,000 ML BAG IV SCH (15:00)
[2021-07-17] MEDS: KCL 20 MEQ/100 mL IVPB 20 MEQ/100 ML BAG IV SCH ×2 (15:05→17:23)
[2021-07-17 15:32] LABS: Alpha-1-Globulins 0.3 g/dL (0.2-0.3); Alpha-2-Globulins 0.5 g/dL (0.5-0.9); Gamma Globulins 2.2 g/dL (0.8-1.7); INTERPRETATION REPORT
--- NOTE | 2021-07-17 16:24 | RAD REPORT ---
EXAM DESCRIPTION: MRI - Brain Wo Cont - 07/17/2021 4:06 pm CLINICAL HISTORY: persistent AMS COMPARISON: Head Brain Wo Cont dated 07/13/2021 TECHNIQUE: Sagittal T1-weighted images were obtained along with axial PD, heavily T2-weighted and T2 -FLAIR images. Axial DWI and ADC mapping sequences were also obtained along with coronal heavily T2-w eighted images. FINDINGS: No intracranial hemorrhage, mass or acute infarction. There is no edema or shift of midlin e structures. Minimal volume loss changes are present given the patient's age. No chronic ischemic ch everardo seen. Ventricles normal. Hargrove-matter/white matter junction is preserved. Signal voids are seen a s a normal finding in the major intracranial vessels. No globe or orbital content abnormality. Sella and suprasellar regions are normal range. Mastoid air cells and paranasal sinuses are clear. IMPRESSION: Negative non-contrast MRI of the Brain for acute or significant finding.
[2021-07-17] MEDS: NACHLORIDE 0.45% 1,000 ML IV SCH (17:30)
--- NOTE | 2021-07-17 18:30 | PN ---
Date of Progress Note: 07/17/2021 Subjective: The patient was admitted with hepatorenal syndrome. The patient was started on treatmen t of hepatorenal. Kidney function has been normalized. The patient has still altered mental status. Objective: Vital Signs: Blood pressure 108/86, pulse of 108, afebrile. The patient had good urine output of 1400. Chest: Clear to auscultation. Heart: S1, S2. Systolic murmur. Abdomen: Ascites. Extremities: +1 edema. Neuro: Alert. Moving 4 extremities. No focality. Confused. Laboratory Data: Sodium 148, potassium 3.3, bicarb 27, BUN 16, creatinine 0.9, GFR of 104, calcium 8 .3, phosphorus 2.1, albumin 2.3, corrected calcium is 9.5. Current Medications: The patient on include ceftriaxone, Xifaxan, midodrine 10 t.i.d., lactulose, fo lic acid, pantoprazole, KCl. Assessment And Plan: 1.Acute kidney injury secondary to cardiorenal, recovered. Looked to me slightly on over volume alexandre e with peripheral edema with the presence of hypokalemia. I am going to start the patient on spirono lactone and we will monitor the patient. 2.Hypertension, currently hypotension. The patient maintained on midodrine. We will continue and w e will add spironolactone. 3.Altered mental status, hepatic encephalopathy as by primary. 4.Hypokalemia, hypomagnesemia. We will start the patient on spironolactone and we will follow up. RAHUL/CHRIS Voice ID: [id number] Report ID: [id number]
[2021-07-17] MEDS: KCL 20 MEQ/100 mL IVPB 100 ML IV SCH ×2 (21:32→23:44)
[2021-07-18] MEDS: NACHLORIDE 0.45% 1,000 ML IV SCH ×2 (02:36→11:35)
[2021-07-18] MEDS: OCTREOTIDE 500 MCG in NA CHLORIDE 0.9% 500 ML IV SCH ×2 (02:39→14:54)
[2021-07-18] MEDS: PANTOPRAZOLE INJ 80 MG in NA CHLORIDE 0.9% 250 ML IV SCH ×2 (02:39→14:54)
[2021-07-18 05:57] LABS: Albumin 2.1 g/dL (3.4-5.0); Phosphorus 1.6 mg/dL (2.5-4.9); Potassium 3.5 mmol/L (3.5-5.1); Protein, Total 5.6 g/dL (6.4-8.2)
[2021-07-18 06:01] LABS: Bilirubin Total 6.5 mg/dL (0.2-1.0); Magnesium 1.3 mg/dL (1.8-2.4)
[2021-07-18 06:14] LABS: Absolute Lymphocytes (CBC) 1.5 K/uL (0.7-4.9); Hematocrit 29.3 % (39.6-49.0); Lymphocytes % 6.2 % (15.3-44.8); MPV 10.2 fL (7.6-11.3)
[2021-07-18] MEDS ORDERED: Magnesium Sulfate 2gm IVPB 2 G/50 ML BAG IV ONE ×2 (07:00→08:00)
[2021-07-18] MEDS ORDERED: POTASSIUM PHOS IN 0.9 % NACL 15 MMOL/250 ML BAG IV ONE (07:00)
[2021-07-18] MEDS: INSULIN -REGULAR HUMAN 50 UNIT/0.5 ML ML SQ SCH ×4 (07:24→19:54)
[2021-07-18] MEDS: LACTULOSE 20 GM/30 ML UCUP PO SCH ×3 (08:00→17:07)
[2021-07-18 08:05] LABS: Anisocytosis 1+; Basophilic Stippling 1+; Blood Morphology Comment NOTED (NOT SEEN); Platelet Estimate DECR
[2021-07-18] MEDS: chlordiazePOXIDE HCl 5 MG CAP PO SCH ×2 (09:00→19:54)
[2021-07-18] MEDS: Rifaximin 550 MG Tab PO SCH ×2 (09:00→19:54)
[2021-07-18] MEDS: FOLIC ACID 1 MG TABLET PO SCH (09:00)
[2021-07-18] MEDS: MIDODRINE HCL 5 MG TABLET PO SCH ×3 (09:00→19:54)
[2021-07-18] MEDS: THIAMINE HCL 100 MG TABLET PO SCH (09:00)
[2021-07-18] MEDS: PENTOXIFYLLINE ER 400 MG TAB PO SCH ×3 (09:00→19:53)
[2021-07-18] MEDS: SPIRONOLACTONE 25 MG TABLET PO SCH (09:00)
--- NOTE | 2021-07-18 09:09 | P.PN ---
Subjective Date of Service: 07/18/21 Chief Complaint: KEVIN, Hepatic Failure Subjective: No new changes (Very drowsy this a.m., able to arouse Evaluated again by GI yesterday, diet advanced Impression of end-stage liver disease and needing transfer for transplant evaluation) Physical Examination - Vital Signs Temperature: 97.3 F Blood Pressure: 106/78 Pulse: 79 Respirations: 17 Pulse Ox (%): 91 Assessment And Plan Physician Review: Patient Assessed, Agree with Above Assessment and Plan Physician Review Additional Text: - Physical Exam General: Confused , not responding appropriately. Marked icterus Respiratory: Coarse breath sound bilaterally, Normal air movement Cardiovascular: Regular rate/rhythm, Normal S1 S2 Gastrointestinal: Moderate ascites by shifting dullness, normal bowel sounds, No tenderness Musculoskeletal: No tenderness Neurological: no focal deficits, agitated Assessment and Plan - Problems (Diagnosis) (1) AMS Current Visit: Yes Status: Acute (2) GI bleeding secondary to esophageal varices status post banding Current Visit: Yes Status: Acute (3) Acute renal failure Current Visit: Yes Status: Acute Hepatic coma status: without hepatic coma Qualified Code(s): K72.00 - Acute and subacute hepatic failure without coma (4) History of alcohol use Current Visit: Yes Status: Chronic Ascites presence: with ascites Qualified Code(s): K70.11 - Alcoholic hepatitis with ascites (5) Jaundice Current Visit: Yes Status: Acute (6) Type 2 diabetes mellitus Current Visit: Yes Status: Acute Qualifiers: Diabetes mellitus supervisor intermediates insulin use: with [facility] use Diabetes mellitus complication status: with kidney complications Diabetes mellitus c omplication detail: with chronic kidney disease Chronic kidney disease stage: stage 4 (severe) Qualified Code(s): E11.22 - Type 2 diabetes mellitus with diabetic chronic kidney disease; N18.4 - Chronic kidney disease, stage 4 (severe); Z79.4 - shelter (current) use of insulin Plan -Continue PPI and octreotide drip. s/p EGD with esophageal varices status post banding (07/13) -Diet advanced to soft diet - significantly drowsy, continue Geodon as needed MRI negative, unclear etiology of hepatic encephalopathy since controlled ammonia level -Serum sodium improving, continue half NS with KCl -H/h stable at 8.2 -c/w to monitor -End-stage liver disease, needs transplant, continue plan for transfer to [facility], awaiting bed -Follow-up pending serology as well as hepatitis profile -Continue strict glycemic control -Appreciate nephrology consultation. Renal function has improved. Continue w ith monitoring BUN and creatinine. -Mentation may be all secondary to medications or related to hepatic encephalopathy or GI bleeding. Weaning off of the steroids. -Replace magnesium, calcium, phosphorus and potassium today Leukocytosis may be due to prior steroid use, continue to monitor DVT abnormal chest exam, obtain chest x-ray May benefit from paracentesis, will consult IR -GI DVT prophylaxis Discharge Plan: Home Plan to discharge in: Greater than 2 days - Advance Directives Does patient have a Living Will: No Does patient have a Durable POA for Healthcare: No 07/18/21 09:06 07/18/21 09:08
[2021-07-18] MEDS ORDERED: CALCIUM GLUCONATE 1 GM IVPB 2 GM/100 ML BAG IV ONE ×2 (09:30→11:45)
[2021-07-18] MEDS: CEFTRIAXONE 1,000 MG in NA CHLORIDE 0.9% 50 ML IVPB SCH ×2 (09:46→19:55)
--- NOTE | 2021-07-18 10:33 | RAD REPORT ---
EXAM DESCRIPTION: RAD - Chest Single View - 07/18/2021 9:54 am CLINICAL HISTORY: r/o pna COMPARISON: Chest Single View dated 07/13/2021; Chest Single View dated 07/12/2021; Chest Single View dated 07/12/2021; Chest Single View dated 07/10/2021; Paracentesis Proc Guidance dated 07/18/2021 FINDINGS: Lines: None. Lungs: Developing hazy opacities at the left lung base. Likely right basilar atelectasis. Pleural: No significant pleural effusions or pneumothorax. Cardiac: The heart size is within normal limits. Bones: No acute fractures. Other: IMPRESSION: Developing opacities at the left lung base concerning for developing pneumonia.
[2021-07-18] MEDS ORDERED: POTASSIUM PHOS 30 MM in NA CHLORIDE 0.9% 500 ML IV ONE (11:00)
--- NOTE | 2021-07-18 11:35 | RAD REPORT ---
EXAM DESCRIPTION: US - Paracentesis Proc Guidance - 07/18/2021 10:31 am CLINICAL HISTORY: ascities Ascites COMPARISON: <Comparisons> FINDINGS: Informed consent was obtained and time-out was performed. Patient's abdomen was prepped and draped in the usual sterile fashion. 1% lidocaine was used for loca l anesthetic purposes. A small skin incision was made. A paracentesis catheter was guided into the peroneal cavity under son ographic guidance. A small amount of fluid was sent for requested lab studies. A large volume paracentesis was performed . The patient tolerated the procedure well. Patient was administered IV albumin per protocol following the procedure. IMPRESSION: Successful ultrasound-guided paracentesis.
[2021-07-18 15:30] LABS: Appearance CLEAR (CLEAR); Body Fluid Source PERITONEAL; Body Fluid WBC 5 /mm^3; Color of fluid Yellow (COLORLESS)
--- NOTE | 2021-07-18 16:24 | PN ---
Date of Progress Note: 07/18/2021 Subjective: The patient was admitted with hepatorenal syndrome, hepatic encephalopathy. The patient was started on fluid expansion with midodrine. Kidney function normalized. The patient scheduled f or paracentesis today. Physical Examination: Vital Signs: When I saw the patient; blood pressure 106/78, pulse of 79, afebrile. The patient had good urine output of 1400. Chest: Clear to auscultation. Heart: S1, S2. Systolic murmur. Abdomen: Ascites. Extremity: Plus edema. Neuro: The patient opens eyes, moving extremity, confused. Laboratory Data: WBC 24.7, H and H 9.3/29.3, platelets 79. Sodium 144, potassium 3.5, bicarb 26, BU N 5, creatinine 0.6, GFR of 180. Calcium 7.7, phosphorus 1.6, magnesium 1.3. Albumin 2.1. Correcte d calcium is 9.3. Current Medications: The patient on include; 1.Ceftriaxone. 2.Xifaxan. 3.Midodrine 10 t.i.d. 4.Pentoxifylline. 5.Spironolactone 25 mg was started yesterday. 6.Calcium carbonate. 7.Folic acid. 8.Pantoprazole. 9.Normal saline. Assessment And Plan: 1.Acute kidney injury secondary to hepatorenal, recovered, resolved. We will continue to monitor. 2.Hypokalemia, secondary to secondary to the cirrhosis. The patient was started on jose antonio nolactone. We will replace also the magnesium and we will monitor. 3.Hypophosphatemia, hypomagnesemia secondary to malnourish. We will supplement. 4.Ascites, started on spironolactone. We will follow up after paracentesis. 5.Hepatic encephalopathy. We will follow up with primary. 6.Anasarca secondary to liver failure. We will continue spironolactone. 7.Hypocalcemia, corrected calcium within normal limit. I do not see any need for supplement. RAHUL/CHRIS Voice ID: [id number] Report ID: [id number]
[2021-07-18] MEDS: NICOTINE 14 MG/PAT TD SCH (21:19)
[2021-07-18] MEDS: DIAZEPAM 10 MG/2 ML INJ SYRINGE IV PRN (22:06)
[2021-07-18] MEDS: HALOPERIDOL LACT 5 MG/ML INJ IV PRN (22:50)
[2021-07-18] MEDS: MORPHINE 2 MG/ML SYR IV PRN (22:50)
[2021-07-18] MEDS ORDERED: ZIPRASIDONE MESYLA 20 MG/VIAL IM ONE (23:01)
[2021-07-18] MEDS ORDERED: WATER FOR INJ,STERILE 10 ML IM PRN (23:01)
[2021-07-19] MEDS: OCTREOTIDE 500 MCG in NA CHLORIDE 0.9% 500 ML IV SCH ×3 (01:01→21:44)
[2021-07-19] MEDS: PANTOPRAZOLE INJ 80 MG in NA CHLORIDE 0.9% 250 ML IV SCH ×3 (01:02→21:44)
[2021-07-19] MEDS: MORPHINE 2 MG/ML SYR IV PRN ×2 (04:44→20:07)
[2021-07-19 05:11] LABS: Absolute Lymphocytes (CBC) 1.1 K/uL (0.7-4.9); Lymphocytes % 4.4 % (15.3-44.8); MPV 9.9 fL (7.6-11.3); RBC Red Blood Cell Count 2.85 M/uL (4.33-5.43)
[2021-07-19 05:36] LABS: Magnesium 1.7 mg/dL (1.8-2.4); Phosphorus 1.8 mg/dL (2.5-4.9); Potassium 3.6 mmol/L (3.5-5.1); Protein, Total 5.7 g/dL (6.4-8.2)
[2021-07-19 05:49] LABS: Bilirubin Total 7.3 mg/dL (0.2-1.0)
[2021-07-19] MEDS ORDERED: POTASSIUM PHOS 40 MEQ in NA CHLORIDE 0.9% 500 ML IV ONE (05:59)
[2021-07-19] MEDS ORDERED: Magnesium Sulfate 2gm IVPB 2 G/50 ML BAG IV ONE (07:00)
[2021-07-19] MEDS: INSULIN -REGULAR HUMAN 50 UNIT/0.5 ML ML SQ SCH ×4 (07:30→20:09)
--- NOTE | 2021-07-19 07:53 | P.PN ---
Subjective Date of Service: 07/19/21 Chief Complaint: KEVIN, Hepatic Failure Subjective: No new changes (Overnight agitated,) Physical Examination - Vital Signs Temperature: 97.5 F Blood Pressure: 107/85 Pulse: 133 Respirations: 17 Pulse Ox (%): 99 Assessment And Plan Physician Review: Patient Assessed, Agree with Above Assessment and Plan Physician Review Additional Text: - Physical Exam General: drowsy, Marked icterus Respiratory: Coarse breath sound bilaterally, Normal air movement Cardiovascular: Regular rate/rhythm, Normal S1 S2 Gastrointestinal: Moderate ascites by shifting dullness, normal bowel sounds, No tenderness Musculoskeletal: No tenderness Neurological: no focal deficits, agitated Assessment and Plan - Problems (Diagnosis) (1) AMS Current Visit: Yes Status: Acute (2) GI bleeding secondary to esophageal varices status post banding Current Visit: Yes Status: Acute (3) Acute renal failure Current Visit: Yes Status: Acute Hepatic coma status: without hepatic coma Qualified Code(s): K72.00 - Acute and subacute hepatic failure without coma (4) History of alcohol use Current Visit: Yes Status: Chronic Ascites presence: with ascites Qualified Code(s): K70.11 - Alcoholic hepatitis with ascites (5) Jaundice Current Visit: Yes Status: Acute (6) Type 2 diabetes mellitus Current Visit: Yes Status: Acute Qualifiers: 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 intake but tolerating liquids, consider TPN Continue PPI and octreotide drip. s/p EGD with esophageal varices status post banding (07/13) -MRI negative, unclear etiology of hepatic encephalopathy since controlled ammo corinne level -Serum sodium improving, continue half NS with KCl -H/h stable at 8.2 -c/w to monitor -Worsening end-stage liver disease, needs transplant, continue plan for transfer to [facility], awaiting bed We discussed with family about overall poor prognosis -Follow-up pending serology as well as hepatitis profile -Continue strict glycemic control -Appreciate nephrology consultation. Renal function has improved. Continue with monitoring BUN and creatinine. -Mentation may be all secondary to medications or related to hepatic encephalopathy or GI bleeding. Weaning off of the steroids. -Replace magnesium, calcium, phosphorus and potassium today Status post 1.5 L paracentesis fluid removal yesterday, follow culture -GI DVT prophylaxis Discharge Plan: Home Plan to discharge in: Greater than 2 days - Advance Directives Does patient have a Living Will: No Does patient have a Durable POA for Healthcare: No 07/18/21 09:06 07/18/21 09:08 07/19/21 07:53
[2021-07-19] MEDS ORDERED: POTASSIUM PHOS 40 MEQ in NA CHLORIDE 0.9% 500 ML IV SCH (08:00)
[2021-07-19] MEDS: LACTULOSE 20 GM/30 ML UCUP PO SCH ×3 (08:00→16:00)
[2021-07-19] MEDS: CEFEPIME 1 GM in NA CHLORIDE 0.9% 100 ML IV SCH ×2 (08:45→20:08)
[2021-07-19] MEDS: SPIRONOLACTONE 25 MG TABLET PO SCH (08:57)
[2021-07-19] MEDS: chlordiazePOXIDE HCl 5 MG CAP PO SCH ×3 (08:57→23:00)
[2021-07-19] MEDS: FOLIC ACID 1 MG TABLET PO SCH (08:57)
[2021-07-19] MEDS: MIDODRINE HCL 5 MG TABLET PO SCH ×3 (08:57→20:09)
[2021-07-19] MEDS: PENTOXIFYLLINE ER 400 MG TAB PO SCH ×3 (08:58→20:09)
[2021-07-19] MEDS: Rifaximin 550 MG Tab PO SCH ×2 (08:58→20:09)
[2021-07-19] MEDS: THIAMINE HCL 100 MG TABLET PO SCH (08:58)
--- NOTE | 2021-07-19 12:28 | PN ---
Date of Progress Note: 07/19/2021 Subjective: The patient was admitted with hepatic encephalopathy, liver failure. The patient had ac wendy kidney injury secondary to hepatorenal. The patient was started on fluid expansion with midodrin e and . Kidney function normalized. The patient is still in hepatic encephalopathy. The patient had a paracentesis yesterday, was successful. They managed to remove large amount of ascites . Physical Examination: General: When I saw the patient; the patient is lying in bed, poorly responsive with anasarca. Vital Signs: Blood pressure 107/85, pulse of 133, afebrile. The patient had good urine output of 13 00, paracentesis yesterday of 1.5 L. Chest: Decreased entry bilateral base. Heart: S1, S2. Systolic murmur. Abdomen: Ascites. Extremities: Plus edema. Neuro: The patient moves 4 extremities, but not alert. Opens eyes spontaneously. No focality. Laboratory Data: WBC 24.9, H and H 9.6/29. Sodium 143, potassium 3.6, bicarb 23, BUN 7, creatinine 0.8, calcium 7.4, phosphorus 1.8, magnesium 1.7. Total bilirubin 7.3. PTH 56. Current Medications: The patient on include; 1.Cefepime. 2.Xifaxan. 3.Midodrine 10 t.i.d. 4.Nicotine patch. 5.Spironolactone 25 daily. 6.Chlordiazepoxide. 7.Diazepam as needed. 8.Haloperidol. 9.Geodon. 10.Lactulose. 11.Folic acid. 12.Zofran. 13.Pantoprazole. Assessment And Plan: 1.Acute kidney injury secondary to hepatorenal, recovered, resolved. Still peripheral edema. I am going to go ahead and increase his spironolactone to 50 mg and we will follow up the patient. 2.Hypertension, currently hypotension. I am going to continue midodrine. We will increase spironol actone and we will follow up. 3.Hypokalemia. Spironolactone has been increased. Potassium trending up. We will follow up. 4.Hyponatremia, resolved. 5.Hypomagnesemia. We will supplement. 6.Hypernatremia secondary to poor intake. We will start some gentle hydration. 7.Encephalopathy. I am going to go ahead and decrease sedation and we will follow up. RAHUL/CHRIS Voice ID: [id number] Report ID: [id number]
--- NOTE | 2021-07-19 16:53 | P.DS ---
Admission Date: 07/11/21 Discharge Date: 07/19/21 Reason for Admission: KEVIN, Hepatic Failure Brief History of Present Illness: History of Present Illness: Patient is a 45-year-old male with past medical history of type 2 diabetes insulin dependent and cirrhosis, recently admitted for hepatic encephalopathy, who presented to the ED with complaints of abdominal swelling, jaundice, chest pain, and cough. Patient's fianc states that he has been very drowsy and has had a lack of coordination. Labs in the ED significant for sodium 131, potassium 2.9, glucose 198, BUN 29, creatinine 2.85, GFR 27, calcium 7.9 (corrected 9.5), WBC 15.5, elevated liver enzymes, BNP 560, Pro-Amrit 0.72, magnesium 1.3, ammonia 47. CT showed moderate abdominal pelvic ascites, hepatomegaly, and nonspecific distended configuration of gallbladder. He was given morphine and Zofran in the ED with minimal improvement in symptoms. ED provider wishes to admit patient for further evaluation and treatment. Allergies No Known Allergies Allergy (Verified 06/11/21 11:18) Home medications list reviewed: Yes Home Medications: Alprazolam [Xanax] 1 mg PO PRN 06/14/21 Hydrocodone Bit/Acetaminophen [[place] 7.5-325 Tablet] 1 tab PO PRN 06/14/21 Insulin -Regular Human [Novolin -R*] 3 units SQ BID 06/14/21 Insulin NPH Human [Novolin N (Humulin N)*] 10 units SQ BID 06/14/21 Pantoprazole Sodium [Protonix] 40 mg PO DAILY 06/14/21 Zolpidem Tartrate [Ambien] 10 mg PO BEDTIME 06/14/21 Furosemide [Lasix] 20 mg PO BIDL #60 tab 06/15/21 Lactulose 30 ml PO BID #2000 ml 06/15/21 Rifaximin [Xifaxan] 550 mg PO BID #60 tablet 06/15/21 Spironolactone [Aldactone] 25 mg PO BID #60 tablet 06/15/21 chlordiazePOXIDE HCl [Chlordiazepoxide HCl] 10 mg PO TID #40 capsule 06/15/21 levoFLOXacin [Levaquin] 750 mg PO DAILY #14 tab 06/15/21 predniSONE [Deltasone] 20 mg PO BID #20 tab 06/15/21 - Past Medical/Surgical History Diabetic: Yes -: Diabetes mellitus type 2insulin-dependent -: Alcoholic cirrhosis of liver -: Chronic pancreatitis Past Surgical History: Patient denies surgical history Psychosocial/ Personal History: Patient lives at home with his [facility] Hospital Course: Hospital course Patient with history of alcoholic liver disease presented with altered mental status with hematemesis. He underwent EGD with esophageal variceal banding. Patient continue to be delirious which was felt to be due to alcohol withdrawal symptoms. He can continue to have persistent leukocytosis and started on empirical antibiotics. Chest x-ray shows left base pneumonia. He had acute renal failure which resolved. Given his advancing/ fulminant liver disease need for transfer for hepatology services was requested at [facility] - Physical Exam General: drowsy, Marked icterus Respiratory: Coarse breath sound bilaterally, Normal air movement Cardiovascular: Regular rate/rhythm, Normal S1 S2 Gastrointestinal: Moderate ascites by shifting dullness, normal bowel sounds, No tenderness Musculoskeletal: No tenderness Neurological: no focal deficits, intermittently agitated Assessment and Plan - Problems (Diagnosis) (1) AMS Current Visit: Yes Status: Acute (2) GI bleeding secondary to esophageal varices status post banding Current Visit: Yes Status: Acute (3) Acute renal failure Current Visit: Yes Status: Acute Hepatic coma status: without hepatic coma Qualified Code(s): K72.00 - Acute and subacute hepatic failure without coma (4) History of alcohol use Current Visit: Yes Status: Chronic Ascites presence: with ascites Qualified Code(s): K70.11 - Alcoholic hepatitis with ascites (5) Jaundice Current Visit: Yes Status: Acute (6) Type 2 diabetes mellitus Current Visit: Yes Status: Acute Qualifiers: Diabetes mellitus group home insulin use: with group home use Diabetes mellitus complication status: with kidney complications Diabetes mellitus complication detail: with chronic kidney disease Chronic kidney disease stage: stage 4 (severe) Qualified Code(s): E11.22 - Type 2 diabetes mellitus with diabetic chronic kidney disease; N18.4 - Chronic kidney disease, stage 4 (severe); Z79.4 - jail (current) use of insulin Left base pneumonia Vital Signs/Physical Exam: Temp Pulse Resp BP Pulse Ox 97.7 F 105 H 16 106/78 94 07/19/21 12:00 07/19/21 15:00 07/19/21 15:00 07/19/21 15:00 07/19/21 14:00 Laboratory Data at Discharge: WBC 24.9 K/uL (4.3-10.9) H* 07/19/21 04:20 Hgb 9.6 g/dL (13.6-17.9) L 07/19/21 04:20 Hct 29.0 % (39.6-49.0) L 07/19/21 04:20 Plt Count 86 K/uL (152-406) L 07/19/21 04:20 PT 29.6 SECONDS (9.5-12.5) H 07/17/21 09:49 INR 2.64 07/17/21 09:49 APTT 34.5 SECONDS (24.3-36.9) 07/17/21 09:49 Sodium 143 mmol/L (136-145) 07/19/21 04:20 Potassium 3.6 mmol/L (3.5-5.1) 07/19/21 04:20 BUN 7 mg/dL (7-18) 07/19/21 04:20 Creatinine 0.82 mg/dL (0.55-1.3) 07/19/21 04:20 Glucose 229 mg/dL (74-106) H 07/19/21 04:20 Uric Acid 8.2 mg/dL (3.5-7.2) H 07/12/21 08:10 Phosphorus 1.8 mg/dL (2.5-4.9) L 07/19/21 04:20 Magnesium 1.7 mg/dL (1.8-2.4) L 07/19/21 04:20 Total Bilirubin 7.3 mg/dL (0.2-1.0) H* 07/19/21 04:20 AST 95 U/L (15-37) H 07/19/21 04:20 ALT 38 U/L (12-78) 07/19/21 04:20 Alkaline Phosphatase 223 U/L (45-117) H 07/19/21 04:20 Home Medications: Alprazolam [Xanax] 1 mg PO Q4H PRN 06/14/21 Hydrocodone Bit/Acetaminophen [[place] 7.5-325 Tablet] 1 tab PO Q3H PRN 06/14/21 Insulin -Regular Human [Novolin -R*] 3 units SQ BID 06/14/21 Insulin NPH Human [Novolin N (Humulin N)*] 10 units SQ BID 06/14/21 Zolpidem Tartrate [Ambien] 10 mg PO BEDTIME 06/14/21 Furosemide [Lasix] 20 mg PO BIDL #60 tab 06/15/21 chlordiazePOXIDE HCl [Chlordiazepoxide HCl] 10 mg PO TID #40 capsule 06/15/21 Testosterone Cypionate [Testone Cik] 200 mg IM SEECOM 07/11/21 Followup: NONE,NONE [Primary Care Provider] -
[2021-07-19] MEDS: DIAZEPAM 10 MG/2 ML INJ SYRINGE IV SCH (18:04)
[2021-07-19] MEDS: NICOTINE 14 MG/PAT TD SCH (20:07)
[2021-07-20] MEDS: DIAZEPAM 10 MG/2 ML INJ SYRINGE IV SCH ×2 (02:01→09:00)
[2021-07-20] MEDS: MORPHINE 2 MG/ML SYR IV PRN ×2 (03:01→18:20)
[2021-07-20 05:19] LABS: Absolute Lymphocytes (CBC) 1.3 K/uL (0.7-4.9); Hematocrit 27.6 % (39.6-49.0); Lymphocytes % 5.7 % (15.3-44.8); MPV 9.9 fL (7.6-11.3)
[2021-07-20 05:56] LABS: Albumin 1.9 g/dL (3.4-5.0); Magnesium 1.6 mg/dL (1.8-2.4); Phosphorus 1.8 mg/dL (2.5-4.9); Potassium 3.8 mmol/L (3.5-5.1); Protein, Total 5.5 g/dL (6.4-8.2)
[2021-07-20 05:58] LABS: Bilirubin Total 7.9 mg/dL (0.2-1.0)
[2021-07-20] MEDS: INSULIN -REGULAR HUMAN 50 UNIT/0.5 ML ML SQ SCH ×4 (07:30→21:29)
[2021-07-20] MEDS: LACTULOSE 20 GM/30 ML UCUP PO SCH ×3 (07:37→16:44)
[2021-07-20] MEDS: OCTREOTIDE 500 MCG in NA CHLORIDE 0.9% 500 ML IV SCH ×2 (08:26→18:09)
[2021-07-20] MEDS: PANTOPRAZOLE INJ 80 MG in NA CHLORIDE 0.9% 250 ML IV SCH ×2 (08:56→18:10)
[2021-07-20] MEDS: PENTOXIFYLLINE ER 400 MG TAB PO SCH ×2 (09:00→16:39)
[2021-07-20] MEDS: SPIRONOLACTONE 25 MG TABLET PO SCH (09:00)
[2021-07-20] MEDS: THIAMINE HCL 100 MG TABLET PO SCH (09:00)
[2021-07-20] MEDS: Rifaximin 550 MG Tab PO SCH ×2 (09:00→21:00)
[2021-07-20] MEDS: FOLIC ACID 1 MG TABLET PO SCH (09:00)
[2021-07-20] MEDS ORDERED: MAGNESIUM SULFATE 1 gm IVPB 1 GM/100 ML BAG IV ONE (09:00)
[2021-07-20] MEDS ORDERED: POTASSIUM PHOS IN 0.9 % NACL 15 MMOL/250 ML BAG IV ONE ×2 (09:00→10:00)
[2021-07-20] MEDS: MIDODRINE HCL 5 MG TABLET PO SCH ×3 (09:00→21:00)
[2021-07-20] MEDS: CEFEPIME 1 GM in NA CHLORIDE 0.9% 100 ML IV SCH ×2 (09:31→21:28)
[2021-07-20] MEDS: chlordiazePOXIDE HCl 5 MG CAP PO SCH (11:00)
--- NOTE | 2021-07-20 13:42 | P.PN ---
Subjective Date of Service: 07/20/21 Chief Complaint: KEVIN, Hepatic Failure Subjective: No new changes Physical Examination - Vital Signs Temperature: 97.1 F Blood Pressure: 101/71 Pulse: 92 Respirations: 12 Pulse Ox (%): 98 - Physical Exam General: Other (appears acutely ill) HEENT: Atraumatic, Normocephalic Neck: Supple Respiratory: Clear to auscultation bilaterally Cardiovascular: No rubs, No murmurs Gastrointestinal: Soft and benign, No guarding Musculoskeletal: No clubbing Integumentary: No warmth Neurological: Normal speech, Normal tone Urinary: Other (no bladder distention) External genitalia: Deferred Rectal: Deferred Assessment And Plan - Plan 1. Acute kidney injury secondary to hepatorenal syndrome, prerenal/over diuresis. KEVIN improved. Encourage po fluid intake. Keep MAP > 70. Monitor renal panel. 2. Hypertension, currently hypotension. Cont midodrine to 10 mg t.i.d. 3. Altered mental status; encephalopathy, hepatic. Alcoholic hepatitis. Per primary team. 4. HypoPO4. Phos repletion today. 5. HypoMg. Mg repletion today 6. Dysphagia. Speech swallow eval pending. TPN to start today. 7. Anemia. Monitor H/H. 8. DM2. Mngt per primary team. Physician Review: Patient Assessed, Agree with Above Assessment and Plan
[2021-07-20] MEDS ORDERED: DIAZEPAM 10 MG/2 ML INJ SYRINGE IV PRN (15:35)
--- NOTE | 2021-07-20 15:39 | P.PN ---
Subjective Date of Service: 07/20/21 Chief Complaint: KEVIN, Hepatic Failure Subjective: No new changes (Drowsy but arousable with touch to the Staff noted issues with swallowing, plan for TPN today) Physical Examination - Vital Signs Temperature: 97.1 F Blood Pressure: 108/79 Pulse: 116 Respirations: 20 Pulse Ox (%): 98 Assessment And Plan Physician Review: Patient Assessed, Agree with Above Assessment and Plan Physician Review Additional Text: Physical Exam General: drowsy, still marked icterus Respiratory: Coarse breath sound bilaterally, Normal air movement Cardiovascular: Regular rate/rhythm, Normal S1 S2 Gastrointestinal: Moderate ascites by shifting dullness, normal bowel sounds, No tenderness Musculoskeletal: No tenderness Neurological: no focal deficits, drowsy Assessment and Plan - Problems (Diagnosis) (1) AMS Current Visit: Yes Status: Acute (2) GI bleeding secondary to esophageal varices status post banding Current Visit: Yes Status: Acute (3) Acute renal failure Current Visit: Yes Status: Acute Hepatic coma status: without hepatic coma Qualified Code(s): K72.00 - Acute and subacute hepatic failure without coma (4) History of alcohol use Current Visit: Yes Status: Chronic Ascites presence: with ascites Qualified Code(s): K70.11 - Alcoholic hepatitis with ascites (5) Jaundice Current Visit: Yes Status: Acute (6) Type 2 diabetes mellitus Current Visit: Yes Status: Acute Qualifiers: 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 and 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 use Diabetes mellitus complication status: with kidney complications Diabetes mellitus complication detail: with chronic kidney disease Chronic kidney disease stage: stage 4 (severe) Qualified Code(s): E11.22 - Type 2 diabetes mellitus with diabetic chronic kidney disease; N18.4 - Chronic kidney disease, stage 4 (severe); 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 -Left base pneumonia -Mild dysphagiaon modified diet PLAN -We will hold off sedatives scheduled for now Continue as needed Geodon/Valium if agitation Will hold off TPN for now Evaluated by speech therapy, for modified diet, will hold off TPN now and try modified diet diet since patient gradually more awake Continue cefepime/Flagyl for left base pneumonia Continue PPI and octreotide s/p EGD with esophageal varices status post banding (07/13) H&H remained stable Follow-up plan for transfer to [facility] when bed available -Continue in telemetry floor status -MRI negative, unclear etiology of hepatic encephalopathy since controlled ammonia level, continue lactulose -Overall poor prognosis has been discussed with family -Follow-up pending serology as well as hepatitis profile -Continue strict glycemic control -Appreciate nephrology consultation. Renal function has improved. Continue with monitoring BUN and creatinine. -Status post 1.5 L paracentesis fluid removal 07/18, culture negative -GI DVT prophylaxis Discharge Plan: Home Plan to discharge in: Greater than 2 days - Advance Directives Does patient have a Living Will: No Does patient have a Durable POA for Healthcare: No 07/18/21 09:06 07/18/21 09:08 07/19/21 07:53 07/20/21 15:35 07/20/21 15:39
[2021-07-20] MEDS: NICOTINE 14 MG/PAT TD SCH (21:49)
[2021-07-21] MEDS: OCTREOTIDE 500 MCG in NA CHLORIDE 0.9% 500 ML IV SCH ×2 (03:00→14:04)
[2021-07-21 06:06] LABS: Magnesium 1.7 mg/dL (1.8-2.4); Phosphorus 1.6 mg/dL (2.5-4.9); Potassium 3.5 mmol/L (3.5-5.1); Protein, Total 5.5 g/dL (6.4-8.2)
[2021-07-21 06:10] LABS: Bilirubin Total 8.3 mg/dL (0.2-1.0)
[2021-07-21] MEDS ORDERED: Magnesium Sulfate 2gm IVPB 2 G/50 ML BAG IV ONE (06:43)
[2021-07-21] MEDS: PANTOPRAZOLE INJ 80 MG in NA CHLORIDE 0.9% 250 ML IV SCH ×2 (06:58→15:53)
[2021-07-21] MEDS: INSULIN -REGULAR HUMAN 50 UNIT/0.5 ML ML SQ SCH ×4 (07:30→20:20)
[2021-07-21] MEDS ORDERED: POTASSIUM PHOS 30 MM in NA CHLORIDE 0.9% 500 ML IV ONE (08:08)
[2021-07-21] MEDS: THIAMINE HCL 100 MG TABLET PO SCH (08:48)
[2021-07-21] MEDS: SPIRONOLACTONE 25 MG TABLET PO SCH (08:48)
[2021-07-21] MEDS: FOLIC ACID 1 MG TABLET PO SCH (08:48)
[2021-07-21] MEDS: LACTULOSE 20 GM/30 ML UCUP PO SCH ×4 (08:48→19:51)
[2021-07-21] MEDS: CEFEPIME 1 GM in NA CHLORIDE 0.9% 100 ML IV SCH ×2 (08:48→19:51)
[2021-07-21] MEDS: MIDODRINE HCL 5 MG TABLET PO SCH ×3 (08:49→19:47)
[2021-07-21] MEDS: Rifaximin 550 MG Tab PO SCH ×2 (08:49→19:48)
[2021-07-21] MEDS: PROPRANOLOL HCL 10 MG TAB PO SCH ×2 (09:38→19:48)
--- NOTE | 2021-07-21 09:57 | P.PN ---
Subjective Date of Service: 07/21/21 Chief Complaint: KEVIN, Hepatic Failure Subjective: No new changes Physical Examination - Vital Signs Temperature: 97.1 F Blood Pressure: 108/72 Pulse: 121 Respirations: 28 Pulse Ox (%): 98 - Physical Exam General: Other (appears chronically ill) HEENT: Atraumatic, Normocephalic Neck: Supple Respiratory: Other (symmetric chest expansion) Cardiovascular: No rubs, No murmurs Gastrointestinal: No guarding Musculoskeletal: No clubbing Integumentary: No warmth Neurological: Normal speech, Normal tone Urinary: Other (no bladder distention) External genitalia: Deferred Rectal: Deferred Assessment And Plan - Plan 1. Acute kidney injury secondary to hepatorenal syndrome, prerenal/over diuresis. KEVIN improved. Encourage po fluid intake. Keep MAP > 70. Monitor renal panel. 2. Hypertension, currently hypotension. Cont midodrine to 10 mg t.i.d. 3. Altered mental status; encephalopathy, hepatic. Alcoholic hepatitis. Per primary team. 4. HypoPO4. Phos repletion today. 5. HypoMg. Mg repletion today 6. Dysphagia. Speech swallow eval pending. TPN to start today. 7. Anemia. Monitor H/H. 8. DM2. Mngt per primary team. 9. Dispo. For transfer for further Hepatology eval/mngt. Physician Review: Patient Assessed, Agree with Above Assessment and Plan
[2021-07-21] MEDS ORDERED: D5W 1,000 ML IV SCH (10:00)
[2021-07-21 10:25] LABS: Hematocrit 28.2 % (39.6-49.0); MPV 9.9 fL (7.6-11.3)
--- NOTE | 2021-07-21 10:55 | P.PN ---
Subjective Date of Service: 07/21/21 Chief Complaint: KEVIN, Hepatic Failure Subjective: New changes (More awake today, off scheduled sedatives Complaining of back pain Staff report tolerating p.o. intake, ate over 50% of modified diet today) Physical Examination - Vital Signs Temperature: 97.1 F Blood Pressure: 109/79 Pulse: 117 Respirations: 31 Pulse Ox (%): 98 Assessment And Plan Physician Review: Patient Assessed, Agree with Above Assessment and Plan Physician Review Additional Text: Physical Exam General: drowsy, still marked icterus Respiratory: Coarse breath sound bilaterally, Normal air movement Cardiovascular: Regular rate/rhythm, Normal S1 S2 Gastrointestinal: Moderate ascites by shifting dullness, normal bowel sounds, No tenderness Musculoskeletal: No tenderness Neurological: no focal deficits, drowsy Assessment and Plan - Problems (Diagnosis) (1) AMS Current Visit: Yes Status: Acute (2) GI bleeding secondary to esophageal varices status post banding Current Visit: Yes Status: Acute (3) Acute renal failure Current Visit: Yes Status: Acute Hepatic coma status: without hepatic coma Qualified Code(s): K72.00 - Acute and subacute hepatic failure without coma (4) History of alcohol use Current Visit: Yes Status: Chronic Ascites presence: with ascites Qualified Code(s): K70.11 - Alcoholic hepatitis with ascites (5) Jaundice Current Visit: Yes Status: Acute (6) Type 2 diabetes mellitus Current Visit: Yes Status: Acute Qualifiers: 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 Diabetes mellitus complication status: with kidney complications Diabetes mellitus complication detail: with chronic kidney disease Chronic kidney disease stage: stage 4 (severe) Qualified Code(s): E11.22 - Type 2 diabetes mellitus with diabetic chronic kidney disease; N18.4 - Chronic kidney disease, stage 4 (severe); 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 medications as crushed Continue as needed Geodon/Valium -Avoid scheduled sedatives for now Hold off previous plan for TPN Continue PPI and octreotide-switch to p.o./subcut in a.m. s/p EGD with esophageal varices status post banding (07/13) H&H remained stable Follow-up plan for transfer to [facility] when bed available -Symptomatic tachycardia, start low-dose propanolol, continue in telemetry floor status -MRI negative, unclear etiology of hepatic encephalopathy since controlled ammonia level, continue lactulose -Overall poor prognosis has been discussed with family -Follow-up pending serology as well as hepatitis profile -Continue strict glycemic control -Appreciate nephrology consultation. Renal function has improved. Continue with monitoring BUN and creatinine. -Status post 1.5 L paracentesis fluid removal 07/18, culture negative -GI DVT prophylaxis Discharge Plan: Home Plan to discharge in: Greater than 2 days - Advance Directives Does patient have a Living Will: No Does patient have a Durable POA for Healthcare: No Time Spent Managing PTS Care (In Minutes): 35
[2021-07-21] MEDS: METRONIDAZOLE 250mg IVPB 250 MG/50 ML BAG IV SCH ×2 (12:17→16:30)
--- NOTE | 2021-07-21 14:22 | P.DS ---
Admission Date: 07/11/21 Discharge Date: 07/21/21 Disposition: TRANSFER TO [facility] Reason for Admission: KEVIN, Hepatic Failure Brief History of Present Illness: History of Present Illness: Patient is a 45-year-old male with past medical history of type 2 diabetes insulin dependent and cirrhosis, recently admitted for hepatic encephalopathy, who presented to the ED with complaints of abdominal swelling, jaundice, chest pain, and cough. Patient's fianc states that he has been very drowsy and has had a lack of coordination. Labs in the ED significant for sodium 131, potassium 2.9, glucose 198, BUN 29, creatinine 2.85, GFR 27, calcium 7.9 (corrected 9.5), WBC 15.5, elevated liver enzymes, BNP 560, Pro-Amrit 0.72, magnesium 1.3, ammonia 47. CT showed moderate abdominal pelvic ascites, hepatomegaly, and nonspecific distended configuration of gallbladder. He was given morphine and Zofran in the ED with minimal improvement in symptoms. ED provider wishes to admit patient for further evaluation and treatment. Allergies No Known Allergies Allergy (Verified 06/11/21 11:18) Home medications list reviewed: Yes Home Medications: Alprazolam [Xanax] 1 mg PO PRN 06/14/21 Hydrocodone Bit/Acetaminophen [Hopkins 7.5-325 Tablet] 1 tab PO PRN 06/14/21 Insulin -Regular Human [Novolin -R*] 3 units SQ BID 06/14/21 Insulin NPH Human [Novolin N (Humulin N)*] 10 units SQ BID 06/14/21 Pantoprazole Sodium [Protonix] 40 mg PO DAILY 06/14/21 Zolpidem Tartrate [Ambien] 10 mg PO BEDTIME 06/14/21 Furosemide [Lasix] 20 mg PO BIDL #60 tab 06/15/21 Lactulose 30 ml PO BID #2000 ml 06/15/21 Rifaximin [Xifaxan] 550 mg PO BID #60 tablet 06/15/21 Spironolactone [Aldactone] 25 mg PO BID #60 tablet 06/15/21 chlordiazePOXIDE HCl [Chlordiazepoxide HCl] 10 mg PO TID #40 capsule 06/15/21 levoFLOXacin [Levaquin] 750 mg PO DAILY #14 tab 06/15/21 predniSONE [Deltasone] 20 mg PO BID #20 tab 06/15/21 - Past Medical/Surgical History Diabetic: Yes -: Diabetes mellitus type 2insulin-dependent -: Alcoholic cirrhosis of liver -: Chronic pancreatitis Past Surgical History: Patient denies surgical history Psychosocial/ Personal History: Patient lives at home with his [facility] Hospital Course: Hospital course Patient with history of alcoholic liver disease presented with altered mental status with hematemesis. He underwent EGD with esophageal variceal banding. Patient continue to be delirious which was felt to be due to alcohol withdrawal symptoms. He is agitation and drowsy symptoms started to improve with scheduled Geodon/Librium which was later switched to as needed doses after episode of prolonged drowsiness .His mental status slowly improving with as needed Geodon now . He continue to have persistent leukocytosis and started on empirical antibiotics. He had paracentesis with 12.5 L fluid removal. Fluid analysis and culture were negative for infection. Chest x-ray shows left base pneumonia. Flagyl has been added to his cefepime today. He was evaluated by speech therapy and placed on modified dysphagia diet. He had acute renal failure which resolved. His ammonia level remained controlled. His hemoglobin is slowly improving to 9.2 today. Given his advancing/ fulminant liver disease need for transfer for hepatology services was requested at [facility]. - Physical Exam General: drowsy, Marked icterus Respiratory: Coarse breath sound bilaterally, Normal air movement Cardiovascular: Regular rate/rhythm, Normal S1 S2 Gastrointestinal: Moderate ascites by shifting dullness, normal bowel sounds, No tenderness Musculoskeletal: No tenderness Neurological: no focal deficits, conversant although lethargic Assessment and Plan - Problems (Diagnosis) (1) AMS Current Visit: Yes Status: Acute (2) GI bleeding secondary to esophageal varices status post banding Current Visit: Yes Status: Acute (3) Acute renal failure Current Visit: Yes Status: Acute Hepatic coma status: without hepatic coma Qualified Code(s): K72.00 - Acute and subacute hepatic failure without coma (4) History of alcohol use Current Visit: Yes Status: Chronic Ascites presence: with ascites Qualified Code(s): K70.11 - Alcoholic hepatitis with ascites (5) Jaundice Current Visit: Yes Status: Acute (6) Type 2 diabetes mellitus Current Visit: Yes Status: Acute Qualifiers: Diabetes mellitus fci insulin use: with fci use Diabetes mellitus complication status: with kidney complications Diabetes mellitus complication detail: with chronic kidney disease Chronic kidney disease stage: stage 4 (severe) Qualified Code(s): E11.22 - Type 2 diabetes mellitus with diabetic chronic kidney disease; N18.4 - Chronic kidney disease, stage 4 (severe); Z79.4 - shelter (current) use of insulin Left base pneumonia Vital Signs/Physical Exam: Temp Pulse Resp BP Pulse Ox 97.1 F 88 25 H 121/81 98 07/21/21 12:00 07/21/21 12:00 07/21/21 12:00 07/21/21 12:00 07/21/21 10:55 Laboratory Data at Discharge: WBC 26.9 K/uL (4.3-10.9) H* D 07/21/21 09:29 Hgb 9.1 g/dL (13.6-17.9) L 07/21/21 09:29 Hct 28.2 % (39.6-49.0) L 07/21/21 09:29 Plt Count 124 K/uL (152-406) L D 07/21/21 09:29 PT 29.6 SECONDS (9.5-12.5) H 07/17/21 09:49 INR 2.64 07/17/21 09:49 APTT 34.5 SECONDS (24.3-36.9) 07/17/21 09:49 Sodium 146 mmol/L (136-145) H 07/21/21 05:00 Potassium 3.5 mmol/L (3.5-5.1) 07/21/21 05:00 BUN 10 mg/dL (7-18) 07/21/21 05:00 Creatinine 0.91 mg/dL (0.55-1.3) 07/21/21 05:00 Glucose 197 mg/dL (74-106) H 07/21/21 05:00 Uric Acid 8.2 mg/dL (3.5-7.2) H 07/12/21 08:10 Phosphorus 1.6 mg/dL (2.5-4.9) L 07/21/21 05:00 Magnesium 1.7 mg/dL (1.8-2.4) L 07/21/21 05:00 Total Bilirubin 8.3 mg/dL (0.2-1.0) H* 07/21/21 05:00 AST 89 U/L (15-37) H 07/21/21 05:00 ALT 36 U/L (12-78) 07/21/21 05:00 Alkaline Phosphatase 312 U/L (45-117) H 07/21/21 05:00 Home Medications: Alprazolam [Xanax] 1 mg PO Q4H PRN 06/14/21 Hydrocodone Bit/Acetaminophen [Hopkins 7.5-325 Tablet] 1 tab PO Q3H PRN 06/14/21 Insulin -Regular Human [Novolin -R*] 3 units SQ BID 06/14/21 Insulin NPH Human [Novolin N (Humulin N)*] 10 units SQ BID 06/14/21 Zolpidem Tartrate [Ambien] 10 mg PO BEDTIME 06/14/21 Furosemide [Lasix] 20 mg PO BIDL #60 tab 06/15/21 chlordiazePOXIDE HCl [Chlordiazepoxide HCl] 10 mg PO TID #40 capsule 06/15/21 Testosterone Cypionate [Testone Cik] 200 mg IM SEECOM 07/11/21 Followup: NONE,NONE [Primary Care Provider] -
[2021-07-21] MEDS: NICOTINE 14 MG/PAT TD SCH (19:49)
[2021-07-21] MEDS: PENTOXIFYLLINE ER 400 MG TAB PO SCH (19:51)
[2021-07-21 20:23] VITALS: O2SAT 96
[2021-07-21] MEDS: MORPHINE 2 MG/ML SYR IV PRN (20:25)
[2021-07-22 06:04] VITALS: BP 108/72; TEMP 97.1
[2021-07-22] MEDS ORDERED: Magnesium Sulfate 2gm IVPB 2 G/50 ML BAG IV ONE (08:54)
[2021-07-23 06:11] LABS: GLUCOSE, PERITONEAL FLUID 205 mg/dL; TOTAL PROTEIN,PERITONEAL FLUID <3.0 g/dL
== END 2021-07-21 21:15 | disposition short-term general hospital (02) | DRG 432 ==
LOC: ER 20:31 → ERHOLD 07-11 04:05 → 2ND 07-11 14:32 → 3RD-ICU 07-13 16:15
PROVIDERS: ADMIT Hospitalist; ATTEND Hospitalist
PROC: 0W9G3ZX Drainage of Peritoneal Cavity, Percutaneous Approach, Diagnostic (ICD-10-PCS; 2021-07-11)
PROC: 02HV33Z Insertion of Infusion Device into Superior Vena Cava, Percutaneous Approach (ICD-10-PCS; 2021-07-12)
PROC: 06L38CZ Occlusion of Esophageal Vein with Extraluminal Device, Via Natural or Artificial Opening Endoscopic (ICD-10-PCS; principal; 2021-07-13 17:27)
PROC: 0W9G3ZX Drainage of Peritoneal Cavity, Percutaneous Approach, Diagnostic (ICD-10-PCS; 2021-07-18)
DX: K70.40 Alcoholic hepatic failure without coma (principal); K76.7 Hepatorenal syndrome; J69.0 Pneumonitis due to inhalation of food and vomit; I85.11 Secondary esophageal varices with bleeding; B18.9 Chronic viral hepatitis, unspecified; N17.9 Acute kidney failure, unspecified; K76.6 Portal hypertension; N18.4 Chronic kidney disease, stage 4 (severe); K86.1 Other chronic pancreatitis; E87.1 Hypo-osmolality and hyponatremia; E87.0 Hyperosmolality and hypernatremia; F10.931 Alcohol use, unspecified with withdrawal delirium; E87.6 Hypokalemia; E83.42 Hypomagnesemia; R16.0 Hepatomegaly, not elsewhere classified; K70.31 Alcoholic cirrhosis of liver with ascites; R13.10 Dysphagia, unspecified; R00.0 Tachycardia, unspecified; D64.9 Anemia, unspecified; E83.39 Other disorders of phosphorus metabolism; E83.51 Hypocalcemia; I95.9 Hypotension, unspecified; I86.4 Gastric varices; K31.89 Other diseases of stomach and duodenum; K44.9 Diaphragmatic hernia without obstruction or gangrene; I12.9 Hypertensive chronic kidney disease with stage 1 through stage 4 chronic kidney disease, or unspecified chronic kidney disease; E11.22 Type 2 diabetes mellitus with diabetic chronic kidney disease; E11.40 Type 2 diabetes mellitus with diabetic neuropathy, unspecified; Z79.4 Long term (current) use of insulin; Z20.822 Contact with and (suspected) exposure to COVID-19; Z78.1 Physical restraint status; K70.11 Alcoholic hepatitis with ascites; E78.5 Hyperlipidemia, unspecified; E86.0 Dehydration; R60.1 Generalized edema
CPT/HCPCS: 36415; 36569; 49083; 70450; 70551; 71045; 74176; 76770; 80048; 80053; 80069; 80076; 80307; 80320; 80329; 81003; 81015; 82140; 82550; 82570; 82607; 82652; 82746; 82945; 82947; 83520; 83605; 83735; 83880; 83970; 84100; 84132; 84145; 84156; 84157; 84165; 84300; 84443; 84484; 84550; 85025; 85027; 85610; 85730; 86021; 86038; 86160; 86225; 86430; 86704; 86706; 86803; 86850; 86900; 86901; 87040; 87070; 87086; 87088; 87340; 87389; 87804; 89050; 92610; 93005; 96374; 96375; 99285; C9113; J0610; J0692; J1630; J1720; J1815; J2270; J2354; J2370; J2405; J2704; J2920; J2930; J3360; J3411; J3475; J3480; J3486; J7030; J7040; J7042; J7050; J7512; P9047; U0003